=== PATIENT | female | born 1965 | race Caucasian/White ===

== ENCOUNTER 2023-03-08 18:28 | Emergency (ER) | payer OTHER, SELFPAY ==
[2023-03-08 18:29] VITALS: BP 148/87; PULSE 92; RESP 18; TEMP 37; O2SAT 100
--- NOTE | 2023-03-08 19:11 | PC.NURSE ---
Report received from ELICEO Cline. Assumed care of patient at this time.
--- NOTE | 2023-03-08 20:01 | ED.GENADULT ---
HPI - General Adult General Chief complaint: Skin/Abscess/Foreign Body Stated complaint: pressure ulcers Time Seen by Provider: 03/08/23 18:59 History of Present Illness HPI narrative: This is a 58-year-old female history of neuropathy/neurologic weakness of unknown etiology (PCP suspects MS) presenting for pressure ulcer evaluation. Patient's her question on wheelchair deflated and over last 2 weeks she has developed ulcers on her sacrum area. Was concerned might be infected [facility]. The patient is asymptomatic with no fever chills nausea vomiting diarrhea. Patient has a family member with COVID is requesting a COVID Related Data Allergies Allergy/AdvReac Type Severity Reaction Status Date / Time morphine Allergy Intermediate Hives / Verified 03/08/23 18:40 Red Face penicillin G Allergy Intermediate Itching Verified 03/08/23 18:40 PMFSH Past Medical History Medical History Neuropathy Exam Narrative: APPEARANCE: No apparent distress. Head: atraumatic. EYES: EOMI, NOSE: Atraumatic NECK: Trachea midline RESPIRATORY: No increased rate of breathing CTAB CARDIOVASCULAR: RRR, ABDOMINAL: Non-distended MUSCULOSKELETAl: No obvious deformities NEURO: Alert. Lower extremity contractures SKIN:: Stage 2 decubitus ulcerations over the sacral area and left glute without evidence of infection PSYCHIATRIC: Normal affect Course Vital Signs Vital signs: Vital Signs Temperature 98.6 F 03/08/23 18:29 Pulse Rate 92 03/08/23 18:29 Respiratory Rate 18 03/08/23 18:29 Blood Pressure 148/87 H 03/08/23 18:29 Pulse Oximetry 100 03/08/23 18:29 Oxygen Delivery Room Air 03/08/23 18:29 Temperature 98.6 F 03/08/23 18:29 Pulse Rate 92 03/08/23 18:29 Respiratory Rate 18 03/08/23 18:29 Blood Pressure 148/87 H 03/08/23 18:29 Pulse Oximetry 100 03/08/23 18:29 Oxygen Delivery Room Air 03/08/23 18:29 Medical Decision Making MDM Narrative Medical decision making narrative: -Course: This is a 58-year-old female presenting for a wound check. She has 2 stage II decubitus ulcers on her sacrum and left glute. No evidence of infection. Patient will be discharged with primary care follow-up. She will need to arrange home nursing for wound care. Patient requested a COVID test due to COVID exposure. This has been ordered and results are pending. She is asymptomatic and can follow-up the results on the portal. 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 and the daughter has been taking over -Shared decision making / Disposition: Discharged Vital Signs Vital Signs: Vital Signs Temperature 98.6 F 03/08/23 18:29 Pulse Rate 92 03/08/23 18:29 Respiratory Rate 18 03/08/23 18:29 Blood Pressure 148/87 H 03/08/23 18:29 Pulse Oximetry 100 03/08/23 18:29 Oxygen Delivery Room Air 03/08/23 18:29 Temperature 98.6 F 03/08/23 18:29 Pulse Rate 92 03/08/23 18:29 Respiratory Rate 18 03/08/23 18:29 Blood Pressure 148/87 H 03/08/23 18:29 Pulse Oximetry 100 03/08/23 18:29 Oxygen Delivery Room Air 03/08/23 18:29 Discharge Plan Discharge Clinical Impression: Decubitus ulcer of sacral region, stage 2, Decubitus skin ulcer Patient Disposition: Home, Self-Care Condition: Stable Instructions: Antibiotic Form, Acute Wounds (DC) Additional Instructions: Please contact her primary care physician to arrange wound care. Please return if you develop fevers chills or bleeding wounds are getting infected. You can also follow-up with our wound care clinic who can be reached at the number listed below: [facility] [phone] Your requested a COVID test. You were asymptomatic. Your results will
[2023-03-08 20:18] VITALS: BP 139/85; PULSE 92; RESP 20; O2SAT 99
[2023-03-08 20:57] LABS: Influenza A QL RT-PCR Negative (Negative); Influenza B QL RT-PCR Negative (Negative); RSV RNA, RT-PCR Negative (Negative); SARS-CoV-2 RNA PCR Positive (Negative)
== END 2023-03-08 21:22 | disposition home or self-care (01) ==
PROVIDERS: Emergency Provider Emergency Medicine; PCP Internal Medicine
DX: L89.152 Pressure ulcer of sacral region, stage 2 (principal); Z20.822 Contact with and (suspected) exposure to COVID-19
CPT/HCPCS: 87637; 99283

== ENCOUNTER 2023-09-17 21:03 | Inpatient (IN) | payer MEDICARE, SELFPAY ==
[2023-09-17] VITALS (11 sets, daily range): BP systolic 112–140; BP diastolic 74–91; PULSE 67–78; RESP 12–20; TEMP 36.9; O2SAT 97–100
--- NOTE | ~2023-09-17 | CT_ITS ---
EXAMINATION: CT pelvis w con DATE: 09/17/2023 22:07 INDICATION: Coccyx ulcer TECHNIQUE: Computed tomography (CT) of the pelvis was performed with 100 mL Omnipaque-350 intravenous contrast. Automated exposure control and iterative reconstruction technique were employed. The dose -length product was 432.29 mGy-cm. COMPARISON: None FINDINGS: There is a 2.5 x 2.1 x 2.3 cm peripherally enhancing gas and fluid containing abscess along the right posterior margin of the coccyx with draining sinus tract extending to the skin surface at the caudal aspect of the gluteal cleft. The abscess contacts the coccyx however there is no evident cortical er osion to more specifically suggest osteomyelitis. There are additional decubitus abscesses posterior to the bilateral ischial tuberosities which measur es 3.1 x 2.0 x 2.9 cm on the left also with suggestion of a potential draining sinus tract extending to the skin ulceration. On the right this measures 3.3 x 0.9 cm in maximal transaxial dimensions and extends at least 2.0 cm craniocaudally and beyond the inferior margin of the [id number] without an evident draining tract or skin ulceration although this could not be excluded more caudal to the fie ld-of-view. As at the coccyx there is no evident cortical erosion at either the left right ischial tu berosity to more specifically suggest osteomyelitis. Bladder is normal. The uterus is not identified and has likely been surgically resected. Visualized p ortion of the bowels are unremarkable. No free fluid or abscess within the pelvis. No pathologically enlarged pelvic or inguinal lymphadenopathy. 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 IMPRESSION: 1. Decubitus abscesses without evident associated osteomyelitis along the coccyx and bilateral ischia l tuberosities. Reviewed, dictated and finalized at location A. IMPRESSION: 1. Decubitus abscesses without evident associated osteomyelitis along the coccy x and bilateral ischial tuberosities.
--- NOTE | 2023-09-17 21:45 | ED.SKABFB ---
HPI - Skin/Abscess/Foreign Bdy General Chief complaint: Skin/Abscess/Foreign Body Stated complaint: WORSENING PRESSURE SORES ABOVE HER COCCYX X WEEKS. Time Seen by Provider: 09/17/23 21:34 History of Present Illness HPI narrative: 58-year-old female with history of neuropathy was wheelchair-bound secondary to neuropathy presents to the emergency department for concerned for an infected coccyx ulceration today. Patient states she was hospitalized at [facility] in June 2023 for a few weeks due to the coccyx ulcer becoming infected. She did not have to undergo debridement at that time. She states the wound healed well with IV antibiotics and she was discharged home. States today when her was changing her dressing he noticed a was black and necrotic and so they came to the ED for further evaluation. She denies any pain to this area, fever, nausea or vomiting. she has no other complaints. Related Data Allergies Allergy/AdvReac Type Severity Reaction Status Date / Time morphine Allergy Intermediate Hives / Verified 03/08/23 18:40 Red Face penicillin G Allergy Intermediate Itching Verified 03/08/23 18:40 Review of Systems Review of Systems: CONSTITUTIONAL: Denies fever, chills, or sweats. EYES: Denies visual changes, redness, or discharge. ENT: Denies rhinorrhea, congestion, sore throat, or otalgia. CARDIOVASCULAR: Denies chest pain, palpitations, or edema. RESPIRATORY: Denies cough or dyspnea. GASTROINTESTINAL: Denies abdominal pain, nausea, vomiting, or diarrhea. GENITOURINARY: Denies dysuria or hematuria. SKIN: See HPI MUSCULOSKELETAL: Denies back pain, joint pain, or myalgia. NEUROLOGIC: Denies headache, numbness, or weakness. PSYCHIATRIC: Denies anxiety or depression. PMFSH Past Medical History Medical History Neuropathy Exam Narrative: GENERAL: Well-appearing, well-nourished, and in no acute distress. HEAD: Normocephalic, atraumatic. EYES: PERRLA and EOMI. ENT: Nares clear, no rhinorrhea or epistaxis. Mucous membranes moist. NECK: Supple. CHEST: Clear to auscultation. No respiratory distress. HEART: Regular rate and rhythm. No murmur heard. Normal peripheral pulses. ABDOMEN: Soft, nontender, nondistended, normal active bowel sounds. EXTREMITIES: Normal range of motion. No edema. SKIN: 4 cm stage III pressure ulcer for with a necrotic base, foul-smelling, warmth and purulence. No crepitus, induration or fluctuation. Approximately 4 cm stage II ulceration to the left ischial tuberosity with warmth, erythema and induration. No areas of fluctuation. NEURO: No focal deficits. Alert and oriented x3 Course Vital Signs Vital signs: Vital Signs Temperature 98.4 F 09/17/23 21:13 Pulse Rate 67 09/17/23 21:13 Respiratory Rate 13 09/17/23 21:13 Blood Pressure 131/76 09/17/23 21:13 Pulse Oximetry 100 09/17/23 21:13 Oxygen Delivery Room Air 09/17/23 21:13 Temperature 98.4 F 09/17/23 21:13 Pulse Rate 78 09/17/23 23:45 Respiratory Rate 15 09/17/23 23:45 Blood Pressure 140/74 09/17/23 23:45 Pulse Oximetry 97 09/17/23 23:45 Oxygen Delivery Room Air 09/17/23 21:13 MDM - Skin/Abscess/Foreign Bdy MDM Narrative Medical decision making narrative: 58-year-old female presents to emergency department with concerns for an infective coccyx ulcer or. Triage vitals stable. Exam significant for Be above. Workup is significant for no leukocytosis, no bandemia. ESR mildly elevated to 21. CRP is normal at 0.8. Chemistries with a potassium of 3.3, otherwise unremarkable. CT pelvis with contrast shows decubitus abscesses without associated osteomyelitis along the coccyx and bilateral ischial tuberosities. Patient was started on cefepime, Flagyl and vancomycin. I discussed imaging and results with her. She is requesting to be transferred to [facility] for continuity of care given she was just seen for infected ulc
[2023-09-17 21:55] LABS: Basophils Percent Auto 0.4 % (0.2-1.2); Eosinophils Absolute Auto 0.1 K/mm3 (0-0.3); Hematocrit 35.9 % (37.0-47.0); Hemoglobin 11.6 g/dL (12.0-15.0); Immature Granulocyte Absolute 0.01 K/mm3 (0.00-0.031); Immature Granulocyte Percent A 0.2 % (0-0.5); Lymphocytes Absolute Auto 1.11 K/mm3 (0.9-3.2); Lymphocytes Percent Auto 21.5 % (18.3-44.2); Mean Corpuscular HGB Conc 32.3 g/dl (32-36); Mean Corpuscular Hemoglobin 29.1 pg (26-34); Mean Corpuscular Volume 90.2 fl (80-100); Mean Platelet Volume 9.3 fl (7.4-10.4); Monocytes Absolute Auto 0.4 K/mm3 (0.1-0.6); Monocytes Percent Auto 7.5 % (2.6-8.5); Neutrophils Absolute Auto 3.6 K/mm3 (1.3-6.7); Neutrophils Percent Auto 69.4 % (45.5-73.1); Platelet Count Result 164 k/mm3 (150-375); Red Blood Count 3.98 M/mm3 (4.2-5.4); Red Cell Distribution Width 13.1 % (11.5-14.5); White Blood Count 5.2 K/mm3 (4.5-10.0)
[2023-09-17 22:07] LABS: Alanine Aminotransferase 10 U/L (6-35); Albumin Level 3.9 g/dL (3.5-5.1); Alkaline Phosphatase 71 U/L (38-126); Anion Gap 6 mmol/L (4-12); Aspartate Amino Transferase 18 U/L (14-36); Bilirubin,Total 0.6 mg/dL (0.2-1.3); Blood Urea Nitrogen 9 mg/dL (7-17); CRP 0.8 mg/dL (<1.0); Calcium 8.8 mg/dL (8.4-10.2); Carbon Dioxide 29 mmol/L (22-30); Chloride 105 mmol/L (98-107); Estimated Glomerular Filt Rate > 60; Glucose 95 mg/dL (65-110); Potassium 3.3 mmol/L (3.4-5.0); Sodium 140 mmol/L (137-145)
[2023-09-17 22:11] LABS: Estimated Glomerular Filt Rate > 60
[2023-09-17 22:18] LABS: Erythrocyte Sedimentation Rate 21 mm/hr (0-20)
[2023-09-17] MEDS: CEFEPIME 2 GM/NS 50 ML 2 GM/50 ML BAG IVPB (23:14)
[2023-09-17] MEDS: metroNIDAZOLE 500 MG/ISO 100ML 500 MG/100 ML BAG 100 MG IVPB (23:29)
[2023-09-18] VITALS (13 sets, daily range): BP systolic 90–145; BP diastolic 54–77; PULSE 66–95; RESP 13–20; O2SAT 95–100
[2023-09-18] MEDS: VANCOMYCIN 1,500 MG/NS 500 ML 1,500 MG/500 ML BAG 250 MG IVPB (00:31)
--- NOTE | 2023-09-18 01:14 | PC.NURSE ---
[facility] with an estimated wait time for a medical bed of one week.
[2023-09-18] MEDS: metroNIDAZOLE 500 MG/ISO 100ML 500 MG/100 ML BAG 100 MG IVPB ×3 (06:15→22:31)
[2023-09-18 06:37] LABS: Estimated Glomerular Filt Rate > 60
[2023-09-18] MEDS: ACETAMINOPHEN 500 MG TABLET 1000 MG PO ×2 (07:33→17:00)
--- NOTE | 2023-09-18 09:40 | PC.NURSE ---
Spoke with Marquita from [facility] for an update. Still no bed at this time.
[2023-09-18] MEDS: CEFEPIME 2 GM/NS 50 ML 2 GM/50 ML BAG IVPB ×2 (09:56→21:06)
[2023-09-18] MEDS: VANCOMYCIN 1,250 MG/NS 250 ML 1,250 MG/250 ML BAG 166.67 MG IVPB (19:16)
[2023-09-18 22:55] LABS: Basophils Percent Auto 0.2 % (0.2-1.2); Eosinophils Absolute Auto 0.1 K/mm3 (0-0.3); Eosinophils Percent Auto 1.7 % (0-4.4); Hematocrit 32.4 % (37.0-47.0); Hemoglobin 10.5 g/dL (12.0-15.0); Immature Granulocyte Absolute 0.01 K/mm3 (0.00-0.031); Immature Granulocyte Percent A 0.2 % (0-0.5); Lymphocytes Absolute Auto 0.35 K/mm3 (0.9-3.2); Lymphocytes Percent Auto 7.3 % (18.3-44.2); Mean Corpuscular HGB Conc 32.4 g/dl (32-36); Mean Corpuscular Hemoglobin 29.1 pg (26-34); Mean Corpuscular Volume 89.8 fl (80-100); Mean Platelet Volume 9.3 fl (7.4-10.4); Monocytes Absolute Auto 0.3 K/mm3 (0.1-0.6); Monocytes Percent Auto 6.9 % (2.6-8.5); Neutrophils Percent Auto 83.7 % (45.5-73.1); Platelet Count Result 123 k/mm3 (150-375); Red Blood Count 3.61 M/mm3 (4.2-5.4); Red Cell Distribution Width 13.2 % (11.5-14.5); White Blood Count 4.8 K/mm3 (4.5-10.0)
[2023-09-18 23:04] LABS: Alanine Aminotransferase 10 U/L (6-35); Albumin Level 3.4 g/dL (3.5-5.1); Alkaline Phosphatase 70 U/L (38-126); Anion Gap 5 mmol/L (4-12); Aspartate Amino Transferase 19 U/L (14-36); Bilirubin,Total 0.9 mg/dL (0.2-1.3); Blood Urea Nitrogen 15 mg/dL (7-17); Calcium 8.5 mg/dL (8.4-10.2); Carbon Dioxide 28 mmol/L (22-30); Chloride 105 mmol/L (98-107); Estimated Glomerular Filt Rate > 60; Glucose 96 mg/dL (65-110); Potassium 3.4 mmol/L (3.4-5.0); Sodium 138 mmol/L (137-145)
[2023-09-18 23:22] LABS: Lactic Acid Reflex 0.8 mmol/L (0.7-2.0)
--- NOTE | 2023-09-18 23:42 | PC.NURSE ---
this rn assumed care of patient. this rn took patient report from ELICEO Wells.
[2023-09-19 02:00] VITALS: BP 105/95; PULSE 88; RESP 15; O2SAT 100
--- NOTE | 2023-09-19 02:05 | PC.NURSE ---
pt called out stating she was in pain. pt requesting tylenol. edp Jasmyne rousseau verbal ordered during downtime 1000mg of tylenol. this rn used closed loop communication to confirm 1000mg tyenlol po to patient. Jasmyne rousseau confirmed.
[2023-09-19] MEDS: ACETAMINOPHEN 500 MG TABLET 1000 MG (03:01)
[2023-09-19 05:47] VITALS: BP 103/62; PULSE 88; RESP 20; O2SAT 99
[2023-09-19 06:02] LABS: Estimated Glomerular Filt Rate > 60
[2023-09-19] MEDS: metroNIDAZOLE 500 MG/ISO 100ML 500 MG/100 ML BAG 100 MG IVPB ×3 (06:46→22:10)
[2023-09-19] MEDS: CEFEPIME 2 GM/NS 50 ML 2 GM/50 ML BAG IVPB ×2 (09:52→21:27)
[2023-09-19 10:39] VITALS: BP 109/67; PULSE 88; RESP 20; TEMP 36.5; O2SAT 96
--- NOTE | 2023-09-19 11:01 | PC.NURSE ---
Attempted to call wound care.
[2023-09-19 11:14] LABS: Vancomycin Trough 10.6 ug/mL (10.0-20.0)
--- NOTE | 2023-09-19 12:00 | PC.NURSE ---
Mago from Wound Care called to say after her outpatient apts she will come down to assist with wound care, approx after 1330.
[2023-09-19] MEDS: VANCOMYCIN 1,250 MG/NS 250 ML 1,250 MG/250 ML BAG 166.67 MG IVPB (12:04)
[2023-09-19 15:26] VITALS: BP 121/79; PULSE 66; RESP 14; O2SAT 100
[2023-09-19 21:26] VITALS: BP 110/71; PULSE 79; RESP 17; O2SAT 98
[2023-09-19] MEDS: SOD HYPOCHLORITE 1/4 STRENGTH 473 ML 1 APPLIC TOPICAL (21:28)
--- NOTE | 2023-09-19 22:05 | PC.NURSE ---
[facility] [employer]acher called for update on patient status. She states a bed is still not available but will call with an update.
[2023-09-19 23:39] LABS: MRSA (PCR) NOT DETECTED (NOT DETECTE)
[2023-09-19 23:58] VITALS: BMI 20.7
--- NOTE | 2023-09-20 00:06 | ADMGEN ---
This patient, Vee Romero, was admitted to 3 Med Surg Room 310-01. Patient/family oriented to hospital policies and general routines including ID bracelet, bed and alarms, visiting hours, pain management, procedures, bathroom and other care routines, personal items, smoking policy, room service/diet, and visiting hours. Information on how to activate the Rapid Response Team has been discussed. Patient/Family are encouraged to report perceived risks to care and to ask questions if they do not understand what they are told or what they should do.
[2023-09-20 00:10] VITALS: BP 125/72; PULSE 75; RESP 18; TEMP 37.2; O2SAT 99
[2023-09-20] MEDS: VANCOMYCIN 1,250 MG/NS 250 ML 1,250 MG/250 ML BAG 166.67 MG IVPB (00:18)
[2023-09-20 04:45] VITALS: BP 109/48; PULSE 72; RESP 16; TEMP 36.5; O2SAT 98
--- NOTE | 2023-09-20 05:08 | PM.IMHP ---
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 The patient stated that she had never had a pressure wound in the 5 years that she has been wheelchair-bound until her cushion on her wheelchair malfunctioned and it took her a couple of months to get a new cushion. Since that time she has been fighting to heal her coccyx ulcers. This is made more difficult because patient is chronically incontinent of urine. She reports that she does not have any sensation in does not know when she is going to void. She thought she was doing pretty well with the ulcers until June when she developed cellulitis of a superficial skin lesion.. She was admitted to [place] in treated for cellulitis. She did not require any debridement or surgical intervention. Then on the her was changing the dressing on her coccyx ulcer when he noticed that it was black and necrotic so he brought her to the ER for further evaluation. She has generalized decreased sensation and denies any pain with the areas of ulceration. She has not had any fevers, chills, nausea or vomiting. She reports that she has had chronic decreased appetite since her diagnosis of demyelinating polyneuropathy a but her weight has been stable for the most part recently. She reports that she used to be obese and had obstructive sleep apnea but her sleep apnea resolved with weight loss. She reports that otherwise she is in good health. On the patient has CT of the pelvis with contrast which demonstrated sacral decubitus ulcer and decubitus abscesses overlying bilateral ischial tuberosities. The abscess on the left has a drainage sinus extending to the skin in measures 3.1 x 2 x 2.9. The 1 on the right measures 3.3 x 0.9 but does not have a sinus tract. Patient had MRSA screen performed which was negative. Wound culture performed in the ER demonstrated mixed organisms suggesting questionable significance of superficial wound culture with Gram-negative bacilli and many Gram-positive cocci. Of note there was no growth of Staph aureus, beta-hemolytic streptococci or Pseudomonas aeruginosa. The patient was started on cefepime Flagyl and vancomycin. Patient did have repeat labs on the that again did not demonstrate any evidence of leukocytosis. Review of Systems Review of Systems: 12 systems were reviewed with pertinent positives and negatives per HPI. Except as documented in the HPI, all other systems were reviewed and are negative. [facility] Past Medical History Medical History (Updated 09/20/23 @ 07:44 by Celeste Mcmahon DO) Chronic inflammatory demyelinating polyneuropathy Decubitus ulcer of coccygeal region Obstructive sleep apnea No longer on CPAP after weight loss Surgical History Surgical History (Updated 09/20/23 @ 07:44 by Celeste Mcmahon DO) History of bilateral knee replacement History of total abdominal hysterectomy and bilateral salpingo-oophorectomy Due to assist that they were concerned may have been causing the patient's autoimmune disorder Social History Social History (Updated 09/20/23 @ 07:51 by Celeste Mcmahon DO) Social History: The patient lives with her they have been since 1995. They raised a son and a daughter. 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 She is a lifelong nonsmoker. She does not drink alcohol or use illicit substances. She is dependent on wheelchair for mobilization. Code status: Full code (she would not want to be on long-term ventilation, tracheostomy or feeding tube) Surrogate decision maker: Smoking status: Never s
[2023-09-20 05:46] LABS: Estimated CRCL calculation 113 ml/min; Estimated Glomerular Filt Rate > 60
[2023-09-20 05:59] LABS: Basophils Percent Auto 0.5 % (0.2-1.2); Eosinophils Absolute Auto 0.1 K/mm3 (0-0.3); Eosinophils Percent Auto 3.5 % (0-4.4); Hematocrit 30.9 % (37.0-47.0); Immature Granulocyte Absolute 0.01 K/mm3 (0.00-0.031); Immature Granulocyte Percent A 0.3 % (0-0.5); Lymphocytes Absolute Auto 0.82 K/mm3 (0.9-3.2); Lymphocytes Percent Auto 22.3 % (18.3-44.2); Mean Corpuscular HGB Conc 32.4 g/dl (32-36); Mean Corpuscular Hemoglobin 28.9 pg (26-34); Mean Corpuscular Volume 89.3 fl (80-100); Mean Platelet Volume 9.8 fl (7.4-10.4); Monocytes Absolute Auto 0.6 K/mm3 (0.1-0.6); Neutrophils Absolute Auto 2.1 K/mm3 (1.3-6.7); Neutrophils Percent Auto 58.4 % (45.5-73.1); Platelet Count Result 125 k/mm3 (150-375); Red Blood Count 3.46 M/mm3 (4.2-5.4); Red Cell Distribution Width 13.2 % (11.5-14.5); White Blood Count 3.7 K/mm3 (4.5-10.0)
[2023-09-20] MEDS: metroNIDAZOLE 500 MG/ISO 100ML 500 MG/100 ML BAG 100 MG IVPB ×3 (06:02→20:27)
[2023-09-20] MEDS: DULoxetine HCL 30 MG CAPSULE.DR PO (08:03)
[2023-09-20] MEDS: ENOXAPARIN 40 MG/0.4 ML SYRINGE SUB-Q (08:03)
[2023-09-20] MEDS: MULTIVITAMINS THERAPEUTIC TAB (*BKC) 1 TABLET PO (08:03)
[2023-09-20] MEDS: CEFEPIME 2 GM/NS 50 ML 2 GM/50 ML BAG IVPB ×2 (08:03→20:26)
[2023-09-20 08:41] VITALS: O2SAT 99
[2023-09-20] MEDS: SOD HYPOCHLORITE 1/4 STRENGTH 473 ML 1 APPLIC TOPICAL ×2 (12:15→20:27)
[2023-09-20 14:00] VITALS: BP 106/72; PULSE 70; RESP 18; TEMP 37.3; O2SAT 98
--- NOTE | 2023-09-20 14:10 | PM.IMPN ---
Progress Note: A&P Assessment and Plan (1) Abscess: Code(s): L02.91 - Cutaneous abscess, unspecified Status: Acute Assessment and Plan: The patient has decubitus ulcers at of the coccyx and bilateral ischial tuberosities with bilateral ischial tuberosity demonstrating underlying abscess. Patient was started on empiric antibiotic therapy with cefepime Flagyl and vancomycin. MRSA screen is negative and her wound culture was negative for any staph organisms. Discontinue vancomycin but continue cefepime and Flagyl. Wound care consulted. Patient is awaiting bed placement at [place] for evaluation for debridement/I&D and continuity of care as the patient is established at that facility. Monitor CBC, BMP and monitor for signs of infection. (2) Decubitus ulcer of coccygeal region: Qualifiers: Pressure injury stage: unstageable Qualified Code(s): L89.150 - Pressure ulcer of sacral region, unstageable Code(s): L89.159 - Pressure ulcer of sacral region, unspecified stage Status: Acute Assessment and Plan: See #1 (3) Decubitus ulcer of ankle, stage 3: Qualifiers: Laterality: unspecified laterality Qualified Code(s): L89.503 - Pressure ulcer of unspecified ankle, stage 3 Code(s): L89.503 - Pressure ulcer of unspecified ankle, stage 3 Status: Acute Assessment and Plan: See #1 Wound care consulted. (4) Decubitus ulcer of ankle, stage 2: Qualifiers: Laterality: left Qualified Code(s): L89.522 - Pressure ulcer of left ankle, stage 2 Code(s): L89.502 - Pressure ulcer of unspecified ankle, stage 2 Status: Acute Assessment and Plan: See #1 Wound care consulted. (5) Chronic inflammatory demyelinating polyneuropathy: Code(s): G61.81 - Chronic inflammatory demyelinating polyneuritis Status: Acute Assessment and Plan: Will place Milton catheter is patient is completely incontinent of urine and was in saturated bedding at the time of my evaluation. Patient has chronic bowel and bladder incontinence due to her polyneuropathy. Subjective Date/time seen: 09/20/23 14:10 Interval history: Patient doing well. Waiting for transfer at this time. She does not complain of any pain. Exam Narrative: GENERAL: Comfortable, no acute distress HENMT: moist mucous membranes EYES: EOM intact b/l RESPIRATORY: clear to auscultation, no increased respiratory effort CARDIO: Regular rate and rhythm GI: soft, nontender, bowel sounds present SKIN/EXTREMITIES: Decubitus ulcer on the coccyx and bilateral ischial tuberosities, loss of muscle mass in the legs. NEURO: PROM intact, answers questions appropriately, A&O x4 Objective Data Vital Signs Vital Signs: Vital Signs - 24 hr 09/19/23 15:26 09/19/23 21:26 09/20/23 00:10 Temperature 99 F Pulse Rate 66 79 75 Respiratory Rate 14 17 18 Blood Pressure 121/79 110/71 125/72 Pulse Oximetry 100 98 99 Oxygen Delivery 09/20/23 04:45 09/20/23 08:41 09/20/23 08:00 Temperature 97.7 F Pulse Rate 72 Respiratory Rate 16 Blood Pressure 109/48 L Pulse Oximetry 98 99 Oxygen Delivery Room Air Room Air 09/20/23 14:00 Temperature 99.1 F Pulse Rate 70 Respiratory Rate 18 Blood Pressure 106/72 Pulse Oximetry 98 Oxygen Delivery Intake/Output Intake/Output: Intake & Output 09/17/23 09/18/23 09/19/23 09/20/23 23:59 23:59 23:59 23:59 Intake Total 50 1150 750 880 Balance 50 1150 750 880 Meds/Results Medications: Active Medications Generic Name Dose Route Start Last Admin Trade Name Freq PRN Reason Stop Dose Admin Duloxetine HCl 30 mg 09/20/23 09:00 09/20/23 08:03 Duloxetine Hcl 30 Mg Capsule.Dr PO 30 mg DAILY MESERET Administration Enoxaparin Sodium 40 mg 09/20/23 09:00 09/20/23 08:03 Enoxaparin 40 Mg/0.4 Ml Syringe SUB-Q 40 mg DAILY MESERET Administration Cefepime HCl 2
[2023-09-20 20:00] VITALS: PULSE 74; RESP 18; O2SAT 97
[2023-09-20 21:29] VITALS: BP 99/58; PULSE 71; RESP 16; TEMP 36.1; O2SAT 99
[2023-09-21] MEDS: metroNIDAZOLE 500 MG/ISO 100ML 500 MG/100 ML BAG 100 MG IVPB ×3 (05:04→21:33)
[2023-09-21 05:55] VITALS: BP 117/71; PULSE 75; RESP 16; TEMP 36.3; O2SAT 99
[2023-09-21 06:18] LABS: Hematocrit 34.1 % (37.0-47.0); Mean Corpuscular HGB Conc 32.3 g/dl (32-36); Mean Platelet Volume 9.3 fl (7.4-10.4); Platelet Count Result 143 k/mm3 (150-375); Red Blood Count 3.79 M/mm3 (4.2-5.4); Red Cell Distribution Width 13.2 % (11.5-14.5); White Blood Count 3.4 K/mm3 (4.5-10.0)
[2023-09-21 06:30] LABS: Anion Gap 7 mmol/L (4-12); Blood Urea Nitrogen 7 mg/dL (7-17); Calcium 8.7 mg/dL (8.4-10.2); Carbon Dioxide 25 mmol/L (22-30); Chloride 110 mmol/L (98-107); Estimated CRCL calculation 113 ml/min; Estimated Glomerular Filt Rate > 60; Glucose 84 mg/dL (65-110); Potassium 3.2 mmol/L (3.4-5.0); Sodium 142 mmol/L (137-145)
[2023-09-21] MEDS: MULTIVITAMINS THERAPEUTIC TAB (*BKC) 1 TABLET PO (08:42)
[2023-09-21] MEDS: CEFEPIME 2 GM/NS 50 ML 2 GM/50 ML BAG IVPB ×2 (08:42→20:05)
[2023-09-21] MEDS: DULoxetine HCL 30 MG CAPSULE.DR PO (08:42)
[2023-09-21] MEDS: POTASSIUM CHLORIDE 20 MEQ ER TABLET 40 MEQ PO (08:42)
[2023-09-21] MEDS: ENOXAPARIN 40 MG/0.4 ML SYRINGE SUB-Q (08:43)
[2023-09-21] MEDS: SOD HYPOCHLORITE 1/4 STRENGTH 473 ML 1 APPLIC TOPICAL ×2 (08:43→20:10)
[2023-09-21 13:58] VITALS: BP 106/68; PULSE 86; RESP 18; TEMP 37.1; O2SAT 98
--- NOTE | 2023-09-21 14:36 | PM.IMPN ---
Progress Note: A&P Assessment and Plan (1) Abscess: Code(s): L02.91 - Cutaneous abscess, unspecified Status: Acute Assessment and Plan: The patient has decubitus ulcers at of the coccyx and bilateral ischial tuberosities with bilateral ischial tuberosity demonstrating underlying abscess. Patient was started on empiric antibiotic therapy with cefepime Flagyl and vancomycin. MRSA screen is negative and her wound culture was negative for any staph organisms. Discontinue vancomycin but continue cefepime and Flagyl. Wound care consulted. Patient is awaiting bed placement at [place] for evaluation for debridement/I&D and continuity of care as the patient is established at that facility. Monitor CBC, BMP and monitor for signs of infection. (2) Decubitus ulcer of coccygeal region: Qualifiers: Pressure injury stage: unstageable Qualified Code(s): L89.150 - Pressure ulcer of sacral region, unstageable Code(s): L89.159 - Pressure ulcer of sacral region, unspecified stage Status: Acute Assessment and Plan: See #1 (3) Chronic inflammatory demyelinating polyneuropathy: Code(s): G61.81 - Chronic inflammatory demyelinating polyneuritis Status: Acute Assessment and Plan: Will place Milton catheter is patient is completely incontinent of urine and was in saturated bedding at the time of my evaluation. Patient has chronic bowel and bladder incontinence due to her polyneuropathy. Subjective Date/time seen: 09/21/23 14:36 Interval history: Patient with no complaints at this time waiting on transfer to [facility]. Exam Narrative: GENERAL: Comfortable, no acute distress HENMT: moist mucous membranes EYES: EOM intact b/l RESPIRATORY: clear to auscultation, no increased respiratory effort CARDIO: Regular rate and rhythm GI: soft, nontender, bowel sounds present SKIN/EXTREMITIES: Decubitus ulcer on the coccyx and bilateral ischial tuberosities, loss of muscle mass in the legs. NEURO: PROM intact, answers questions appropriately, A&O x4 Objective Data Vital Signs Vital Signs: Vital Signs - 24 hr 09/20/23 21:29 09/20/23 20:00 09/21/23 05:55 Temperature 97 F L 97.4 F L Pulse Rate 71 74 75 Respiratory Rate 16 18 16 Blood Pressure 99/58 L 117/71 Pulse Oximetry 99 97 99 Oxygen Delivery Room Air 09/21/23 08:40 09/21/23 13:58 Temperature 98.7 F Pulse Rate 86 Respiratory Rate 18 Blood Pressure 106/68 Pulse Oximetry 98 Oxygen Delivery Room Air Intake/Output Intake/Output: Intake & Output 09/18/23 09/19/23 09/20/23 09/21/23 23:59 23:59 23:59 23:59 Intake Total 2769 543 8741 1024 Output Total 200 200 Balance 2879 301 9605 824 Meds/Results Medications: Active Medications Generic Name Dose Route Start Last Admin Trade Name Zaki PRN Reason Stop Dose Admin Duloxetine HCl 30 mg 09/20/23 09:00 09/21/23 08:42 Duloxetine Hcl 30 Mg Capsule.Dr PO 30 mg DAILY MESERET Administration Enoxaparin Sodium 40 mg 09/20/23 09:00 09/21/23 08:43 Enoxaparin 40 Mg/0.4 Ml Syringe SUB-Q 40 mg DAILY MESERET Administration Cefepime HCl 2 gm in 50 mls @ 100 mls/hr 09/18/23 09:00 09/21/23 08:42 Maxipime 2 Gm/Ns 50 Ml IVPB 100 mls/hr Q12HR MESERET Administration Metronidazole 500 mg in 100 mls @ 100 mls/hr 09/18/23 06:00 09/21/23 14:10 Flagyl 500 Mg/Iso Soln 100 Ml IVPB 100 mls/hr Q8HR MESERET Administration Multivitamins Therapeutic 1 tablet 09/20/23 09:00 09/21/23 08:42 Multivitamins Therapeutic Tab (*Bkc) PO 1 tablet DAILY MESERET Administration Sodium Hypochlorite 1 applic 09/19/23 21:00 09/21/23 08:43 Sod Hypochlorite 1/4 Strength 473 Ml TOPICAL 1 applic Q12HR MESERET Administration Radiology Results: ITS Impressions Pelvis CT 09/17/23 22:23 IMPRESSION: 1. Decubitus abscesses without evident associated osteomyelitis along the coccyx and bilateral ischial tuberositie
[2023-09-21 20:31] VITALS: BP 91/62; PULSE 78; RESP 16; TEMP 36.4; O2SAT 96
[2023-09-22] MEDS: metroNIDAZOLE 500 MG/ISO 100ML 500 MG/100 ML BAG 100 MG IVPB (05:06)
[2023-09-22 05:38] VITALS: BP 118/61; PULSE 84; RESP 18; TEMP 36.7; O2SAT 96
[2023-09-22 06:04] LABS: Hematocrit 32.2 % (37.0-47.0); Hemoglobin 10.5 g/dL (12.0-15.0); Mean Corpuscular HGB Conc 32.6 g/dl (32-36); Mean Corpuscular Hemoglobin 29.2 pg (26-34); Mean Corpuscular Volume 89.4 fl (80-100); Mean Platelet Volume 9.3 fl (7.4-10.4); Platelet Count Result 146 k/mm3 (150-375); Red Cell Distribution Width 13.5 % (11.5-14.5)
[2023-09-22 06:28] LABS: Anion Gap 4 mmol/L (4-12); Blood Urea Nitrogen 8 mg/dL (7-17); Calcium 8.7 mg/dL (8.4-10.2); Carbon Dioxide 27 mmol/L (22-30); Chloride 108 mmol/L (98-107); Estimated CRCL calculation 113 ml/min; Estimated Glomerular Filt Rate > 60; Glucose 78 mg/dL (65-110); Potassium 3.7 mmol/L (3.4-5.0); Sodium 139 mmol/L (137-145)
[2023-09-22] MEDS: CEFEPIME 2 GM/NS 50 ML 2 GM/50 ML BAG IVPB ×2 (08:16→20:15)
[2023-09-22] MEDS: MULTIVITAMINS THERAPEUTIC TAB (*BKC) 1 TABLET PO (08:18)
[2023-09-22] MEDS: DULoxetine HCL 30 MG CAPSULE.DR PO (08:18)
[2023-09-22] MEDS: ENOXAPARIN 40 MG/0.4 ML SYRINGE SUB-Q (08:18)
--- NOTE | 2023-09-22 09:14 | P.PNIM_ITS ---
Progress Note: A&P Assessment and Plan (1) Abscess: Code(s): L02.91 - Cutaneous abscess, unspecified Status: Acute (2) Decubitus ulcer of coccygeal region: Qualifiers: Pressure injury stage: unstageable Qualified Code(s): L89.150 - Pressure ulcer of sacral region, unstageable Code(s): L89.159 - Pressure ulcer of sacral region, unspecified stage Status: Acute (3) Chronic inflammatory demyelinating polyneuropathy: Code(s): G61.81 - Chronic inflammatory demyelinating polyneuritis Status: Acute Plan Decubitus ulcer of coccygeal region: * The patient has decubitus ulcers at of the coccyx and bilateral ischial tuberosities with bilateral ischial tuberosity demonstrating underlying abscess. * Patient was started on empiric antibiotic therapy with cefepime Flagyl and vancomycin. * MRSA screen is negative and her wound culture was negative for any staph organisms. * Discontinue vancomycin but continue cefepime and Flagyl. * Wound care consulted. * Patient is awaiting bed placement at [facility] for evaluation for debridement/I&D and continuity of care as the patient is established at that facility. * Monitor CBC, BMP and monitor for signs of infection. * Q2hr turn Chronic inflammatory demyelinating polyneuropathy: * Will place Milton catheter is patient is completely incontinent of urine and was in saturated bedding at the time of my evaluation. * Patient has chronic bowel and bladder incontinence due to her polyneuropathy Code status: Full code per patient DVT prophylaxis: Lovenox Stress ulcer prophylaxis: Protonix 40 daily PT/OT notes: Disposition: Patient continues admission for decubitus wound needing surgical I&D plan is for transfer to [facility] for continuity of care. Time Spent With Patient Time with patient: 15 - 25 minutes Subjective Date/time seen: 09/22/23 09:14 Interval history: Admission: Medical record 58-year-old female with a medical history of chronic inflammatory demyelinating polyneuropathy resulting in wheelchair dependence for mobility presented to the ER due to concern over infected coccyx ulcer. The patient stated that she had never had a pressure wound in the 5 years that she has been wheelchair-bound until her cushion on her wheelchair malfunctioned and it took her a couple of months to get a new cushion. Since that time she has been fighting to heal her coccyx ulcers. This is made more difficult because patient is chronically incontinent of urine. She reports that she does not have any sensation in does not know when she is going to void. She thought she was doing pretty well with the ulcers until June when she developed cellulitis of a superficial skin lesion.. She was admitted to [facility] in treated for cellulitis. She did not require any debridement or surgical intervention. Then on the her was changing the dressing on her coccyx ulcer when he noticed that it was black and necrotic so he brought her to the ER for further evaluation. She has generalized decreased sensation and denies any pain with the areas of u lceration. She has not had any fevers, chills, nausea or vomiting. She reports that she has had chronic decreased appetite since her diagnosis of demyelinating polyneuropathy a but her weight has been stable for the most part recently. She reports that she used to be obese and had obstructive sleep apnea but her sleep apnea resolved with weight loss. She reports that otherwise she is in good h ealth. On the patient has CT of the pelvis with contrast
[2023-09-22] MEDS: metroNIDAZOLE 500 MG TABLET PO ×2 (12:48→20:20)
[2023-09-22] MEDS: SOD HYPOCHLORITE 1/4 STRENGTH 473 ML 1 APPLIC TOPICAL ×2 (12:50→20:18)
[2023-09-22 12:52] VITALS: BMI 20.7
[2023-09-22 14:00] VITALS: BP 114/70; PULSE 76; RESP 16; TEMP 36.9; O2SAT 100
[2023-09-22 20:18] VITALS: BP 97/64; PULSE 91; RESP 16; TEMP 36.6; O2SAT 99
[2023-09-23] MEDS: metroNIDAZOLE 500 MG TABLET PO ×3 (05:12→20:54)
[2023-09-23 05:28] VITALS: BP 110/67; PULSE 86; RESP 16; TEMP 36.1; O2SAT 98
[2023-09-23 05:44] LABS: Hematocrit 33.9 % (37.0-47.0); Hemoglobin 10.9 g/dL (12.0-15.0); Mean Corpuscular HGB Conc 32.2 g/dl (32-36); Mean Corpuscular Hemoglobin 29.1 pg (26-34); Mean Corpuscular Volume 90.6 fl (80-100); Mean Platelet Volume 9.4 fl (7.4-10.4); Platelet Count Result 152 k/mm3 (150-375); Red Blood Count 3.74 M/mm3 (4.2-5.4); Red Cell Distribution Width 13.4 % (11.5-14.5); White Blood Count 4.2 K/mm3 (4.5-10.0)
[2023-09-23 05:51] LABS: Alanine Aminotransferase 13 U/L (6-35); Albumin Level 3.3 g/dL (3.5-5.1); Alkaline Phosphatase 64 U/L (38-126); Anion Gap 5 mmol/L (4-12); Aspartate Amino Transferase 28 U/L (14-36); Bilirubin,Total 0.4 mg/dL (0.2-1.3); Blood Urea Nitrogen 10 mg/dL (7-17); Calcium 8.6 mg/dL (8.4-10.2); Carbon Dioxide 27 mmol/L (22-30); Chloride 108 mmol/L (98-107); Estimated CRCL calculation 113 ml/min; Estimated Glomerular Filt Rate > 60; Glucose 84 mg/dL (65-110); Potassium 3.6 mmol/L (3.4-5.0); Sodium 140 mmol/L (137-145)
[2023-09-23] MEDS: ENOXAPARIN 40 MG/0.4 ML SYRINGE SUB-Q (08:44)
[2023-09-23] MEDS: DULoxetine HCL 30 MG CAPSULE.DR PO (08:44)
[2023-09-23] MEDS: CEFEPIME 2 GM/NS 50 ML 2 GM/50 ML BAG IVPB ×2 (08:44→20:53)
[2023-09-23] MEDS: MULTIVITAMINS THERAPEUTIC TAB (*BKC) 1 TABLET PO (08:44)
[2023-09-23] MEDS: SOD HYPOCHLORITE 1/4 STRENGTH 473 ML 1 APPLIC TOPICAL ×2 (08:51→20:54)
--- NOTE | 2023-09-23 08:56 | PM.IMPN ---
Progress Note: A&P Assessment and Plan (1) Abscess: Code(s): L02.91 - Cutaneous abscess, unspecified Status: Acute (2) Decubitus ulcer of coccygeal region: Qualifiers: Pressure injury stage: unstageable Qualified Code(s): L89.150 - Pressure ulcer of sacral region, unstageable Code(s): L89.159 - Pressure ulcer of sacral region, unspecified stage Status: Acute (3) Chronic inflammatory demyelinating polyneuropathy: Code(s): G61.81 - Chronic inflammatory demyelinating polyneuritis Status: Acute Plan Decubitus ulcer of coccygeal region: The patient has decubitus ulcers at of the coccyx and bilateral ischial tuberosities with bilateral ischial tuberosity demonstrating underlying abscess. Patient was started on empiric antibiotic therapy with cefepime Flagyl and vancomycin. MRSA screen is negative and her wound culture was negative for any staph organisms. Discontinue vancomycin but continue cefepime and Flagyl. Wound care consulted. Patient is awaiting bed placement at [facility] for evaluation for debridement/I&D and continuity of care as the patient is established at that facility. Monitor CBC, BMP and monitor for signs of infection. Q2hr turn Chronic inflammatory demyelinating polyneuropathy: Will place Milton catheter is patient is completely incontinent of urine and was in saturated bedding at the time of my evaluation. Patient has chronic bowel and bladder incontinence due to her polyneuropathy Code status: Full code per patient DVT prophylaxis: Lovenox Stress ulcer prophylaxis: Protonix 40 daily PT/OT notes: Disposition: Patient continues admission for decubitus wound needing surgical I&D plan is for transfer to [facility] for continuity of care. Time Spent With Patient Time with patient: 15 - 25 minutes Subjective Date/time seen: 09/23/23 08:56 Interval history: Admission: Medical record 58-year-old female with a medical history of chronic inflammatory demyelinating polyneuropathy resulting in wheelchair dependence for mobility presented to the ER due to concern over infected coccyx ulcer. The patient stated that she had never had a pressure wound in the 5 years that she has been wheelchair-bound until her cushion on her wheelchair malfunctioned and it took her a couple of months to get a new cushion. Since that time she has been fighting to heal her coccyx ulcers. This is made more difficult because patient is chronically incontinent of urine. She reports that she does not have any sensation in does not know when she is going to void. She thought she was doing pretty well with the ulcers until June when she developed cellulitis of a superficial skin lesion.. She was admitted to [facility] in treated for cellulitis. She did not require any debridement or surgical intervention. Then on the her was changing the dressing on her coccyx ulcer when he noticed that it was black and necrotic so he brought her to the ER for further evaluation. She has generalized decreased sensation and denies any pain with the areas of ulceration. She has not had any fevers, chills, nausea or vomiting. She reports that she has had chronic decreased appetite since her diagnosis of demyelinating polyneuropathy a but her weight has been stable for the most part recently. She reports that she used to be obese and had obstructive sleep apnea but her sleep apnea resolved with weight loss. She reports that otherwise she is in good health. On the patient has CT of the pelvis with contrast which demonstrated sacral decubitus ulcer and decubitus abscesses overlying bilateral ischial tuberosities. The abscess on the left has a drainage sinus extending to the skin in measures 3.1 x 2 x 2.9. The 1 on the right measures 3.3 x 0.9 but does not have a sinus tract. Patient had MRSA screen performed which was negative. Wound culture performed in the ER basilia
[2023-09-23 14:00] VITALS: BP 96/69; PULSE 87; RESP 14; TEMP 37.1; O2SAT 99
[2023-09-23 21:24] VITALS: BP 100/57; PULSE 76; RESP 13; TEMP 36.5; O2SAT 100
[2023-09-24] MEDS: metroNIDAZOLE 500 MG TABLET PO ×2 (05:04→13:47)
[2023-09-24 05:23] LABS: Hemoglobin 10.7 g/dL (12.0-15.0); Mean Corpuscular HGB Conc 31.5 g/dl (32-36); Mean Corpuscular Hemoglobin 28.8 pg (26-34); Mean Corpuscular Volume 91.4 fl (80-100); Mean Platelet Volume 9.9 fl (7.4-10.4); Platelet Count Result 178 k/mm3 (150-375); Red Blood Count 3.72 M/mm3 (4.2-5.4); Red Cell Distribution Width 13.6 % (11.5-14.5)
[2023-09-24 05:41] LABS: Alanine Aminotransferase 15 U/L (6-35); Albumin Level 3.2 g/dL (3.5-5.1); Alkaline Phosphatase 63 U/L (38-126); Anion Gap 3 mmol/L (4-12); Aspartate Amino Transferase 31 U/L (14-36); Bilirubin,Total 0.3 mg/dL (0.2-1.3); Blood Urea Nitrogen 11 mg/dL (7-17); Calcium 8.7 mg/dL (8.4-10.2); Carbon Dioxide 29 mmol/L (22-30); Chloride 106 mmol/L (98-107); Estimated CRCL calculation 113 ml/min; Estimated Glomerular Filt Rate > 60; Glucose 85 mg/dL (65-110); Potassium 3.7 mmol/L (3.4-5.0); Sodium 138 mmol/L (137-145)
[2023-09-24 05:54] VITALS: BP 112/68; PULSE 83; RESP 13; TEMP 36.2; O2SAT 100
--- NOTE | 2023-09-24 07:55 | PM.IMPN ---
Progress Note: A&P Assessment and Plan (1) Abscess: Code(s): L02.91 - Cutaneous abscess, unspecified Status: Acute (2) Decubitus ulcer of coccygeal region: Qualifiers: Pressure injury stage: unstageable Qualified Code(s): L89.150 - Pressure ulcer of sacral region, unstageable Code(s): L89.159 - Pressure ulcer of sacral region, unspecified stage Status: Acute (3) Chronic inflammatory demyelinating polyneuropathy: Code(s): G61.81 - Chronic inflammatory demyelinating polyneuritis Status: Acute Plan Decubitus ulcer of coccygeal region: The patient has decubitus ulcers at of the coccyx and bilateral ischial tuberosities with bilateral ischial tuberosity demonstrating underlying abscess. Patient was started on empiric antibiotic therapy with cefepime Flagyl and vancomycin. MRSA screen is negative and her wound culture was negative for any staph organisms. Discontinue vancomycin but continue cefepime and Flagyl. Wound care consulted. Patient is awaiting bed placement at [facility] for evaluation for debridement/I&D and continuity of care as the patient is established at that facility. Monitor CBC, BMP and monitor for signs of infection. Q2hr turn 09/23 General surgery consulted Chronic inflammatory demyelinating polyneuropathy: Will place Milton catheter is patient is completely incontinent of urine and was in saturated bedding at the time of my evaluation. Patient has chronic bowel and bladder incontinence due to her polyneuropathy Code status: Full code per patient DVT prophylaxis: Lovenox Stress ulcer prophylaxis: Protonix 40 daily PT/OT notes: Disposition: Patient continues admission for decubitus wound long wait for bed at [facility] will have general surgery evaluate for possible debridement if no need for surgery and discharged home follow-up in the Wound Clinic. Time Spent With Patient Time with patient: 15 - 25 minutes Subjective Date/time seen: 09/24/23 07:55 Interval history: Admission: Medical record 58-year-old female with a medical history of chronic inflammatory demyelinating polyneuropathy resulting in wheelchair dependence for mobility presented to the ER due to concern over infected coccyx ulcer. The patient stated that she had never had a pressure wound in the 5 years that she has been wheelchair-bound until her cushion on her wheelchair malfunctioned and it took her a couple of months to get a new cushion. Since that time she has been fighting to heal her coccyx ulcers. This is made more difficult because patient is chronically incontinent of urine. She reports that she does not have any sensation in does not know when she is going to void. She thought she was doing pretty well with the ulcers until June when she developed cellulitis of a superficial skin lesion.. She was admitted to [facility] in treated for cellulitis. She did not require any debridement or surgical intervention. Then on the her was changing the dressing on her coccyx ulcer when he noticed that it was black and necrotic so he brought her to the ER for further evaluation. She has generalized decreased sensation and denies any pain with the areas of ulceration. She has not had any fevers, chills, nausea or vomiting. She reports that she has had chronic decreased appetite since her diagnosis of demyelinating polyneuropathy a but her weight has been stable for the most part recently. She reports that she used to be obese and had obstructive sleep apnea but her sleep apnea resolved with weight loss. She reports that otherwise she is in good health. On the patient has CT of the pelvis with contrast which demonstrated sacral decubitus ulcer and decubitus abscesses overlying bilateral ischial tuberosities. The abscess on the left has a drainage sinus extending to the skin in measures 3.1 x 2 x 2.9. The 1 on the right measures 3.3 x 0.9 but does n
[2023-09-24] MEDS: CEFEPIME 2 GM/NS 50 ML 2 GM/50 ML BAG IVPB (09:42)
[2023-09-24] MEDS: DULoxetine HCL 30 MG CAPSULE.DR PO (09:43)
[2023-09-24] MEDS: ENOXAPARIN 40 MG/0.4 ML SYRINGE SUB-Q (09:43)
[2023-09-24] MEDS: MULTIVITAMINS THERAPEUTIC TAB (*BKC) 1 TABLET PO (09:43)
--- NOTE | 2023-09-24 12:55 | PM.CNGS ---
Assessment and Plan Assessment and plan (1) Decubitus ulcer of coccygeal region: Qualifiers: Pressure injury stage: unstageable Qualified Code(s): L89.150 - Pressure ulcer of sacral region, unstageable Code(s): L89.159 - Pressure ulcer of sacral region, unspecified stage Status: Acute Assessment and Plan: The patient has a chronic unstageable sacral decubitus ulcer. There is a small area of firm necrotic tissue, but no evidence of active infection on exam or any surrounding cellulitis. No purulent drainage or obvious fluctuant areas in the location of the abscesses noted on the pelvis CT last week. There is no drainage coming from any sinus tract on exam. Her white blood cell count is normal and she is afebrile and nontoxic appearing. She is not having any pain or tenderness in these areas. We will have the wound care nurse come by to see the patient again and reassess wound care. Could consider applying Santyl to the sacral wound for enzymatic debridement. We would recommend continued antibiotic therapy and monitoring. No indication for any surgical intervention at this time. If she were to develop a fever, leukocytosis, or purulent drainage/changes in the wound, then surgical management can be re-evaluated. (2) Abscess: Code(s): L02.91 - Cutaneous abscess, unspecified Status: Acute Assessment and Plan: CT evidence of multiple small abscesses noted adjacent to the coccyx and near bilateral ischial tuberosities. See plan above. Continue antibiotics and monitoring. Okay to transition to oral antibiotics and have outpatient follow-up. She can either follow-up in our office to monitor the abscesses or follow-up with [facility], but these should be followed out with a repeat pelvis CT in the next few weeks. (3) Decubitus ulcer of ischial area: Code(s): L89.309 - Pressure ulcer of unspecified buttock, unspecified stage Status: Acute Assessment and Plan: Clinically, the wound appears stable and chronic with no evidence of infection. Continue local wound care to bilateral ischial wounds. Wounds are healing well. (4) Chronic inflammatory demyelinating polyneuropathy: Code(s): G61.81 - Chronic inflammatory demyelinating polyneuritis Status: Acute Plan I have discussed the patient's case and plan of care with Dr. Osorio. History of Present Illness Consult details Consult date: 09/24/23 Reason for consult: other (Sacral decubitus ulcer) Requesting physician: Melva Javier, KARISSA Narrative: This is a 58-year-old woman who has a history of chronic inflammatory demyelinating polyneuropathy resulting in wheelchair dependence for mobility. Our service has been consulted for surgical evaluation of a decubitus ulcer. She lives at home with her , who helps care for her and has been performing dressing changes for her wounds. She reports having a sacral wound since January 2023 that they had been dealing with at home up until around June of 2023. She was admitted to [facility] on 2 different occasions this year. The first hospitalization was for her neuropathy and the second was reportedly for her sacral wound. The patient denies having any surgical debridement or intervention on her wounds. Per the electronic medical record, she received IV antibiotic therapy and was discharged back home. She denies any long-term IV therapy for osteomyelitis. One week ago, her noticed some necrotic tissue in the sacral wound when doing her dressing change, which prompted her to go to the ER for evaluation. In the ER, labs showed a white blood cell count of 5200. Pelvis CT showed decubitus abscesses without evident associated osteomyelitis along the coccyx and bilateral ischial tuberosities measuring 2-3 cm (measurements in the radiologist report). No CT evidence of osteomyelitis. While in the ER, they had contacted the general surgeon who recommended transfer to [facility]
[2023-09-24] MEDS: SOD HYPOCHLORITE 1/4 STRENGTH 473 ML 1 APPLIC TOPICAL (13:47)
[2023-09-24 14:00] VITALS: BP 112/72; PULSE 75; RESP 16; TEMP 36.6; O2SAT 100
--- NOTE | 2023-09-24 14:15 | PM.DS ---
DS: Admitting Diagnosis Discharge Date 09/24/2023 Admitting Diagnosis Decubitus wound DS: Discharge Diagnosis Discharge Diagnosis (1) Abscess: Code(s): L02.91 - Cutaneous abscess, unspecified Status: Acute (2) Decubitus ulcer of coccygeal region: Qualifiers: Pressure injury stage: unstageable Qualified Code(s): L89.150 - Pressure ulcer of sacral region, unstageable Code(s): L89.159 - Pressure ulcer of sacral region, unspecified stage Status: Acute (3) Chronic inflammatory demyelinating polyneuropathy: Code(s): G61.81 - Chronic inflammatory demyelinating polyneuritis Status: Acute Plan Decubitus ulcer of coccygeal region: The patient has decubitus ulcers at of the coccyx and bilateral ischial tuberosities with bilateral ischial tuberosity demonstrating underlying abscess. Patient was started on empiric antibiotic therapy with cefepime Flagyl and vancomycin. MRSA screen is negative and her wound culture was negative for any staph organisms. Discontinue vancomycin but continue cefepime and Flagyl. Wound care consulted. Patient is awaiting bed placement at [facility] for evaluation for debridement/I&D and continuity of care as the patient is established at that facility. Monitor CBC, BMP and monitor for signs of infection. Q2hr turn 09/23 General surgery consulted Chronic inflammatory demyelinating polyneuropathy: Will place Milton catheter is patient is completely incontinent of urine and was in saturated bedding at the time of my evaluation. Patient has chronic bowel and bladder incontinence due to her polyneuropathy Disposition: Discharge to home 2 weeks ABX therapy then follow-up CT with follow-up in the wound clinic and with general surgery DS: Summary Hospital Course Reason for hospitalization: Decubitus wound Hospital Course: Interval history: Admission: Medical record 58-year-old female with a medical history of chronic inflammatory demyelinating polyneuropathy resulting in wheelchair dependence for mobility presented to the ER due to concern over infected coccyx ulcer. The patient stated that she had never had a pressure wound in the 5 years that she has been wheelchair-bound until her cushion on her wheelchair malfunctioned and it took her a couple of months to get a new cushion. Since that time she has been fighting to heal her coccyx ulcers. This is made more difficult because patient is chronically incontinent of urine. She reports that she does not have any sensation in does not know when she is going to void. She thought she was doing pretty well with the ulcers until June when she developed cellulitis of a superficial skin lesion.. She was admitted to [facility] in treated for cellulitis. She did not require any debridement or surgical intervention. Then on the her was changing the dressing on her coccyx ulcer when he noticed that it was black and necrotic so he brought her to the ER for further evaluation. She has generalized decreased sensation and denies any pain with the areas of ulceration. She has not had any fevers, chills, nausea or vomiting. She reports that she has had chronic decreased appetite since her diagnosis of demyelinating polyneuropathy a but her weight has been stable for the most part recently. She reports that she used to be obese and had obstructive sleep apnea but her sleep apnea resolved with weight loss. She reports that otherwise she is in good health. On the patient has CT of the pelvis with contrast which demonstrated sacral decubitus ulcer and decubitus abscesses overlying bilateral ischial tuberosities. The abscess on the left has a drainage sinus extending to the skin in measures 3.1 x 2 x 2.9. The 1 on the right measures 3.3 x 0.9 but does not have a sinus tract. Patient had MRSA screen performed which was negative. Wound culture performed in the ER demonstrated mixed organ
[2023-09-24] MEDS: COLLAGENASE OINT 30 GM TUBE 1 APPLIC TOPICAL (19:04)
== END 2023-09-24 20:05 | disposition home or self-care (01) | DRG 602 ==
LOC: ANHED 09-18 01:08 → ANH3MEDSUR 09-19 22:46
PROVIDERS: Emergency Medicine; Internal Medicine Critical Care Medicine; Admitting Provider Internal Medicine; Emergency Provider Physician Assistant; PCP Internal Medicine; Visit Provider Nurse Practitioner Family
DX: L02.818 Cutaneous abscess of other sites (principal); L89.323 Pressure ulcer of left buttock, stage 3; G61.81 Chronic inflammatory demyelinating polyneuritis; L89.150 Pressure ulcer of sacral region, unstageable; G47.33 Obstructive sleep apnea (adult) (pediatric); Z96.653 Presence of artificial knee joint, bilateral; L89.316 Pressure-induced deep tissue damage of right buttock; R32 Unspecified urinary incontinence; R15.9 Full incontinence of feces; Z99.3 Dependence on wheelchair; Z90.722 Acquired absence of ovaries, bilateral; Z90.710 Acquired absence of both cervix and uterus
CPT/HCPCS: 36415; 72193; 80048; 80053; 80202; 82565; 83605; 85025; 85027; 85652; 86140; 87040; 87070; 87205; 87641; 96365; 96366; 96367; 99285; A9270; G0378; J0692; J1650; J1836; J3370; Q9967

== ENCOUNTER 2023-10-27 10:03 | Inpatient (IN) | payer MEDICARE, SELFPAY ==
[2023-10-27] VITALS (11 sets, daily range): BP systolic 110–140; BP diastolic 49–97; PULSE 78–97; RESP 14–21; TEMP 36.5–37.7; O2SAT 96–100; BMI 20.2
--- NOTE | ~2023-10-27 | CT_ITS ---
CT of the Abdomen and Pelvis: Indication: Sacral ulcer Technique: 2.5 mm axial scans were obtained through the abdomen and pelvis following intravenous adm inistration of 100 cc of Omnipaque 350. Dose reduction technique was used on this scan by utilizing a utomated exposure control and iterative reconstruction technique. The dose-length product (DLP) was 2 23.72 mGy-cm. COMPARISON: 09/17/2023 Findings: Scans through the lung bases are unremarkable. The liver, spleen, pancreas, adrenals and kidneys are within normal limits. Gallbladder distended wit h large gallstones present, but no gallbladder wall thickening or pericholecystic inflammatory change .. There are atherosclerotic calcifications of the aorta. No lymphadenopathy. No bowel obstruction or bowel wall thickening. There is prominent stool at the rectum. Images through the pelvis were performed. Urinary bladder unremarkable. No pelvic mass evident. There is a large decubitus ulcer superficial to the left ischial tuberosity. This extends down to the bone. There is probable decubitus ulcer at the posterior aspect of the proximal right thigh with flu id collection or ulcer wound. There is additional midline sacral ulcer extending to the distal sacrum /coccyx. There is erosive change at the posterior aspect of the distal sacrum, compatible sacral oste omyelitis. There is extensive infiltration of presacral soft tissues, which could reflect extension o f soft tissue infection. No definite soft tissue abscess evident. Impression: Decubitus ulcers at the bilateral ischial tuberosity regions, left larger than right, as well as cortes tional midline decubitus ulcer extending to the distal sacrum/coccyx. Associated distal sacral osteomyelitis with erosive change. Extensive infiltration of presacral soft tissues, which could reflect soft tissue infectious process. Cholelithiasis. Reviewed, dictated and finalized at [facility]. Impression: Decubitus ulcers at the bilateral ischial tuberosity regions, left larger than right, as well as additional midline decubitus ulcer extending to the distal sa cory/coccyx. Associated distal sacral osteomyelitis with erosive change. Extensive infiltration of presacral soft tissues, which could reflect soft tiss ue infectious process. Cholelithiasis.
--- NOTE | 2023-10-27 10:09 | ECG_ITS ---
Test Date: 2023-10-27 10:27:10 Measurements Intervals [place] Rate: 94 P: 67 ME: 166 QRS: -38 QRSD: 96 T: 53 QT: 362 QTc: 453 Interpretive Statements SINUS RHYTHM LEFT AXIS DEVIATION LOW QRS VOLTAGE IN PRECORDIAL LEADS PATTERN CONSISTENT WITH PULMONARY DISEASE VOLTAGE CRITERIA FOR LVH BASELINE ARTIFACT- I, III, AVR, V1-V2 BORDERLINE ECG No previous ECG available for comparison Electronically Signed On 10-27-2023 10:57:03 CDT by Marco A Barber D.O.
[2023-10-27] MEDS: SODIUM CHLORIDE 0.9% IV 2,000 ML 999 ML IV CONT (10:21)
[2023-10-27 10:23] LABS: Glucose Point of Care 89 mg/dl (65-105)
[2023-10-27 10:38] LABS: Basophils Percent Auto 0.3 % (0.2-1.2); Eosinophils Percent Auto 0.1 % (0-4.4); Hematocrit 38.9 % (37.0-47.0); Hemoglobin 12.3 g/dL (12.0-15.0); Immature Granulocyte Absolute 0.05 K/mm3 (0.00-0.031); Immature Granulocyte Percent A 0.6 % (0-0.5); Lymphocytes Absolute Auto 0.69 K/mm3 (0.9-3.2); Lymphocytes Percent Auto 7.7 % (18.3-44.2); Mean Corpuscular HGB Conc 31.6 g/dl (32-36); Mean Corpuscular Hemoglobin 28.6 pg (26-34); Mean Corpuscular Volume 90.5 fl (80-100); Mean Platelet Volume 8.6 fl (7.4-10.4); Monocytes Absolute Auto 0.8 K/mm3 (0.1-0.6); Monocytes Percent Auto 8.5 % (2.6-8.5); Neutrophils Absolute Auto 7.4 K/mm3 (1.3-6.7); Neutrophils Percent Auto 82.8 % (45.5-73.1); Platelet Count Result 262 k/mm3 (150-375); Red Cell Distribution Width 13.9 % (11.5-14.5); White Blood Count 8.9 K/mm3 (4.5-10.0)
[2023-10-27 10:39] LABS: Estimated CRCL calculation 110 ml/min; Estimated Glomerular Filt Rate > 60
[2023-10-27 10:48] LABS: Lactic Acid Reflex 0.9 mmol/L (0.7-2.0)
[2023-10-27 10:52] LABS: INR 1.1; Prothrombin Time 14.3 Seconds (11.1-14.7)
[2023-10-27 10:54] LABS: Partial Thromboplastin Time 39.8 Seconds (22.3-36.8)
[2023-10-27 11:08] LABS: Erythrocyte Sedimentation Rate 55 mm/hr (0-20)
[2023-10-27 11:14] LABS: Influenza A QL RT-PCR Negative (Negative); Influenza B QL RT-PCR Negative (Negative); RSV RNA, RT-PCR Negative (Negative); SARS-CoV-2 RNA PCR Negative (Negative)
[2023-10-27 11:39] LABS: Alanine Aminotransferase 12 U/L (6-35); Albumin Level 3.9 g/dL (3.5-5.1); Alkaline Phosphatase 191 U/L (38-126); Anion Gap 18 mmol/L (4-12); Aspartate Amino Transferase 19 U/L (14-36); Bilirubin,Total 0.9 mg/dL (0.2-1.3); Blood Urea Nitrogen 5 mg/dL (7-17); Calcium 9.1 mg/dL (8.4-10.2); Carbon Dioxide 21 mmol/L (22-30); Chloride 96 mmol/L (98-107); Estimated CRCL calculation 110 ml/min; Estimated Glomerular Filt Rate > 60; Glucose 96 mg/dL (65-110); Lipase 23 U/L (23-300); Magnesium 1.8 mg/dL (1.6-2.3); Potassium 3.2 mmol/L (3.4-5.0); Sodium 135 mmol/L (137-145)
[2023-10-27 11:44] LABS: CRP 32.6 mg/dL (<1.0)
[2023-10-27] MEDS: ACETAMINOPHEN 500 MG TABLET 1000 MG PO (12:13)
[2023-10-27 12:19] LABS: Appearance Urine Clear (Clear); Bacteria Urine None Seen /hpf; Bilirubin Urine Negative (Negative); Blood Urine Negative (Negative); Color Urine Yellow (Yellow); Glucose Urine UA Negative (Negative); Hyaline Casts Urine Present /lpf; Ketones Urine 4+ mg/dL (Negative); Leukocyte Esterase Ur Negative LEU/UL (Negative); Mucus Urine Present /lpf; Need Manual Microscopic Reviewed; Nitrate Urine Negative (Negative); Non Pathogenic Casts >20; Protein Urine 1+ mg/dL (Negative); Squamous Epithelial Cell Urine Occasional /hpf (Few); WBC Urine 0-5 /hpf (0-3)
[2023-10-27 12:20] LABS: Add Urine Microscopic? YES
[2023-10-27] MEDS: metroNIDAZOLE 500 MG/ISO 100ML 500 MG/100 ML BAG 100 MG IVPB ×3 (12:27→23:31)
--- NOTE | 2023-10-27 12:27 | ED.GENADULT ---
HPI - General Adult General Chief complaint: Wound/Laceration Stated complaint: pressure sore to back Time Seen by Provider: 10/27/23 10:05 History of Present Illness HPI narrative: This is a 58-year-old bed-bound female due to neuropathy presenting for an infected decubitus ulcer. Patient does not see wound care. Her is her primary fundraising sale representative. He noticed that her wound was turning black and had a foul smell. He then sent her to the ER to be evaluated. At the moment the patient has no complaints outside of decreased appetite for the last several days. Related Data Home Medications Medication Instructions Recorded Confirmed duloxetine 30 mg capsule,delayed 30 mg PO DAILY 09/20/23 09/20/23 release multivitamin with folic acid 400 1 tablet PO DAILY 09/20/23 09/20/23 mcg tablet (Daily-Sidra (with folic acid)) Allergies Allergy/AdvReac Type Severity Reaction Status Date / Time morphine Allergy Intermediate Hives / Verified 09/18/23 07:07 Red Face penicillin G Allergy Intermediate Itching Verified 09/22/23 09:27 [facility] Past Medical History Medical History Chronic inflammatory demyelinating polyneuropathy Decubitus ulcer of coccygeal region Obstructive sleep apnea No longer on CPAP after weight loss Surgical History Surgical History History of bilateral knee replacement History of total abdominal hysterectomy and bilateral salpingo-oophorectomy Due to assist that they were concerned may have been causing the patient's autoimmune disorder Social History Social History Social History: The patient lives with her they have been since 1995. They raised a son and a daughter. 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 She is a lifelong nonsmoker. She does not drink alcohol or use illicit substances. She is dependent on wheelchair for mobilization. Code status: Full code (she would not want to be on long-term ventilation, tracheostomy or feeding tube) Surrogate decision maker: Smoking status: Never smoker Alcohol intake: never Substance use: never Substance use type: does not use Do You Feel Safe in your Home?: No Lack of Transportation: No Lack of Food: Never True Current Housing: I Have Housing Concerned About Future Housing: No Difficulty Paying Gas/Electric Bills: No Difficulty Paying for Meds: No Currently Unemployed: No Education: Master's Degree or Higher Difficulty w/ Childcare or Family Care: No Spiritual care concerns: No Exam Narrative: APPEARANCE: No apparent distress. Head: atraumatic. EYES: EOMI, NOSE: Atraumatic NECK: Trachea midline RESPIRATORY: No increased rate of breathing clear auscultation CARDIOVASCULAR: RRR, no peripheral edema ABDOMINAL: Non-distended soft nontender MUSCULOSKELETAl: No obvious deformities NEURO: Alert. Moving 4/4 extremities SKIN:: Coccyx decubitus ulcer-black tissue and unstageable. Foul smell. Bilateral ischial ulcers, stage II-III PSYCHIATRIC: Normal affect Course Vital Signs Vital signs: Vital Signs Temperature 98.0 F 10/27/23 10:03 Pulse Rate 97 10/27/23 10:03 Respiratory Rate 16 10/27/23 10:03 Blood Pressure 115/75 10/27/23 10:03 Pulse Oximetry 100 10/27/23 10:03 Oxygen Delivery Room Air 10/27/23 10:03 Temperature 98.0 F 10/27/23 10:03 Pulse Rate 78 10/27/23 13:04 Respiratory Rate 18 10/27/23 13:04 Blood Pressure 119/70 10/27/23 13:04 Pulse Oximetry 96 10/27/23 13:04 Oxygen Delivery Room Air 10/27/23 10:03 Medical Decision Making MDM Narrative Medical decision making narrative: -Course: 58-year-old bed-bound female presenting with infected decu
[2023-10-27] MEDS: VANCOMYCIN 1,500 MG/NS 500 ML 1,500 MG/500 ML BAG 250 MG IVPB (13:36)
[2023-10-27] MEDS: POTASSIUM CHLORIDE INJ 40 MEQ in SODIUM CHLORIDE 0.9% IV 500 ML 130 MEQ IVPB (13:41)
[2023-10-27] MEDS: levoFLOXacin 750 MG/D5W 150 ML 750 MG/150 ML BAG 100 MG IVPB (14:08)
--- NOTE | 2023-10-27 14:32 | PM.IMHP ---
H&P: HPI History of Present Illness Date/Time: 10/27/23 14:30 Chief Complaint: Bed sore. Narrative: This is a very pleasant 58-year-old female with chronic inflammatory demyelinating polyneuropathy who presented to the emergency department for evaluation of a suspected infection of the decubitus ulcer. The patient provides the following history. She is known to the hospitalist service from a recent admission about a month ago for her decubitus ulcers. Imaging at that time did not show any evidence of osteomyelitis and she was treated with IV antibiotics and local wound care. 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 He has noticed that the wound has continued to worsen and now has a foul odor and is draining some fluid. She has chronic stool incontinence. The patient overall does not feel great and has a decreased appetite with poor oral intake. She denies fever, chills, sweats, vomiting, diarrhea, and pain. In the ED: Temperature was 99.8? F on arrival. The remainder of her vital signs have been stable. Labs are significant for WBC count of 8.9, ESR 55, sodium 135, potassium 3.2, chloride 96, BUN 5, creatinine 0.40, anion gap 18, CRP 32.6. Urine specific gravity was 1.040 and UA was positive for 1+ protein and 4+ ketones. She tested negative for influenza, RSV, and COVID. CT of the abdomen and pelvis showed decubitus ulcers with associated distal sacral osteomyelitis with erosive changes. She was started on broad-spectrum antibiotics and given potassium supplementation and she is being admitted in this setting for further treatment and surgery consultation. Review of Systems Review of Systems: 12 systems were reviewed and are negative except for as per HPI. [facility] Past Medical History Medical History Chronic inflammatory demyelinating polyneuropathy Decubitus ulcer of coccygeal region Obstructive sleep apnea No longer on CPAP after weight loss Surgical History Surgical History History of bilateral knee replacement History of total abdominal hysterectomy and bilateral salpingo-oophorectomy Social History Social History (Updated 10/27/23 @ 19:35 by Mervat Galvan PA-C) Social History: The patient lives with her they have been since 1995. They raised a son and a daughter. 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 She is a lifelong nonsmoker. She does not drink alcohol or use illicit substances. She is dependent on wheelchair for mobilization. Code status: Full code (she would not want to be on long-term ventilation nor which she want a tracheostomy or feeding tube) Surrogate decision maker: Jorge Conradeula, spouse. Do You Feel Safe in your Home?: Yes Lack of Transportation: No Lack of Food: Never True Current Housing: I Have Housing Concerned About Future Housing: No Difficulty Paying Gas/Electric Bills: No Difficulty Paying for Meds: No Currently Unemployed: No Education: Master's Degree or Higher Difficulty w/ Childcare or Family Care: No Spiritual care concerns: No Meds Home Medications and Allergies Home Medications Medication Instructions Recorded Confirmed Type duloxetine 30 mg capsule,delayed 30 mg PO DAILY 09/20/23 10/27/23 History release multivitamin with folic acid 400 1 tablet PO DAILY 09/20/23 10/27/23 History mcg tablet (Daily-Sidra (with folic acid)) Allergies Allergy/AdvReac Type Severity Reaction Status Date / Time morphine Allergy Intermediate Hives / Verified 09/18/23 07:07 Red Face penicillin G Allergy Intermediate Itching Verified 09/22/23 09:27 Vital Signs Vital Signs - 24 hr 10/27/23 10:03 10/27/23 10:12 10/27/23 10:16 Temperature 98.0 F
--- NOTE | 2023-10-27 14:43 | ADMGEN ---
This patient, Vee Romero, was admitted to 2 Medical Room 251-01. Patient/family oriented to hospital policies and general routines including ID bracelet, bed and alarms, visiting hours, pain management, procedures, bathroom and other care routines, personal items, smoking policy, room service/diet, and visiting hours. Information on how to activate the Rapid Response Team has been discussed. Patient/Family are encouraged to report perceived risks to care and to ask questions if they do not understand what they are told or what they should do.
--- NOTE | 2023-10-27 15:12 | PM.CNGS ---
Assessment and Plan Assessment and plan (1) Decubitus ulcer of coccygeal region: Qualifiers: Pressure injury stage: unstageable Qualified Code(s): L89.150 - Pressure ulcer of sacral region, unstageable Code(s): L89.159 - Pressure ulcer of sacral region, unspecified stage Status: Acute Assessment and Plan: She has a necrotic unstageable sacral decubitus ulcer with a foul odor and appears infected. CT scan of the abdomen and pelvis showed new findings of sacral osteomyelitis. Will initiate local wound care with Dakin's dressing changes today. Discussed our recommendations with the patient and that she will need surgical debridement of the sacral decubitus ulcer that would be done in the OR with sedation. Description of the procedure, risks, benefits, alternatives, and expected wound care/recovery were discussed in detail. She agrees to proceed. Continue IV antibiotics and I will make her NPO after midnight. We will add her onto the surgery schedule tomorrow. (2) Decubitus ulcer of ischial area: Code(s): L89.309 - Pressure ulcer of unspecified buttock, unspecified stage Status: Acute Assessment and Plan: She has a stage III right ischial decubitus ulcer that appears healthy with no signs of infection and no necrotic tissue. She also has an unstageable left ischial decubitus ulcer that is larger with some necrotic tissue in the base of the wound. There is no purulent drainage or foul odor. She may benefit from surgical debridement of the left ischial wound that could potentially be done when she is taken for debridement of the sacral wound. Will initiate local wound care. Continue frequent turning and I will order a specialty mattress for her pressure ulcers. (3) Osteomyelitis: Code(s): M86.9 - Osteomyelitis, unspecified Status: Acute Assessment and Plan: New findings of CT of osteomyelitis of the distal sacrum. Continue IV antibiotics. Will likely need long-term IV antibiotics for 6 weeks. (4) Chronic inflammatory demyelinating polyneuropathy: Code(s): G61.81 - Chronic inflammatory demyelinating polyneuritis Status: Acute (5) Acute hypokalemia: Code(s): E87.6 - Hypokalemia Status: Acute Assessment and Plan: Replaced with IV KCL in the ER. Repeat labs tomorrow. Plan I have discussed the patient's case and plan of care with Dr. Glynn. Thank you for allowing us to see the patient in consultation and we will continue to follow along with you. History of Present Illness Consult details Consult date: 10/27/23 Reason for consult: other (Sacral decubitus) Requesting physician: Sesar Christiansen MD Narrative: This is a 58-year-old woman who has a history of chronic inflammatory demyelinating polyneuropathy resulting in wheelchair dependence for mobility. She is known to our service after being evaluated by myself and Dr. Osorio during a hospitalization for her decubitus ulcers about a month ago. Her provides total care for her at home and cares for her wounds. During her last hospitalization she had a pelvis CT that showed decubitus abscesses and sacral decubitus ulcer without evident associated osteomyelitis. Attempt was made to initially transfer her to [facility] as she has had two hospitalizations earlier this year at [facility], with one being for her decubitus ulcers. She denies ever having surgery on her wounds in the past. When seen in August, her wounds appeared chronic with no evidence of active infection. She was discharged with local wound care and she reports her has been using Santyl to the sacral wound. She did not have any follow-up with her PCP or with [facility] or with Dr. Osorio since discharge. She reports her was concerned with an odor and black in the wound recently, which prompted their ED visit today. She denies any fever or chills. Today, she reports poor appetite and has not eaten today. She has been able to tolerate liquids. In the ED, she
[2023-10-27] MEDS: LACTATED RINGERS 1,000 ML 125 ML IV CONT (18:28)
[2023-10-27] MEDS: SOD HYPOCHLORITE 1/4 STRENGTH 473 ML 1 APPLIC TOPICAL (20:30)
[2023-10-27] MEDS: ACETAMINOPHEN 325 MG TABLET 650 MG PO (21:10)
[2023-10-27] MEDS: DEXTROSE 5%/0.9% SOD CHL 1,000 ML 75 ML IV CONT (23:31)
[2023-10-28] VITALS (12 sets, daily range): BP systolic 92–118; BP diastolic 51–70; PULSE 85–104; RESP 14–20; TEMP 36.1–36.9; O2SAT 98–100
[2023-10-28] MEDS: VANCOMYCIN 1,250 MG/NS 250 ML 1,250 MG/250 ML BAG 166.67 MG IVPB ×2 (01:51→15:48)
[2023-10-28 05:20] LABS: Mean Corpuscular HGB Conc 32.3 g/dl (32-36); Mean Corpuscular Hemoglobin 28.7 pg (26-34); Mean Corpuscular Volume 89.1 fl (80-100); Mean Platelet Volume 8.5 fl (7.4-10.4); Platelet Count Result 206 k/mm3 (150-375); Red Blood Count 3.48 M/mm3 (4.2-5.4); Red Cell Distribution Width 13.7 % (11.5-14.5); White Blood Count 8.9 K/mm3 (4.5-10.0)
[2023-10-28 05:31] LABS: Anion Gap 12 mmol/L (4-12); Blood Urea Nitrogen 3 mg/dL (7-17); Calcium 8.1 mg/dL (8.4-10.2); Carbon Dioxide 17 mmol/L (22-30); Chloride 106 mmol/L (98-107); Estimated CRCL calculation 141 ml/min; Estimated Glomerular Filt Rate > 60; Glucose 138 mg/dL (65-110); Magnesium 1.4 mg/dL (1.6-2.3); Potassium 3.2 mmol/L (3.4-5.0); Sodium 135 mmol/L (137-145)
[2023-10-28] MEDS: metroNIDAZOLE 500 MG/ISO 100ML 500 MG/100 ML BAG 100 MG IVPB ×3 (05:43→17:16)
[2023-10-28 05:46] LABS: Prealbumin 4.2 mg/dL (17.6-36.0)
--- NOTE | 2023-10-28 07:16 | PM.IMPN ---
Progress Note: A&P Assessment and Plan (1) Osteomyelitis of sacrum: Code(s): M46.28 - Osteomyelitis of vertebra, sacral and sacrococcygeal region Status: Acute Assessment and Plan: Patient has a necrotic unstageable sacral decubitus ulcer with a foul odor and appears infected. - Afebrile - WBC and Lactic Acid WNL. - Blood cultures drawn on 10/26: NGTD - Abdomen/pelvis CT: Decubitus ulcers at the bilateral ischial tuberosity regions, left larger than right, as well as additional midline decubitus ulcer extending to the distal sacrum/coccyx. Associated distal sacral osteomyelitis with erosive change. Extensive infiltration of presacral soft tissues, which could reflect soft tissue infectious process. - Antibiotics: Levaquin, vancomycin, flagyl - Monitor vital signs, I&Os, neuro status and patient is a fall risk - Monitor serum electrolytes, CBC, cultures, WBC and temp curve - Surgery consulted Plan for surgical debridement 10/[address] Glynn (2) Decubitus ulcer of ischial area: Code(s): L89.309 - Pressure ulcer of unspecified buttock, unspecified stage Status: Acute Assessment and Plan: Stage III right ischial decubitus ulcer that appears healthy with no signs of infection and no necrotic tissue. She also has an unstageable left ischial decubitus ulcer that is larger with some necrotic tissue in the base of the wound. - Abdomen/pelvis CT: Decubitus ulcers at the bilateral ischial tuberosity regions, left larger than right, as well as additional midline decubitus ulcer extending to the distal sacrum/coccyx. Associated distal sacral osteomyelitis with erosive change. Extensive infiltration of presacral soft tissues, which could reflect soft tissue infectious process. - Surgery consulted Patient may benefit from debridement of the left ischial wound which may be done when patient is taken for debridement of the sacral wound Local wound care (3) Electrolyte imbalance: Code(s): E87.8 - Other disorders of electrolyte and fluid balance, not elsewhere classified Status: Acute Assessment and Plan: K 3.2 and Mag 1.4 on am labs. - Repleted with KCl 40 mEq IV and Mag 3 g IV - Monitor with daily labs (4) Chronic inflammatory demyelinating polyneuropathy: Code(s): G61.81 - Chronic inflammatory demyelinating polyneuritis Status: Acute Assessment and Plan: Chronic, continue home medications. - Monitor Time Spent With Patient Time with patient: 25 - 35 minutes Subjective Date/time seen: 10/28/23 07:16 Interval history: 58-year-old female with chronic inflammatory demyelinating polyneuropathy who presented to the emergency department for evaluation of a suspected infection of the decubitus ulcer. Patient is pleasant lying comfortably in bed. She has no complaints at this time, denying any pain, shortness of breath, palpitations, nausea/vomiting. Plan for surgical debridement today with Dr. Glynn. Continuing antibiotics. Review of Systems Review of Systems: All systems reviewed & are unremarkable except as noted in HPI and below Exam Narrative: AF HR 92 RR 20 SPO2 98 BP 93/51 General: female in no acute respiratory distress who is nontoxic appearing, lying semi recumbent in bed. HEENT: Normocephalic. Atraumatic. Extraocular movement intact. Sclera clear and anicteric. No facial asymmetry. Chest: Lungs are clear to auscultation bilaterally. No wheezes or crackles. CV: Heart was regular rate and rhythm. S1-S2. No murmurs, gallops, or rubs. Abd: Abdomen was soft. Nontender. Nondistended. Positive bowel sounds. No organomegaly or masses. Ext: No clubbing, cyanosis, or edema. 2+ DP pulses bilaterally. Neuro: Patient is alert and oriented x4. Cranial nerves 2-12 are intact. Speech is clear. Psych: Normal mood and affect. Patient is pleasant and cooperative. Skin: unstageable sacral decubitus ulcer, malodorous with purulent drainage. Stage III right ischial decubi
--- NOTE | 2023-10-28 07:16 | PCWOUND ---
WOCN NOTE Received notice of patient having pressure injuries. Patient is being followed by general surgery at this time.
[2023-10-28] MEDS: POTASSIUM CHLORIDE INJ 40 MEQ in SODIUM CHLORIDE 0.9% IV 500 ML 130 MEQ IVPB (07:50)
[2023-10-28] MEDS: DULoxetine HCL 30 MG CAPSULE.DR PO (08:00)
[2023-10-28] MEDS: MAGNESIUM SULFATE 3GM/D5W100ML 3 GM/100 ML BAG IVPB (10:47)
--- NOTE | 2023-10-28 14:15 | WPDHPUPDATE1 ---
History and Physical Update Update Date/Time: 10/28/23 14:15 History and Physical has been reviewed, including an updated exam of the patient. There are NO changes in the patient's condition. Risks, benefits, and alternatives have been discussed and questions answered. Patient agrees to proceed with procedure.
--- NOTE | 2023-10-28 14:47 | WPDANESEPPF ---
Anes - Initial Pre Proc Eval Procedure: Operation Date: 10/28/23 16:30 Proposed Procedures p Incision and Drainage Sacral Decubitus Ulcer - Jason Glynn DO Date/Time: 10/28/23 14:47 Surgeon: Emilia Vaughn PA-C Pre Op Diagnosis: Infected Decub Patient Data Age: 58 Gender: F Height: 1.68 m Weight: 58.7 kg Last Vital Signs Temp 36.8 C 10/28/23 13:51 Pulse 85 10/28/23 13:51 Resp 17 10/28/23 13:51 BP 92/56 L 10/28/23 13:51 Pulse Ox 100 10/28/23 13:51 O2 Del Method Room Air 10/28/23 08:00 Allergies Allergy/AdvReac Type Severity Reaction Status Date / Time morphine Allergy Intermediate Hives / Verified 09/18/23 07:07 Red Face penicillin G Allergy Intermediate Itching Verified 09/22/23 09:27 Home Medications Medication Instructions Recorded Confirmed Type duloxetine 30 mg capsule,delayed 30 mg PO DAILY 09/20/23 10/27/23 History release multivitamin with folic acid 400 1 tablet PO DAILY 09/20/23 10/27/23 History mcg tablet (Daily-Sidra (with folic acid)) Laboratory Tests 10/28/23 05:07 WBC 8.9 K/mm3 (4.5-10.0) RBC 3.48 L M/mm3 (4.2-5.4) Hgb 10.0 L g/dL (12.0-15.0) Hct 31.0 L % (37.0-47.0) MCV 89.1 fl (80-100) MCH 28.7 pg (26-34) MCHC 32.3 g/dl (32-36) RDW 13.7 % (11.5-14.5) Plt Count 206 k/mm3 (150-375) MPV 8.5 fl (7.4-10.4) Sodium 135 L mmol/L (137-145) Potassium 3.2 L mmol/L (3.4-5.0) Chloride 106 mmol/L (98-107) Carbon Dioxide 17 L mmol/L (22-30) Anion Gap 12 mmol/L (4-12) BUN 3 L mg/dL (7-17) Creatinine 0.30 L mg/dL (0.7-1.0) Estim Creat Clear Calc 141 ml/min Estimated GFR > 60 (59 - ) Glucose 138 H mg/dL (65-110) Calcium 8.1 L mg/dL (8.4-10.2) Magnesium 1.4 L mg/dL (1.6-2.3) Prealbumin 4.2 L mg/dL (17.6-36.0) Patient hx anesthesia problems: none Family hx anesthesia problems: none Results Review: All pre-operative results and documents have been reviewed as part of the pre-operative evaluation. [facility] Past Medical History Medical History Chronic inflammatory demyelinating polyneuropathy Decubitus ulcer of coccygeal region Obstructive sleep apnea No longer on CPAP after weight loss Surgical History Surgical History History of bilateral knee replacement History of total abdominal hysterectomy and bilateral salpingo-oophorectomy Social History Social History (Updated 10/27/23 @ 19:35 by Mervat Galvan PA-C) Social History: The patient lives with her they have been since 1995. They raised a son and a daughter. 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 She is a lifelong nonsmoker. She does not drink alcohol or use illicit substances. She is dependent on wheelchair for mobilization. Code status: Full code (she would not want to be on long-term ventilation nor which she want a tracheostomy or feeding tube) Surrogate decision maker: Jorge Romero, spouse. Do You Feel Safe in your Home?: Yes Lack of Transportation: No Lack of Food: Never True Current Housing: I Have Housing Concerned About Future Housing: No Difficulty Paying Gas/Electric Bills: No Difficulty Paying for Meds: No Currently Unemployed: No Education: Master's Degree or Higher Difficulty w/ Childcare or Family Care: No Spiritual care concerns: No Anes - Eval Final PreProcedure Day of Procedure 10/28/23 14:47 Patient weight: normal Heart: regular rate and rhythm Lungs: clear to auscultation Airway: Mallampati scale class II Neurological: alert and oriented Last oral intake: >/= 8 hours ASA classification: III Emergent: no Anesthetic pl
[2023-10-28] MEDS: levoFLOXacin 750 MG/D5W 150 ML 750 MG/150 ML BAG 100 MG IVPB (15:00)
[2023-10-28] MEDS: LACTATED RINGERS 1,000 ML 30 ML IV CONT (15:00)
--- NOTE | 2023-10-28 15:56 | W.PM.PROC2 ---
Procedure Note - Detailed Date of Procedure 10/28/23 Pre-op Diagnosis Sacral decubitus ulcer and left ischial decubitus ulcer Post-op Diagnosis Same Procedure Performed 1. Sharp excisional debridement of sacral decubitus ulcer measuring 5 cm x 6 cm including skin, subcutaneous fat, muscle, and bone. 2. Sharp excisional debridement of left ischial ulcer measuring 3 cm x 2 cm including skin and subcutaneous fat. Surgeon Jason Glynn, DO Anesthesia MAC and Local (0.5% bupivacaine epinephrine) Indications This is a 58 old woman who presented with decubitus ulcers. She has a neuro degenerative disease and is bed bound. She was in the hospital about 1 month ago and had very superficial wounds at that time. They have continued to progress over the past month at home and now she has very large sacral decubitus ulcer and a smaller left ischial ulcer. Discussions were made with the patient and about treatment options and decision was made to proceed with debridement. Findings Debridement of the 2 ulcers was using scissors and 15 blade scalpel. The sacral decubitus ulcer measured 6 cm x 5 cm and debridement included necrotic tissue involving skin, subcutaneous fat, muscle, and bone. Sacral ulcer was only about 2 cm away from the anus. The left ischial ulcer appeared slightly more shallow and was only measuring 3 cm x 2 cm. Sharp excisional debridement was carried out using a 15 blade scalpel in this region. Description of Procedure Procedure as well as risks, benefits, and alternatives were discussed with the patient and her . Written consent was obtained and placed in chart prior to procedure. Patient was brought back to surgical suite. She was placed in right lateral decubitus position on the operating table. Time-out was done to confirm patient and procedure. IV sedation was then administered by the anesthesia department. Her sacral and hip area was prepped and draped in sterile fashion using Betadine prep. 0.5% bupivacaine with epinephrine was infiltrated locally on the sacral decubitus ulcer. Sharp excisional debridement of the necrotic tissue was then carried out. The necrotic tissue was initially excised using curved Villafuerte scissors and then also used a 15 blade and 10 blade scalpel to adequately excise all of the necrotic tissue down to healthy bleeding viable tissue. The debridement involved skin, subcutaneous fat muscle, and bone. The ulcer appeared to be directly over the end of the sacrum and coccyx. The coccyx appeared very soft and friable. After debriding away to what appeared to be mostly healthy appearing tissue, electrocautery was then used for hemostasis. Wound was then irrigated with sterile saline. The wound measured 5 cm x 6 cm. This wound was then packed with Betadine-soaked Kerlix gauze. Then also sharply excised necrotic tissue within the left ischial ulcer measuring 3 cm x 2 cm. This was performed using a 15 blade scalpel. This included skin and subcutaneous fat. After debriding away to healthy appearing tissue, the wound was then irrigated with sterile saline and then packed with Betadine-soaked Kerlix gauze. Fluff gauze, ABD pads, and tape were then applied. The patient was then awakened from anesthesia and transferred to recovery. Estimated Blood Loss 10 Urine Output 50 Complications No immediate complications Condition Stable Disposition Floor [facility] Billing Surgery - Charge Forward: Surgery Billing
[2023-10-28] MEDS: DEXTROSE 5%/0.9% SOD CHL 1,000 ML 75 ML IV CONT (17:32)
[2023-10-29] VITALS (7 sets, daily range): BP systolic 94–104; BP diastolic 54–70; PULSE 84–97; RESP 16–18; TEMP 36.1–37.4; O2SAT 98–100; BMI 21.7
[2023-10-29] MEDS: metroNIDAZOLE 500 MG/ISO 100ML 500 MG/100 ML BAG 100 MG IVPB ×2 (00:04→06:48)
[2023-10-29] MEDS: DEXTROSE 5%/0.9% SOD CHL 1,000 ML 75 ML IV CONT (02:37)
[2023-10-29 03:13] LABS: Basophils Percent Auto 0.2 % (0.2-1.2); Eosinophils Percent Auto 0.4 % (0-4.4); Hematocrit 27.3 % (37.0-47.0); Hemoglobin 8.8 g/dL (12.0-15.0); Immature Granulocyte Absolute 0.04 K/mm3 (0.00-0.031); Immature Granulocyte Percent A 0.8 % (0-0.5); Lymphocytes Percent Auto 9.9 % (18.3-44.2); Mean Corpuscular HGB Conc 32.2 g/dl (32-36); Mean Corpuscular Hemoglobin 28.7 pg (26-34); Mean Corpuscular Volume 88.9 fl (80-100); Mean Platelet Volume 8.6 fl (7.4-10.4); Monocytes Absolute Auto 0.5 K/mm3 (0.1-0.6); Monocytes Percent Auto 9.5 % (2.6-8.5); Neutrophils Percent Auto 79.2 % (45.5-73.1); Platelet Count Result 196 k/mm3 (150-375); Red Blood Count 3.07 M/mm3 (4.2-5.4); Red Cell Distribution Width 14.1 % (11.5-14.5); White Blood Count 5.1 K/mm3 (4.5-10.0)
[2023-10-29 03:34] LABS: Alanine Aminotransferase 9 U/L (6-35); Albumin Level 2.4 g/dL (3.5-5.1); Alkaline Phosphatase 129 U/L (38-126); Anion Gap 8 mmol/L (4-12); Aspartate Amino Transferase 16 U/L (14-36); Bilirubin,Total 0.3 mg/dL (0.2-1.3); Blood Urea Nitrogen 4 mg/dL (7-17); Calcium 7.9 mg/dL (8.4-10.2); Carbon Dioxide 19 mmol/L (22-30); Chloride 109 mmol/L (98-107); Estimated CRCL calculation 145 ml/min; Estimated Glomerular Filt Rate > 60; Glucose 105 mg/dL (65-110); Potassium 3.2 mmol/L (3.4-5.0); Sodium 136 mmol/L (137-145)
[2023-10-29 04:06] LABS: Vancomycin Trough 13.6 ug/mL (10.0-20.0)
[2023-10-29] MEDS: VANCOMYCIN 1,500 MG/NS 500 ML 1,500 MG/500 ML BAG 250 MG IVPB ×2 (04:44→16:48)
[2023-10-29] MEDS: DULoxetine HCL 30 MG CAPSULE.DR PO (08:24)
[2023-10-29] MEDS: POTASSIUM CHLORIDE 20 MEQ ER TABLET 40 MEQ PO (08:24)
[2023-10-29] MEDS: ENOXAPARIN 40 MG/0.4 ML SYRINGE SUB-Q (08:24)
[2023-10-29] MEDS: MULTIVITAMINS THERAPEUTIC TAB (*BKC) 1 TABLET PO (08:24)
--- NOTE | 2023-10-29 08:32 | WPDANESPN ---
Anes - Prog Note Post-Op Date/Time: 10/29/23 08:32 Cardiovascular status: normal Respiratory status: normal Airway patency: baseline Mental status: baseline Post-Op hydration status: normal Vital Signs: Last Vital Signs Temp 36.1 C L 10/29/23 06:34 Pulse 95 10/29/23 06:34 Resp 18 10/29/23 06:34 BP 96/58 L 10/29/23 06:34 Pulse Ox 98 10/29/23 06:34 O2 Del Method Room Air 10/28/23 16:43 O2 Flow Rate 6 10/28/23 16:02 Pain Score (VAS): 06/07 I/O: Intake & Output 10/28/23 10/29/23 10/29/23 23:59 07:59 15:59 Intake Total 1630 1401.2 Output Total 50 300 Balance 1580 1101.2 Laboratory Tests 10/29/23 03:04 10/29/23 03:04 10/29/23 03:04 WBC 5.1 RBC 3.07 L Hgb 8.8 L Hct 27.3 L MCV 88.9 MCH 28.7 MCHC 32.2 RDW 14.1 Plt Count 196 MPV 8.6 Immature Gran % (Auto) 0.8 H Neut % (Auto) 79.2 H Lymph % (Auto) 9.9 L [place] % (Auto) 9.5 H Eos % (Auto) 0.4 Baso % (Auto) 0.2 Lymph # (Auto) 0.50 L [place] # (Auto) 0.5 Eos # (Auto) 0.0 Baso # (Auto) 0.0 Abs Immat Gran (auto) 0.04 H Absolute Neuts (auto) 4.0 Absolute Nucleated RBC 0.000 Nucleated RBC % 0.0 Sodium 136 L Potassium 3.2 L Chloride 109 H Carbon Dioxide 19 L Anion Gap 8 BUN 4 L Creatinine 0.30 L Estim Creat Clear Calc 145 Estimated GFR > 60 Glucose 105 Calcium 7.9 L Total Bilirubin 0.3 AST 16 ALT 9 Alkaline Phosphatase 129 H Total Protein 5.0 L Albumin 2.4 L Vancomycin Trough 13.6 Microbiology 10/27/23 10:29 Blood Blood Culture - Preliminary Gram positive cocci in pairs 10/27/23 11:24 Blood Blood Culture - Preliminary Post-procedural complaints: none Patient Feedback: Patient satisfied with anesthetic care.
[2023-10-29 09:37] LABS: CRP 17.1 mg/dL (<1.0); Magnesium 1.8 mg/dL (1.6-2.3); Phosphorus 2.3 mg/dL (2.5-4.5)
[2023-10-29] MEDS: CEFEPIME 2 GM/NS 50 ML 2 GM/50 ML BAG IVPB ×2 (09:41→20:32)
[2023-10-29 10:36] LABS: Erythrocyte Sedimentation Rate 83 mm/hr (0-20)
[2023-10-29] MEDS: metroNIDAZOLE 500 MG TABLET PO ×2 (14:03→21:37)
--- NOTE | 2023-10-29 14:22 | PC.NURSE ---
called for an update and wanted to update his contact information, cell number placed in chart [phone]
--- NOTE | 2023-10-29 16:00 | PM.PNGS ---
Progress Note: A&P Assessment and Plan (1) Decubitus ulcer of coccygeal region: Qualifiers: Pressure injury stage: unstageable Qualified Code(s): L89.150 - Pressure ulcer of sacral region, unstageable Code(s): L89.159 - Pressure ulcer of sacral region, unspecified stage Status: Acute Assessment and Plan: Stage IV sacral decubitus ulcer s/p excisional debridement with bone exposed. Will continue Dakin's soaked gauze dressing changes for now Frequent turning, specialty mattress ordered. She would likely benefit from having a specialty mattress or bed for home. Will have nursing place a Milton catheter due to her urinary incontinence to keep her wound clean. Had a long discussion with the patient about the option of fecal diversion to help prevent future infections and complications of this wound due to stool incontinence. Patient plans to discuss this with her and decide. (2) Decubitus ulcer of ischial area: Code(s): L89.309 - Pressure ulcer of unspecified buttock, unspecified stage Status: Acute Assessment and Plan: Bilateral ischial decubitus ulcers with the left s/p debridement. Continue local wound care. See plan above. (3) Osteomyelitis: Code(s): M86.9 - Osteomyelitis, unspecified Status: Acute Assessment and Plan: Continue IV antibiotics. Will likely need a PICC line for longer-term IV antibiotics. (4) Chronic inflammatory demyelinating polyneuropathy: Code(s): G61.81 - Chronic inflammatory demyelinating polyneuritis Status: Acute Assessment and Plan: Given her progressive CIDP, quality of life, and extensive wounds, we did discuss the option of Hospice today. She wishes to continue with aggressive treatment and is not interested in Hospice at this time. Plan I have discussed the patient's case and plan of care with Dr. Glynn. Subjective Subjective Date/Time Seen: 10/29/23 16:00 Interval history: Patient seen with no family at the bedside. Nursing at the bedside to help with dressing change. No new complaints. Patient has a purewick in place for urinary incontinence. When changing her dressing, urine was leaking from the purewick and into the dressing. Exam Const: General: comfortable and no acute distress Nutritional Appearance: average body habitus Skin: Other: Stage IV sacral decubitus ulcer looks better today post debridement with 60% pink and healthy tissue and about 40% of harris and yellow tissue, bone clearly visible at the base of the wound. No foul odor or purulent drainage. Wound is only about 2-3 cm posterior to the anal verge. Right stage III ischial decubitus ulcer unchanged with pink, healthy wound bed. Left unstageable ischial decubitus ulcer s/p debridement with 80% of the wound pale yellow and fibrinous tissue and 20% pink tissue. No purulent drainage or necrotic tissue. Neuro: General: other (decreased ROM and weakness x all 4 extremities) Extrem: General: other (bilateral lower extremities contracted with muscle wasting) Objective Data Vital Signs Vital Signs: Vital Signs - 24 hr 10/28/23 16:02 10/28/23 16:05 10/28/23 16:15 Temperature 98.5 F Pulse Rate 104 H 91 Respiratory Rate 15 20 Blood Pressure 96/66 L 107/64 Pulse Oximetry 100 100 Oxygen Delivery Simple Face Mask Room Air Room Air Oxygen Flow Rate 6 10/28/23 16:30 10/28/23 16:43 10/28/23 17:00 Temperature 98.3 F 97.1 F L Pulse Rate 90 85 97 Respiratory Rate 20 20 16 Blood Pressure 112/68 113/70 109/66 Pulse Oximetry 100 100 100 Oxygen Delivery Room Air Room Air Oxygen Flow Rate 10/28/23 17:15 10/28/23 17:45 10/28/23 18:45 Temperature 97.0 F L 97.5 F L 97.0 F L Pulse Rate 88 86 85 Respiratory Rate 16 17 16 Blood Pressure 109/56 L 118/59 L 105/59 L Pulse Oximetry 100 100 100 Oxygen Delivery Oxygen Flow Rate 10/28/23 21:20 10/29/23 01:26 10/29/23 06:34 Temperature 97.4 F L 9
--- NOTE | 2023-10-29 16:26 | PM.IMPN ---
Progress Note: A&P Assessment and Plan (1) Osteomyelitis of sacrum: Code(s): M46.28 - Osteomyelitis of vertebra, sacral and sacrococcygeal region Status: Acute Assessment and Plan: Patient has a necrotic unstageable sacral decubitus ulcer with a foul odor and appears infected. - Afebrile - WBC and Lactic Acid WNL. - Blood cultures drawn on 10/26: NGTD - Abdomen/pelvis CT: Decubitus ulcers at the bilateral ischial tuberosity regions, left larger than right, as well as additional midline decubitus ulcer extending to the distal sacrum/coccyx. Associated distal sacral osteomyelitis with erosive change. Extensive infiltration of presacral soft tissues, which could reflect soft tissue infectious process. - Antibiotics: Levaquin, vancomycin, flagyl - Monitor vital signs, I&Os, neuro status and patient is a fall risk - Monitor serum electrolytes, CBC, cultures, WBC and temp curve - Surgery consulted, s/p surgical debridement 10/[address] Glynn Per operative summary The coccyx appeared very soft and friable. *debrided* away to what appeared to be mostly healthy appearing tissue --Plan 6 week course of antibiotics for osteomyelitis --Change levaquin to Cefepime, continue Vancomycin and Flagyl (2) Decubitus ulcer of ischial area: Code(s): L89.309 - Pressure ulcer of unspecified buttock, unspecified stage Status: Acute Assessment and Plan: Stage III right ischial decubitus ulcer that appears healthy with no signs of infection and no necrotic tissue. She also has an unstageable left ischial decubitus ulcer that is larger with some necrotic tissue in the base of the wound. - Abdomen/pelvis CT: Decubitus ulcers at the bilateral ischial tuberosity regions, left larger than right, as well as additional midline decubitus ulcer extending to the distal sacrum/coccyx. Associated distal sacral osteomyelitis with erosive change. Extensive infiltration of presacral soft tissues, which could reflect soft tissue infectious process. - Surgery consulted s/p debridement yesterday --Antibiotics for ostemyelitis as noted (3) Electrolyte imbalance: Code(s): E87.8 - Other disorders of electrolyte and fluid balance, not elsewhere classified Status: Acute Assessment and Plan: K 3.2->3.2 and Mag 1.4<1.8 on am labs. 40 meq kcl yesterday, give 60meq today --Magnesium 400mg today (4) Chronic inflammatory demyelinating polyneuropathy: Code(s): G61.81 - Chronic inflammatory demyelinating polyneuritis Status: Acute Assessment and Plan: Chronic, continue home medications. - Monitor Time Spent With Patient Time: 37 minutes, spoke with pharmacy, nurse, chart reviewed, and spoke with patient Subjective Date/time seen: 10/29/23 16:26 Interval history: 58-year-old female with chronic inflammatory demyelinating polyneuropathy who presented to the emergency department for evaluation of a suspected infection of the decubitus ulcer. Patient is pleasant lying comfortably in bed. She has no complaints at this time, denying any pain, shortness of breath, palpitations, nausea/vomiting. s/p debridement by Dr. Glynn yesterday Review of Systems Review of Systems: 12 systems were reviewed and are negative except for as per HPI. All systems reviewed & are unremarkable except as noted in HPI and below Exam Narrative: General: female in no acute respiratory distress who is nontoxic appearing, lying semi recumbent in bed. HEENT: Normocephalic. Atraumatic. Extraocular movement intact. Sclera clear and anicteric. No facial asymmetry. Chest: Lungs are clear to auscultation bilaterally. No wheezes or crackles. CV: Heart was regular rate and rhythm. S1-S2. No murmurs, gallops, or rubs. Abd: Abdomen was soft. Nontender. Nondistended. Positive bowel sounds. No organomegaly or masses. Ext: No clubbing, cyanosis, or edema. 2+ DP pulses bilaterally. Neuro: Patient is alert and oriented x4. Cranial nerves
[2023-10-29] MEDS: POTASSIUM CHLORIDE 20 MEQ ER TABLET PO (16:49)
[2023-10-30] MEDS: VANCOMYCIN 1,500 MG/NS 500 ML 1,500 MG/500 ML BAG 250 MG IVPB (04:41)
[2023-10-30 05:45] VITALS: O2SAT 100
[2023-10-30 05:46] LABS: Basophils Percent Auto 0.4 % (0.2-1.2); Eosinophils Absolute Auto 0.1 K/mm3 (0-0.3); Hematocrit 29.2 % (37.0-47.0); Hemoglobin 9.1 g/dL (12.0-15.0); Immature Granulocyte Absolute 0.05 K/mm3 (0.00-0.031); Immature Granulocyte Percent A 1.1 % (0-0.5); Lymphocytes Absolute Auto 0.91 K/mm3 (0.9-3.2); Lymphocytes Percent Auto 20.1 % (18.3-44.2); Mean Corpuscular HGB Conc 31.2 g/dl (32-36); Mean Corpuscular Hemoglobin 27.9 pg (26-34); Mean Corpuscular Volume 89.6 fl (80-100); Mean Platelet Volume 8.4 fl (7.4-10.4); Monocytes Absolute Auto 0.4 K/mm3 (0.1-0.6); Monocytes Percent Auto 9.3 % (2.6-8.5); Neutrophils Percent Auto 67.1 % (45.5-73.1); Platelet Count Result 214 k/mm3 (150-375); Red Blood Count 3.26 M/mm3 (4.2-5.4); Red Cell Distribution Width 14.3 % (11.5-14.5); White Blood Count 4.5 K/mm3 (4.5-10.0)
[2023-10-30 06:02] LABS: Alanine Aminotransferase 8 U/L (6-35); Albumin Level 2.4 g/dL (3.5-5.1); Alkaline Phosphatase 107 U/L (38-126); Anion Gap 8 mmol/L (4-12); Aspartate Amino Transferase 13 U/L (14-36); Bilirubin,Total 0.3 mg/dL (0.2-1.3); Blood Urea Nitrogen 3 mg/dL (7-17); Carbon Dioxide 22 mmol/L (22-30); Chloride 107 mmol/L (98-107); Estimated CRCL calculation 147 ml/min; Estimated Glomerular Filt Rate > 60; Glucose 89 mg/dL (65-110); Potassium 3.5 mmol/L (3.4-5.0); Sodium 137 mmol/L (137-145)
[2023-10-30] MEDS: metroNIDAZOLE 500 MG TABLET PO ×3 (06:21→21:03)
[2023-10-30 06:34] LABS: Platelet Estimate Adequate (Adequate)
[2023-10-30 06:35] LABS: Microcytosis 1+ (NORMAL); Schistocytes None Seen
[2023-10-30] MEDS: DULoxetine HCL 30 MG CAPSULE.DR PO (08:53)
[2023-10-30] MEDS: MULTIVITAMINS THERAPEUTIC TAB (*BKC) 1 TABLET PO (08:53)
[2023-10-30] MEDS: ENOXAPARIN 40 MG/0.4 ML SYRINGE SUB-Q (08:53)
[2023-10-30] MEDS: CEFEPIME 2 GM/NS 50 ML 2 GM/50 ML BAG IVPB ×2 (08:54→21:03)
[2023-10-30] MEDS: SOD HYPOCHLORITE 1/4 STRENGTH 473 ML 1 APPLIC TOPICAL ×2 (08:54→21:03)
--- NOTE | 2023-10-30 11:04 | PM.IMPN ---
Progress Note: A&P Assessment and Plan (1) Osteomyelitis of sacrum: Code(s): M46.28 - Osteomyelitis of vertebra, sacral and sacrococcygeal region Status: Acute Assessment and Plan: Patient admitted with a necrotic unstageable sacral decubitus ulcer with a foul odor, infected. Has been afebrile. WBC and lactic acid normal. CRP 17.1, ESR 83, Alk phos 129 (repeat 107 10/29). Blood cultures 10/26 no growth. Low grade temp 10/26 but otherwise afebrile during admission Abdomen/pelvis CT: Decubitus ulcers at the bilateral ischial tuberosity regions, left larger than right, as well as additional midline decubitus ulcer extending to the distal sacrum/coccyx. Associated distal sacral osteomyelitis with erosive change. Extensive infiltration of presacral soft tissues, which could reflect soft tissue infectious process. Surgery consulted, s/p surgical debridement 10/[address] Glynn Per operative summary The coccyx appeared very soft and friable. Debrided* away to what appeared to be mostly healthy appearing tissue Antibiotics Levaquin 10/26-10/28 Metronidazole IV/PO 10/26-present: Continue 500mg PO q8 through 12/08 Vancomycin IV 10/26-present: Continue 1500mg IV q12 through 12/08 Cefepime 2G 10/28-present: Continue 2G IV q12 through 12/08 PLAN --PICC placement in AM. Coags done 10/26 --Unfortunately, there are no cultures to help guide therapy so treating empirically given OR report. --Monitor vital signs, I&Os, neuro status and patient is a fall risk --Monitor serum electrolytes, CBC, cultures, WBC and temp curve --Vanc trough 10/29 1500, pharmacy dosing vanc --Continuing Vanc, Cefe, Flagyl --Pain controlled, no opiates recently, tylenol prn. DC dilaudid DISCHARGE PLAN: Planning a 6 week course of antibiotics for osteomyelitis. Metronidazole IV/PO 10/26-present: Continue 500mg PO q8 through 12/08 Vancomycin IV 10/26-present: Continue 1500mg IV q12 through 12/08 Cefepime 2G 10/28-present: Continue 2G IV q12 through 12/08 PICC 10/30, Remove after last dose of antibiotics 12/08 Lab monitoring for discharge: Twice weekly Vanc trough, CMP, CBC. Next Vanc trough per pharmacy recs, 10/31 (2) Decubitus ulcer of ischial area: Code(s): L89.309 - Pressure ulcer of unspecified buttock, unspecified stage Status: Acute Assessment and Plan: Stage III right ischial decubitus ulcer now s/pe. She also has an unstageable left ischial decubitus ulcer that is larger with some necrotic tissue in the base of the wound. Abdomen/pelvis CT: Decubitus ulcers at the bilateral ischial tuberosity regions, left larger than right, as well as additional midline decubitus ulcer extending to the distal sacrum/coccyx. Associated distal sacral osteomyelitis with erosive change. Extensive infiltration of presacral soft tissues, which could reflect soft tissue infectious process. PLAN Surgery consulted, appreciate assistance, discussing fecal diversion but patient still deciding about that Antibiotics for osteomyelitis as noted Wound care per surgery: Dakin's 1/4 strength Wet to dry dressing changes Milton was placed, Continue Milton at discharge for wound healing (3) Electrolyte imbalance: Code(s): E87.8 - Other disorders of electrolyte and fluid balance, not elsewhere classified Status: Acute Assessment and Plan: K 3.2->3.2<3.5. Given 40 meq kcl 10/27, 60meq 10/28. Give 40meq today Mag 1.4<1.8. Mag 3G 10/27, Magnesium 400mg 10/28 --Repeat BMP, Mag in AM (4) Chronic inflammatory demyelinating polyneuropathy: Code(s): G61.81 - Chronic inflammatory demyelinating polyneuritis Status: Acute Assessment and Plan: Chronic, continue home medications. --Stable, but contributing to chronic wounds Plan Discharge planning. PICC placement. Follow final blood cultures. SNF vs home, likely SNF. Following electrolytes Time Spent With Patient Time: 58 minutes. Discussed with pharmacy Subjective Date/time seen:
--- NOTE | 2023-10-30 13:04 | PM.PNGS ---
Progress Note: A&P Assessment and Plan (1) Decubitus ulcer of coccygeal region: Qualifiers: Pressure injury stage: unstageable Qualified Code(s): L89.150 - Pressure ulcer of sacral region, unstageable Code(s): L89.159 - Pressure ulcer of sacral region, unspecified stage Status: Acute Assessment and Plan: Stage IV sacral decubitus ulcer s/p excisional debridement with bone exposed. Will continue Dakin's soaked gauze dressing changes for now Continue Milton catheter Patient has not made a decision on fecal diversion and is discussing this with her . (2) Decubitus ulcer of ischial area: Code(s): L89.309 - Pressure ulcer of unspecified buttock, unspecified stage Status: Acute Assessment and Plan: Bilateral ischial decubitus ulcers. S/p debridement of the left ischial ulcer. Continue local wound care. (3) Osteomyelitis: Code(s): M86.9 - Osteomyelitis, unspecified Status: Acute Assessment and Plan: Continue IV per primary service. Will likely need 6 weeks of IV antibiotics. (4) Chronic inflammatory demyelinating polyneuropathy: Code(s): G61.81 - Chronic inflammatory demyelinating polyneuritis Status: Acute Plan I have discussed the patient's case and plan of care with Dr. Glynn. Subjective Subjective Date/Time Seen: 10/30/23 13:04 Post Op day: 2 (excisional debridement of sacral decubitus ulcer and left ischial ulcer) Patient reports: no new complaints and afebrile Interval history: Patient doing well today. No issues overnight. She has not come to a decision regarding fecal diversion. Still wanting to think about it further. Exam Const: General: comfortable and no acute distress Orientation/consciousness: patient oriented x3 Skin: Other: Bilateral ischial wounds and sacral wounds covered with dressing which is dry and intact Objective Data Vital Signs Vital Signs: Vital Signs - 24 hr 10/29/23 14:34 10/29/23 18:34 10/29/23 20:52 Temperature 98 F 98.7 F 97.7 F Pulse Rate 84 84 85 Respiratory Rate 16 16 18 Blood Pressure 98/62 L 100/68 104/70 Pulse Oximetry 100 100 100 Oxygen Delivery 10/29/23 20:25 10/30/23 05:45 10/30/23 09:20 Temperature Pulse Rate 85 Respiratory Rate 18 Blood Pressure Pulse Oximetry 100 100 Oxygen Delivery Room Air Room Air Room Air Intake/Output Intake/Output: Intake & Output 10/27/23 10/28/23 10/29/23 10/30/23 23:59 23:59 23:59 23:59 Intake Total 2720 3180 2943.2 892 Output Total 629 255 8862 Balance 2720 3080 2043.2 -308 Meds/Results Medications: Active Medications Generic Name Dose Route Start Last Admin Trade Name Freq PRN Reason Stop Dose Admin Acetaminophen 650 mg 10/27/23 19:47 10/27/23 21:10 Acetaminophen 325 Mg Tablet PO 650 mg Q6H PRN Administration Mild Pain (1-3) or Fever Duloxetine HCl 30 mg 10/28/23 09:00 10/30/23 08:53 Duloxetine Hcl 30 Mg Capsule.Dr PO 30 mg DAILY MESERET Administration Enoxaparin Sodium 40 mg 10/29/23 09:00 10/30/23 08:53 Enoxaparin 40 Mg/0.4 Ml Syringe SUB-Q 40 mg DAILY MESERET Administration Hydromorphone HCl 1 mg 10/28/23 16:49 Hydromorphone Hcl Inj (*Crx) 1 Mg/Ml Syr IV PUSH Q2H PRN Breakthrough Pain Rated 7-10 or NPO Hydromorphone HCl 0.5 mg 10/28/23 16:49 Hydromorphone Hcl Inj (*Crx) 1 Mg/Ml Syr IV PUSH Q2H PRN Breakthrough Pain Rated 4-6 or NPO Vancomycin HCl 1,500 mg in 500 mls @ 250 mls/hr 10/29/23 04:00 10/30/23 06:41 Vancomycin 1,500 Mg/Ns 500 Ml IVPB Infused Q12H MESERET Infusion Cefepime HCl 2 gm in 50 mls @ 100 mls/hr 10/29/23 09:05 10/30/23 09:24 Maxipime 2 Gm/Ns 50 Ml IVPB Infused Q12HR MESERET Infusion Metronidazole 500 mg 10/29/23 14:00 10/30/23 06:21 Metronidazole 500 Mg Tablet PO 500 mg Q8HR MESERET Administration Multivitamins Therapeutic 1 tablet 10/28/23 09:00 10/30/23 08:53 Multi
[2023-10-30 16:36] VITALS: BP 96/57; PULSE 83; RESP 17; TEMP 37.6; O2SAT 100
[2023-10-30 16:50] LABS: Vancomycin Trough 19.2 ug/mL (10.0-20.0)
[2023-10-30] MEDS: POTASSIUM CHLORIDE 20 MEQ ER TABLET 40 MEQ PO (17:31)
[2023-10-30] MEDS: VANCOMYCIN 1,500 MG/NS 500 ML 1,500 MG/500 ML BAG 150 MG IVPB (17:36)
[2023-10-30 20:30] VITALS: BP 101/65; PULSE 80; RESP 18; TEMP 37.3; O2SAT 98
[2023-10-30 20:50] VITALS: PULSE 80; RESP 18; O2SAT 98
[2023-10-30 22:11] VITALS: O2SAT 97
[2023-10-31 04:42] LABS: Basophils Percent Auto 0.4 % (0.2-1.2); Eosinophils Absolute Auto 0.1 K/mm3 (0-0.3); Eosinophils Percent Auto 1.7 % (0-4.4); Hematocrit 29.9 % (37.0-47.0); Hemoglobin 9.5 g/dL (12.0-15.0); Immature Granulocyte Absolute 0.05 K/mm3 (0.00-0.031); Lymphocytes Absolute Auto 1.24 K/mm3 (0.9-3.2); Lymphocytes Percent Auto 23.7 % (18.3-44.2); Mean Corpuscular HGB Conc 31.8 g/dl (32-36); Mean Corpuscular Hemoglobin 28.4 pg (26-34); Mean Corpuscular Volume 89.3 fl (80-100); Mean Platelet Volume 8.5 fl (7.4-10.4); Monocytes Absolute Auto 0.5 K/mm3 (0.1-0.6); Monocytes Percent Auto 9.2 % (2.6-8.5); Neutrophils Absolute Auto 3.4 K/mm3 (1.3-6.7); Platelet Count Result 277 k/mm3 (150-375); Red Blood Count 3.35 M/mm3 (4.2-5.4); Red Cell Distribution Width 14.4 % (11.5-14.5); White Blood Count 5.2 K/mm3 (4.5-10.0)
[2023-10-31 04:54] LABS: Alanine Aminotransferase 7 U/L (6-35); Albumin Level 2.5 g/dL (3.5-5.1); Alkaline Phosphatase 97 U/L (38-126); Anion Gap 6 mmol/L (4-12); Aspartate Amino Transferase 14 U/L (14-36); Bilirubin,Total 0.3 mg/dL (0.2-1.3); Blood Urea Nitrogen 7 mg/dL (7-17); Carbon Dioxide 26 mmol/L (22-30); Chloride 104 mmol/L (98-107); Estimated CRCL calculation 115 ml/min; Estimated Glomerular Filt Rate > 60; Glucose 102 mg/dL (65-110); Magnesium 1.7 mg/dL (1.6-2.3); Potassium 3.9 mmol/L (3.4-5.0); Sodium 136 mmol/L (137-145)
[2023-10-31 05:26] VITALS: BP 102/66; PULSE 80; RESP 18; TEMP 36.8; O2SAT 98
[2023-10-31] MEDS: metroNIDAZOLE 500 MG TABLET PO ×3 (06:05→20:32)
[2023-10-31] MEDS: VANCOMYCIN 1,500 MG/NS 500 ML 1,500 MG/500 ML BAG 250 MG IVPB ×2 (06:05→18:55)
--- NOTE | 2023-10-31 07:51 | PM.IMPN ---
Progress Note: A&P Assessment and Plan (1) Osteomyelitis of sacrum: Code(s): M46.28 - Osteomyelitis of vertebra, sacral and sacrococcygeal region Status: Acute Assessment and Plan: Patient admitted with a necrotic unstageable sacral decubitus ulcer with a foul odor, infected. Has been afebrile. WBC and lactic acid normal. CRP 17.1, ESR 83, Alk phos 129 (repeat 107 10/29). Blood cultures 10/26 no growth. Low grade temp 10/26 but otherwise afebrile during admission Abdomen/pelvis CT: Decubitus ulcers at the bilateral ischial tuberosity regions, left larger than right, as well as additional midline decubitus ulcer extending to the distal sacrum/coccyx. Associated distal sacral osteomyelitis with erosive change. Extensive infiltration of presacral soft tissues, which could reflect soft tissue infectious process. Surgery consulted, s/p surgical debridement 10/[address] Glynn Per operative summary The coccyx appeared very soft and friable. Debrided* away to what appeared to be mostly healthy appearing tissue Antibiotics Levaquin 10/26-10/28 Metronidazole IV/PO 10/26-present: Continue 500mg PO q8 through 12/08 Vancomycin IV 10/26-present: Continue 1500mg IV q12 through 12/08 Cefepime 2G 10/28-present: Continue 2G IV q12 through 12/08 PLAN --PICC placement today. Coags done 10/26 --Unfortunately, there are no cultures to help guide therapy so treating empirically given OR report. --Monitor vital signs, I&Os, neuro status and patient is a fall risk --Monitor serum electrolytes, CBC, cultures, WBC and temp curve --Vanc trough 10/29 1500, pharmacy dosing vanc --Continuing Vanc, Cefe, Flagyl --Pain controlled, no opiates recently, tylenol prn. DC dilaudid DISCHARGE PLAN: Planning a 6 week course of antibiotics for osteomyelitis. Metronidazole IV/PO 10/26-present: Continue 500mg PO q8 through 12/08 Vancomycin IV 10/26-present: Continue 1500mg IV q12 through 12/08 Cefepime 2G 10/28-present: Continue 2G IV q12 through 12/08 PICC 10/30, Remove after last dose of antibiotics 12/08 Lab monitoring for discharge: Twice weekly Vanc trough, CMP, CBC. Next Vanc trough per pharmacy recs, 10/31 (2) Decubitus ulcer of ischial area: Code(s): L89.309 - Pressure ulcer of unspecified buttock, unspecified stage Status: Acute Assessment and Plan: Stage III right ischial decubitus ulcer now s/pe. She also has an unstageable left ischial decubitus ulcer that is larger with some necrotic tissue in the base of the wound. Abdomen/pelvis CT: Decubitus ulcers at the bilateral ischial tuberosity regions, left larger than right, as well as additional midline decubitus ulcer extending to the distal sacrum/coccyx. Associated distal sacral osteomyelitis with erosive change. Extensive infiltration of presacral soft tissues, which could reflect soft tissue infectious process. PLAN Surgery consulted, appreciate assistance, discussing fecal diversion but patient still deciding about that Antibiotics for osteomyelitis as noted Wound care per surgery: Dakin's 1/4 strength Wet to dry dressing changes Milton was placed, Continue Milton at discharge for wound healing (3) Electrolyte imbalance: Code(s): E87.8 - Other disorders of electrolyte and fluid balance, not elsewhere classified Status: Resolved Assessment and Plan: K - 3.9 today mag - 1.7 today --con't to monitor (4) Chronic inflammatory demyelinating polyneuropathy: Code(s): G61.81 - Chronic inflammatory demyelinating polyneuritis Status: Chronic Assessment and Plan: Chronic, continue home medications. --Stable, but contributing to chronic wounds Plan PICC placement today. Follow final blood cultures. SNF at d/c. Patient still deciding and will discuss with surgery about colostomy placement. Subjective Date/time seen: 10/31/23 07:51 Interval history: Patient sitting up in bed this morning in no acute distress. She has no complaints. Plan fo
[2023-10-31] MEDS: CEFEPIME 2 GM/NS 50 ML 2 GM/50 ML BAG IVPB ×2 (08:42→20:32)
[2023-10-31] MEDS: MULTIVITAMINS THERAPEUTIC TAB (*BKC) 1 TABLET PO (08:42)
[2023-10-31] MEDS: DULoxetine HCL 30 MG CAPSULE.DR PO (08:42)
[2023-10-31] MEDS: ENOXAPARIN 40 MG/0.4 ML SYRINGE SUB-Q (08:43)
[2023-10-31] MEDS: SOD HYPOCHLORITE 1/4 STRENGTH 473 ML 1 APPLIC TOPICAL ×2 (08:48→20:33)
[2023-10-31] MEDS: LIDOCAINE HCL 1% PF INJ 5 ML VIAL INFILTRATE (13:30)
[2023-10-31 14:21] VITALS: BP 99/65; PULSE 81; RESP 16; TEMP 36.4; O2SAT 99
[2023-10-31 20:31] VITALS: BP 106/63; PULSE 78; RESP 18; TEMP 37.4; O2SAT 99
[2023-10-31] MEDS: CENTRAL LINE FLUSH 10 ML IV PUSH (20:33)
[2023-11-01 05:55] VITALS: BP 155/73; PULSE 77; RESP 20; TEMP 36.9; O2SAT 100
[2023-11-01 06:12] LABS: Basophils Percent Auto 0.6 % (0.2-1.2); Eosinophils Absolute Auto 0.1 K/mm3 (0-0.3); Eosinophils Percent Auto 2.4 % (0-4.4); Hematocrit 30.1 % (37.0-47.0); Hemoglobin 9.3 g/dL (12.0-15.0); Immature Granulocyte Absolute 0.04 K/mm3 (0.00-0.031); Immature Granulocyte Percent A 0.8 % (0-0.5); Lymphocytes Absolute Auto 1.44 K/mm3 (0.9-3.2); Lymphocytes Percent Auto 29.1 % (18.3-44.2); Mean Corpuscular HGB Conc 30.9 g/dl (32-36); Mean Corpuscular Hemoglobin 27.6 pg (26-34); Mean Corpuscular Volume 89.3 fl (80-100); Mean Platelet Volume 8.5 fl (7.4-10.4); Monocytes Absolute Auto 0.6 K/mm3 (0.1-0.6); Monocytes Percent Auto 11.7 % (2.6-8.5); Neutrophils Absolute Auto 2.7 K/mm3 (1.3-6.7); Neutrophils Percent Auto 55.4 % (45.5-73.1); Platelet Count Result 256 k/mm3 (150-375); Red Blood Count 3.37 M/mm3 (4.2-5.4); Red Cell Distribution Width 14.3 % (11.5-14.5)
[2023-11-01 06:23] LABS: Alanine Aminotransferase 8 U/L (6-35); Albumin Level 2.6 g/dL (3.5-5.1); Alkaline Phosphatase 90 U/L (38-126); Anion Gap 4 mmol/L (4-12); Aspartate Amino Transferase 18 U/L (14-36); Bilirubin,Total 0.2 mg/dL (0.2-1.3); Blood Urea Nitrogen 7 mg/dL (7-17); Calcium 7.9 mg/dL (8.4-10.2); Carbon Dioxide 30 mmol/L (22-30); Chloride 103 mmol/L (98-107); Estimated CRCL calculation 146 ml/min; Estimated Glomerular Filt Rate > 60; Glucose 90 mg/dL (65-110); Potassium 3.4 mmol/L (3.4-5.0); Sodium 137 mmol/L (137-145)
[2023-11-01] MEDS: metroNIDAZOLE 500 MG TABLET PO ×3 (06:38→20:35)
[2023-11-01] MEDS: VANCOMYCIN 1,500 MG/NS 500 ML 1,500 MG/500 ML BAG 250 MG IVPB (06:39)
[2023-11-01] MEDS: CENTRAL LINE FLUSH 10 ML IV PUSH ×3 (06:39→20:35)
[2023-11-01] MEDS: CEFEPIME 2 GM/NS 50 ML 2 GM/50 ML BAG IVPB ×2 (08:27→20:34)
[2023-11-01] MEDS: ENOXAPARIN 40 MG/0.4 ML SYRINGE SUB-Q (08:28)
[2023-11-01] MEDS: DULoxetine HCL 30 MG CAPSULE.DR PO (08:28)
[2023-11-01] MEDS: MULTIVITAMINS THERAPEUTIC TAB (*BKC) 1 TABLET PO (08:28)
[2023-11-01] MEDS: SOD HYPOCHLORITE 1/4 STRENGTH 473 ML 1 APPLIC TOPICAL ×2 (08:29→20:35)
--- NOTE | 2023-11-01 15:24 | WPDPN ---
Progress Note: A&P Assessment and Plan (1) Osteomyelitis of sacrum: Code(s): M46.28 - Osteomyelitis of vertebra, sacral and sacrococcygeal region Status: Acute (2) Decubitus ulcer of ischial area: Code(s): L89.309 - Pressure ulcer of unspecified buttock, unspecified stage Status: Acute (3) Electrolyte imbalance: Code(s): E87.8 - Other disorders of electrolyte and fluid balance, not elsewhere classified Status: Resolved Plan 11/01/2023 Interval History: patient with necrotics decubitus distal sacrum/coccyx concerning of OM, seen by surgery service had surgical debridement, the surgery in recommending fecal diversion surgery to prevent soiling of the wound and for hygiene, family has not decided about surgery, patient is clinically stable, will continue to monitor. wound culture and blood culture are pending however one bottle of blood culture is growing Staph epidermidis most likely contamination, patient is empirically being treated with metronidazole, vancomycin, and Cefepime. patient remains clinically stable, further recommnendation to follow as patient will need 6 weeks of IV abx for OM. today patient potassium is 3.4 will supplement and monitor. Subjective Date/time seen: 11/01/23 15:24 Interval history: Patient admitted with a necrotic unstageable sacral decubitus ulcer with a foul odor, infected. Has been afebrile. WBC and lactic acid normal. CRP 17.1, ESR 83, Alk phos 129 (repeat 107 10/29). Blood cultures 10/26 no growth. Low grade temp 10/26 but otherwise afebrile during admission Abdomen/pelvis CT: Decubitus ulcers at the bilateral ischial tuberosity regions, left larger than right, as well as additional midline decubitus ulcer extending to the distal sacrum/coccyx. Associated distal sacral osteomyelitis with erosive change. Extensive infiltration of presacral soft tissues, which could reflect soft tissue infectious process. Surgery consulted, s/p surgical debridement 10/[address] Glynn Per operative summary The coccyx appeared very soft and friable. Debrided* away to what appeared to be mostly healthy appearing tissue 11/01/2023 Interval History: patient with necrotics decubitus distal sacrum/coccyx concerning of OM, seen by surgery service had surgical debridement, the surgery in recommending fecal diversion surgery to prevent soiling of the wound and for hygiene, family has not decided about surgery, patient is clinically stable, will continue to monitor. wound culture and blood culture are pending however one bottle of blood culture is growing Staph epidermidis most likely contamination, patient is empirically being treated with metronidazole, vancomycin, and Cefepime. patient remains clinically stable, further recommnendation to follow as patient will need 6 weeks of IV abx for OM. today patient potassium is 3.4 will supplement and monitor. Review of Systems Review of Systems: All systems reviewed & are unremarkable except as noted in HPI and below Exam Narrative: Patient is comfortable, NAD HEENT: eyes are clear and none icteric LUNGS:CTA HEART: RR S1S2 ABD: BS+, Soft and nontender Lower extremities: no edema SKIN: nonjaundiced, wound was not examined. Neuro: grossly intact. Objective Data Vital Signs Vital Signs: Vital Signs - 24 hr 10/31/23 20:31 11/01/23 05:55 11/01/23 08:30 Temperature 37.4 C 36.9 C Pulse Rate 78 77 Respiratory Rate 18 20 Blood Pressure 106/63 155/73 H Pulse Oximetry 99 100 Oxygen Delivery Room Air Intake/Output Intake/Output: Intake & Output 10/29/23 10/30/23 10/31/23 11/01/23 23:59 23:59 23:59 23:59 Intake Total 2943.2 2504 2550 970 Output Total 900 1650 2425 1450 Balance 2043.2 854 125 -480 Meds/Results Medications: Active Medications Generic Name Dose Route Start Last Admin Trade Name Freq PRN Reason Stop Dose Admin Acetaminophen 650 mg 10/27/23 19:47 10/27/23 21:10 Acetaminophen 325 Mg Tablet
[2023-11-01] MEDS: ACETAMINOPHEN 325 MG TABLET 650 MG PO (15:34)
[2023-11-01 17:56] LABS: Vancomycin Trough 20.8 ug/mL (10.0-20.0)
[2023-11-01] MEDS: POTASSIUM CHLORIDE 20 MEQ ER TABLET 40 MEQ PO (18:34)
[2023-11-01] MEDS: VANCOMYCIN 1,250 MG/NS 250 ML 1,250 MG/250 ML BAG 166.67 MG IVPB (20:35)
[2023-11-01 21:14] VITALS: BP 98/51; PULSE 74; RESP 16; TEMP 37.2; O2SAT 98
[2023-11-01 23:58] VITALS: BP 121/72; PULSE 85; RESP 16; TEMP 37.1; O2SAT 98
[2023-11-02 05:58] LABS: Basophils Percent Auto 0.4 % (0.2-1.2); Eosinophils Absolute Auto 0.2 K/mm3 (0-0.3); Eosinophils Percent Auto 3.9 % (0-4.4); Hematocrit 29.4 % (37.0-47.0); Hemoglobin 9.3 g/dL (12.0-15.0); Immature Granulocyte Absolute 0.04 K/mm3 (0.00-0.031); Immature Granulocyte Percent A 0.9 % (0-0.5); Lymphocytes Absolute Auto 1.34 K/mm3 (0.9-3.2); Lymphocytes Percent Auto 29.3 % (18.3-44.2); Mean Corpuscular HGB Conc 31.6 g/dl (32-36); Mean Corpuscular Hemoglobin 28.6 pg (26-34); Mean Corpuscular Volume 90.5 fl (80-100); Mean Platelet Volume 8.4 fl (7.4-10.4); Monocytes Absolute Auto 0.6 K/mm3 (0.1-0.6); Monocytes Percent Auto 12.4 % (2.6-8.5); Neutrophils Absolute Auto 2.4 K/mm3 (1.3-6.7); Neutrophils Percent Auto 53.1 % (45.5-73.1); Platelet Count Result 239 k/mm3 (150-375); Red Blood Count 3.25 M/mm3 (4.2-5.4); Red Cell Distribution Width 14.2 % (11.5-14.5); White Blood Count 4.6 K/mm3 (4.5-10.0)
[2023-11-02 06:08] LABS: Alanine Aminotransferase 9 U/L (6-35); Albumin Level 2.7 g/dL (3.5-5.1); Alkaline Phosphatase 79 U/L (38-126); Anion Gap 4 mmol/L (4-12); Aspartate Amino Transferase 28 U/L (14-36); Bilirubin,Total 0.3 mg/dL (0.2-1.3); Blood Urea Nitrogen 9 mg/dL (7-17); Calcium 8.3 mg/dL (8.4-10.2); Carbon Dioxide 32 mmol/L (22-30); Chloride 104 mmol/L (98-107); Estimated CRCL calculation 115 ml/min; Estimated Glomerular Filt Rate > 60; Glucose 83 mg/dL (65-110); Potassium 3.8 mmol/L (3.4-5.0); Sodium 140 mmol/L (137-145)
[2023-11-02 06:19] VITALS: BP 110/61; PULSE 72; RESP 20; TEMP 36.6; O2SAT 99
[2023-11-02] MEDS: metroNIDAZOLE 500 MG TABLET PO ×3 (06:31→21:26)
[2023-11-02] MEDS: CENTRAL LINE FLUSH 10 ML IV PUSH ×3 (06:32→21:26)
[2023-11-02] MEDS: MULTIVITAMINS THERAPEUTIC TAB (*BKC) 1 TABLET PO (08:38)
[2023-11-02] MEDS: DULoxetine HCL 30 MG CAPSULE.DR PO (08:38)
[2023-11-02] MEDS: ENOXAPARIN 40 MG/0.4 ML SYRINGE SUB-Q (08:38)
[2023-11-02] MEDS: CEFEPIME 2 GM/NS 50 ML 2 GM/50 ML BAG IVPB ×2 (08:38→19:54)
[2023-11-02] MEDS: SOD HYPOCHLORITE 1/4 STRENGTH 473 ML 1 APPLIC TOPICAL (08:40)
[2023-11-02] MEDS: VANCOMYCIN 1,250 MG/NS 250 ML 1,250 MG/250 ML BAG 166.67 MG IVPB ×2 (08:41→21:25)
--- NOTE | 2023-11-02 12:27 | WPDPN ---
Progress Note: A&P Assessment and Plan (1) Osteomyelitis of sacrum: Code(s): M46.28 - Osteomyelitis of vertebra, sacral and sacrococcygeal region Status: Acute (2) Decubitus ulcer of ischial area: Code(s): L89.309 - Pressure ulcer of unspecified buttock, unspecified stage Status: Acute (3) Electrolyte imbalance: Code(s): E87.8 - Other disorders of electrolyte and fluid balance, not elsewhere classified Status: Resolved Plan 11/02/2023 Interval History: patient with necrotics decubitus distal sacrum/coccyx concerning of OM, seen by surgery service had surgical debridement, the surgery in recommending fecal diversion surgery to prevent soiling of the wound and for hygiene, today patient has decided to have fecal diversion surgery, patient will be seen by her surgeon tomorrow and further recommendations to follow. patient is clinically stable, will continue to monitor. wound culture and blood culture are pending however one bottle of blood culture is growing Staph epidermidis most likely contamination, patient is empirically being treated with metronidazole, vancomycin, and Cefepime. patient remains clinically stable, further recommendations to follow as patient will need 6 weeks of IV abx for OM. today patient potassium is 3.8 will supplement and monitor. Subjective Date/time seen: 11/02/23 12:27 Interval history: Patient admitted with a necrotic unstageable sacral decubitus ulcer with a foul odor, infected. Has been afebrile. WBC and lactic acid normal. CRP 17.1, ESR 83, Alk phos 129 (repeat 107 /). Blood cultures 10/26 no growth. Low grade temp 10/26 but otherwise afebrile during admission Abdomen/pelvis CT: Decubitus ulcers at the bilateral ischial tuberosity regions, left larger than right, as well as additional midline decubitus ulcer extending to the distal sacrum/coccyx. Associated distal sacral osteomyelitis with erosive change. Extensive infiltration of presacral soft tissues, which could reflect soft tissue infectious process. Surgery consulted, s/p surgical debridement 10/[address] Glynn Per operative summary The coccyx appeared very soft and friable. Debrided* away to what appeared to be mostly healthy appearing tissue 11/02/2023 Interval History: patient with necrotics decubitus distal sacrum/coccyx concerning of OM, seen by surgery service had surgical debridement, the surgery in recommending fecal diversion surgery to prevent soiling of the wound and for hygiene, today patient has decided to have fecal diversion surgery, patient will be seen by her surgeon tomorrow and further recommendations to follow. patient is clinically stable, will continue to monitor. wound culture and blood culture are pending however one bottle of blood culture is growing Staph epidermidis most likely contamination, patient is empirically being treated with metronidazole, vancomycin, and Cefepime. patient remains clinically stable, further recommendations to follow as patient will need 6 weeks of IV abx for OM. today patient potassium is 3.8 will supplement and monitor. Review of Systems Review of Systems: 12 systems were reviewed and are negative except for as per HPI. All systems reviewed & are unremarkable except as noted in HPI and below Exam Narrative: Patient is comfortable, NAD HEENT: eyes are clear and none icteric LUNGS:CTA HEART: RR S1S2 ABD: BS+, Soft and nontender Lower extremities: no edema SKIN: nonjaundiced, wound was not examined. Neuro: grossly intact. Objective Data Vital Signs Vital Signs: Vital Signs - 24 hr 11/01/23 21:14 11/01/23 23:58 11/02/23 06:19 Temperature 37.2 C 37.1 C 36.6 C Pulse Rate 74 85 72 Respiratory Rate 16 16 20 Blood Pressure 98/51 L 121/72 110/61 Pulse Oximetry 98 98 99 Oxygen Delivery 11/02/23 08:38 Temperature Pulse Rate Respiratory Rate Blood Pressure Pulse Oximetry Oxygen Delivery Room Air Intake/Output Intake
[2023-11-02 14:40] VITALS: BP 103/61; PULSE 68; RESP 16; TEMP 36.5; O2SAT 97
[2023-11-02] MEDS: ACETAMINOPHEN 325 MG TABLET 650 MG PO (16:57)
[2023-11-02 20:00] VITALS: PULSE 68; RESP 16; O2SAT 97
[2023-11-02] MEDS: SODIUM CHLORIDE 0.9% IV 250 ML 20 ML (20:04)
[2023-11-02 21:04] VITALS: BP 96/57; PULSE 75; RESP 16; TEMP 36.5; O2SAT 99
[2023-11-03 00:15] VITALS: BP 94/60; PULSE 85; RESP 14; TEMP 36.7; O2SAT 97
[2023-11-03 05:29] VITALS: BP 116/67; PULSE 93; RESP 16; TEMP 36.7; O2SAT 93
[2023-11-03] MEDS: CENTRAL LINE FLUSH 10 ML IV PUSH ×3 (05:36→21:21)
[2023-11-03] MEDS: metroNIDAZOLE 500 MG TABLET PO ×3 (05:37→21:20)
[2023-11-03] MEDS: SOD HYPOCHLORITE 1/4 STRENGTH 473 ML 1 APPLIC TOPICAL ×3 (05:37→21:20)
[2023-11-03 06:15] LABS: Estimated CRCL calculation 115 ml/min; Estimated Glomerular Filt Rate > 60
[2023-11-03] MEDS: ENOXAPARIN 40 MG/0.4 ML SYRINGE SUB-Q (09:02)
[2023-11-03] MEDS: CEFEPIME 2 GM/NS 50 ML 2 GM/50 ML BAG IVPB ×2 (09:02→21:21)
[2023-11-03] MEDS: DULoxetine HCL 30 MG CAPSULE.DR PO (09:02)
[2023-11-03] MEDS: MULTIVITAMINS THERAPEUTIC TAB (*BKC) 1 TABLET PO (09:02)
[2023-11-03 09:41] LABS: Vancomycin Trough 21.2 ug/mL (10.0-20.0)
--- NOTE | 2023-11-03 10:49 | PCNFU ---
Nutrition Follow-Up Complete: Increased protein energy needs related to wound healing as evidenced by unstageable pressure injury to sacrum goal: Adequate PO intake at least 75% meals and supplements Patient is progressing towards goal. We will continue current goal. Pt current nutrition is Regular with Ensure Enlive TID. Last recorded weight is 59.7 kg, up from 58.7 kg on admit. Bowel Motility: Last reported BM 10/30. Labs Reviewed: Cr 0.4 Meds Noted:MVI, Lovenox Skin: Necrotic sacral wound. Additional Notes: Patient remains on a regular diet with Ensure Enlive TID. Oral Intake 10-100% of meals. Spoke with patient today, not much a breakfast eater but is drinking Ensure. Discussions regarding possible colostomy. Surgery is following. Agree with diet orders. Monitoring intakes, weights, labs, supplement tolerance, plan of care Follow up in 5 days
--- NOTE | 2023-11-03 12:11 | PM.IMPN ---
Progress Note: A&P Assessment and Plan (1) Osteomyelitis of sacrum: Code(s): M46.28 - Osteomyelitis of vertebra, sacral and sacrococcygeal region Status: Acute Assessment and Plan: Patient admitted with a necrotic unstageable sacral decubitus ulcer with a foul odor. Afebrile. WBC and lactic acid normal. CRP 17.1, ESR 83 Abx started after cx obtianed. BCx positive for Staph Epi but repeat negative. [place] ro be contaminant CT Abd/Pelvis: Decubitus ulcers at the bilateral ischial tuberosity regions, left larger than right, as well as additional midline decubitus ulcer extending to the distal sacrum/coccyx. Associated distal sacral osteomyelitis with erosive change. Extensive infiltration of presacral soft tissues, which could reflect soft tissue infectious process. Surgery consulted, s/p surgical debridement 10/[address] Glynn. Per operative summary The coccyx appeared very soft and friable. Debrided* away to what appeared to be mostly healthy appearing tissue Surgery recommending fecal diversion surgery to prevent soiling of the wound and for hygiene and patient has agreed Continue Flagyl, Cefepime and Vanco. (2) Decubitus ulcer of ischial area: Code(s): L89.309 - Pressure ulcer of unspecified buttock, unspecified stage Status: Acute Assessment and Plan: As above (3) Electrolyte imbalance: Code(s): E87.8 - Other disorders of electrolyte and fluid balance, not elsewhere classified Status: Resolved Assessment and Plan: monitor electrolytes and replace as needed. (4) Chronic inflammatory demyelinating polyneuropathy: Code(s): G61.81 - Chronic inflammatory demyelinating polyneuritis Status: Chronic Assessment and Plan: Etiology of her chronic debilitated state. Frequent turning. Specialty bed. Plan DVT prophylaxis - Lovenox Code status - full Subjective Date/time seen: 11/03/23 12:11 Interval history: 58yo female with chronic inflammatory demyelinating polyneuropathy, decubitus ulcer and RHIANNA here for suspected infection of known decubitus ulcer. Assuming care. Chart reviewed. Feeling well. No issues overnight. No CP or SOB. No n/v or diarrhea. Eating okay. Has decided to proceed with diverting colostomy. Exam Narrative: AF 98.0 116/67 93 16 93% ra Gen - NARD Chest - CTA bilaterally, nml RR CV - RRR S1/S2 Abd - Soft, NT/ND, Positive BS - Milton secured with clear urine Ext - soft tissue edema Neuro - Alert and appropriate. Paraplegic with decreased bilateral hand function Psych - Nml mood and affect Skin - Warm and dry Objective Data Vital Signs Vital Signs: Vital Signs - 24 hr 11/02/23 14:40 11/02/23 20:00 11/02/23 21:04 Temperature 97.7 F 97.7 F Pulse Rate 68 68 75 Respiratory Rate 16 16 16 Blood Pressure 103/61 96/57 L Pulse Oximetry 97 97 99 Oxygen Delivery Room Air 11/03/23 00:15 11/03/23 05:29 11/03/23 09:02 Temperature 98.1 F 98.0 F Pulse Rate 85 93 Respiratory Rate 14 16 Blood Pressure 94/60 L 116/67 Pulse Oximetry 97 93 Oxygen Delivery Room Air Intake/Output Intake/Output: Intake & Output 10/31/23 11/01/23 11/02/23 11/03/23 23:59 23:59 23:59 23:59 Intake Total 2550 2190 2500 550 Output Total 2429 1720 6069 1400 Balance 472 -317 -372 -360 Meds/Results Medications: Active Medications Generic Name Dose Route Start Last Admin Trade Name Freq PRN Reason Stop Dose Admin Acetaminophen 650 mg 10/27/23 19:47 11/02/23 16:57 Acetaminophen 325 Mg Tablet PO 650 mg Q6H PRN Administration Mild Pain (1-3) or Fever Duloxetine HCl 30 mg 10/28/23 09:00 11/03/23 09:02 Duloxetine Hcl 30 Mg Capsule.Dr PO 30 mg DAILY MESERET Administration Enoxaparin Sodium 40 mg 10/29/23 09:00 11/03/23 09:02 Enoxaparin 40 Mg/0.4 Ml Syringe SUB-Q 40 mg DAILY MESERET Administration Hydromorphone HCl 1 mg 10/28/23 16:49 Hydromorphone Hcl Inj (*Crx) 1 M
[2023-11-03 14:03] VITALS: BP 100/63; PULSE 77; RESP 16; TEMP 36; O2SAT 99
[2023-11-03] MEDS: VANCOMYCIN 1,000 MG/NS 250 ML 1,000 MG/250 ML BAG 250 MG IVPB (15:01)
--- NOTE | 2023-11-03 15:58 | PC.NURSE ---
Patient has questions for surgery team about possible colostomy. RN called surgery office and spoke with Troy. Troy stated Dr. Oh was already gone for the day, but she would put a message out to Karen as well.
[2023-11-03 20:00] VITALS: PULSE 77; RESP 16; O2SAT 99
[2023-11-03 21:00] VITALS: BP 108/63; PULSE 85; RESP 16; TEMP 36.6; O2SAT 98
[2023-11-04] MEDS: VANCOMYCIN 1,000 MG/NS 250 ML 1,000 MG/250 ML BAG 125 MG IVPB (01:17)
[2023-11-04 06:13] VITALS: BP 120/70; PULSE 94; RESP 18; TEMP 37.1; O2SAT 99
[2023-11-04] MEDS: metroNIDAZOLE 500 MG TABLET PO ×3 (06:13→21:19)
[2023-11-04] MEDS: CENTRAL LINE FLUSH 10 ML IV PUSH ×3 (06:13→21:24)
[2023-11-04] MEDS: ENOXAPARIN 40 MG/0.4 ML SYRINGE SUB-Q (08:48)
[2023-11-04] MEDS: DULoxetine HCL 30 MG CAPSULE.DR PO (08:48)
[2023-11-04] MEDS: MULTIVITAMINS THERAPEUTIC TAB (*BKC) 1 TABLET PO (08:48)
[2023-11-04] MEDS: CEFEPIME 2 GM/NS 50 ML 2 GM/50 ML BAG IVPB ×2 (08:48→21:20)
[2023-11-04] MEDS: SOD HYPOCHLORITE 1/4 STRENGTH 473 ML 1 APPLIC TOPICAL ×2 (08:49→21:20)
[2023-11-04 13:36] LABS: Vancomycin Trough 17.7 ug/mL (10.0-20.0)
[2023-11-04 14:00] VITALS: BP 98/58; PULSE 94; RESP 18; TEMP 36.8; O2SAT 99
[2023-11-04] MEDS: VANCOMYCIN 1,000 MG/NS 250 ML 1,000 MG/250 ML BAG 250 MG IVPB (14:18)
--- NOTE | 2023-11-04 15:11 | PM.IMPN ---
Progress Note: A&P Assessment and Plan (1) Osteomyelitis of sacrum: Code(s): M46.28 - Osteomyelitis of vertebra, sacral and sacrococcygeal region Status: Acute Assessment and Plan: Patient admitted with a necrotic unstageable sacral decubitus ulcer with a foul odor. Afebrile. WBC and lactic acid normal. CRP 17.1, ESR 83 Abx started after cx obtianed. BCx 10/26 positive for Staph Epi (one aerobic and anaerobic set) but repeat BCx 10/28 negative. [place] to be contaminant CT Abd/Pelvis: Decubitus ulcers at the bilateral ischial tuberosity regions, left larger than right, as well as additional midline decubitus ulcer extending to the distal sacrum/coccyx. Associated distal sacral osteomyelitis with erosive change. Extensive infiltration of presacral soft tissues, which could reflect soft tissue infectious process. Surgery consulted, s/p surgical debridement 10/[address] Glynn. Per operative summary The coccyx appeared very soft and friable. Debrided* away to what appeared to be mostly healthy appearing tissue Surgery recommending fecal diversion surgery to prevent soiling of the wound and for hygiene and patient has agreed Surgery notified and patient on schedule for tomorrow. Continue Flagyl, Cefepime and Vanco. (2) Decubitus ulcer of ischial area: Code(s): L89.309 - Pressure ulcer of unspecified buttock, unspecified stage Status: Acute Assessment and Plan: As above (3) Electrolyte imbalance: Code(s): E87.8 - Other disorders of electrolyte and fluid balance, not elsewhere classified Status: Resolved Assessment and Plan: monitor electrolytes and replace as needed. (4) Chronic inflammatory demyelinating polyneuropathy: Code(s): G61.81 - Chronic inflammatory demyelinating polyneuritis Status: Chronic Assessment and Plan: Etiology of her chronic debilitated state. Frequent turning. Specialty bed. Plan DVT prophylaxis - Lovenox Code status - full Subjective Date/time seen: 11/04/23 15:11 Interval history: 58yo female with chronic inflammatory demyelinating polyneuropathy, decubitus ulcer and RHIANNA here for suspected infection of known decubitus ulcer. No issues overnight. No CP or SOB. She is still interested in proceeding with diverting colostomy. No N/V. Exam Narrative: AF 98.3 98/58 94 18 99% ra Gen - NARD Chest - CTA bilaterally, nml RR CV - RRR S1/S2 Abd - Soft, NT/ND, Positive BS - [place] secured with clear urine Ext - soft tissue edema Neuro - Alert and appropriate. Paraplegic with decreased bilateral hand function Psych - Nml mood and affect Skin - Warm and dry Objective Data Vital Signs Vital Signs: Vital Signs - 24 hr 11/03/23 20:00 11/03/23 21:00 11/04/23 06:13 Temperature 97.8 F 98.8 F Pulse Rate 77 85 94 Respiratory Rate 16 16 18 Blood Pressure 108/63 120/70 Pulse Oximetry 99 98 99 Oxygen Delivery Room Air 11/04/23 09:18 11/04/23 14:00 Temperature 98.3 F Pulse Rate 94 Respiratory Rate 18 Blood Pressure 98/58 L Pulse Oximetry 99 Oxygen Delivery Room Air Intake/Output Intake/Output: Intake & Output 11/01/23 11/02/23 11/03/23 11/04/23 23:59 23:59 23:59 23:59 Intake Total 2190 2500 1880 1040 Output Total 2470 2875 2200 900 Balance -280 -375 -320 140 Meds/Results Medications: Active Medications Generic Name Dose Route Start Last Admin Trade Name Freq PRN Reason Stop Dose Admin Acetaminophen 650 mg 10/27/23 19:47 11/02/23 16:57 Acetaminophen 325 Mg Tablet PO 650 mg Q6H PRN Administration Mild Pain (1-3) or Fever Duloxetine HCl 30 mg 10/28/23 09:00 11/04/23 08:48 Duloxetine Hcl 30 Mg Capsule.Dr PO 30 mg DAILY MESERET Administration Enoxaparin Sodium 40 mg 10/29/23 09:00 11/04/23 08:48 Enoxaparin 40 Mg/0.4 Ml Syringe SUB-Q 40 mg DAILY MESERET Administration Hydromorphone HCl 1 mg 10/28/23 16:49 Hydromorphone Hcl Inj (*Crx)
--- NOTE | 2023-11-04 15:18 | PM.PNGS ---
Progress Note: A&P Assessment and Plan (1) Decubitus ulcer of coccygeal region: Qualifiers: Pressure injury stage: unstageable Qualified Code(s): L89.150 - Pressure ulcer of sacral region, unstageable Code(s): L89.159 - Pressure ulcer of sacral region, unspecified stage Status: Acute Assessment and Plan: Stage IV sacral decubitus ulcer healing well s/p debridement. Continue local wound care. Continue Milton catheter to avoid contamination of the wounds due to urinary incontinence Patient decided to proceed with a diverting colostomy. Description of the procedure, risks, benefits, alternatives, and expected recovery were discussed with the patient in detail. We will make her NPO after midnight and proceed with surgery tomorrow. (2) Decubitus ulcer of ischial area: Code(s): L89.309 - Pressure ulcer of unspecified buttock, unspecified stage Status: Acute Assessment and Plan: Bilateral ischial decubitus ulcers healing well. Continue local wound care. (3) Osteomyelitis: Code(s): M86.9 - Osteomyelitis, unspecified Status: Acute Assessment and Plan: Continue IV abx per primary service (4) Chronic inflammatory demyelinating polyneuropathy: Code(s): G61.81 - Chronic inflammatory demyelinating polyneuritis Status: Chronic Plan I have discussed the patient's case and plan of care with Dr. Glynn. Subjective Subjective Date/Time Seen: 11/04/23 15:18 Patient reports: no new complaints Interval history: Patient with no new complaints since last seen. She is planning to eventually discharge to a SNF with IV antibiotics and wound care. She has discussed fecal diversion with her and decided to proceed with a diverting colostomy. Exam Const: General: comfortable and no acute distress Orientation/consciousness: patient oriented x3 Skin: Other: Sacral decubitus ulcer healing well with more granulation tissue forming and only about 10% harris tissue in the wound bed and the rest appears pink and healthy, bone exposed. No purulent drainage or necrotic tissue. Right ischial ulcer clean with pink wound bed, no purulent drainage or necrotic tissue. Left ischial ulcer with 100% pale yellow wound bed, no purulent drainage, no necrotic tissue. Objective Data Vital Signs Vital Signs: Vital Signs - 24 hr 11/03/23 20:00 11/03/23 21:00 11/04/23 06:13 Temperature 97.8 F 98.8 F Pulse Rate 77 85 94 Respiratory Rate 16 16 18 Blood Pressure 108/63 120/70 Pulse Oximetry 99 98 99 Oxygen Delivery Room Air 11/04/23 09:18 11/04/23 14:00 Temperature 98.3 F Pulse Rate 94 Respiratory Rate 18 Blood Pressure 98/58 L Pulse Oximetry 99 Oxygen Delivery Room Air Intake/Output Intake/Output: Intake & Output 11/01/23 11/02/23 11/03/23 11/04/23 23:59 23:59 23:59 23:59 Intake Total 2190 2500 1880 1040 Output Total 2470 2875 2200 900 Balance -280 -375 -320 140 Meds/Results Medications: Active Medications Generic Name Dose Route Start Last Admin Trade Name Freq PRN Reason Stop Dose Admin Acetaminophen 650 mg 10/27/23 19:47 11/02/23 16:57 Acetaminophen 325 Mg Tablet PO 650 mg Q6H PRN Administration Mild Pain (1-3) or Fever Duloxetine HCl 30 mg 10/28/23 09:00 11/04/23 08:48 Duloxetine Hcl 30 Mg Capsule.Dr PO 30 mg DAILY MESERET Administration Enoxaparin Sodium 40 mg 10/29/23 09:00 11/04/23 08:48 Enoxaparin 40 Mg/0.4 Ml Syringe SUB-Q 40 mg DAILY MESERET Administration Hydromorphone HCl 1 mg 10/28/23 16:49 Hydromorphone Hcl Inj (*Crx) 1 Mg/Ml Syr IV PUSH Q2H PRN Breakthrough Pain Rated 7-10 or NPO Hydromorphone HCl 0.5 mg 10/28/23 16:49 Hydromorphone Hcl Inj (*Crx) 1 Mg/Ml Syr IV PUSH Q2H PRN Breakthrough Pain Rated 4-6 or NPO Cefepime HCl 2 gm in 50 mls @ 100 mls/hr 10/29/23 09:05 11/04/23 09:18 Maxipime 2 Gm/Ns 50 Ml IVPB Infused Q12HR MESERET I
[2023-11-04 19:58] VITALS: BP 109/62; PULSE 97; RESP 18; TEMP 36.9; O2SAT 97
[2023-11-05] VITALS (12 sets, daily range): BP systolic 90–129; BP diastolic 51–74; PULSE 71–90; RESP 15–20; TEMP 36.4–37.1; O2SAT 95–100
[2023-11-05] MEDS: VANCOMYCIN 1,000 MG/NS 250 ML 1,000 MG/250 ML BAG 250 MG IVPB ×2 (01:23→16:13)
[2023-11-05] MEDS: CENTRAL LINE FLUSH 10 ML IV PUSH ×3 (05:45→22:12)
[2023-11-05] MEDS: CENTRAL LINE FLUSH 20 ML IV PUSH (05:45)
[2023-11-05] MEDS: metroNIDAZOLE 500 MG TABLET PO ×3 (05:47→22:04)
[2023-11-05 06:05] LABS: Estimated CRCL calculation 115 ml/min; Estimated Glomerular Filt Rate > 60
[2023-11-05] MEDS: CEFEPIME 2 GM/NS 50 ML 2 GM/50 ML BAG IVPB ×2 (08:28→22:04)
[2023-11-05] MEDS: SOD HYPOCHLORITE 1/4 STRENGTH 473 ML 1 APPLIC TOPICAL ×2 (08:29→22:12)
--- NOTE | 2023-11-05 08:53 | PCWOUND ---
WOCN NOTE Received order to mike patient's abdomen for colostomy placement. Due to patient's large amount of adipose tissue in the lower abdomen, marking was placed slightly higher for a more optimal position and easier recovery and chcf management for patient and family as patient is wheel chair and bed bound.
[2023-11-05] MEDS: LACTATED RINGERS 1,000 ML 30 ML IV CONT (12:10)
--- NOTE | 2023-11-05 12:19 | PM.IMPN ---
Progress Note: A&P Assessment and Plan (1) Osteomyelitis of sacrum: Code(s): M46.28 - Osteomyelitis of vertebra, sacral and sacrococcygeal region Status: Acute Assessment and Plan: Patient admitted with a necrotic unstageable sacral decubitus ulcer with a foul odor. Afebrile. WBC and lactic acid normal. CRP 17.1, ESR 83 Abx started after cx obtianed. BCx 10/26 positive for Staph Epi (one aerobic and anaerobic set) but repeat BCx 10/28 negative. [place] to be contaminant CT Abd/Pelvis: Decubitus ulcers at the bilateral ischial tuberosity regions, left larger than right, as well as additional midline decubitus ulcer extending to the distal sacrum/coccyx. Associated distal sacral osteomyelitis with erosive change. Extensive infiltration of presacral soft tissues, which could reflect soft tissue infectious process. Surgery consulted, s/p surgical debridement 10/[address] Glynn. Per operative summary The coccyx appeared very soft and friable. Debrided* away to what appeared to be mostly healthy appearing tissue Surgery recommending fecal diversion surgery to prevent soiling of the wound and for hygiene and patient has agreed Pt going for diverting colostomy today Continue Flagyl, Cefepime and Vanco. Pt will dc to SNF with IV abx after surgery (2) Decubitus ulcer of ischial area: Code(s): L89.309 - Pressure ulcer of unspecified buttock, unspecified stage Status: Acute Assessment and Plan: As above (3) Electrolyte imbalance: Code(s): E87.8 - Other disorders of electrolyte and fluid balance, not elsewhere classified Status: Resolved Assessment and Plan: watch electrolytes after surgery (4) Chronic inflammatory demyelinating polyneuropathy: Code(s): G61.81 - Chronic inflammatory demyelinating polyneuritis Status: Chronic Assessment and Plan: Frequent turning. Specialty bed. Plan to DC to SNF after surgery Plan DVT prophylaxis - Lovenox Code status - full Subjective Date/time seen: 11/05/23 12:19 Interval history: 58yo female with chronic inflammatory demyelinating polyneuropathy, decubitus ulcer and RHIANNA here for suspected infection of known decubitus ulcer. Pt going for diverting colostomy today under surgery team, pt has been npo from [place] Review of Systems Review of Systems: no acute issues Exam Narrative: Generally : chronically ill and thin appearing lady Chest - CTA bilaterally, nml RR CV - RRR S1/S2 Abd - Soft, NT/ND, Positive BS - [place] secured with clear urine Ext - soft tissue edema Neuro - Alert and appropriate. Paraplegic hand Psych - Nml mood and affect Skin - Warm and dry Objective Data Vital Signs Vital Signs: Vital Signs - 24 hr 11/04/23 14:00 11/04/23 19:58 11/04/23 21:10 Temperature 36.8 C 36.9 C Pulse Rate 94 97 Respiratory Rate 18 18 Blood Pressure 98/58 L 109/62 Pulse Oximetry 99 97 Oxygen Delivery Room Air 11/05/23 06:00 Temperature 36.6 C Pulse Rate 81 Respiratory Rate 18 Blood Pressure 101/59 L Pulse Oximetry 95 Oxygen Delivery Intake/Output Intake/Output: Intake & Output 11/02/23 11/03/23 11/04/23 11/05/23 23:59 23:59 23:59 23:59 Intake Total 2500 1880 1580 250 Output Total 2875 2200 1525 2550 Balance -375 -320 55 -2300 Meds/Results Medications: Active Medications Generic Name Dose Route Start Last Admin Trade Name Freq PRN Reason Stop Dose Admin Acetaminophen 650 mg 10/27/23 19:47 11/02/23 16:57 Acetaminophen 325 Mg Tablet PO 650 mg Q6H PRN Administration Mild Pain (1-3) or Fever Duloxetine HCl 30 mg 10/28/23 09:00 11/05/23 08:28 Duloxetine Hcl 30 Mg Capsule.Dr PO Not Given DAILY [facility] Enoxaparin Sodium 40 mg 10/29/23 09:00 11/05/23 08:29 Enoxaparin 40 Mg/0.4 Ml Syringe SUB-Q Not Given DAILY [facility] Hydromorphone HCl 1 mg 10/28/23 16:49 Hydromorphone Hcl Inj (*Crx) 1 Mg/Ml Syr IV PUSH
--- NOTE | 2023-11-05 13:05 | WPDANESEPPF ---
Anes - Initial Pre Proc Eval Procedure: Operation Date: 10/28/23 16:30 Proposed Procedures p Incision and Drainage Sacral Decubitus Ulcer - Jason Glynn DO Operation Date: 11/05/23 13:30 Proposed Procedures p Diverting Colostomy - Jason Glynn DO Date/Time: 11/05/23 13:05 Surgeon: Shayla Barajas APRN Pre Op Diagnosis: Infected Decub Patient Data Age: 58 Gender: F Height: 1.68 m Weight: 59.4 kg Last Vital Signs Temp 37.1 C 11/05/23 12:19 Pulse 72 11/05/23 12:19 Resp 20 11/05/23 12:19 BP 109/63 11/05/23 12:19 Pulse Ox 100 11/05/23 12:19 O2 Del Method Room Air 11/05/23 12:19 O2 Flow Rate 6 10/28/23 16:02 Allergies Allergy/AdvReac Type Severity Reaction Status Date / Time morphine Allergy Intermediate Hives / Verified 10/28/23 15:33 Red Face penicillin G Allergy Intermediate Itching Verified 10/28/23 15:33 Home Medications Medication Instructions Recorded Confirmed Type duloxetine 30 mg capsule,delayed 30 mg PO DAILY 09/20/23 10/27/23 History release multivitamin with folic acid 400 1 tablet PO DAILY 09/20/23 10/27/23 History mcg tablet (Daily-Sidra (with folic acid)) Laboratory Tests 11/04/23 11/05/23 12:54 05:43 Creatinine 0.40 L mg/dL (0.7-1.0) Estim Creat Clear Calc 115 ml/min Estimated GFR > 60 (59 - ) Vancomycin Trough 17.7 ug/mL (10.0-20.0) Patient hx anesthesia problems: none Family hx anesthesia problems: none Results Review: All pre-operative results and documents have been reviewed as part of the pre-operative evaluation. [facility] Past Medical History Medical History Chronic inflammatory demyelinating polyneuropathy Decubitus ulcer of coccygeal region Obstructive sleep apnea No longer on CPAP after weight loss Surgical History Surgical History History of bilateral knee replacement History of total abdominal hysterectomy and bilateral salpingo-oophorectomy Social History Social History Social History: The patient lives with her they have been since 1995. They raised a son and a daughter. 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 She is a lifelong nonsmoker. She does not drink alcohol or use illicit substances. She is dependent on wheelchair for mobilization. Code status: Full code (she would not want to be on long-term ventilation nor which she want a tracheostomy or feeding tube) Surrogate decision maker: Jorge Romero, spouse. Do You Feel Safe in your Home?: Yes Lack of Transportation: No Lack of Food: Never True Current Housing: I Have Housing Concerned About Future Housing: No Difficulty Paying Gas/Electric Bills: No Difficulty Paying for Meds: No Currently Unemployed: No Education: Master's Degree or Higher Difficulty w/ Childcare or Family Care: No Spiritual care concerns: No Anes - Eval Final PreProcedure Day of Procedure 11/05/23 13:05 Patient weight: normal Heart: regular rate and rhythm Lungs: decreased breath sounds Airway: Mallampati scale class II Neurological: alert and oriented Last oral intake: >/= 8 hours ASA classification: IV Emergent: no Anesthetic plan: proceed Anesthesia type and monitoring: general ETT and standard monitoring Results Review: All pre-operative results and documents have been reviewed as part of the pre-operative evaluation. Informed Consent: The patient's anesthetic plan and its attendant risks and benefits were discussed with the patient/family/POA. Questions were solicited and answers provided to the satisfaction of the patient/family/POA.
--- NOTE | 2023-11-05 13:14 | WPDHPUPDATE1 ---
History and Physical Update Update Date/Time: 11/05/23 13:14 History and Physical has been reviewed, including an updated exam of the patient. There are NO changes in the patient's condition. Risks, benefits, and alternatives have been discussed and questions answered. Patient agrees to proceed with procedure.
--- NOTE | 2023-11-05 14:54 | W.PM.PROC2 ---
Procedure Note - Detailed Date of Procedure 11/05/23 Pre-op Diagnosis Stage IV sacral decubitus ulcer, sacral osteomyelitis Post-op Diagnosis Same Procedure Performed Open diverting colostomy Surgeon Jason Glynn, DO Anesthesia General Indications This is a 58-year-old woman who presented with an infected sacral decubitus ulcer. She underwent surgical debridement last week and was found to have involvement all the way down to the bone. She is bed ridden or wheelchair-bound due to a progressive demyelinating disease. Discussions were made with the patient and about long-term wound care of the sacral decubitus ulcer and that frequent contamination with stool or urine could lead to worsening infections and sepsis. Decision was made to proceed with open diverting colostomy. Findings Open diverting colostomy was performed. The sigmoid colon was identified in the pelvis and did not appear to be obstructed ordered dilated. The sigmoid colon was transected at the rectosigmoid junction and enough of the sigmoid colon was mobilized to allow for colostomy. No other intra-abdominal abnormalities were noted. No specimens were obtained for pathology. Description of Procedure Procedure as well as risks, benefits, and alternatives were discussed with the patient. Written consent was obtained and placed in chart prior to procedure. Patient was brought back to surgical suite. She was placed supine on operating table. Time-out was done to confirm patient and procedure. She was then intubated by the anesthesia department. Her abdomen was prepped and draped in sterile fashion using chlorhexidine prep. A 12 cm vertical midline incision was made from just inferior to the umbilicus down to the suprapubic region using a 10 blade scalpel. Electrocautery was used for hemostasis and for dissection through the subcutaneous tissue. The linea alba was identified and incised using electrocautery. The peritoneum was then also incised with electrocautery. An Olegario wound protector was placed and the abdomen was carefully inspected. The sigmoid colon was identified and this was traced down into the pelvis the rectosigmoid junction. The lateral peritoneal attachments to the sigmoid colon were taken down using electrocautery. Care was taken to identify the left ureter and protected in its location. I then created a window in the mesocolon right at the rectosigmoid junction using electrocautery. An [employer] contour blue load stapler was then advanced across the rectosigmoid junction and clamped and fired. A LigaSure bipolar cautery was then used to take down the mesocolon proximal enough to mobilize the sigmoid for colostomy formation. The sigmoid colon appeared to be coming up to the location marked by the ostomy nurses preoperatively. There was no tension and no torsion along its path. The wound protector was then removed. A 2 cm circular incision was then made in the left upper quadrant in the marked location for the ostomy. Electrocautery was used for hemostasis and for excision of the circular piece of skin. Dissection was then carried down to the anterior rectus sheath. The anterior rectus sheath was then incised vertically with electrocautery. The rectus muscle was split along its muscle fibers and then the posterior rectus sheath was also incised vertically using electrocautery. Once completely through the peritoneum, I then dilated the tract with my fingers to ensure that it was wide enough for ostomy placement. A Franklin clamp was then placed through the ostomy incision on to the end of the staple line of the sigmoid colon. This was left in place while the midline incision was closed. The peritoneum was closed using 0 Vicryl running absorbable suture. The fascia was then closed using 0 PDS running absorbable suture. The Olu's fascia was approximated using 3-0 Vicryl simple interrupted sutures. The skin was approximated using 4-0 Monocryl runnin
[2023-11-06 01:40] VITALS: BP 90/52; PULSE 75; RESP 18; TEMP 36.8; O2SAT 97
[2023-11-06] MEDS: VANCOMYCIN 1,000 MG/NS 250 ML 1,000 MG/250 ML BAG 250 MG IVPB ×2 (02:35→15:20)
[2023-11-06 05:40] VITALS: BP 116/55; PULSE 82; RESP 18; TEMP 36.5; O2SAT 96
[2023-11-06] MEDS: metroNIDAZOLE 500 MG TABLET PO ×3 (06:12→21:43)
[2023-11-06] MEDS: CENTRAL LINE FLUSH 10 ML IV PUSH ×3 (06:12→21:53)
[2023-11-06] MEDS: CENTRAL LINE FLUSH 20 ML IV PUSH (06:12)
[2023-11-06 06:16] LABS: Hematocrit 28.8 % (37.0-47.0); Hemoglobin 8.9 g/dL (12.0-15.0); Mean Corpuscular HGB Conc 30.9 g/dl (32-36); Mean Corpuscular Volume 90.6 fl (80-100); Mean Platelet Volume 8.8 fl (7.4-10.4); Platelet Count Result 249 k/mm3 (150-375); Red Blood Count 3.18 M/mm3 (4.2-5.4); Red Cell Distribution Width 14.7 % (11.5-14.5); White Blood Count 18.5 K/mm3 (4.5-10.0)
[2023-11-06 06:32] LABS: INR 1.1; Prothrombin Time 14.1 Seconds (11.1-14.7)
[2023-11-06 06:33] LABS: Anion Gap 6 mmol/L (4-12); Blood Urea Nitrogen 11 mg/dL (7-17); Calcium 8.3 mg/dL (8.4-10.2); Carbon Dioxide 32 mmol/L (22-30); Chloride 98 mmol/L (98-107); Estimated CRCL calculation 95 ml/min; Estimated Glomerular Filt Rate > 60; Glucose 108 mg/dL (65-110); Potassium 3.8 mmol/L (3.4-5.0); Sodium 136 mmol/L (137-145)
[2023-11-06 08:28] VITALS: BP 111/63; PULSE 73; RESP 16; TEMP 36.2; O2SAT 98
[2023-11-06] MEDS: SOD HYPOCHLORITE 1/4 STRENGTH 473 ML 1 APPLIC TOPICAL ×2 (09:46→20:31)
[2023-11-06] MEDS: DULoxetine HCL 30 MG CAPSULE.DR PO (09:46)
[2023-11-06] MEDS: MULTIVITAMINS THERAPEUTIC TAB (*BKC) 1 TABLET PO (09:46)
[2023-11-06] MEDS: CEFEPIME 2 GM/NS 50 ML 2 GM/50 ML BAG IVPB ×2 (09:47→20:28)
[2023-11-06] MEDS: ENOXAPARIN 40 MG/0.4 ML SYRINGE SUB-Q (09:50)
--- NOTE | 2023-11-06 11:04 | PM.IMPN ---
Progress Note: A&P Assessment and Plan (1) Osteomyelitis of sacrum: Code(s): M46.28 - Osteomyelitis of vertebra, sacral and sacrococcygeal region Status: Acute Assessment and Plan: Patient admitted with a necrotic unstageable sacral decubitus ulcer with a foul odor. Afebrile. WBC and lactic acid normal. CRP 17.1, ESR 83 Abx started after cx obtianed. BCx 10/26 positive for Staph Epi (one aerobic and anaerobic set) but repeat BCx 10/28 negative. [place] to be contaminant CT Abd/Pelvis: Decubitus ulcers at the bilateral ischial tuberosity regions, left larger than right, as well as additional midline decubitus ulcer extending to the distal sacrum/coccyx. Associated distal sacral osteomyelitis with erosive change. Extensive infiltration of presacral soft tissues, which could reflect soft tissue infectious process. Surgery consulted, s/p surgical debridement 10/[address] Glynn. Per operative summary The coccyx appeared very soft and friable. Debrided* away to what appeared to be mostly healthy appearing tissue Surgery recommending fecal diversion surgery to prevent soiling of the wound and for hygiene and patient has agreed Pt going for diverting colostomy today Continue Flagyl, Cefepime and Vanco. Pt will dc to SNF with IV abx after surgery continue to monitor labs in hospital (2) Decubitus ulcer of ischial area: Code(s): L89.309 - Pressure ulcer of unspecified buttock, unspecified stage Status: Acute Assessment and Plan: As above (3) Electrolyte imbalance: Code(s): E87.8 - Other disorders of electrolyte and fluid balance, not elsewhere classified Status: Resolved Assessment and Plan: watch electrolytes after surgery (4) Chronic inflammatory demyelinating polyneuropathy: Code(s): G61.81 - Chronic inflammatory demyelinating polyneuritis Status: Chronic Assessment and Plan: Frequent turning. Specialty bed. Plan to DC to SNF after surgery Plan DVT prophylaxis - Lovenox Code status - full Subjective Date/time seen: 11/06/23 11:04 Interval history: 58yo female with chronic inflammatory demyelinating polyneuropathy, decubitus ulcer and RHIANNA here for suspected infection of known decubitus ulcer. 11/04 Pt going for diverting colostomy today under surgery team 11/05 SP post opday 1 picc line working better Wcc still remans high pt on iv vancomycin, iv cefepime and oral flagyl BC are finalised AWait placement to SNF for IV ABX treatments soon Review of Systems Review of Systems: slow improvement Exam Narrative: Generally : chronically ill and thin appearing lady Chest - CTA bilaterally, nml RR CV - RRR S1/S2 Abd - Soft, NT/ND, Positive BS - Milton secured with clear urine Ext - soft tissue edema Neuro - Alert and appropriate. Paraplegic hand Psych - Nml mood and affect Skin - Warm and dry Objective Data Vital Signs Vital Signs: Vital Signs - 24 hr 11/05/23 12:19 11/05/23 15:05 11/05/23 15:20 Temperature 37.1 C 36.6 C Pulse Rate 72 77 71 Respiratory Rate 20 15 16 Blood Pressure 109/63 129/74 122/69 Pulse Oximetry 100 97 100 Oxygen Delivery Room Air Simple Face Mask Simple Face Mask Oxygen Flow Rate 10 10 Fraction of Inspired Oxygen 11/05/23 15:35 11/05/23 15:50 11/05/23 16:15 Temperature 36.4 C L Pulse Rate 73 72 74 Respiratory Rate 16 15 18 Blood Pressure 116/62 113/64 106/58 L Pulse Oximetry 97 98 100 Oxygen Delivery Room Air Room Air Oxygen Flow Rate Fraction of Inspired Oxygen 11/05/23 16:30 11/05/23 17:09 11/05/23 17:30 Temperature 36.4 C 36.8 C Pulse Rate 73 80 Respiratory Rate 16 18 Blood Pressure 116/63 111/59 L Pulse Oximetry 100 98 100 Oxygen Delivery Room Air Oxygen Flow Rate Fraction of Inspired Oxygen 21 11/05/23 18:30 11/05/23 21:40 11/05/23 21:50 Temperature 36.7 C 36.8 C Pulse Rate 90 77 Respiratory Rate 16 18 Blood Pressure 106
--- NOTE | 2023-11-06 11:39 | WPDANESPN ---
Anes - Prog Note Post-Op Date/Time: 11/06/23 11:39 Cardiovascular status: normal Respiratory status: normal Airway patency: baseline Mental status: baseline Post-Op hydration status: normal Vital Signs: Last Vital Signs Temp 36.2 C L 11/06/23 08:28 Pulse 73 11/06/23 08:28 Resp 16 11/06/23 08:28 BP 111/63 11/06/23 08:28 Pulse Ox 98 11/06/23 08:28 O2 Del Method Room Air 11/06/23 08:00 O2 Flow Rate 10 11/05/23 15:20 FiO2 21 11/05/23 17:09 Pain Score (VAS): 0 I/O: Intake & Output 11/05/23 11/06/23 11/06/23 23:59 07:59 15:59 Intake Total 540 602 510 Output Total 100 700 Balance 440 -98 510 Laboratory Tests 11/06/23 06:08 11/06/23 06:08 11/06/23 06:08 WBC 18.5 H RBC 3.18 L Hgb 8.9 L Hct 28.8 L MCV 90.6 MCH 28.0 MCHC 30.9 L RDW 14.7 H Plt Count 249 MPV 8.8 PT 14.1 INR 1.1 Sodium 136 L Potassium 3.8 Chloride 98 Carbon Dioxide 32 H Anion Gap 6 BUN 11 Creatinine 0.50 L Estim Creat Clear Calc 95 Estimated GFR > 60 Glucose 108 Calcium 8.3 L Post-procedural complaints: none Patient Feedback: Patient satisfied with anesthetic care.
[2023-11-06 12:13] VITALS: BP 100/58; PULSE 83; RESP 17; TEMP 36.6; O2SAT 99
--- NOTE | 2023-11-06 12:34 | PM.PNGS ---
Progress Note: A&P Assessment and Plan (1) Decubitus ulcer of sacral area: Code(s): L89.159 - Pressure ulcer of sacral region, unspecified stage Status: Acute Assessment and Plan: Continue local wound care. Ostomy should allow fecal diversion to prevent contamination of wounds. Surgically stable for discharge tomorrow if continuing to do well. Antibiotics per Hospitalist (2) Osteomyelitis of sacrum: Code(s): M46.28 - Osteomyelitis of vertebra, sacral and sacrococcygeal region Status: Acute (3) Chronic inflammatory demyelinating polyneuropathy: Code(s): G61.81 - Chronic inflammatory demyelinating polyneuritis Status: Chronic Subjective Subjective Date/Time Seen: 11/06/23 12:34 Interval history: Gas and stool in ostomy. Tolerating regular diet. Pain controlled. Exam GI: Inspection: non-distended, incision (intact with glue) and other (ostomy patent and functioning) GI Palp: Yes Soft to palpation and Yes Tenderness to palpation present (GI) (incisional) Objective Data Vital Signs Vital Signs: Vital Signs - 24 hr 11/05/23 15:05 11/05/23 15:20 11/05/23 15:35 Temperature 36.6 C Pulse Rate 77 71 73 Respiratory Rate 15 16 16 Blood Pressure 129/74 122/69 116/62 Pulse Oximetry 97 100 97 Oxygen Delivery Simple Face Mask Simple Face Mask Room Air Oxygen Flow Rate 10 10 Fraction of Inspired Oxygen 11/05/23 15:50 11/05/23 16:15 11/05/23 16:30 Temperature 36.4 C L 36.4 C Pulse Rate 72 74 73 Respiratory Rate 15 18 16 Blood Pressure 113/64 106/58 L 116/63 Pulse Oximetry 98 100 100 Oxygen Delivery Room Air Oxygen Flow Rate Fraction of Inspired Oxygen 11/05/23 17:09 11/05/23 17:30 11/05/23 18:30 Temperature 36.8 C 36.7 C Pulse Rate 80 90 Respiratory Rate 18 16 Blood Pressure 111/59 L 106/62 Pulse Oximetry 98 100 100 Oxygen Delivery Room Air Oxygen Flow Rate Fraction of Inspired Oxygen 21 11/05/23 21:40 11/05/23 21:50 11/06/23 01:40 Temperature 36.8 C 36.8 C Pulse Rate 77 75 Respiratory Rate 18 18 Blood Pressure 90/51 L 90/52 L Pulse Oximetry 98 97 Oxygen Delivery Room Air Oxygen Flow Rate Fraction of Inspired Oxygen 11/06/23 05:40 11/06/23 08:28 11/06/23 08:00 Temperature 36.5 C 36.2 C L Pulse Rate 82 73 Respiratory Rate 18 16 Blood Pressure 116/55 L 111/63 Pulse Oximetry 96 98 Oxygen Delivery Room Air Oxygen Flow Rate Fraction of Inspired Oxygen 11/06/23 12:13 Temperature 36.6 C Pulse Rate 83 Respiratory Rate 17 Blood Pressure 100/58 L Pulse Oximetry 99 Oxygen Delivery Oxygen Flow Rate Fraction of Inspired Oxygen Intake/Output Intake/Output: Intake & Output 11/03/23 11/04/23 11/05/23 11/06/23 23:59 23:59 23:59 23:59 Intake Total 1880 8696 214 1780 Output Total 2200 1525 3760 700 Balance -320 55 -2870 412 Meds/Results Medications: Active Medications Generic Name Dose Route Start Last Admin Trade Name Freq PRN Reason Stop Dose Admin Acetaminophen 650 mg 10/27/23 19:47 11/02/23 16:57 Acetaminophen 325 Mg Tablet PO 650 mg Q6H PRN Administration Mild Pain (1-3) or Fever Hydrocodone Bitart/Acetaminophen 1 tab 11/05/23 15:55 Hydrocodone/Acetaminophen (*Crx) 5-325 Mg Tablet PO Q4H PRN Pain Rated 4-6 Hydrocodone Bitart/Acetaminophen 1 tab 11/05/23 15:55 Hydrocodone/Acetaminophen (*Crx) 7.5-325 Mg Tablet PO Q4H PRN Pain Rated 7-10 Duloxetine HCl 30 mg 10/28/23 09:00 11/06/23 09:46 Duloxetine Hcl 30 Mg Capsule.Dr PO 30 mg DAILY MESERET Administration Enoxaparin Sodium 40 mg 10/29/23 09:00 11/06/23 09:50 Enoxaparin 40 Mg/0.4 Ml Syringe SUB-Q 40 mg DAILY MESERET Administration Hydromorphone HCl 1 mg 10/28/23 16:49 Hydromorphone Hcl Inj (*Crx) 1 Mg/Ml Syr IV PUSH Q2H PRN Breakthrough Pain Rated 7-10 or NPO Hydromorphone HCl 0.5 mg 10/28/23 16:49 Hydromorphone Hcl Inj (*Crx) 1 Mg/Ml S
[2023-11-06 13:49] LABS: Vancomycin Trough 19.5 ug/mL (10.0-20.0)
[2023-11-06 17:27] VITALS: BP 113/68; PULSE 84; RESP 16; TEMP 37.2; O2SAT 100
[2023-11-06] MEDS: ALTEPLASE 2 MG VIAL (CATHFLO) IV PUSH (19:52)
[2023-11-06 21:22] VITALS: BP 101/56; PULSE 88; RESP 18; TEMP 36.6; O2SAT 94
[2023-11-07] MEDS: VANCOMYCIN 1,000 MG/NS 250 ML 1,000 MG/250 ML BAG 250 MG IVPB ×2 (02:09→14:16)
[2023-11-07 05:10] VITALS: BP 110/52; PULSE 97; RESP 18; TEMP 36.5; O2SAT 97
[2023-11-07 05:25] LABS: Hematocrit 29.3 % (37.0-47.0); Hemoglobin 9.1 g/dL (12.0-15.0); Mean Corpuscular HGB Conc 31.1 g/dl (32-36); Mean Corpuscular Hemoglobin 28.4 pg (26-34); Mean Corpuscular Volume 91.6 fl (80-100); Platelet Count Result 260 k/mm3 (150-375); Red Cell Distribution Width 15.2 % (11.5-14.5); White Blood Count 8.9 K/mm3 (4.5-10.0)
[2023-11-07 05:34] LABS: Anion Gap 3 mmol/L (4-12); Blood Urea Nitrogen 11 mg/dL (7-17); Calcium 8.2 mg/dL (8.4-10.2); Carbon Dioxide 33 mmol/L (22-30); Chloride 101 mmol/L (98-107); Estimated CRCL calculation 95 ml/min; Estimated Glomerular Filt Rate > 60; Glucose 87 mg/dL (65-110); Potassium 3.7 mmol/L (3.4-5.0); Sodium 137 mmol/L (137-145)
[2023-11-07 05:42] LABS: INR 1.1
[2023-11-07] MEDS: metroNIDAZOLE 500 MG TABLET PO ×3 (06:30→20:54)
[2023-11-07] MEDS: CENTRAL LINE FLUSH 10 ML IV PUSH ×3 (06:30→20:55)
[2023-11-07] MEDS: CENTRAL LINE FLUSH 20 ML IV PUSH (06:30)
[2023-11-07] MEDS: MULTIVITAMINS THERAPEUTIC TAB (*BKC) 1 TABLET PO (08:20)
[2023-11-07] MEDS: CEFEPIME 2 GM/NS 50 ML 2 GM/50 ML BAG IVPB ×2 (08:20→20:53)
[2023-11-07] MEDS: DULoxetine HCL 30 MG CAPSULE.DR PO (08:20)
[2023-11-07] MEDS: ENOXAPARIN 40 MG/0.4 ML SYRINGE SUB-Q (08:20)
--- NOTE | 2023-11-07 08:50 | PM.PNGS ---
Progress Note: A&P Assessment and Plan (1) Decubitus ulcer of sacral area: Code(s): L89.159 - Pressure ulcer of sacral region, unspecified stage Status: Acute Assessment and Plan: Continue local wound care. Ostomy should allow fecal diversion to prevent contamination of wounds. Surgically stable for discharge. Antibiotics per Hospitalist (2) Osteomyelitis of sacrum: Code(s): M46.28 - Osteomyelitis of vertebra, sacral and sacrococcygeal region Status: Acute (3) Chronic inflammatory demyelinating polyneuropathy: Code(s): G61.81 - Chronic inflammatory demyelinating polyneuritis Status: Chronic Subjective Subjective Date/Time Seen: 11/07/23 08:50 Interval history: Tolerating diet. Ostomy functioning. Resting comfortably this AM. Exam GI: Inspection: non-distended, incision (intact with glue) and other (ostomy patent and functioning) GI Palp: Yes Soft to palpation and Yes Tenderness to palpation present (GI) (incisional) Objective Data Vital Signs Vital Signs: Vital Signs - 24 hr 11/06/23 12:13 11/06/23 17:27 11/06/23 21:22 Temperature 36.6 C 37.2 C 36.6 C Pulse Rate 83 84 88 Respiratory Rate 17 16 18 Blood Pressure 100/58 L 113/68 101/56 L Pulse Oximetry 99 100 94 11/07/23 05:10 Temperature 36.5 C Pulse Rate 97 Respiratory Rate 18 Blood Pressure 110/52 L Pulse Oximetry 97 Intake/Output Intake/Output: Intake & Output 11/04/23 11/05/23 11/06/23 11/07/23 23:59 23:59 23:59 23:59 Intake Total 2430 327 2461 490 Output Total 1525 3760 1100 700 Balance 55 -2870 1502 -210 Meds/Results Medications: Active Medications Generic Name Dose Route Start Last Admin Trade Name Freq PRN Reason Stop Dose Admin Acetaminophen 650 mg 10/27/23 19:47 11/02/23 16:57 Acetaminophen 325 Mg Tablet PO 650 mg Q6H PRN Administration Mild Pain (1-3) or Fever Hydrocodone Bitart/Acetaminophen 1 tab 11/05/23 15:55 Hydrocodone/Acetaminophen (*Crx) 5-325 Mg Tablet PO Q4H PRN Pain Rated 4-6 Hydrocodone Bitart/Acetaminophen 1 tab 11/05/23 15:55 Hydrocodone/Acetaminophen (*Crx) 7.5-325 Mg Tablet PO Q4H PRN Pain Rated 7-10 Alteplase, Recombinant 2 mg 11/06/23 19:28 11/06/23 19:52 Alteplase 2 Mg Vial (Cathflo) IV PUSH 2 mg ONCE PRN Administration Line Occlusion Duloxetine HCl 30 mg 10/28/23 09:00 11/07/23 08:20 Duloxetine Hcl 30 Mg Capsule.Dr PO 30 mg DAILY MESERET Administration Enoxaparin Sodium 40 mg 10/29/23 09:00 11/07/23 08:20 Enoxaparin 40 Mg/0.4 Ml Syringe SUB-Q 40 mg DAILY MESERET Administration Hydromorphone HCl 1 mg 10/28/23 16:49 Hydromorphone Hcl Inj (*Crx) 1 Mg/Ml Syr IV PUSH Q2H PRN Breakthrough Pain Rated 7-10 or NPO Hydromorphone HCl 0.5 mg 10/28/23 16:49 Hydromorphone Hcl Inj (*Crx) 1 Mg/Ml Syr IV PUSH Q2H PRN Breakthrough Pain Rated 4-6 or NPO Cefepime HCl 2 gm in 50 mls @ 100 mls/hr 10/29/23 09:05 11/07/23 08:20 Maxipime 2 Gm/Ns 50 Ml IVPB 100 mls/hr Q12HR MESERET Administration Vancomycin HCl 1,000 mg in 250 mls @ 250 mls/hr 11/03/23 14:00 11/07/23 03:10 Vancomycin 1,000 Mg/Ns 250 Ml IVPB Infused Q12H MESERET Infusion Metronidazole 500 mg 10/29/23 14:00 11/07/23 06:30 Metronidazole 500 Mg Tablet PO 500 mg Q8HR MESERET Administration Miscellaneous Information 1 each 11/06/23 00:01 Prn Dilauded Needs To Be Renewed Or It Will Automatically Discontinue. XX 12/06/23 00:00 CLARIFY MESERET Multivitamins Therapeutic 1 tablet 10/28/23 09:00 11/07/23 08:20 Multivitamins Therapeutic Tab (*Bkc) PO 1 tablet DAILY MESERET Administration Naloxone HCl 0.1 mg 10/28/23 16:49 Naloxone Hcl 0.4 Mg/Ml Vial IV PUSH Q2M PRN Opiate Reversal Polyethylene Glycol 17 gm 10/28/23 11:29 Polyethylene Glycol 3350 17 Gm Powd.Pack PO QAM PRN Constipation Sodium Chloride 20 ml 10/31/23 14:27 11/07/23 06:30
--- NOTE | 2023-11-07 10:46 | PCNFU ---
Nutrition Follow-Up Complete: Increased protein energy needs related to wound healing as evidenced by unstageable pressure injury to sacrum Goal: Adequate PO intake at least 75% meals and supplements Patient is meeting current needs. No new goal. Pt current nutrition is Regular with Ensure Enlive TID. Last recorded weight is 60.1 kg, up from 58.7 kg on admit. Bowel Motility: +BM reported 11/05 Labs Reviewed:Cr 0.5,Hct 29.3,Hgb 9.1 Meds Noted:MVI, Lovenox,Vancomycin, Flagyl. Skin: necrotic sacral wound-unstageable. Additional Notes: Patient remains on a regular diet with Ensure Enlive TID. Patient is tolerating diet and supplement well. Agree with diet orders.. Monitoring intakes, weights, labs, supplement tolerance, plan of care Follow up in 5 days
[2023-11-07] MEDS: SOD HYPOCHLORITE 1/4 STRENGTH 473 ML 1 APPLIC TOPICAL ×2 (11:00→20:54)
[2023-11-07 11:14] VITALS: BP 96/65; PULSE 104; RESP 20; TEMP 37; O2SAT 96
--- NOTE | 2023-11-07 12:52 | PCWOUND ---
WOCN NOTE Patient unable to perform fine motor skills to change colostomy appliance. Placed call to this am and set up teaching time for 12:30 today. just called to report his truck has broke down and will not make it in. Discussed he can call at a later time and we can do teaching in the out patient setting. He agrees. I provided patient with colostomy teaching folder and explained the options for teaching, she expressed understanding.
--- NOTE | 2023-11-07 16:06 | PM.IMPN ---
Progress Note: A&P Assessment and Plan (1) Osteomyelitis of sacrum: Code(s): M46.28 - Osteomyelitis of vertebra, sacral and sacrococcygeal region Status: Acute Assessment and Plan: 11/07/23: Continue Flagyl, cefepime, vancomycin Cultures negative x2 Status post debridement on 10/28/23 Diverting colostomy 11/05/2023 PICC line placement 11/06/2023 Patient is accepted to SNF at [facility] Will be discharged tomorrow on IV antibiotics (2) Decubitus ulcer of ischial area: Code(s): L89.309 - Pressure ulcer of unspecified buttock, unspecified stage Status: Acute Assessment and Plan: As above (3) Electrolyte imbalance: Code(s): E87.8 - Other disorders of electrolyte and fluid balance, not elsewhere classified Status: Resolved Assessment and Plan: 11/07/23: Resolved (4) Chronic inflammatory demyelinating polyneuropathy: Code(s): G61.81 - Chronic inflammatory demyelinating polyneuritis Status: Chronic Assessment and Plan: Of note Time Spent With Patient Time with patient: 25 - 35 minutes Subjective Date/time seen: 11/07/23 16:06 Interval history: Patient denies any new complaints. Labs, operative notes, and imaging reviewed. Review of Systems Review of Systems: All systems reviewed & are unremarkable except as noted in HPI and below Constitutional: Constitutional: Reports as per HPI and Reports no additional constitutional complaints Eyes: Eyes: Reports as per HPI and Reports no additional eye complaints ENT: Reports system reviewed and no additional complaints, except as documented and Reports as per HPI Cardiovascular: Cardiovascular: Reports as per HPI and Reports no additional cardiovascular complaints Respiratory: Respiratory: Reports as per HPI and Reports no additional respiratory complaints Gastrointestinal: Gastrointestinal: Reports as per HPI and Reports no additional gastrointestinal complaints Genitourinary: Genitourinary: Reports no additional female genitourinary complaints and Reports as per HPI Musculoskeletal: Musculoskeletal: Reports no additional musculoskeletal complaints and Reports as per HPI Integumentary/Breasts: Skin/Breast: Reports system reviewed and no additional complaints, except as docu and Reports as per HPI Neurologic: Reports system reviewed and no additional complaints, except as documented and Reports as per HPI Psychiatric: Psychiatric: Reports no additional psychiatric complaints and Reports as per HPI Exam Narrative: General: In no acute distress, well nourished Head: atraumatic, no encephalopathy Eyes: EOMI, PERRLA, sclera clear ENT: moist mucous membranes, nasal passages clear Neck: supple, no JVD, no adenopathy, trachea midline Cardiac: Normal S1 and S2. No murmur, gallops or friction rubs, peripheral pulses intact. Respiratory: Lungs clear to auscultation, no adventitious lung sounds, currently on room air Gastrointestinal: soft, non-distended, non-tender, normoactive bowel sounds. Colostomy with noted gas and stool in bag, stoma pink : Milton catheter in place Extremities: moves all extremities well, no edema Skin: Stage IV decubitus ulcer on coccyx, stage III decubitus ulcer left tuberosity, stage II decubitus ulcer right tuberosity, colostomy left lower quadrant Neuro: Alert and oriented x4, cranial nerves intact, no neuro deficits. Psych: normal mood, normal affect, interactive Objective Data Vital Signs Vital Signs: Vital Signs - 24 hr 11/06/23 17:27 11/06/23 21:22 11/07/23 05:10 Temperature 99.0 F 97.8 F 97.7 F Pulse Rate 84 88 97 Respiratory Rate 16 18 18 Blood Pressure 113/68 101/56 L 110/52 L Pulse Oximetry 100 94 97 11/07/23 11:14 Temperature 98.6 F Pulse Rate 104 H Respiratory Rate 20 Blood Pressure 96/65 L Pulse Oximetry 96 Intake/Output Intake/Output: Intake & Output 11/04/23 11/05/23 11/06/23 11/07/23 23:59 23:59 23:59 23
[2023-11-07 20:10] VITALS: BP 107/60; PULSE 96; RESP 18; TEMP 36.5; O2SAT 97
[2023-11-08] MEDS: VANCOMYCIN 1,000 MG/NS 250 ML 1,000 MG/250 ML BAG 250 MG IVPB ×2 (01:20→14:49)
[2023-11-08 04:23] VITALS: BP 100/58; PULSE 75; RESP 18; TEMP 36.7; O2SAT 98
[2023-11-08 05:38] LABS: INR 1.2; Prothrombin Time 15.8 Seconds (11.1-14.7)
[2023-11-08] MEDS: metroNIDAZOLE 500 MG TABLET PO ×2 (05:44→14:45)
[2023-11-08] MEDS: CENTRAL LINE FLUSH 20 ML IV PUSH (05:45)
[2023-11-08] MEDS: CENTRAL LINE FLUSH 10 ML IV PUSH ×2 (05:46→14:45)
[2023-11-08] MEDS: SOD HYPOCHLORITE 1/4 STRENGTH 473 ML 1 APPLIC TOPICAL (08:22)
[2023-11-08] MEDS: MULTIVITAMINS THERAPEUTIC TAB (*BKC) 1 TABLET PO (08:22)
[2023-11-08] MEDS: DULoxetine HCL 30 MG CAPSULE.DR PO (08:22)
[2023-11-08] MEDS: ENOXAPARIN 40 MG/0.4 ML SYRINGE SUB-Q (08:25)
[2023-11-08] MEDS: CEFEPIME 2 GM/NS 50 ML 2 GM/50 ML BAG IVPB (09:12)
[2023-11-08 09:29] LABS: Hematocrit 29.2 % (37.0-47.0); Hemoglobin 8.9 g/dL (12.0-15.0); Mean Corpuscular HGB Conc 30.5 g/dl (32-36); Mean Corpuscular Hemoglobin 28.1 pg (26-34); Mean Corpuscular Volume 92.1 fl (80-100); Mean Platelet Volume 9.1 fl (7.4-10.4); Platelet Count Result 236 k/mm3 (150-375); Red Blood Count 3.17 M/mm3 (4.2-5.4); Red Cell Distribution Width 15.2 % (11.5-14.5); White Blood Count 6.4 K/mm3 (4.5-10.0)
[2023-11-08 09:49] LABS: Alanine Aminotransferase 8 U/L (6-35); Albumin Level 2.7 g/dL (3.5-5.1); Alkaline Phosphatase 60 U/L (38-126); Anion Gap 7 mmol/L (4-12); Aspartate Amino Transferase 16 U/L (14-36); Bilirubin,Total 0.6 mg/dL (0.2-1.3); Blood Urea Nitrogen 8 mg/dL (7-17); Calcium 7.9 mg/dL (8.4-10.2); Carbon Dioxide 28 mmol/L (22-30); Chloride 101 mmol/L (98-107); Estimated CRCL calculation 115 ml/min; Estimated Glomerular Filt Rate > 60; Glucose 83 mg/dL (65-110); Potassium 3.3 mmol/L (3.4-5.0); Sodium 136 mmol/L (137-145)
--- NOTE | 2023-11-08 10:44 | PM.DS ---
DS: Admitting Diagnosis Discharge Date 11/08/23 Admitting Diagnosis Osteomyelitis of sacrum Decubitus ulcer sacral area Decubitus ulcer the ischial area Hypokalemia Dehydration Chronic inflammatory demyelinating polyneuropathy DS: Discharge Diagnosis Discharge Diagnosis (1) Osteomyelitis of sacrum: Code(s): M46.28 - Osteomyelitis of vertebra, sacral and sacrococcygeal region Status: Acute (2) Decubitus ulcer of ischial area: Code(s): L89.309 - Pressure ulcer of unspecified buttock, unspecified stage Status: Acute (3) Electrolyte imbalance: Code(s): E87.8 - Other disorders of electrolyte and fluid balance, not elsewhere classified Status: Resolved (4) Chronic inflammatory demyelinating polyneuropathy: Code(s): G61.81 - Chronic inflammatory demyelinating polyneuritis Status: Chronic DS: Summary Hospital Course Reason for hospitalization: Osteomyelitis of sacrum Decubitus ulcer sacral area Decubitus ulcer the ischial area Hypokalemia Dehydration Chronic inflammatory demyelinating polyneuropathy Hospital Course: This is a 58-year-old female who presented to the hospital for evaluation of bedsores. Workup in the hospital included abdomen/pelvis CT showed decubitus ulcers at the bilateral ischial tuberosity region, left larger than right as well as additional midline decubitus ulcer extending to the distal sacrum/coccyx with associated distal sacral osteomyelitis with a Rocephin changes, extensive infiltration of presacral soft tissues which could represent soft tissue infectious process, cholelithiasis. Initial labs showed a normal white blood cell count of 8.9, ESR 55, PTT 39.8, sodium 135, potassium 3.2, chloride 96, bicarb 21, anion gap 18, alk-phos 191, C reactive protein 32.6, lipase 23. UA was obtained and showed 1+ urine protein, 4+ ketones, 3-5 urine RBC otherwise negative. Respiratory panel was negative for influenza a and B, RSV, COVID. Blood culture showed Staphylococcus epidermidis on final read of 1st blood culture. A 2nd set of blood cultures are showing no growth on final read. Patient is currently managed with cefepime and vancomycin and will remain on IV antibiotics for an additional 10 days. She was seen by General surgery while here and had a sharp excisional debridement of sacral decubitus ulcer and sharp excisional debridement of left ischial ulcer done on 10/28/2023. On 11/05/2023 she was taken back to the OR and had open diverting colostomy. PICC line was placed on 11/06/2023. Labs reviewed today and were essentially unremarkable. She is stable for discharge at this time back to her facility with IV antibiotics. She will need to complete these and then follow up with her primary care physician in 1 week. She will also need to follow up with General surgery in 2 weeks. Final diagnosis: Osteomyelitis of sacrum, decubitus ulcer sacral area, decubitus ulcer ischial area, status diverting colostomy, status post I&D of sacral decubitus ulcer Status at Discharge Cognitive/behavioral status at discharge: Alert oriented x3 Functional status at discharge: wheelchair bound Overall status at discharge: patient is progressing back to baseline Time Spent with Patient Time attestation: Total time spent providing and/or coordinating discharge services: Time spent: Greater than 30 minutes Exam Narrative: General: In no acute distress, well nourished Cardiac: Normal S1 and S2. No murmur, gallops or friction rubs, peripheral pulses intact. Respiratory: Lungs clear to auscultation, no adventitious lung sounds, currently on room air Gastrointestinal: soft, non-distended, non-tender, normoactive bowel sounds. Colostomy with noted gas and stool in bag, stoma pink : Milton catheter in place Skin: Stage IV decubitus ulcer on coccyx, stage III decubitus ulcer left tuberosity, stage II decubitus ulcer right tuberosity, colostomy left lower quadrant Neuro: Alert and oriented x
[2023-11-08 14:04] LABS: Vancomycin Trough 17.1 ug/mL (10.0-20.0)
[2023-11-08 15:31] LABS: SARS-CoV-2 RNA PCR Negative (Negative)
[2023-11-08 18:29] VITALS: BP 103/62; PULSE 86; RESP 20; TEMP 37.2; O2SAT 100
== END 2023-11-08 18:37 | DRG 463 ==
LOC: ANHED 12:37 → ANH2MED 14:18
PROVIDERS: Family Medicine; Nurse Practitioner Acute Care; Physician Assistant; Student in an Organized Health Care Education/Training Program; Surgery; Admitting Provider General Practice; Emergency Provider Emergency Medicine; PCP Internal Medicine; Visit Provider Nurse Practitioner Acute Care
PROC: 0QB10ZZ Excision of Sacrum, Open Approach (ICD-10-PCS; principal; 2023-10-28 16:30)
PROC: 0D1N0Z4 Bypass Sigmoid Colon to Cutaneous, Open Approach (ICD-10-PCS; CPT 49000; principal; 2023-11-05 13:30)
DX: M46.28 Osteomyelitis of vertebra, sacral and sacrococcygeal region (principal); L89.154 Pressure ulcer of sacral region, stage 4; L89.313 Pressure ulcer of right buttock, stage 3; L89.323 Pressure ulcer of left buttock, stage 3; G61.81 Chronic inflammatory demyelinating polyneuritis; E87.6 Hypokalemia; E86.0 Dehydration; G47.33 Obstructive sleep apnea (adult) (pediatric); Z96.653 Presence of artificial knee joint, bilateral; Z20.822 Contact with and (suspected) exposure to COVID-19; Z11.52 Encounter for screening for COVID-19; Z99.3 Dependence on wheelchair; Z74.01 Bed confinement status
CPT/HCPCS: 36415; 36569; 74177; 80048; 80053; 80202; 81001; 82565; 82948; 83605; 83690; 83735; 84100; 84134; 85025; 85027; 85610; 85652; 85730; 86140; 87040; 87077; 87181; 87635; 87637; 93005; 96361; 96365; 96375; 99285; A9270; J0692; J1100; J1650; J1836; J1956; J2250; J2371; J2405; J2704; J2997; J3010; J3370; J3475; J3480; J7030; J7040; J7042; J7050; J7120; Q9967

== ENCOUNTER 2024-01-09 16:38 | Inpatient (IN) | payer MEDICARE, SELFPAY ==
--- NOTE | ~2024-01-09 | CT_ITS ---
CT abdomen pelvis w con Ordering provider: Rosenda Quesada PA-C History: 58 years Female with . wounds to buttocks/sacrum, r/o osteo . Comparison: October 27, 2023 Technique: CT abdomen and pelvis with IV and without oral contrast. Automated exposure control and it erative reconstruction technique were employed. The dose-length product was 357.36 mGy-cm. 100 mL Omn ipaque 350 was given IV. Findings: VISUALIZED LOWER CHEST: Normal. UPPER ABDOMINAL ORGANS: Liver: Normal. Gallbladder: Cholelithiasis. Spleen: Normal. Stomach/duodenum: Fluid seen in the lower esophagus suggestive of reflux esophagitis. Pancreas: Normal. Adrenals: Normal. Kidneys: Normal. PELVIC ORGANS: The bladder is underfilled. Milton's catheter is seen. BOWEL AND MESENTERY: Colon: No evidence of diverticulitis. Fecal material is loaded in the colon suggestive of constipatio n. Normal appendix. Small Bowel: Thickened wall of the small bowel is seen which may indicate enteritis. No obstruction. Peritoneum/mesentery: No free air or free fluid. No mesenteric lymphadenopathy. RETROPERITONEUM: Mild atheromatous disease of the abdominal aorta. No retroperitoneal lymphadenopat hy. MUSCULOSKELETAL: Superficial soft tissues: Abscess is seen in the subcutaneous tissues in the right buttock area which measure 4 x 4 0.1 cm.. Minimal fluid also seen in the left buttock. Open wound also seen in the left buttock with no fluid content. Otherwise, The superficial soft tissues are normal. Bones: Age appropriate degenerative changes of the spine. No evidence of osteomyelitis seen in the pe lvic bones. IMPRESSION: 1. Abscess in the right buttock. 2. Widening with minimal fluid in the left buttock. 3. No evidence of osteomyelitis. 4. Constipation. 5. Cholelithiasis. 6. Fluid in the lower esophagus suggestive of reflux esophagitis. 7. Slightly thickened small bowel loops wall suggestive of enteritis. Clinical correlation advised. Reviewed, dictated and finalized at location A.
[2024-01-09 16:30] VITALS: BP 117/87; PULSE 90; RESP 20; TEMP 36.7; O2SAT 100
[2024-01-09 17:14] LABS: Basophils Percent Auto 0.2 % (0.2-1.2); Eosinophils Absolute Auto 0.1 K/mm3 (0-0.3); Eosinophils Percent Auto 1.7 % (0-4.4); Hemoglobin 9.2 g/dL (12.0-15.0); Immature Granulocyte Absolute 0.04 K/mm3 (0.00-0.031); Immature Granulocyte Percent A 0.7 % (0-0.5); Lymphocytes Absolute Auto 1.18 K/mm3 (0.9-3.2); Lymphocytes Percent Auto 19.7 % (18.3-44.2); Mean Corpuscular HGB Conc 31.7 g/dl (32-36); Mean Corpuscular Hemoglobin 28.8 pg (26-34); Mean Corpuscular Volume 90.6 fl (80-100); Monocytes Absolute Auto 0.4 K/mm3 (0.1-0.6); Monocytes Percent Auto 5.8 % (2.6-8.5); Neutrophils Absolute Auto 4.3 K/mm3 (1.3-6.7); Neutrophils Percent Auto 71.9 % (45.5-73.1); Platelet Count Result 286 k/mm3 (150-375)
[2024-01-09 17:24] LABS: Lactic Acid Reflex 1.2 mmol/L (0.7-2.0)
[2024-01-09 17:26] LABS: Partial Thromboplastin Time 33.2 Seconds (22.3-36.8)
[2024-01-09 17:33] LABS: Alanine Aminotransferase 10 U/L (6-35); Albumin Level 3.1 g/dL (3.5-5.1); Alkaline Phosphatase 101 U/L (38-126); Anion Gap 7 mmol/L (4-12); Aspartate Amino Transferase 23 U/L (14-36); Bilirubin,Total 0.6 mg/dL (0.2-1.3); Blood Urea Nitrogen 8 mg/dL (7-17); Calcium 8.6 mg/dL (8.4-10.2); Carbon Dioxide 29 mmol/L (22-30); Chloride 101 mmol/L (98-107); Estimated Glomerular Filt Rate > 60; Glucose 116 mg/dL (65-110); Potassium 3.3 mmol/L (3.4-5.0); Sodium 137 mmol/L (137-145)
--- NOTE | 2024-01-09 17:38 | ED.SKABFB ---
HPI - Skin/Abscess/Foreign Bdy General Chief complaint: Skin/Abscess/Foreign Body <Rosenda Quesada PA-C - Last Filed: 01/09/24 22:52> Stated complaint: skin infection <Rosenda Quesada PA-C - Last Filed: 01/09/24 22:52> Time Seen by Provider: 01/09/24 16:55 <SUNITA Barrientos Last Filed: 01/09/24 22:52> Source: patient and old records reviewed <SUNITA Barrientos Last Filed: 01/09/24 22:52> Mode of arrival: EMS <SUNITA Barrientos Last Filed: 01/09/24 22:52> Limitations: no limitations <SUNITA Barrientos Last Filed: 01/09/24 22:52> History of Present Illness HPI narrative: Patient is a 58-year-old female, with past medical history of chronic inflammatory demyelinating polyneuropathy, who presents the ED via EMS with report of wounds to her buttocks. Patient is resident of [facility]. She has been there for around 60 days after being admitted here from 10/26-11/06 for infected sacral decubitus ulcers with osteomyelitis. She has since completed a 6 week treatment of antibiotics. Reports the senior living today noticed that there was green drainage coming from her wounds and sent her here for further evaluation. Patient is wheelchair/ bed bound due to neuropathy. Has colostomy, chronic indwelling Milton catheter. Denies any known fevers. Denies pain. <Rosenda Quesada PA-C - Last Filed: 01/09/24 22:52> Related Data Home medications: Home Medications Medication Instructions Recorded Confirmed duloxetine 30 mg capsule,delayed 30 mg PO DAILY 09/20/23 01/09/24 release multivitamin with folic acid 400 1 tablet PO DAILY 09/20/23 01/09/24 mcg tablet (Daily-Sidra (with folic acid)) <SUNITA Barrientos Last Filed: 01/09/24 22:52> Allergies/Adverse reactions: Allergies Allergy/AdvReac Type Severity Reaction Status Date / Time morphine Allergy Intermediate Hives / Verified 01/09/24 18:14 Red Face penicillin G Allergy Intermediate Itching Verified 01/09/24 18:14 sulfamethoxazole Allergy Hives Verified 01/09/24 18:14 [From Bactrim] trimethoprim [From Bactrim] Allergy Hives Verified 01/09/24 18:14 <Rosenda Quesada PA-C - Last Filed: 01/09/24 22:52> Review of Systems Review of Systems: All systems reviewed & are unremarkable except as noted in HPI. <Rosenda Quesada PA-C - Last Filed: 01/09/24 22:52> All systems reviewed & are unremarkable except as noted in HPI and below <Rosenda Quesada PA-C - Last Filed: 01/09/24 22:52> [facility] Past Medical History Medical History: Medical History Chronic inflammatory demyelinating polyneuropathy Decubitus ulcer of coccygeal region Obstructive sleep apnea No longer on CPAP after weight loss <Rosenda Quesada PA-C - Last Filed: 01/09/24 22:52> Surgical History Surgical History: Surgical History History of bilateral knee replacement History of total abdominal hysterectomy and bilateral salpingo-oophorectomy <Rosenda Quesada PA-C - Last Filed: 01/09/24 22:52> Social History Social History: Social History Social History: The patient lives with her they have been since 1995. They raised a son and a daughter. 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 She is a lifelong nonsmoker. She does not drink alcohol or use illicit substances. She is dependent on wheelchair for mobilization. Code status: Full code (she would not want to be on long-term ventilation nor which she want a tracheostomy or feeding tube) Surrogate decision maker: Jorge Romero, spouse. Smoking status: Never
[2024-01-09 18:03] LABS: CRP 5.1 mg/dL (<1.0)
[2024-01-09 18:04] LABS: Magnesium 1.9 mg/dL (1.6-2.3)
[2024-01-09] MEDS: WEIGHT NEEDED FOR VANCO DOSING 1 EACH XX (18:15)
[2024-01-09] MEDS: POTASSIUM CHLORIDE 20 MEQ ER TABLET PO (18:16)
[2024-01-09] MEDS: CEFEPIME 2 GM/NS 50 ML 2 GM/50 ML BAG IVPB (18:17)
[2024-01-09] MEDS: metroNIDAZOLE 500 MG/ISO 100ML 500 MG/100 ML BAG 100 MG IVPB (18:43)
[2024-01-09 18:48] LABS: Erythrocyte Sedimentation Rate > 140 mm/hr (0-20)
[2024-01-09 19:06] LABS: Add Urine Microscopic? YES; Appearance Urine Cloudy (Clear); Bacteria Urine Rare /hpf; Bilirubin Urine Negative (Negative); Blood Urine 1+ (Negative); Color Urine Dark Yellow (Yellow); Glucose Urine UA Negative (Negative); Ketones Urine Trace mg/dL (Negative); Leukocyte Esterase Ur 1+ LEU/UL (Negative); Need Manual Microscopic Reviewed; Nitrate Urine Negative (Negative); Non Pathogenic Casts 0-2; Protein Urine 3+ mg/dL (Negative); Specific Grav Ur 1.024 (1.001-1.035); Squamous Epithelial Cell Urine Moderate /hpf (Few); WBC Urine 21-50 /hpf (0-3)
[2024-01-09] MEDS: VANCOMYCIN 1,250 MG/NS 250 ML 1,250 MG/250 ML BAG 166.67 MG IVPB (19:52)
[2024-01-09 20:30] VITALS: BP 137/84; PULSE 93; RESP 14; O2SAT 98
[2024-01-09 21:31] VITALS: BP 118/80; PULSE 99; RESP 16; O2SAT 98
--- NOTE | 2024-01-09 22:02 | PM.IMHP ---
H&P: HPI History of Present Illness Date/Time: 01/09/24 22:02 Chief Complaint: Wound with purulent drainage Narrative: 58-year-old female who is bed-bound due to chronic inflammatory demyelinating polyneuropathy, with a chronic indwelling Milton catheter, status post colostomy, with multiple other comorbidities. She presents from [facility] as nursing team there reports there is green drainage coming from her wounds on the buttock. She has been there after an infected sacral decubitus ulcer with osteomyelitis which was treated with IV antibiotics for 6 weeks. Vital stable. WBC 6.0, hemoglobin 9.2, potassium 3.3, CRP 5.1, urinalysis abnormal although with squamous epithelial cells moderately. CT abdomen pelvis with contrast: IMPRESSION: 1. Abscess in the right buttock. 2. Widening with minimal fluid in the left buttock. 3. No evidence of osteomyelitis. 4. Constipation. 5. Cholelithiasis. 6. Fluid in the lower esophagus suggestive of reflux esophagitis. 7. Slightly thickened small bowel loops wall suggestive of enteritis. Clinical correlation advised. Patient was given vancomycin, metronidazole, cefepime 2 g IV x1. General surgery consulted from ER. Review of Systems Review of Systems: All systems reviewed & are unremarkable except as noted in HPI and below (Subjective) [facility] Past Medical History Medical History Chronic inflammatory demyelinating polyneuropathy Decubitus ulcer of coccygeal region Obstructive sleep apnea No longer on CPAP after weight loss Surgical History Surgical History History of bilateral knee replacement History of total abdominal hysterectomy and bilateral salpingo-oophorectomy Social History Social History Social History: The patient lives with her they have been since 1995. They raised a son and a daughter. 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 She is a lifelong nonsmoker. She does not drink alcohol or use illicit substances. She is dependent on wheelchair for mobilization. Code status: Full code (she would not want to be on long-term ventilation nor which she want a tracheostomy or feeding tube) Surrogate decision maker: Jorge Romero, spouse. Smoking status: Never smoker Do You Feel Safe in your Home?: Yes Lack of Transportation: No Lack of Food: Never True Current Housing: I Have Housing Concerned About Future Housing: No Difficulty Paying Gas/Electric Bills: No Difficulty Paying for Meds: No Currently Unemployed: No Education: Master's Degree or Higher Difficulty w/ Childcare or Family Care: No Spiritual care concerns: No Meds Home Medications and Allergies Home Medications Medication Instructions Recorded Confirmed Type duloxetine 30 mg capsule,delayed 30 mg PO DAILY 09/20/23 12/16/23 History release multivitamin with folic acid 400 1 tablet PO DAILY 09/20/23 12/16/23 History mcg tablet (Daily-Sidra (with folic acid)) cefepime 2 gram solution for 2 g IV Q12HR 37 days #10 ea 10/31/23 12/16/23 Rx injection metronidazole 500 mg tablet 500 mg PO Q8HR 37 days #111 tabs 10/31/23 12/16/23 Rx sodium hypochlorite 0.125 % 1 applic topical Q12HR #473 mL 10/31/23 12/16/23 Rx solution (Dakin's Solution) vancomycin 1.5 gram intravenous 1,500 mg IV Q12H 37 days #10 ea 10/31/23 12/16/23 Rx solution Allergies Allergy/AdvReac Type Severity Reaction Status Date / Time morphine Allergy Intermediate Hives / Verified 01/09/24 18:14 Red Face penicillin G Allergy Intermediate Itching Verified 01/09/24 18:14 sulfamethoxazole Allergy Hives Verified 01/09/24 18:14 [From Bactrim] tri
[2024-01-09 22:40] VITALS: BMI 18.3
--- NOTE | 2024-01-09 22:45 | ADMGEN ---
This patient, Vee Romero, was admitted to Medical Room 258-01. Patient/family oriented to hospital policies and general routines including ID bracelet, bed and alarms, visiting hours, pain management, procedures, bathroom and other care routines, personal items, smoking policy, room service/diet, and visiting hours. Information on how to activate the Rapid Response Team has been discussed. Patient/Family are encouraged to report perceived risks to care and to ask questions if they do not understand what they are told or what they should do.
[2024-01-09 22:50] VITALS: BP 109/66; PULSE 92; RESP 18; TEMP 37.5; O2SAT 100
[2024-01-10] MEDS: metroNIDAZOLE 500 MG/ISO 100ML 500 MG/100 ML BAG 100 MG IVPB ×3 (03:00→18:50)
[2024-01-10 05:30] LABS: Basophils Percent Auto 0.4 % (0.2-1.2); Eosinophils Absolute Auto 0.1 K/mm3 (0-0.3); Eosinophils Percent Auto 1.3 % (0-4.4); Hematocrit 27.4 % (37.0-47.0); Hemoglobin 8.8 g/dL (12.0-15.0); Immature Granulocyte Absolute 0.03 K/mm3 (0.00-0.031); Immature Granulocyte Percent A 0.5 % (0-0.5); Lymphocytes Percent Auto 12.8 % (18.3-44.2); Mean Corpuscular HGB Conc 32.1 g/dl (32-36); Mean Corpuscular Hemoglobin 28.5 pg (26-34); Mean Corpuscular Volume 88.7 fl (80-100); Monocytes Absolute Auto 0.6 K/mm3 (0.1-0.6); Monocytes Percent Auto 10.4 % (2.6-8.5); Neutrophils Absolute Auto 4.1 K/mm3 (1.3-6.7); Neutrophils Percent Auto 74.6 % (45.5-73.1); Platelet Count Result 244 k/mm3 (150-375); Red Blood Count 3.09 M/mm3 (4.2-5.4); White Blood Count 5.5 K/mm3 (4.5-10.0)
[2024-01-10 05:42] LABS: Anion Gap 7 mmol/L (4-12); Blood Urea Nitrogen 7 mg/dL (7-17); Calcium 8.1 mg/dL (8.4-10.2); Carbon Dioxide 26 mmol/L (22-30); Chloride 103 mmol/L (98-107); Estimated CRCL calculation 127 ml/min; Estimated Glomerular Filt Rate > 60; Glucose 94 mg/dL (65-110); Magnesium 1.8 mg/dL (1.6-2.3); Potassium 3.3 mmol/L (3.4-5.0); Sodium 136 mmol/L (137-145)
[2024-01-10 05:44] LABS: INR 1.2; Prothrombin Time 16.1 Seconds (11.1-14.7)
[2024-01-10 05:51] VITALS: BP 106/65; PULSE 94; RESP 16; TEMP 36.6; O2SAT 100
[2024-01-10] MEDS: CEFEPIME 2 GM/NS 50 ML 2 GM/50 ML BAG IVPB ×2 (06:30→18:15)
[2024-01-10] MEDS: VANCOMYCIN 1,000 MG/NS 250 ML 1,000 MG/250 ML BAG 250 MG IVPB ×2 (07:40→21:12)
[2024-01-10] MEDS: POTASSIUM CHLORIDE INJ 40 MEQ in SODIUM CHLORIDE 0.9% IV 500 ML 130 MEQ IVPB (10:02)
[2024-01-10] MEDS: PANTOPRAZOLE SODIUM IV 40 MG VIAL IV PUSH (10:02)
[2024-01-10] MEDS: DULoxetine HCL 30 MG CAPSULE.DR PO (10:03)
--- NOTE | 2024-01-10 11:18 | PM.CNGS ---
Assessment and Plan Assessment and plan (1) Decubitus ulcer of sacral area: Qualifiers: Pressure injury stage: unspecified pressure injury stage Qualified Code(s): L89.159 - Pressure ulcer of sacral region, unspecified stage Code(s): L89.159 - Pressure ulcer of sacral region, unspecified stage Status: Acute Assessment and Plan: will need debridement and washout of this area, this is a chronic wound and will need to be addressed in the OR early next week, will need IV antibiotics and local wound care (2) Abscess of right buttock: Code(s): L02.31 - Cutaneous abscess of buttock Status: Acute Assessment and Plan: will need complex incision and drainage, washout, continue IV antibiotics for now and local wound care (3) Wound of left buttock: Code(s): S31.829A - Unspecified open wound of left buttock, initial encounter Status: Acute Assessment and Plan: will need debridement, washout, IV antibiotics for now and local wound care History of Present Illness Consult details Consult date: 01/10/24 Reason for consult: wound care Requesting physician: Melva Javier, KARISSA Narrative: The patient is a 58-year-old female well known to our service from previous wound care presenting with chronic sacral wound and buttock wounds that are worsening. The patient has a demyelinating disorder and is largely and mobile. She has been residing in a half-way and over the last few days has been noted to have worsening wounds with malodorous, purulent discharge. The patient denies any systemic symptoms including fevers or chills, changes in appetite. Review of Systems Review of Systems: All systems reviewed & are unremarkable except as noted in HPI and below PMFSH Past Medical History Medical History Chronic inflammatory demyelinating polyneuropathy Decubitus ulcer of coccygeal region Obstructive sleep apnea No longer on CPAP after weight loss Surgical History Surgical History History of bilateral knee replacement History of total abdominal hysterectomy and bilateral salpingo-oophorectomy Social History Social History Social History: The patient lives with her they have been since 1995. They raised a son and a daughter. 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 She is a lifelong nonsmoker. She does not drink alcohol or use illicit substances. She is dependent on wheelchair for mobilization. Code status: Full code (she would not want to be on long-term ventilation nor which she want a tracheostomy or feeding tube) Surrogate decision maker: Jorge Romero, spouse. Smoking status: Never smoker Alcohol intake: never Substance use: never Substance use type: does not use Do You Feel Safe in your Home?: Yes Lack of Transportation: No Lack of Food: Never True Current Housing: I Have Housing Concerned About Future Housing: No Difficulty Paying Gas/Electric Bills: No Difficulty Paying for Meds: No Currently Unemployed: No Education: Master's Degree or Higher Difficulty w/ Childcare or Family Care: No Spiritual care concerns: No Meds Home Medications and Allergies Home Medications Medication Instructions Recorded Confirmed Type duloxetine 30 mg capsule,delayed 30 mg PO DAILY 09/20/23 01/09/24 History release multivitamin with folic acid 400 1 tablet PO DAILY 09/20/23 01/09/24 History mcg tablet (Daily-Sidra (with folic acid)) sodium hypochlorite 0.125 % 1 applic topical Q12HR #473 mL 10/31/23 01/09/24 Rx solution (Dakin's Solution) Allergies Allergy/AdvReac Type Severity Reaction Status Date / Time morphine Allergy
[2024-01-10 14:00] VITALS: BP 110/71; PULSE 89; RESP 12; TEMP 36.7; O2SAT 100
--- NOTE | 2024-01-10 14:12 | P.PNIM_ITS ---
Progress Note: A&P Assessment and Plan (1) Decubitus ulcer of sacral area: Qualifiers: Pressure injury stage: unspecified pressure injury stage Qualified Code(s): L89.159 - Pressure ulcer of sacral region, unspecified stage Code(s): L89.159 - Pressure ulcer of sacral region, unspecified stage Status: Acute Assessment and Plan: * x3 ulcers * Patient bedridden * recently treated 6 weeks IV ABX therapy for osteomyelitis * Patient placed on cefepime, Flagyl and vancomycin * Surgery consulted * Plan for debridement and washout likely 01/11-01/12 * Offload Q2 hour turns * wound culture sent * Blood cultures x 2 pending * Normal WBC, Afebrile (2) Osteomyelitis of sacrum: Code(s): M46.28 - Osteomyelitis of vertebra, sacral and sacrococcygeal region Status: Acute Assessment and Plan: * SEE ABOVE (3) Hypokalemia: Code(s): E87.6 - Hypokalemia Status: Acute Assessment and Plan: * 3.3 POA * 40meq replenished * BMP daily * replenish as needed (4) Anemia: Code(s): D64.9 - Anemia, unspecified Status: Acute Assessment and Plan: * Chronic anemia * no signs of bleeding at this time * Iron panel pending * Hgb stable * Hgb <7.0 transfuse PRBC Plan Code status: Full code per patient DVT prophylaxis: SCD's Stress ulcer prophylaxis: NA PT/OT notes: Bedridden Disposition: Patient admitted to the medical unit for further treatment of sacral decubitus ulcer that will need debridement and washout will continue with IV antibiotics and plans for surgery to do washout early next week. Cultures pending Time Spent With Patient Time with patient: 15 - 25 minutes Subjective Date/time seen: 01/10/24 14:12 Interval history: Patient is a 58-year old female who was admitted for debridement and washout of decubitus ulcers. 01/10/2024: Assumed Care Patient denied any pain, CP, SOB, N/V, fever or chills no events overnight. Patient did state she has had some drainage from wounds. Review of Systems Review of Systems: All systems reviewed & are unremarkable except as noted in HPI and below Exam Narrative: Physical Exam: * GENERAL: Alert and oriented x 3. No acute distress. Pleasant female bedridden * EYES: EOMI. No scleral icterus. PERRLA. * HEENT: Moist mucous membranes. * LUNGS: Clear to auscultation bilaterally. No accessory muscle use. * CARDIOVASCULAR: Regular rate and rhythm. No murmur. No JVD. S1-S2 * ABDOMEN: Soft, non tenderness and non-distended. No palpable masses. * EXTREMITIES: No edema. Non-tender * SKIN: Sacral decubitus wounds x 3 * NEUROLOGIC: No focal neurological deficits. CN II-XII grossly intact * PSYCHIATRIC: Appropriate mood and affect. Good judgement and insight. No visual or auditory hallucinations. No suicidal or homicidal ideation. Objective Data Vital Signs Vital Signs: Vital Signs - 24 hr 01/09/24 16:30 01/09/24 20:30 01/09/24 21:31 Temperature 98.0 F Pulse Rate 90 93 99 Respiratory Rate 20 14 16 Blood
--- NOTE | 2024-01-10 14:12 | PM.IMPN ---
Progress Note: A&P Assessment and Plan (1) Decubitus ulcer of sacral area: Qualifiers: Pressure injury stage: unspecified pressure injury stage Qualified Code(s): L89.159 - Pressure ulcer of sacral region, unspecified stage Code(s): L89.159 - Pressure ulcer of sacral region, unspecified stage Status: Acute Assessment and Plan: x3 ulcers Patient bedridden recently treated 6 weeks IV ABX therapy for osteomyelitis Patient placed on cefepime, Flagyl and vancomycin Surgery consulted Plan for debridement and washout likely 01/11-01/12 Offload Q2 hour turns wound culture sent Blood cultures x 2 pending Normal WBC, Afebrile (2) Osteomyelitis of sacrum: Code(s): M46.28 - Osteomyelitis of vertebra, sacral and sacrococcygeal region Status: Acute Assessment and Plan: SEE ABOVE (3) Hypokalemia: Code(s): E87.6 - Hypokalemia Status: Acute Assessment and Plan: 3.3 POA 40meq replenished BMP daily replenish as needed (4) Anemia: Code(s): D64.9 - Anemia, unspecified Status: Acute Assessment and Plan: Chronic anemia no signs of bleeding at this time Iron panel pending Hgb stable Hgb <7.0 transfuse PRBC Plan Code status: Full code per patient DVT prophylaxis: SCD's Stress ulcer prophylaxis: NA PT/OT notes: Bedridden Disposition: Patient admitted to the medical unit for further treatment of sacral decubitus ulcer that will need debridement and washout will continue with IV antibiotics and plans for surgery to do washout early next week. Cultures pending Time Spent With Patient Time with patient: 15 - 25 minutes Subjective Date/time seen: 01/10/24 14:12 Interval history: Patient is a 58-year old female who was admitted for debridement and washout of decubitus ulcers. 01/10/2024: Assumed Care Patient denied any pain, CP, SOB, N/V, fever or chills no events overnight. Patient did state she has had some drainage from wounds. Review of Systems Review of Systems: All systems reviewed & are unremarkable except as noted in HPI and below Exam Narrative: Physical Exam: GENERAL: Alert and oriented x 3. No acute distress. Pleasant female bedridden EYES: EOMI. No scleral icterus. PERRLA. HEENT: Moist mucous membranes. LUNGS: Clear to auscultation bilaterally. No accessory muscle use. CARDIOVASCULAR: Regular rate and rhythm. No murmur. No JVD. S1-S2 ABDOMEN: Soft, non tenderness and non-distended. No palpable masses. EXTREMITIES: No edema. Non-tender SKIN: Sacral decubitus wounds x 3 NEUROLOGIC: No focal neurological deficits. CN II-XII grossly intact PSYCHIATRIC: Appropriate mood and affect. Good judgement and insight. No visual or auditory hallucinations. No suicidal or homicidal ideation. Objective Data Vital Signs Vital Signs: Vital Signs - 24 hr 01/09/24 16:30 01/09/24 20:30 01/09/24 21:31 Temperature 98.0 F Pulse Rate 90 93 99 Respiratory Rate 20 14 16 Blood Pressure 117/87 137/84 118/80 Pulse Oximetry 100 98 98 Oxygen Delivery Room Air 01/09/24 22:50 01/10/24 05:51 01/10/24 07:40 Temperature 99.5 F 98 F Pulse Rate 92 94 Respiratory Rate 18 16 Blood Pressure 109/66 106/65 Pulse Oximetry 100 100 Oxygen Delivery Room Air Intake/Output Intake/Output: Intake & Output 01/07/24 01/08/24 01/09/24 01/10/24 23:59 23:59 23:59 23:59 Intake Total 400 790 Output Total 250 Balance 400 540 Meds/Results Medications: Active Medications Generic Name Dose Route Start Last Admin Trade Name Freq PRN Reason Stop Dose Admin Acetaminophen 1,000 mg 01/09/24 21:28 Acetaminophen 500 Mg Tablet PO Q6H PRN Mild Pain (1-3) or Fever Duloxetine HCl 30 mg 01/10/24 09:00 01/10/24 10:03 Duloxetine Hcl 30 Mg Capsule.Dr PO 30 mg DAILY MESERET Administration Cefepime HCl 2 gm in 50 mls @ 100 mls/hr 1
[2024-01-10 14:57] LABS: Iron 22 ug/dL (37-170)
[2024-01-10 14:58] LABS: Toxigenic C. Diff NEGATIVE (NEGATIVE)
[2024-01-10 14:58] LABS: Percent Iron Saturation 14 % (20-50)
[2024-01-10 20:00] VITALS: PULSE 77; RESP 18; O2SAT 100
[2024-01-10 22:00] VITALS: BP 104/59; PULSE 77; RESP 18; TEMP 37.4; O2SAT 100
[2024-01-11] MEDS: metroNIDAZOLE 500 MG/ISO 100ML 500 MG/100 ML BAG 100 MG IVPB ×3 (03:55→19:04)
[2024-01-11] MEDS: CEFEPIME 2 GM/NS 50 ML 2 GM/50 ML BAG IVPB ×2 (05:47→18:16)
[2024-01-11 05:53] VITALS: BP 114/65; PULSE 83; RESP 18; TEMP 36.4; O2SAT 98
[2024-01-11 06:52] LABS: Hemoglobin 8.3 g/dL (12.0-15.0); Mean Corpuscular HGB Conc 29.6 g/dl (32-36); Mean Corpuscular Hemoglobin 27.6 pg (26-34); Mean Platelet Volume 8.9 fl (7.4-10.4); Platelet Count Result 210 k/mm3 (150-375); Red Blood Count 3.01 M/mm3 (4.2-5.4); Red Cell Distribution Width 14.8 % (11.5-14.5)
[2024-01-11 07:07] LABS: Alanine Aminotransferase 7 U/L (6-35); Albumin Level 2.5 g/dL (3.5-5.1); Alkaline Phosphatase 86 U/L (38-126); Anion Gap 7 mmol/L (4-12); Aspartate Amino Transferase 17 U/L (14-36); Bilirubin,Total 0.5 mg/dL (0.2-1.3); Blood Urea Nitrogen 5 mg/dL (7-17); Calcium 8.1 mg/dL (8.4-10.2); Carbon Dioxide 24 mmol/L (22-30); Chloride 105 mmol/L (98-107); Estimated CRCL calculation 127 ml/min; Estimated Glomerular Filt Rate > 60; Glucose 78 mg/dL (65-110); Potassium 3.2 mmol/L (3.4-5.0); Sodium 136 mmol/L (137-145)
[2024-01-11 07:11] LABS: Vancomycin Trough 14.8 ug/mL (10.0-20.0)
--- NOTE | 2024-01-11 08:19 | P.PNIM_ITS ---
Progress Note: A&P Assessment and Plan (1) Decubitus ulcer of sacral area: Qualifiers: Pressure injury stage: unspecified pressure injury stage Qualified Code(s): L89.159 - Pressure ulcer of sacral region, unspecified stage Code(s): L89.159 - Pressure ulcer of sacral region, unspecified stage Status: Acute Assessment and Plan: * x3 ulcers * Patient bedridden * recently treated 6 weeks IV ABX therapy for osteomyelitis * Patient placed on cefepime, Flagyl and vancomycin * Surgery consulted * Plan for debridement and washout likely 01/11-01/12 * Offload Q2 hour turns * wound culture sent * Blood cultures x 2 pending * Normal WBC, Afebrile 01/11/24: * MRSA pending * will continue with surgery rec's on IV ABX hopefully can de-escalate * Cultures with Pseudomonas aeruginosa * Probiotic added * C-diff negative * Will stop vancomycin (2) Osteomyelitis of sacrum: Code(s): M46.28 - Osteomyelitis of vertebra, sacral and sacrococcygeal region Status: Acute Assessment and Plan: * SEE ABOVE (3) Hypokalemia: Code(s): E87.6 - Hypokalemia Status: Acute Assessment and Plan: * 3.3 POA * 40meq replenished * BMP daily * replenish as needed (4) Anemia: Code(s): D64.9 - Anemia, unspecified Status: Acute Assessment and Plan: * Chronic anemia * no signs of bleeding at this time * Iron panel pending * Hgb stable * Hgb <7.0 transfuse PRBC Plan Code status: Full code per patient DVT prophylaxis: SCD's Stress ulcer prophylaxis: NA PT/OT notes: Bedridden Disposition: Patient admitted to the medical unit for further treatment of sacral decubitus ulcer that will need debridement and washout will continue with IV antibiotics and plans for surgery to do washout early next week. Cultures pending Time Spent With Patient Time with patient: 15 - 25 minutes Subjective Date/time seen: 01/11/24 08:19 Interval history: Patient is a 58-year old female who was admitted for debridement and washout of decubitus ulcers. 01/11/2024: Assumed Care Patient with no complaints states no pain to decubitus wounds. denied any chest pain, shortness a breath, nausea, vomiting, fever chills no events reported overnight. Review of Systems Review of Systems: All systems reviewed & are unremarkable except as noted in HPI and below Exam Narrative: Physical Exam: * GENERAL: Alert and oriented x 3. No acute distress. Pleasant female bedridden * EYES: EOMI. No scleral icterus. PERRLA. * HEENT: Moist mucous membranes. * LUNGS: Clear to auscultation bilaterally. No accessory muscle use. * CARDIOVASCULAR: Regular rate and rhythm. No murmur. No JVD. S1-S2 * ABDOMEN: Soft, non tenderness and non-distended. No palpable masses. * EXTREMITIES: No edema. Non-tender * SKIN: Sacral decubitus wounds x 3 * NEUROLOGIC: No focal neurological deficits. CN II-XII grossly intact * PSYCHIATRIC: Appropriate mood and affect. Good judgement and insight. No visual or audito
--- NOTE | 2024-01-11 08:19 | PM.IMPN ---
Progress Note: A&P Assessment and Plan (1) Decubitus ulcer of sacral area: Qualifiers: Pressure injury stage: unspecified pressure injury stage Qualified Code(s): L89.159 - Pressure ulcer of sacral region, unspecified stage Code(s): L89.159 - Pressure ulcer of sacral region, unspecified stage Status: Acute Assessment and Plan: x3 ulcers Patient bedridden recently treated 6 weeks IV ABX therapy for osteomyelitis Patient placed on cefepime, Flagyl and vancomycin Surgery consulted Plan for debridement and washout likely 01/11-01/12 Offload Q2 hour turns wound culture sent Blood cultures x 2 pending Normal WBC, Afebrile 01/11/24: MRSA pending will continue with surgery rec's on IV ABX hopefully can de-escalate Cultures with Pseudomonas aeruginosa Probiotic added C-diff negative Will stop vancomycin (2) Osteomyelitis of sacrum: Code(s): M46.28 - Osteomyelitis of vertebra, sacral and sacrococcygeal region Status: Acute Assessment and Plan: SEE ABOVE (3) Hypokalemia: Code(s): E87.6 - Hypokalemia Status: Acute Assessment and Plan: 3.3 POA 40meq replenished BMP daily replenish as needed (4) Anemia: Code(s): D64.9 - Anemia, unspecified Status: Acute Assessment and Plan: Chronic anemia no signs of bleeding at this time Iron panel pending Hgb stable Hgb <7.0 transfuse PRBC Plan Code status: Full code per patient DVT prophylaxis: SCD's Stress ulcer prophylaxis: NA PT/OT notes: Bedridden Disposition: Patient admitted to the medical unit for further treatment of sacral decubitus ulcer that will need debridement and washout will continue with IV antibiotics and plans for surgery to do washout early next week. Cultures pending Time Spent With Patient Time with patient: 15 - 25 minutes Subjective Date/time seen: 01/11/24 08:19 Interval history: Patient is a 58-year old female who was admitted for debridement and washout of decubitus ulcers. 01/11/2024: Assumed Care Patient with no complaints states no pain to decubitus wounds. denied any chest pain, shortness a breath, nausea, vomiting, fever chills no events reported overnight. Review of Systems Review of Systems: All systems reviewed & are unremarkable except as noted in HPI and below Exam Narrative: Physical Exam: GENERAL: Alert and oriented x 3. No acute distress. Pleasant female bedridden EYES: EOMI. No scleral icterus. PERRLA. HEENT: Moist mucous membranes. LUNGS: Clear to auscultation bilaterally. No accessory muscle use. CARDIOVASCULAR: Regular rate and rhythm. No murmur. No JVD. S1-S2 ABDOMEN: Soft, non tenderness and non-distended. No palpable masses. EXTREMITIES: No edema. Non-tender SKIN: Sacral decubitus wounds x 3 NEUROLOGIC: No focal neurological deficits. CN II-XII grossly intact PSYCHIATRIC: Appropriate mood and affect. Good judgement and insight. No visual or auditory hallucinations. No suicidal or homicidal ideation. Objective Data Vital Signs Vital Signs: Vital Signs - 24 hr 01/10/24 14:00 01/10/24 22:00 01/10/24 20:00 Temperature 98.0 F 99.4 F Pulse Rate 89 77 77 Respiratory Rate 12 18 18 Blood Pressure 110/71 104/59 L Pulse Oximetry 100 100 100 Oxygen Delivery Room Air 01/11/24 05:53 Temperature 97.5 F L Pulse Rate 83 Respiratory Rate 18 Blood Pressure 114/65 Pulse Oximetry 98 Oxygen Delivery Intake/Output Intake/Output: Intake & Output 01/08/24 01/09/24 01/10/24 01/11/24 23:59 23:59 23:59 23:59 Intake Total 400 2460 200 Output Total 625 450 Balance 400 1835 -250 Meds/Results Medications: Active Medications Generic Name Dose Route Start Last Admin Trade Name Freq PRN Reason Stop Dose Admin Acetaminophen 1,000 mg 01/09/24 21:28 Acetaminophen 500 Mg Tablet PO Q6H PRN Mild Pain (1
[2024-01-11] MEDS: POTASSIUM CHLORIDE 20 MEQ ER TABLET 40 MEQ PO (08:42)
[2024-01-11] MEDS: PANTOPRAZOLE SODIUM IV 40 MG VIAL IV PUSH (08:42)
[2024-01-11] MEDS: DULoxetine HCL 30 MG CAPSULE.DR PO (08:42)
[2024-01-11] MEDS: VANCOMYCIN 1,250 MG/NS 250 ML 1,250 MG/250 ML BAG 166.67 MG IVPB (08:43)
--- NOTE | 2024-01-11 09:12 | PM.PNGS ---
Progress Note: A&P Assessment and Plan (1) Wound of left buttock: Code(s): S31.829A - Unspecified open wound of left buttock, initial encounter Status: Acute Assessment and Plan: will plan for debridement, I and D in OR tomorrow, cont local wound care and abx for now, will also get wound care consult (2) Abscess of right buttock: Code(s): L02.31 - Cutaneous abscess of buttock Status: Acute Assessment and Plan: see above (3) Decubitus ulcer of sacral area: Qualifiers: Pressure injury stage: unspecified pressure injury stage Qualified Code(s): L89.159 - Pressure ulcer of sacral region, unspecified stage Code(s): L89.159 - Pressure ulcer of sacral region, unspecified stage Status: Acute Assessment and Plan: see above Subjective Subjective Date/Time Seen: 01/11/24 09:12 Interval history: no acute issues Review of Systems Review of Systems: All systems reviewed & are unremarkable except as noted in HPI and below Exam Const: General: cooperative, comfortable and no acute distress Resp: Auscultation: clear to auscultation bilaterally Cardio: Rate: regular rate Rhythm: regular rhythm GI: Inspection: normal to inspection Skin: Other: dressing C/D/I Objective Data Vital Signs Vital Signs: Vital Signs - 24 hr 01/10/24 14:00 01/10/24 22:00 01/10/24 20:00 Temperature 36.7 C 37.4 C Pulse Rate 89 77 77 Respiratory Rate 12 18 18 Blood Pressure 110/71 104/59 L Pulse Oximetry 100 100 100 Oxygen Delivery Room Air 01/11/24 05:53 Temperature 36.4 C L Pulse Rate 83 Respiratory Rate 18 Blood Pressure 114/65 Pulse Oximetry 98 Oxygen Delivery Intake/Output Intake/Output: Intake & Output 01/08/24 01/09/24 01/10/24 01/11/24 23:59 23:59 23:59 23:59 Intake Total 400 2460 440 Output Total 625 450 Balance 400 1835 -10 Meds/Results Medications: Active Medications Generic Name Dose Route Start Last Admin Trade Name Freq PRN Reason Stop Dose Admin Acetaminophen 1,000 mg 01/09/24 21:28 Acetaminophen 500 Mg Tablet PO Q6H PRN Mild Pain (1-3) or Fever Duloxetine HCl 30 mg 01/10/24 09:00 01/11/24 08:42 Duloxetine Hcl 30 Mg Capsule.Dr PO 30 mg DAILY MESERET Administration Cefepime HCl 2 gm in 50 mls @ 100 mls/hr 01/10/24 06:00 01/11/24 05:47 Maxipime 2 Gm/Ns 50 Ml IVPB 100 mls/hr Q12H MESERET Administration Metronidazole 500 mg in 100 mls @ 100 mls/hr 01/10/24 03:00 01/11/24 03:55 Flagyl 500 Mg/Iso Soln 100 Ml IVPB 100 mls/hr Q8H MESERET Administration Vancomycin HCl 1,250 mg in 250 mls @ 166.667 mls/hr 01/11/24 08:00 01/11/24 08:43 Vancomycin 1,250 Mg/Ns 250 Ml IVPB 166.67 mls/hr Q12H MESERET Administration Ondansetron HCl 4 mg 01/09/24 21:28 Ondansetron Inj 4 Mg/2 Ml Vial IV PUSH Q4H PRN Nausea Pantoprazole Sodium 40 mg 01/10/24 09:40 01/11/24 08:42 Pantoprazole Sodium Iv 40 Mg Vial IV PUSH 40 mg QAM MESERET Administration Radiology Results: ITS Impressions Abdomen/Pelvis CT 01/09/24 19:00 IMPRESSION: 1. Abscess in the right buttock. 2. Widening with minimal fluid in the left buttock. 3. No evidence of osteomyelitis. 4. Constipation. 5. Cholelithiasis. 6. Fluid in the lower esophagus suggestive of reflux esophagitis. 7. Slightly thickened small bowel loops wall suggestive of enteritis. Clinical correlation advised. Labs Labs: Laboratory Results - last 24 hr 01/10/24 01/10/24 01/11/24 05:04 11:08 06:45 WBC 5.0 RBC 3.01 L Hgb 8.3 L Hct 28.0 L MCV 93.0 MCH 27.6 MCHC 29.6 L RDW 14.8 H Plt Count 210 MPV 8.9 Sodium 136 L Potassium 3.2 L Chloride 105 Carbon Dioxide 24 Anion Gap 7 BUN 5 L Creatinine 0.30 L Estim Creat Clear Calc 127 Estimated GFR > 60 Glucose 78 Calcium 8.1 L Iron 22 L TIBC 153 L % Saturation
[2024-01-11] MEDS: ONDANSETRON INJ 4 MG/2 ML VIAL IV PUSH (13:34)
[2024-01-11 14:00] VITALS: BP 106/64; PULSE 86; RESP 14; TEMP 36.4; O2SAT 98
[2024-01-11 16:23] LABS: MRSA (PCR) NOT DETECTED (NOT DETECTE)
[2024-01-11 20:00] VITALS: PULSE 79; RESP 16; O2SAT 99
[2024-01-11 21:00] VITALS: BP 114/64; PULSE 79; RESP 16; TEMP 37; O2SAT 99
[2024-01-12] VITALS (14 sets, daily range): BP systolic 102–134; BP diastolic 48–87; PULSE 76–93; RESP 12–19; TEMP 36.3–37.5; O2SAT 96–100; BMI 18.3
[2024-01-12] MEDS: metroNIDAZOLE 500 MG/ISO 100ML 500 MG/100 ML BAG 100 MG IVPB ×2 (02:21→12:44)
[2024-01-12] MEDS: CEFEPIME 2 GM/NS 50 ML 2 GM/50 ML BAG IVPB ×2 (05:42→18:08)
[2024-01-12 06:29] LABS: Hematocrit 26.9 % (37.0-47.0); Hemoglobin 8.5 g/dL (12.0-15.0); Mean Corpuscular HGB Conc 31.6 g/dl (32-36); Mean Corpuscular Hemoglobin 28.3 pg (26-34); Mean Corpuscular Volume 89.7 fl (80-100); Mean Platelet Volume 8.9 fl (7.4-10.4); Platelet Count Result 212 k/mm3 (150-375); Red Cell Distribution Width 14.6 % (11.5-14.5); White Blood Count 4.7 K/mm3 (4.5-10.0)
[2024-01-12 06:42] LABS: Alanine Aminotransferase 7 U/L (6-35); Albumin Level 2.7 g/dL (3.5-5.1); Alkaline Phosphatase 88 U/L (38-126); Anion Gap 11 mmol/L (4-12); Aspartate Amino Transferase 17 U/L (14-36); Bilirubin,Total 0.5 mg/dL (0.2-1.3); Blood Urea Nitrogen 4 mg/dL (7-17); Calcium 8.2 mg/dL (8.4-10.2); Carbon Dioxide 21 mmol/L (22-30); Chloride 103 mmol/L (98-107); Estimated CRCL calculation 100 ml/min; Estimated Glomerular Filt Rate > 60; Glucose 64 mg/dL (65-110); Potassium 3.6 mmol/L (3.4-5.0); Sodium 135 mmol/L (137-145)
--- NOTE | 2024-01-12 09:21 | WPDHPUPDATE1 ---
History and Physical Update Update Date/Time: 01/12/24 09:21 History and Physical has been reviewed, including an updated exam of the patient. There are NO changes in the patient's condition. Risks, benefits, and alternatives have been discussed and questions answered. Patient agrees to proceed with procedure.
[2024-01-12] MEDS: DULoxetine HCL 30 MG CAPSULE.DR PO (09:41)
[2024-01-12] MEDS: PANTOPRAZOLE SODIUM IV 40 MG VIAL IV PUSH (09:41)
--- NOTE | 2024-01-12 13:41 | WPDANESEPPF ---
Anes - Initial Pre Proc Eval Procedure: Operation Date: 01/12/24 14:00 Proposed Procedures p Incision and Drainage Right Buttock Abscess, Debridement Sacral Decubitus Ulcer - Mitali Osorio MD Date/Time: 01/12/24 13:41 Surgeon: Melva Javier APRN Pre Op Diagnosis: Infected decubitis ulcers, chronic neuropathy, Patient Data Age: 58 Gender: F Height: 1.68 m Weight: 51.5 kg Last Vital Signs Temp 36.3 C L 01/12/24 12:30 Pulse 93 01/12/24 12:30 Resp 14 01/12/24 12:30 BP 102/58 L 01/12/24 12:30 Pulse Ox 99 01/12/24 12:30 O2 Del Method Room Air 01/12/24 12:30 Allergies Allergy/AdvReac Type Severity Reaction Status Date / Time morphine Allergy Intermediate Hives / Verified 01/12/24 13:03 Red Face penicillin G Allergy Intermediate Itching Verified 01/12/24 13:03 sulfamethoxazole Allergy Hives Verified 01/12/24 13:03 [From Bactrim] trimethoprim [From Bactrim] Allergy Hives Verified 01/12/24 13:03 Home Medications Medication Instructions Recorded Confirmed Type duloxetine 30 mg capsule,delayed 30 mg PO DAILY 09/20/23 01/09/24 History release multivitamin with folic acid 400 1 tablet PO DAILY 09/20/23 01/09/24 History mcg tablet (Daily-Sidra (with folic acid)) sodium hypochlorite 0.125 % 1 applic topical Q12HR #473 mL 10/31/23 01/09/24 Rx solution (Dakin's Solution) Laboratory Tests 01/11/24 01/12/24 15:07 06:14 WBC 4.7 K/mm3 (4.5-10.0) RBC 3.00 L M/mm3 (4.2-5.4) Hgb 8.5 L g/dL (12.0-15.0) Hct 26.9 L % (37.0-47.0) MCV 89.7 fl (80-100) MCH 28.3 pg (26-34) MCHC 31.6 L g/dl (32-36) RDW 14.6 H % (11.5-14.5) Plt Count 212 k/mm3 (150-375) MPV 8.9 fl (7.4-10.4) Sodium 135 L mmol/L (137-145) Potassium 3.6 mmol/L (3.4-5.0) Chloride 103 mmol/L (98-107) Carbon Dioxide 21 L mmol/L (22-30) Anion Gap 11 mmol/L (4-12) BUN 4 L mg/dL (7-17) Creatinine 0.40 L mg/dL (0.7-1.0) Estim Creat Clear Calc 100 ml/min Estimated GFR > 60 (59 - ) Glucose 64 L mg/dL (65-110) Calcium 8.2 L mg/dL (8.4-10.2) Total Bilirubin 0.5 mg/dL (0.2-1.3) AST 17 U/L (14-36) ALT 7 U/L (6-35) Alkaline Phosphatase 88 U/L (38-126) Total Protein 6.0 L g/dL (6.3-8.2) Albumin 2.7 L g/dL (3.5-5.1) Nasal MRSA (PCR) Not detected (NOT DETECTE) Patient hx anesthesia problems: none Family hx anesthesia problems: none Results Review: All pre-operative results and documents have been reviewed as part of the pre-operative evaluation. [facility] Past Medical History Medical History Chronic inflammatory demyelinating polyneuropathy Decubitus ulcer of coccygeal region Obstructive sleep apnea No longer on CPAP after weight loss Surgical History Surgical History History of bilateral knee replacement History of total abdominal hysterectomy and bilateral salpingo-oophorectomy Social History Social History Social History: The patient lives with her they have been since 1995. They raised a son and a daughter. 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 She is a lifelong nonsmoker. She does not drink alcohol or use illicit substances. She is dependent on wheelchair for mobilization. Code status: Full code (she would not want to be on long-term ventilation nor which she want a tracheostomy or feeding tube) Surrogate decision maker: Jorge Romero, spouse. Smoking status: Never smoker Alcohol intake: never Substance use: never Substance use type: does
--- NOTE | 2024-01-12 14:25 | P.PNIM_ITS ---
Progress Note: A&P Assessment and Plan (1) Decubitus ulcer of sacral area: Qualifiers: Pressure injury stage: unspecified pressure injury stage Qualified Code(s): L89.159 - Pressure ulcer of sacral region, unspecified stage Code(s): L89.159 - Pressure ulcer of sacral region, unspecified stage Status: Acute Assessment and Plan: * x3 ulcers * Patient bedridden * recently treated 6 weeks IV ABX therapy for osteomyelitis * Patient placed on cefepime, Flagyl and vancomycin * Surgery consulted * Plan for debridement and washout likely 01/11-01/12 * Offload Q2 hour turns * wound culture sent * Blood cultures x 2 pending * Normal WBC, Afebrile 01/11/24: * MRSA pending * will continue with surgery rec's on IV ABX hopefully can de-escalate * Cultures with Pseudomonas aeruginosa * Probiotic added * C-diff negative * Will stop vancomycin 01/12/2024 * MRSA negative * stopped Vanc * continue with cefepime pending sensitivities * Post-op day 1 I&D washout (2) Osteomyelitis of sacrum: Code(s): M46.28 - Osteomyelitis of vertebra, sacral and sacrococcygeal region Status: Acute Assessment and Plan: * SEE ABOVE (3) Hypokalemia: Code(s): E87.6 - Hypokalemia Status: Acute Assessment and Plan: * 3.3 POA * 40meq replenished * BMP daily * replenish as needed (4) Anemia: Code(s): D64.9 - Anemia, unspecified Status: Acute Assessment and Plan: * Chronic anemia * no signs of bleeding at this time * Iron panel pending * Hgb stable * Hgb <7.0 transfuse PRBC Plan Code status: Full code per patient DVT prophylaxis: SCD's Stress ulcer prophylaxis: NA PT/OT notes: Bedridden Disposition: Patient admitted to the medical unit for further treatment of sacral decubitus ulcer that went for debridement and washout today de-escalated ABX coverage to cefepime and Flagyl pending sensitivities. patient will discharge back to nursing home facility when medically stable. Time Spent With Patient Time with patient: 15 - 25 minutes Subjective Date/time seen: 01/12/24 14:25 Interval history: Patient is a 58-year old female who was admitted for debridement and washout of decubitus ulcers. 01/12/2024: Assumed Care Patient seen post op I&D/washout in recovery room, Alert and oriented tolerated procedure well denied any pain, SOB, Dizziness, chills. Review of Systems Review of Systems: All systems reviewed & are unremarkable except as noted in HPI and below Exam Narrative: Physical Exam: * GENERAL: Alert and oriented x 3. No acute distress. Pleasant female bedridden * EYES: EOMI. No scleral icterus. PERRLA. * HEENT: Moist mucous membranes. * LUNGS: Clear to auscultation bilaterally. No accessory muscle use. * CARDIOVASCULAR: Regular rate and rhythm. No murmur. No JVD. S1-S2 * ABDOMEN: Soft, non tenderness and non-distended. No palpable masses. * EXTREMITIES: No edema. Non-tender * SKIN: Sacral decubitus wounds x 3
--- NOTE | 2024-01-12 14:25 | PM.IMPN ---
Progress Note: A&P Assessment and Plan (1) Decubitus ulcer of sacral area: Qualifiers: Pressure injury stage: unspecified pressure injury stage Qualified Code(s): L89.159 - Pressure ulcer of sacral region, unspecified stage Code(s): L89.159 - Pressure ulcer of sacral region, unspecified stage Status: Acute Assessment and Plan: x3 ulcers Patient bedridden recently treated 6 weeks IV ABX therapy for osteomyelitis Patient placed on cefepime, Flagyl and vancomycin Surgery consulted Plan for debridement and washout likely 01/11-01/12 Offload Q2 hour turns wound culture sent Blood cultures x 2 pending Normal WBC, Afebrile 01/11/24: MRSA pending will continue with surgery rec's on IV ABX hopefully can de-escalate Cultures with Pseudomonas aeruginosa Probiotic added C-diff negative Will stop vancomycin 01/12/2024 MRSA negative stopped Vanc continue with cefepime pending sensitivities Post-op day 1 I&D washout (2) Osteomyelitis of sacrum: Code(s): M46.28 - Osteomyelitis of vertebra, sacral and sacrococcygeal region Status: Acute Assessment and Plan: SEE ABOVE (3) Hypokalemia: Code(s): E87.6 - Hypokalemia Status: Acute Assessment and Plan: 3.3 POA 40meq replenished BMP daily replenish as needed (4) Anemia: Code(s): D64.9 - Anemia, unspecified Status: Acute Assessment and Plan: Chronic anemia no signs of bleeding at this time Iron panel pending Hgb stable Hgb <7.0 transfuse PRBC Plan Code status: Full code per patient DVT prophylaxis: SCD's Stress ulcer prophylaxis: NA PT/OT notes: Bedridden Disposition: Patient admitted to the medical unit for further treatment of sacral decubitus ulcer that went for debridement and washout today de-escalated ABX coverage to cefepime and Flagyl pending sensitivities. patient will discharge back to alf facility when medically stable. Time Spent With Patient Time with patient: 15 - 25 minutes Subjective Date/time seen: 01/12/24 14:25 Interval history: Patient is a 58-year old female who was admitted for debridement and washout of decubitus ulcers. 01/12/2024: Assumed Care Patient seen post op I&D/washout in recovery room, Alert and oriented tolerated procedure well denied any pain, SOB, Dizziness, chills. Review of Systems Review of Systems: All systems reviewed & are unremarkable except as noted in HPI and below Exam Narrative: Physical Exam: GENERAL: Alert and oriented x 3. No acute distress. Pleasant female bedridden EYES: EOMI. No scleral icterus. PERRLA. HEENT: Moist mucous membranes. LUNGS: Clear to auscultation bilaterally. No accessory muscle use. CARDIOVASCULAR: Regular rate and rhythm. No murmur. No JVD. S1-S2 ABDOMEN: Soft, non tenderness and non-distended. No palpable masses. EXTREMITIES: No edema. Non-tender SKIN: Sacral decubitus wounds x 3 NEUROLOGIC: No focal neurological deficits. CN II-XII grossly intact PSYCHIATRIC: Appropriate mood and affect. Good judgement and insight. No visual or auditory hallucinations. No suicidal or homicidal ideation. Objective Data Vital Signs Vital Signs: Vital Signs - 24 hr 01/11/24 21:00 01/11/24 20:00 01/12/24 06:00 Temperature 98.6 F 97.8 F Pulse Rate 79 79 88 Respiratory Rate 16 16 18 Blood Pressure 114/64 110/48 L Pulse Oximetry 99 99 96 Oxygen Delivery Room Air 01/12/24 08:00 01/12/24 12:30 Temperature 97.3 F L Pulse Rate 88 93 Respiratory Rate 18 14 Blood Pressure 102/58 L Pulse Oximetry 96 99 Oxygen Delivery Room Air Room Air Intake/Output Intake/Output: Intake & Output 01/09/24 01/10/24 01/11/24 01/12/24 23:59 23:59 23:59 23:59 Intake Total 400 2460 2670 200 Output Total 467 1250 600 Balance 400 1835 1420 -400 Meds/Results Medications: Active Medica
[2024-01-12] MEDS: LACTATED RINGERS 1,000 ML 30 ML IV CONT (15:05)
--- NOTE | 2024-01-12 15:13 | W.PM.PROC2 ---
Procedure Note - Detailed Date of Procedure 01/12/24 Pre-op Diagnosis stage IV decubitus ulcer, bilateral buttock pressure ulcers Post-op Diagnosis Same Procedure Performed complex debridement and washout stage IV decubitus ulcer measuring 6 x 4 x 2 cm, stage IV right buttock ulcer measuring 4 x 4 x 3 cm, stage IV left buttock ulcer measuring 4 x 4 x 2.5 cm Surgeon Mitali Osorio MD Anesthesia General Indications 58-year-old female with a progressively worsening demyelinating autoimmune disorder presenting with multiple stage IV pressure ulcers. The patient had been residing in a long-term and these ulcers were infected draining purulent material. Of note, the patient already has a diverting colostomy. Findings Stage IV decubitus ulcer, bilateral stage IV buttock pressure ulcers Description of Procedure The patient was taken to the operating room placed in the lateral position. After adequate induction of general anesthesia, the patient was prepped and draped in the normal sterile fashion. A time-out was then done to verify the patient's identity, as well as the procedure being performed. I began by debriding the stage IV sacral decubitus ulcer. There was noted to be additional superior involvement from the previous debridement. There was necrosis of the skin and subcutaneous tissue all the way down to the bone. This was debrided to healthy bleeding tissue. The base of the wound was noted to be right on top of the coccyx. The edges and the base were freshened up to healthy bleeding tissue. Once completely debrided I copiously washed out the cavity and gained hemostasis with the Bovie cautery. No tracking was noted and the wound measures 6 x 4 x 2 cm. I then debrided the area in the right buttocks. This was done by debriding the necrotic skin overlying this chronic ulcer. The skin was noted to be nonviable as well as the subcutaneous tissue all the way down to the muscle. The gluteal muscle was involved with the necrosis and also debrided. This was all debrided back to viable bleeding tissue. I then copiously irrigated the wound and gained hemostasis with the Bovie cautery. The measurement of the wound was 4 x 4 x 3 cm. Lastly, I debrided the left buttock wound. Again this tracked through the skin and into the subcutaneous tissue and involved the muscle. This tissue was all debrided away to healthy bleeding tissue. Once completely debrided, I copiously irrigated the cavity a with normal saline. Hemostasis was gained with the Bovie cautery. The wound measured 4 x 4 x 2.5 cm. All wounds were then packed with Betadine-soaked Kerlix. Sterile dressing was then placed. The patient tolerated the procedures well and was extubated postoperatively. She will be transferred to the recovery room in stable condition. Estimated Blood Loss 20 Packing Yes Pathology None sent Complications No immediate complications Condition Stable Disposition PACU [facility] Billing Surgery - Charge Forward: Surgery Billing
[2024-01-12] MEDS: metroNIDAZOLE 500 MG TABLET PO (21:16)
[2024-01-13 05:26] VITALS: BP 94/70; PULSE 91; RESP 16; TEMP 36.8; O2SAT 98
[2024-01-13] MEDS: CEFEPIME 2 GM/NS 50 ML 2 GM/50 ML BAG IVPB (05:42)
[2024-01-13] MEDS: metroNIDAZOLE 500 MG TABLET PO ×2 (05:42→14:34)
[2024-01-13 06:11] LABS: Hematocrit 27.6 % (37.0-47.0); Hemoglobin 8.7 g/dL (12.0-15.0); Mean Corpuscular HGB Conc 31.5 g/dl (32-36); Mean Corpuscular Hemoglobin 28.2 pg (26-34); Mean Corpuscular Volume 89.3 fl (80-100); Mean Platelet Volume 9.5 fl (7.4-10.4); Platelet Count Result 312 k/mm3 (150-375); Red Blood Count 3.09 M/mm3 (4.2-5.4); Red Cell Distribution Width 14.9 % (11.5-14.5); White Blood Count 7.7 K/mm3 (4.5-10.0)
[2024-01-13 07:01] LABS: Alanine Aminotransferase 7 U/L (6-35); Albumin Level 2.7 g/dL (3.5-5.1); Alkaline Phosphatase 76 U/L (38-126); Anion Gap 11 mmol/L (4-12); Aspartate Amino Transferase 19 U/L (14-36); Bilirubin,Total 0.3 mg/dL (0.2-1.3); Blood Urea Nitrogen 8 mg/dL (7-17); Calcium 8.5 mg/dL (8.4-10.2); Carbon Dioxide 21 mmol/L (22-30); Chloride 102 mmol/L (98-107); Estimated CRCL calculation 100 ml/min; Estimated Glomerular Filt Rate > 60; Glucose 88 mg/dL (65-110); Potassium 3.8 mmol/L (3.4-5.0); Sodium 134 mmol/L (137-145)
[2024-01-13] MEDS: DULoxetine HCL 30 MG CAPSULE.DR PO (10:07)
[2024-01-13] MEDS: PANTOPRAZOLE SODIUM IV 40 MG VIAL IV PUSH (10:07)
--- NOTE | 2024-01-13 11:42 | PM.PNGS ---
Progress Note: A&P Assessment and Plan (1) Wound of left buttock: Code(s): S31.829A - Unspecified open wound of left buttock, initial encounter Status: Acute Assessment and Plan: Status post debridement of sacral and ischial wounds. Wounds appear clean today. We will start local wound care with silver gel dressing changes. Okay to discharge to SNF when medically stable on oral antibiotics. Continue local wound care. Follow-up as needed. (2) Abscess of right buttock: Code(s): L02.31 - Cutaneous abscess of buttock Status: Acute Assessment and Plan: see above (3) Decubitus ulcer of sacral area: Qualifiers: Pressure injury stage: unspecified pressure injury stage Qualified Code(s): L89.159 - Pressure ulcer of sacral region, unspecified stage Code(s): L89.159 - Pressure ulcer of sacral region, unspecified stage Status: Acute Assessment and Plan: see above Plan I have discussed the patient's case and plan of care with Dr. Osorio. Subjective Subjective Date/Time Seen: 01/13/24 11:42 Post Op day: 1 (Debridement of multiple decubitus ulcers) Patient reports: afebrile Interval history: Patient doing well with no specific complaints. Wound Care saw the patient and changed her dressings this morning. They are recommending silver gel dressing changes for local wound care. Exam Narrative: Sacral and ischial dressings dry and intact. Const: General: comfortable and no acute distress Orientation/consciousness: patient oriented x3 Objective Data Vital Signs Vital Signs: Vital Signs - 24 hr 01/12/24 12:30 01/12/24 15:05 01/12/24 15:20 Temperature 97.3 F L Pulse Rate 93 80 79 Respiratory Rate 14 15 17 Blood Pressure 102/58 L 134/87 122/75 Pulse Oximetry 99 100 100 Oxygen Delivery Room Air Simple Face Mask Simple Face Mask Oxygen Flow Rate 6 6 01/12/24 15:35 01/12/24 15:50 01/12/24 16:05 Temperature Pulse Rate 76 79 78 Respiratory Rate 17 15 19 Blood Pressure 120/74 122/74 118/73 Pulse Oximetry 100 100 100 Oxygen Delivery Room Air Room Air Room Air Oxygen Flow Rate 01/12/24 16:20 01/12/24 16:35 01/12/24 17:30 Temperature 97.9 F Pulse Rate 78 79 84 Respiratory Rate 17 17 12 Blood Pressure 123/73 118/73 102/73 Pulse Oximetry 100 100 98 Oxygen Delivery Room Air Room Air Oxygen Flow Rate 01/12/24 17:00 01/12/24 20:28 01/12/24 20:00 Temperature 97.9 F 99.5 F Pulse Rate 77 90 90 Respiratory Rate 12 16 16 Blood Pressure 102/62 112/62 Pulse Oximetry 100 97 97 Oxygen Delivery Room Air Oxygen Flow Rate 01/13/24 05:26 Temperature 98.3 F Pulse Rate 91 Respiratory Rate 16 Blood Pressure 94/70 L Pulse Oximetry 98 Oxygen Delivery Oxygen Flow Rate Intake/Output Intake/Output: Intake & Output 01/10/24 01/11/24 01/12/24 01/13/24 23:59 23:59 23:59 23:59 Intake Total 2460 2670 980 300 Output Total 625 1250 800 550 Balance 1835 1420 180 -250 Meds/Results Medications: Active Medications Generic Name Dose Route Start Last Admin Trade Name Freq PRN Reason Stop Dose Admin Acetaminophen 1,000 mg 01/09/24 21:28 Acetaminophen 500 Mg Tablet PO Q6H PRN Mild Pain (1-3) or Fever Duloxetine HCl 30 mg 01/10/24 09:00 01/13/24 10:07 Duloxetine Hcl 30 Mg Capsule.Dr PO 30 mg DAILY MESERET Administration Levofloxacin 750 mg 01/13/24 14:00 Levofloxacin 750 Mg Tablet PO 01/26/24 14:01 DAILY@1400 MESERET Metronidazole 500 mg 01/12/24 22:00 01/13/24 05:42 Metronidazole 500 Mg Tablet PO 01/26/24 23:59 500 mg Q8HR MESERET Administration Ondansetron HCl 4 mg 01/09/24 21:28 01/11/24 13:34 Ondansetron Inj 4 Mg/2 Ml Vial IV PUSH 4 mg Q4H PRN Administration Nausea Pantoprazole Sodium 40 mg 01/10/24 09:40 01/13/24 10:07 Pantoprazole Sodium Iv 40 Mg Vial IV PUSH 40 mg QAM MESERET Administration Radiology Results: ITS Impressions Abdomen/
[2024-01-13 11:50] VITALS: BP 109/66; PULSE 84; RESP 16; TEMP 36.4; O2SAT 100
--- NOTE | 2024-01-13 12:44 | PM.DS ---
DS: Admitting Diagnosis Discharge Date 01/13/2024 Admitting Diagnosis Infection of decubitus sacral wound DS: Discharge Diagnosis Discharge Diagnosis (1) Decubitus ulcer of sacral area: Qualifiers: Pressure injury stage: unspecified pressure injury stage Qualified Code(s): L89.159 - Pressure ulcer of sacral region, unspecified stage Code(s): L89.159 - Pressure ulcer of sacral region, unspecified stage Status: Acute (2) Osteomyelitis of sacrum: Code(s): M46.28 - Osteomyelitis of vertebra, sacral and sacrococcygeal region Status: Acute (3) Hypokalemia: Code(s): E87.6 - Hypokalemia Status: Acute (4) Anemia: Code(s): D64.9 - Anemia, unspecified Status: Acute Plan Disposition: Discharged to SNF DS: Summary Hospital Course Reason for hospitalization: Infection of decubitus sacral wound Hospital Course: Patient was a 58-year-old female who presented to the emergency department via EMS from her [facility] facility due to complaints greenish drainage from sacral decubitus wounds. Patient had recently been hospitalized and treated for osteomyelitis x6 weeks and presented with new worsening drainage from sites. Patient has a known history of chronic inflammatory demyelinating polyneuropathy and is currently now bed ridden and recent colostomy. Patient's labs unremarkable in afebrile however CT abdomen did show abscess in the right buttock. Wound culture was obtained and patient was started on vancomycin, cefepime and Flagyl pending cultures and sensitivities. Patient was admitted to the medical unit after consult with General surgery who did a complex debridement and washout stage IV decubitus ulcer measuring 6 x 4 x 2 cm, stage IV right buttock ulcer measuring 4 x 4 x 3 cm, stage IV left buttock ulcer measuring 4 x 4 x 2.5 cm, patient tolerated procedure well and was transferred back to medical-surgical unit continued with IV antibiotics pending final sensitivities. Wound culture grew Pseudomonas aeruginosa which was sensitive to p.o. Levaquin. Patient with no complaints remained afebrile with normal WBCs she was discharged to her [facility] facility with wound dressing change orders and local wound care with a 14 day supply p.o. Levaquin for Pseudomonas coverage. Encourage patient acute 2 hour turns, offloading and to increase protein intake. Status at Discharge Functional status at discharge: bed bound Time Spent with Patient Time attestation: Total time spent providing and/or coordinating discharge services: Exam Narrative: Physical Exam: GENERAL: Alert and oriented x 3. No acute distress. Pleasant female bedridden EYES: EOMI. No scleral icterus. PERRLA. HEENT: Moist mucous membranes. LUNGS: Clear to auscultation bilaterally. No accessory muscle use. CARDIOVASCULAR: Regular rate and rhythm. No murmur. No JVD. S1-S2 ABDOMEN: Soft, non tenderness and non-distended. No palpable masses. EXTREMITIES: No edema. Non-tender SKIN: Sacral decubitus wounds x 3 NEUROLOGIC: No focal neurological deficits. CN II-XII grossly intact PSYCHIATRIC: Appropriate mood and affect. Good judgement and insight. No visual or auditory hallucinations. No suicidal or homicidal ideation. DS: Data Data Completed and Pending Labs on day of discharge: Labs from last 24 hours 01/13/24 01/13/24 06:38 05:30 WBC 7.7 RBC 3.09 L Hgb 8.7 L Hct 27.6 L MCV 89.3 MCH 28.2 MCHC 31.5 L RDW 14.9 H Plt Count 312 MPV 9.5 Sodium 134 L Potassium 3.8 Chloride 102 Carbon Dioxide 21 L Anion Gap 11 BUN 8 Creatinine 0.40 L Estim Creat Clear Calc 100 Estimated GFR > 60 Glucose 88 Calcium 8.5 Total Bilirubin 0.3 AST 19 ALT 7 Alkaline Phosphatase 76 Total Protein 5.0 L Albumin 2.7 L Preliminary micro results at discharge 01/09/24 17:06 Blood Culture - Preliminary Blood
--- NOTE | 2024-01-13 13:47 | PC.NURSE ---
On 01/13/24, the student, [Ezekiel Matson], provided care and completed [facility] documentation on this patient. I have reviewed the student's documentation and agree with the findings.
[2024-01-13 14:00] VITALS: BP 116/63; PULSE 90; TEMP 36.7; O2SAT 100
[2024-01-13] MEDS: levoFLOXacin 750 MG TABLET PO (14:35)
== END 2024-01-13 15:45 | DRG 580 ==
LOC: ANHED 21:02 → ANH2MED 22:12
PROVIDERS: Emergency Medicine; Surgery; Admitting Provider General Practice; Emergency Provider Physician Assistant; Visit Provider Nurse Practitioner Family
PROC: 0KBP0ZZ Excision of Left Hip Muscle, Open Approach (ICD-10-PCS; principal; 2024-01-12 14:00)
DX: L89.324 Pressure ulcer of left buttock, stage 4 (principal); G61.81 Chronic inflammatory demyelinating polyneuritis; L02.31 Cutaneous abscess of buttock; L89.314 Pressure ulcer of right buttock, stage 4; L89.154 Pressure ulcer of sacral region, stage 4; G47.33 Obstructive sleep apnea (adult) (pediatric); E87.6 Hypokalemia; R79.82 Elevated C-reactive protein (CRP); Z96.653 Presence of artificial knee joint, bilateral; Z93.3 Colostomy status; Z99.3 Dependence on wheelchair; Z74.01 Bed confinement status
CPT/HCPCS: 36415; 74177; 80048; 80053; 80202; 81001; 83540; 83550; 83605; 83735; 85025; 85027; 85610; 85652; 85730; 86140; 87040; 87070; 87086; 87186; 87205; 87493; 87641; 96365; 96367; 99285; A9270; G0378; J0692; J1100; J1836; J2003; J2250; J2371; J2405; J2470; J2704; J3010; J3370; J3480; J7040; J7120; Q9967

== ENCOUNTER 2024-01-26 14:26 | Inpatient (IN) | payer MEDICARE, SELFPAY ==
[2024-01-26] VITALS (15 sets, daily range): BP systolic 100–116; BP diastolic 62–94; PULSE 74–88; RESP 16–20; TEMP 36.6–36.7; O2SAT 97–100; BMI 16.5
--- NOTE | 2024-01-26 15:00 | PC.NURSE ---
called wound care at this time for the pt ostomy and wounds
[2024-01-26 16:33] LABS: Basophils Percent Auto 0.3 % (0.2-1.2); Eosinophils Percent Auto 0.5 % (0-4.4); Hematocrit 30.5 % (37.0-47.0); Hemoglobin 9.4 g/dL (12.0-15.0); Immature Granulocyte Absolute 0.03 K/mm3 (0.00-0.031); Immature Granulocyte Percent A 0.5 % (0-0.5); Lymphocytes Absolute Auto 0.71 K/mm3 (0.9-3.2); Lymphocytes Percent Auto 10.9 % (18.3-44.2); Mean Corpuscular HGB Conc 30.8 g/dl (32-36); Mean Corpuscular Hemoglobin 28.3 pg (26-34); Mean Corpuscular Volume 91.9 fl (80-100); Mean Platelet Volume 9.1 fl (7.4-10.4); Monocytes Absolute Auto 0.5 K/mm3 (0.1-0.6); Neutrophils Absolute Auto 5.2 K/mm3 (1.3-6.7); Neutrophils Percent Auto 79.8 % (45.5-73.1); Platelet Count Result 198 k/mm3 (150-375); Red Blood Count 3.32 M/mm3 (4.2-5.4); Red Cell Distribution Width 15.8 % (11.5-14.5); White Blood Count 6.5 K/mm3 (4.5-10.0)
--- NOTE | 2024-01-26 16:35 | PC.NURSE ---
see clinical resource manager assessment for wounds
[2024-01-26 16:45] LABS: Alanine Aminotransferase 7 U/L (6-35); Albumin Level 3.2 g/dL (3.5-5.1); Alkaline Phosphatase 87 U/L (38-126); Anion Gap 7 mmol/L (4-12); Aspartate Amino Transferase 21 U/L (14-36); Bilirubin,Total 0.7 mg/dL (0.2-1.3); Blood Urea Nitrogen 12 mg/dL (7-17); Calcium 8.4 mg/dL (8.4-10.2); Carbon Dioxide 28 mmol/L (22-30); Chloride 102 mmol/L (98-107); Creatine Kinase 57 U/L (30-135); Estimated CRCL calculation 125 ml/min; Estimated Glomerular Filt Rate > 60; Glucose 93 mg/dL (65-110); INR 1.1; Potassium 3.7 mmol/L (3.4-5.0); Prothrombin Time 14.5 Seconds (11.1-14.7); Sodium 137 mmol/L (137-145)
[2024-01-26 16:46] LABS: Partial Thromboplastin Time 34.9 Seconds (22.3-36.8)
[2024-01-26 16:49] LABS: Add Urine Microscopic? YES; Appearance Urine Turbid (Clear); Bacteria Urine None Seen /hpf; Bilirubin Urine Negative (Negative); Blood Urine Negative (Negative); Budding Yeast Urine Present /hpf; Calcium Oxalate Crystals Urine Present /hpf; Color Urine Dark Yellow (Yellow); Glucose Urine UA Negative (Negative); Ketones Urine Negative (Negative); Leukocyte Esterase Ur 2+ LEU/UL (Negative); Mucus Urine Present /lpf; Need Manual Microscopic Reviewed; Nitrate Urine Negative (Negative); Protein Urine 1+ mg/dL (Negative); RBC Urine 21-50 /hpf (0-2); Specific Grav Ur 1.023 (1.001-1.035); Squamous Epithelial Cell Urine Occasional /hpf (Few); WBC Urine >100 /hpf (0-3); pH Urine 6.5 (5.0-9.0)
--- NOTE | 2024-01-26 18:53 | ED.GENADULT ---
HPI - General Adult General Chief complaint: Skin/Abscess/Foreign Body Stated complaint: beds ores Time Seen by Provider: 01/26/24 15:26 History of Present Illness HPI narrative: patient is a 58-year-old female with chronic demyelinating neuropathy who presents ER with need for placement. Unable to care for herself and her cannot care for her. She has deep ulcerations to her sacrum and the posterior aspects of greater trochanters. Patient has colostomy as well as the chronic indwelling [place]. Has no other complaints at this time. [facility] touch with the [facility]. Care coordination awear of case. Related Data Home Medications Medication Instructions Recorded Confirmed duloxetine 30 mg capsule,delayed 30 mg PO DAILY 09/20/23 01/09/24 release multivitamin with folic acid 400 1 tablet PO DAILY 09/20/23 01/09/24 mcg tablet (Daily-Sidra (with folic acid)) Allergies Allergy/AdvReac Type Severity Reaction Status Date / Time morphine Allergy Intermediate Hives / Verified 01/12/24 13:03 Red Face penicillin G Allergy Intermediate Itching Verified 01/12/24 13:03 sulfamethoxazole Allergy Hives Verified 01/12/24 13:03 [From Bactrim] trimethoprim [From Bactrim] Allergy Hives Verified 01/12/24 13:03 Review of Systems Review of Systems: All systems reviewed & are unremarkable except as noted in HPI and below Constitutional: Constitutional: Reports no additional constitutional complaints ENT: Reports system reviewed and no additional complaints, except as documented Cardiovascular: Cardiovascular: Reports no additional cardiovascular complaints Respiratory: Respiratory: Reports no additional respiratory complaints Gastrointestinal: Gastrointestinal: Reports no additional gastrointestinal complaints PENDING SALE TO [facility] Past Medical History Medical History Chronic inflammatory demyelinating polyneuropathy Decubitus ulcer of coccygeal region Obstructive sleep apnea No longer on CPAP after weight loss Surgical History Surgical History History of bilateral knee replacement History of total abdominal hysterectomy and bilateral salpingo-oophorectomy Social History Social History Social History: The patient lives with her they have been since 1995. They raised a son and a daughter. 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 She is a lifelong nonsmoker. She does not drink alcohol or use illicit substances. She is dependent on wheelchair for mobilization. Code status: Full code (she would not want to be on long-term ventilation nor which she want a tracheostomy or feeding tube) Surrogate decision maker: Jorge Romero, spouse. Smoking status: Never smoker Alcohol intake: never Substance use: never Substance use type: does not use Do You Feel Safe in your Home?: Yes Lack of Transportation: No Lack of Food: Never True Current Housing: I Have Housing Concerned About Future Housing: No Difficulty Paying Gas/Electric Bills: No Difficulty Paying for Meds: No Currently Unemployed: No Education: Master's Degree or Higher Difficulty w/ Childcare or Family Care: No Spiritual care concerns: No Exam Narrative: GENERAL: Chronically ill-appearing, thin, and in no acute distress. HEAD: Normocephalic, atraumatic. EYES: PERRL and EOMI. ENT: Mucous membranes moist. CHEST: Clear to auscultation. No respiratory distress. HEART: Regular rate and rhythm. Normal peripheral pulses. ABDOMEN: Soft, nontender, nondistended. EXTREMITIES: Normal ROM of the BUE, no deformity of BLE. No edema. SKIN: Warm, dry. Unstageable deep sacral and trochanteric ulcerations NEURO: Alert and oriented x3. PSYCH: Normal mood and affect. Course Course Emergency Course: discussed case with hospitalist service. Will be admitted. Will give IV antibiotics given 2+ leukocyte esterase and greater 100 white blood cells in urine. Will send for culture. Vital Signs Vital signs: Vital Signs Temperature 97.8 F 01/26/24 14:26 Pulse Rate 85 01/26/24 14:26 Respiratory Rate 17 01/26/24 14:26 Blood Pressure 103/72 01/26/24 14:26 Pulse Oximetry 98 01/26/24 14:26 Oxygen Delivery Room Air 01/26/24 14:26 Temperature 97.8 F 01/26/24 14:26 Pulse Rate 77 01/26/24 16:16 Respiratory Rate 18 01/26/24 16:16 Blood Pressure 102/62 01/26/24 16:16 Pulse Oximetry 97 01/26/24 16:16 Oxygen Delivery Room Air 01/26/24 14:26 Medical Decision Making Vital Signs Vital Signs: Vital Signs Temperature 97.8 F 01/26/24 14:26 Pulse Rate 85 01/26/24 14:26 Respiratory Rate 17 01/26/24 14:26 Blood Pressure 103/72 01/26/24 14:26 Pulse Oximetry 98 01/26/24 14:26 Oxygen Delivery Room Air 01/26/24 14:26 Temperature 97.8 F 01/26/24 14:26 Pulse Rate 77 01/26/24 16:16 Respiratory Rate 18 01/26/24 16:16 Blood Pressure 102/62 01/26/24 16:16 Pulse Oximetry 97 01/26/24 16:16 Oxygen Delivery Room Air 01/26/24 14:26 Lab Data 01/26/24 16:27 01/26/24 16:27 Labs: Lab Results 01/26/24 Range/Units 16:27 WBC 6.5 (4.5-10.0) K/mm3 RBC 3.32 L (4.2-5.4) M/mm3 Hgb 9.4 L (12.0-15.0) g/dL Hct 30.5 L (37.0-47.0) % MCV 91.9 (80-100) fl MCH 28.3 (26-34) pg MCHC 30.8 L (32-36) g/dl RDW 15.8 H (11.5-14.5) % Plt Count 198 (150-375) k/mm3 MPV 9.1 (7.4-10.4) fl Immature Gran % (Auto) 0.5 (0-0.5) % Neut % (Auto) 79.8 H (45.5-73.1) % Lymph % (Auto) 10.9 L (18.3-44.2) % Campbell % (Auto) 8.0 (2.6-8.5) % Eos % (Auto) 0.5 (0-4.4) % Baso % (Auto) 0.3 (0.2-1.2) % Lymph # (Auto) 0.71 L (0.9-3.2) K/mm3 Campbell # (Auto) 0.5 (0.1-0.6) K/mm3 Eos # (Auto) 0.0 (0-0.3) K/mm3 Baso # (Auto) 0.0 (0.0-0.1) K/mm3 Abs Immat Gran (auto) 0.03 (0.00-0.031) K/mm3 Absolute Neuts (auto) 5.2 (1.3-6.7) K/mm3 Absolute Nucleated RBC 0.000 (0.0-0.012) K/mm3 Nucleated RBC % 0.0 (0.0-0.2) % PT 14.5 (11.1-14.7) Seconds INR 1.1 APTT 34.9 (22.3-36.8) Seconds Sodium 137 (137-145) mmol/L Potassium 3.7 (3.4-5.0) mmol/L Chloride 102 (98-107) mmol/L Carbon Dioxide 28 (22-30) mmol/L Anion Gap 7 (4-12) mmol/L BUN 12 (7-17) mg/dL Creatinine 0.30 L (0.7-1.0) mg/dL Estim Creat Clear Calc 125 ml/min Estimated GFR > 60 (59 - ) Glucose 93 (65-110) mg/dL Calcium 8.4 (8.4-10.2) mg/dL Total Bilirubin 0.7 (0.2-1.3) mg/dL AST 21 (14-36) U/L ALT 7 (6-35) U/L Alkaline Phosphatase 87 (38-126) U/L Total Creatine Kinase 57 (30-135) U/L Total Protein 7.0 (6.3-8.2) g/dL Albumin 3.2 L (3.5-5.1) g/dL Urine Color Dark yellow (Yellow) Urine Appearance Turbid H (Clear) Urine pH 6.5 (5.0-9.0) Ur Specific [place] 1.023 (1.001-1.035) Urine Protein 1+ H (Negative) mg/dL Urine Glucose (UA) Negative (Negative) mg/dL Urine Ketones Negative (Negative) mg/dL Ur Blood (Man) Negative (Negative) Urine Nitrate Negative (Negative) Urine Bilirubin Negative (Negative) Urine Urobilinogen 1.0 (<2.0) mg/dL Add Ur Microanalysis Reviewed Leukocyte Esterase Rfl 2+ H (Negative) RANDY/UL Urine RBC 21-50 H (0-2) /hpf Urine WBC >100 H (0-3) /hpf Ur Squamous Epith Cells Occasional (Few) /hpf Calcium Oxalate Crystal Present (None) /hpf Urine Bacteria None seen /hpf Urine Casts 11-20 Urine Mucus Present /lpf Urine Yeast (Budding) Present H (None) /hpf Discharge Plan Discharge Clinical Impression: Decubitus ulcer of sacral area, Right trochanteric ulcer, Ulcer of trochanteric region of left hip Patient Disposition: Still a Patient Condition: Stable Prescriptions: No Action Dakin's Solution 0.125 % Solution 1 applic topical Q12HR Qty: 473 0RF acetaminophen 500 mg Tablet 1,000 mg PO Q6H PRN (Reason: Mild Pain (1-3) Or Fever) Qty: 1 0RF levofloxacin 750 mg tablet 750 mg PO DAILY Qty: 14 0RF duloxetine 30 mg capsule,delayed release(DR/EC) 30 mg PO DAILY multivitamin with folic acid [Daily-Sidra (with folic acid)] 400 mcg tablet 1 tablet PO DAILY Follow-up/Referrals: UNKNOWN,DOCTOR [Primary Care Provider] -
--- NOTE | 2024-01-26 20:37 | ADMGEN ---
This patient, Vee Romero, was admitted to Medical Room 253-01. Patient/family oriented to hospital policies and general routines including ID bracelet, bed and alarms, visiting hours, pain management, procedures, bathroom and other care routines, personal items, smoking policy, room service/diet, and visiting hours. Information on how to activate the Rapid Response Team has been discussed. Patient/Family are encouraged to report perceived risks to care and to ask questions if they do not understand what they are told or what they should do.
--- NOTE | 2024-01-26 21:13 | PC.NURSE ---
2049 exchanged chronic quiroga cath upon arrival to floor
--- NOTE | 2024-01-26 22:07 | PM.IMHP ---
H&P: HPI History of Present Illness Date/Time: 01/26/24 22:07 Chief Complaint: She reports that her and her cannot cope at home and she needs to be placed in a correction Narrative: 58-year-old unfortunate female with a past medical history of chronic inflammatory demyelinating polyneuropathy, chronic protein malnutrition and stage IV decubitus ulcers with recurrent infections and subsequent ostomy placement who presented to the ER because her and her having difficulty coping with her care at home. The patient's wound dressings were old crusting and had odor themselves but her wound bed was clean pink red and had no evidence of acute infection or odor themselves at the time of wound care nurse evaluation in the ER. The patient reports she otherwise has been doing well. She was hospitalized from the on 08 of January through the . Since returning home she has had poor appetite but denies fevers, chills or unusual drainage from her wounds. She states that she has a chronic indwelling Milton catheter which was exchanged on arrival to the medical floor.. She has not noticed any changes in her urine output. Nursing staff reports that her urine was cloudy in color. She denies any nausea or vomiting. She reports that her ostomy output has been consistent with her normal. She tells me that she had been in contact with a correction who told her that she had been excepted but that she needed to be admitted to the hospital for a couple of days before she could go to the correction. Review of Systems Review of Systems: 12 systems were reviewed with pertinent positives and negatives per HPI. Except as documented in the HPI, all other systems were reviewed and are negative. [facility] Past Medical History Medical History (Updated 01/27/24 @ 06:29 by Celeste Mcmahon DO) Chronic indwelling Milton catheter Chronic inflammatory demyelinating polyneuropathy Decubitus ulcer of coccygeal region Obstructive sleep apnea No longer on CPAP after weight loss Surgical History Surgical History (Updated 01/27/24 @ 06:26 by Celeste Mcmahon DO) History of bilateral knee replacement History of creation of ostomy (11/05/23) Due to stage IV decubitus ulcers History of total abdominal hysterectomy and bilateral salpingo-oophorectomy Family History Family History Father Cerebrovascular accident Social History Social History Social History: The patient lives with her they have been since 1995. They raised a son and a daughter. 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 She is a lifelong nonsmoker. She does not drink alcohol or use illicit substances. She is dependent on wheelchair for mobilization. Code status: Full code (she would not want to be on long-term ventilation nor which she want a tracheostomy or feeding tube) Surrogate decision maker: Jorge Romero, spouse. Smoking status: Never smoker Alcohol intake: never Substance use: never Substance use type: does not use Do You Feel Safe in your Home?: Yes Lack of Transportation: YES Lack of Food: Never True Current Housing: I Have Housing Concerned About Future Housing: No Difficulty Paying Gas/Electric Bills: No Difficulty Paying for Meds: No Currently Unemployed: No Education: Master's Degree or Higher Difficulty w/ Childcare or Family Care: No Spiritual care concerns: No Meds Home Medications and Allergies Home Medications Medication Instructions Recorded Confirmed Type duloxetine 30 mg capsule,delayed 30 mg PO DAILY 09/20/23 01/26/24 History release multivitamin with folic acid 400 1 tablet PO DAILY 09/20/23 01/26/24 History mcg tablet (Daily-Sidra (with folic acid)) sodium hypochlorite 0.125 % 1 applic topical Q12HR #473 mL 10/31/23 01/26/24 Rx solution (Dakin's Solution) acetaminophen 500 mg tablet 1,000 mg PO Q6H PRN Mild Pain 01/13/24 01/26/24 Rx (1-3) Or Fever #1 tablet levofloxacin 750 mg tablet 750 mg PO DAILY #14 tabs 01/13/24 01/26/24 Rx ondansetron 4 mg disintegrating 4 mg PO Q6H PRN nausea/vomiting 01/26/24 01/26/24 History tablet silver carbonate 0.11 % topical 1 applic topical DAILY 01/26/24 01/26/24 History gel (Normlgel Ag) Allergies Allergy/AdvReac Type Severity Reaction Status Date / Time morphine Allergy Intermediate Hives / Verified 01/26/24 19:29 Red Face penicillin G Allergy Intermediate Itching Verified 01/26/24 19:29 sulfamethoxazole Allergy Hives Verified 01/26/24 19:29 [From Bactrim] trimethoprim [From Bactrim] Allergy Hives Verified 01/26/24 19:29 Vital Signs Vital Signs - 24 hr 01/26/24 14:26 01/26/24 14:46 01/26/24 15:01 Temperature 97.8 F Pulse Rate 85 82 79 Respiratory Rate 17 16 18 Blood Pressure 103/72 116/94 H 101/77 Pulse Oximetry 98 100 100 Oxygen Delivery Room Air 01/26/24 15:17 01/26/24 15:46 01/26/24 16:01 Temperature Pulse Rate 86 80 77 Respiratory Rate 19 18 17 Blood Pressure 101/69 100/76 104/74 Pulse Oximetry 98 98 99 Oxygen Delivery 01/26/24 16:16 01/26/24 16:17 01/26/24 17:30 Temperature Pulse Rate 77 74 82 Respiratory Rate 18 18 19 Blood Pressure 102/62 Pulse Oximetry 97 100 Oxygen Delivery 01/26/24 17:31 01/26/24 18:01 01/26/24 18:31 Temperature Pulse Rate 81 83 79 Respiratory Rate 19 17 16 Blood Pressure 111/74 105/71 109/73 Pulse Oximetry 99 100 100 Oxygen Delivery 01/26/24 19:01 01/26/24 19:45 01/26/24 20:34 Temperature 98.0 F Pulse Rate 81 83 88 Respiratory Rate 20 19 18 Blood Pressure 112/76 106/67 Pulse Oximetry 98 98 100 Oxygen Delivery 01/26/24 20:49 Temperature Pulse Rate Respiratory Rate Blood Pressure Pulse Oximetry Oxygen Delivery Room Air Exam Narrative: Weight 46.3 kg BMI 16.5 Const: Other: Appears older than stated age, chronically debilitated is laying in the right semi-Woodall position HENMT: Other: Fair dentition, retainer in place in the upper jaw, mucous membranes are tacky, no oral pharyngeal erythema Eyes: Other: Pupils are equal and reactive, positive conjunctival pallor, no scleral icterus, temporal wasting Neck: Other: No JVD,, no lymphadenopathy, no thyromegaly Resp: Other: Clear to auscultation bilaterally, no increased work of breathing Cardio: Other: Regular rate, regular rhythm, 2+ bilateral radial pedal pulses GI: Other: Soft, nontender, nondistended, ostomy in place with gas within the bag but no stool noted : Other: Milton catheter in place, nursing staff reports that they had 400 mL of immediate urine output on placement of Milton Back/Spine/Pelvis: Other: Stage IV ulcer discuss blow Skin: Other: Patient has stage IV decubitus ulcers to the buttocks and ischial tuberosities bilaterally, dressings were in place so wound was not undressed for visualization, wound care photos were reviewed Neuro: Other: Alert oriented x4, speech is clear, no facial asymmetry, poor gross and fine motor control consistent with patient's chronic neuro deficits from demyelinating polyneuropathy Extrem: Other: Generalized muscle wasting of all extremities legs greater than arms, no clubbing, no cyanosis, knees and hips flexed Psych: Other: Pleasant and cooperative, sad affect, appropriate judgment and insight H&P: Results Labs Labs: Laboratory Tests 01/26/24 16:27 01/26/24 16:27 01/26/24 16:27 WBC 6.5 RBC 3.32 L Hgb 9.4 L Hct 30.5 L MCV 91.9 MCH 28.3 MCHC 30.8 L RDW 15.8 H Plt Count 198 MPV 9.1 Immature Gran % (Auto) 0.5 Neut % (Auto) 79.8 H Lymph % (Auto) 10.9 L [place] % (Auto) 8.0 Eos % (Auto) 0.5 Baso % (Auto) 0.3 Lymph # (Auto) 0.71 L [place] # (Auto) 0.5 Eos # (Auto) 0.0 Baso # (Auto) 0.0 Abs Immat Gran (auto) 0.03 Absolute Neuts (auto) 5.2 Absolute Nucleated RBC 0.000 Nucleated RBC % 0.0 PT 14.5 INR 1.1 APTT 34.9 Sodium 137 Potassium 3.7 Chloride 102 Carbon Dioxide 28 Anion Gap 7 BUN 12 Creatinine 0.30 L Estim Creat Clear Calc 125 Estimated GFR > 60 Glucose 93 Calcium 8.4 Total Bilirubin 0.7 AST 21 ALT 7 Alkaline Phosphatase 87 Total Creatine Kinase 57 Total Protein 7.0 Albumin 3.2 L Urine Color Dark yellow Urine Appearance Turbid H Urine pH 6.5 Ur Specific [place] 1.023 Urine Protein 1+ H Urine Glucose (UA) Negative Urine Ketones Negative Ur Blood (Man) Negative Urine Nitrate Negative Urine Bilirubin Negative Urine Urobilinogen 1.0 Add Ur Microanalysis Reviewed Leukocyte Esterase Rfl 2+ H Urine RBC 21-50 H Urine WBC >100 H Ur Squamous Epith Cells Occasional Calcium Oxalate Crystal Present Urine Bacteria None seen Urine Casts 11-20 Urine Mucus Present Urine Yeast (Budding) Present H Assessment and Plan Assessment and plan (1) Decubitus ulcer of sacral area: Qualifiers: Pressure injury stage: stage 4 Qualified Code(s): L89.154 - Pressure ulcer of sacral region, stage 4 Code(s): L89.159 - Pressure ulcer of sacral region, unspecified stage Status: Acute (2) Chronic indwelling Milton catheter: Code(s): Z97.8 - Presence of other specified devices Status: Acute (3) Pressure ulcer of trochanteric region of left hip: Qualifiers: Pressure injury stage: unspecified pressure injury stage Qualified Code(s): L89.229 - Pressure ulcer of left hip, unspecified stage Code(s): L89.229 - Pressure ulcer of left hip, unspecified stage Status: Acute (4) Pressure ulcer of trochanteric region of right hip: Qualifiers: Pressure injury stage: unspecified pressure injury stage Qualified Code(s): L89.219 - Pressure ulcer of right hip, unspecified stage Code(s): L89.219 - Pressure ulcer of right hip, unspecified stage Status: Acute (5) Severe protein-calorie malnutrition: Code(s): E43 - Unspecified severe protein-calorie malnutrition Status: Acute Plan Patient has chronic inflammatory demyelinating polyneuropathy and is chronically bed-bound. She and her have been struggling to keep up with needed cares. She is requesting placement and custodial facility. Will continue wound care management with Dakin solutions and dressing changes. Will offload pressure areas as much as possible. Will consult dietitian for recommendations of dietary supplementation. Will continue regular diet. Patient did complete her antibiotic therapy from her prior hospitalization with Levaquin a couple of days ago. No evidence of acute infection currently. No need for further antibiotics. Continue Milton catheter due to advanced ulcers and attempts to keep wound area clean. Patient has diverting colostomy in place. Care coordination consult to assist in discharge disposition. Patient has been admitted as observation status. Quality VTE Prophylaxis VTE prophylaxis: pharmacologic ordered (Heparin 5000 units q.12 hours) Hospitalist [facility] Advance Care Plan I have confirmed that the patient's Advanced Care Plan is present, code status is documented, or surrogate decision maker is listed in patient medical record.: Yes Medication Reconciliation I have utilized all available resources to obtain, update and review the patients current medications (includes all prescriptions, OTC, herbals, cannabis, and nutritional supplements).: Yes
[2024-01-27 05:37] VITALS: BP 106/61; PULSE 107; RESP 18; TEMP 36.7; O2SAT 97
[2024-01-27] MEDS: MULTIVITAMINS THERAPEUTIC TAB (*BKC) 1 TABLET PO (08:51)
[2024-01-27] MEDS: DULoxetine HCL 30 MG CAPSULE.DR PO (08:51)
[2024-01-27] MEDS: HEPARIN SODIUM 5,000 UNITS/ML VIAL 5000 UNITS SUB-Q ×2 (08:53→20:50)
[2024-01-27] MEDS: SOD HYPOCHLORITE 1/4 STRENGTH 473 ML 1 APPLIC TOPICAL (08:53)
[2024-01-27 13:05] VITALS: BMI 16.5
--- NOTE | 2024-01-27 13:57 | PCPTNOTE ---
Pt dependent at baseline using ivania lift/wheelchair. Hospitalist contacted and agreed to discharge of therapy orders.
[2024-01-27 14:00] VITALS: BP 92/59; PULSE 96; RESP 24; TEMP 37.2; O2SAT 100
--- NOTE | 2024-01-27 14:11 | PM.IMPN ---
Progress Note: A&P Assessment and Plan (1) Chronic inflammatory demyelinating polyneuropathy: Code(s): G61.81 - Chronic inflammatory demyelinating polyneuritis Status: Chronic Assessment and Plan: Patient has chronic inflammatory demyelinating polyneuropathy and is chronically bed-bound. She does get up to a wheelchair and requires Afsaneh lift to transfer. She and her have been struggling to keep up with her care needs and now plan for NH placement. PT/OT feel patient is at baseline and have signed off. Care coordination working on placement. (2) UTI (urinary tract infection): Code(s): N39.0 - Urinary tract infection, site not specified Status: Acute Assessment and Plan: Patient did complete her antibiotic therapy from her prior hospitalization with Levaquin a couple of days ago. UA is consistent with UTI. UCx collected. Rocephin started. UCx pending. Follow up on UCx results. (3) Decubitus ulcer of sacral area: Qualifiers: Pressure injury stage: stage 4 Qualified Code(s): L89.154 - Pressure ulcer of sacral region, stage 4 Code(s): L89.159 - Pressure ulcer of sacral region, unspecified stage Status: Acute Assessment and Plan: Multiple decubitus ulcers present on admission. Diverting colostomy in place. Will continue wound care management with Dakin solutions and dressing changes. Will offload pressure areas as much as possible. Wound care to see. (4) Chronic indwelling Milton catheter: Code(s): Z97.8 - Presence of other specified devices Status: Acute Assessment and Plan: Milton changed out on admission Routine Milton care. (5) Severe protein-calorie malnutrition: Code(s): E43 - Unspecified severe protein-calorie malnutrition Status: Acute Assessment and Plan: Regular diet. Dietary supplements ordered. Follow oral intake. (6) Pressure ulcer of trochanteric region of left hip: Qualifiers: Pressure injury stage: unspecified pressure injury stage Qualified Code(s): L89.229 - Pressure ulcer of left hip, unspecified stage Code(s): L89.229 - Pressure ulcer of left hip, unspecified stage Status: Acute Assessment and Plan: As above (7) Pressure ulcer of trochanteric region of right hip: Qualifiers: Pressure injury stage: unspecified pressure injury stage Qualified Code(s): L89.219 - Pressure ulcer of right hip, unspecified stage Code(s): L89.219 - Pressure ulcer of right hip, unspecified stage Status: Acute Assessment and Plan: As above Plan DVT prophylaxis - heparin Code status - Full Subjective Date/time seen: 01/27/24 14:11 Interval history: 58yo female with paraplegia 2nd to chronic inflammatory demyelinating polyneuropathy, RHIANNA, decubitus ulcers and chronic Milton here for group home placement. Feeling well today. No problems overnight. No SOB. No CP or abd pain. Exam Narrative: AF 99.0 111/62 96 24 100% ra Gen - NARD Chest - lungs clear anteriorly and in the flanks. CV - RRR S1/S2 Abd - Soft, NT, colostomy in place, bag empty. - Milton secured with clear urine Ext - soft tissue edema Neuro - Alert and appropriate. Paraplegic with decreased bilateral hand function Psych - Nml mood and affect Skin - Warm and dry Objective Data Vital Signs Vital Signs: Vital Signs - 24 hr 01/26/24 14:26 01/26/24 14:46 01/26/24 15:01 Temperature 97.8 F Pulse Rate 85 82 79 Respiratory Rate 17 16 18 Blood Pressure 103/72 116/94 H 101/77 Pulse Oximetry 98 100 100 Oxygen Delivery Room Air 01/26/24 15:17 01/26/24 15:46 01/26/24 16:01 Temperature Pulse Rate 86 80 77 Respiratory Rate 19 18 17 Blood Pressure 101/69 100/76 104/74 Pulse Oximetry 98 98 99 Oxygen Delivery 01/26/24 16:16 01/26/24 16:17 01/26/24 17:30 Temperature Pulse Rate 77 74 82 Respiratory Rate 18 18 19 Blood Pressure 102/62 Pulse Oximetry 97 100 Oxygen Delivery 01/26/24 17:31 01/26/24 18:01 01/26/24 18:31 Temperature Pulse Rate 81 83 79 Respiratory Rate 19 17 16 Blood Pressure 111/74 105/71 109/73 Pulse Oximetry 99 100 100 Oxygen Delivery 01/26/24 19:01 01/26/24 19:45 01/26/24 20:34 Temperature 98.0 F Pulse Rate 81 83 88 Respiratory Rate 20 19 18 Blood Pressure 112/76 106/67 Pulse Oximetry 98 98 100 Oxygen Delivery 01/26/24 20:49 01/27/24 05:37 01/27/24 08:00 Temperature 98.1 F Pulse Rate 107 H Respiratory Rate 18 Blood Pressure 106/61 Pulse Oximetry 97 Oxygen Delivery Room Air Room Air 01/27/24 14:00 Temperature 99 F Pulse Rate 96 Respiratory Rate 24 H Blood Pressure 92/59 L Pulse Oximetry 100 Oxygen Delivery Intake/Output Intake/Output: Intake & Output 01/24/24 01/25/24 01/26/24 01/27/24 23:59 23:59 23:59 23:59 Intake Total 50 510 Output Total 400 50 Balance -350 460 Meds/Results Medications: Active Medications Generic Name Dose Route Start Last Admin Trade Name Freq PRN Reason Stop Dose Admin Acetaminophen 1,000 mg 01/26/24 23:16 Acetaminophen 500 Mg Tablet PO Q6H PRN Mild Pain (1-3) Or Fever Duloxetine HCl 30 mg 01/27/24 09:00 01/27/24 08:51 Duloxetine Hcl 30 Mg Capsule.Dr PO 30 mg DAILY MESERET Administration Heparin Sodium (Porcine) 5,000 units 01/27/24 09:00 01/27/24 08:53 Heparin Sodium 5,000 Units/Ml Vial SUB-Q 5,000 units Q12HR MESERET Administration Ceftriaxone Sodium 1 gm in 50 mls @ 100 mls/hr 01/27/24 18:00 Rocephin 1 Gm/Ns 50 Ml IVPB Q24H MESERET Multivitamins Therapeutic 1 tablet 01/27/24 09:00 01/27/24 08:51 Multivitamins Therapeutic Tab (*Bkc) PO 1 tablet DAILY MESERET Administration Ondansetron HCl 4 mg 01/26/24 19:00 Ondansetron Inj 4 Mg/2 Ml Vial IV PUSH Q4H PRN Nausea Sodium Hypochlorite 1 applic 01/27/24 09:00 01/27/24 08:53 Sod Hypochlorite 1/4 Strength 473 Ml TOPICAL 1 applic Q12HR MESERET Administration Labs Labs: Laboratory Results - last 24 hr 01/26/24 16:27 WBC 6.5 RBC 3.32 L Hgb 9.4 L Hct 30.5 L MCV 91.9 MCH 28.3 MCHC 30.8 L RDW 15.8 H Plt Count 198 MPV 9.1 Immature Gran % (Auto) 0.5 Neut % (Auto) 79.8 H Lymph % (Auto) 10.9 L [place] % (Auto) 8.0 Eos % (Auto) 0.5 Baso % (Auto) 0.3 Lymph # (Auto) 0.71 L [place] # (Auto) 0.5 Eos # (Auto) 0.0 Baso # (Auto) 0.0 Abs Immat Gran (auto) 0.03 Absolute Neuts (auto) 5.2 Absolute Nucleated RBC 0.000 Nucleated RBC % 0.0 PT 14.5 INR 1.1 APTT 34.9 Sodium 137 Potassium 3.7 Chloride 102 Carbon Dioxide 28 Anion Gap 7 BUN 12 Creatinine 0.30 L Estim Creat Clear Calc 125 Estimated GFR > 60 Glucose 93 Calcium 8.4 Total Bilirubin 0.7 AST 21 ALT 7 Alkaline Phosphatase 87 Total Creatine Kinase 57 Total Protein 7.0 Albumin 3.2 L Urine Color Dark yellow Urine Appearance Turbid H Urine pH 6.5 Ur Specific [place] 1.023 Urine Protein 1+ H Urine Glucose (UA) Negative Urine Ketones Negative Ur Blood (Man) Negative Urine Nitrate Negative Urine Bilirubin Negative Urine Urobilinogen 1.0 Add Ur Microanalysis Reviewed Leukocyte Esterase Rfl 2+ H Urine RBC 21-50 H Urine WBC >100 H Ur Squamous Epith Cells Occasional Calcium Oxalate Crystal Present Urine Bacteria None seen Urine Casts 11-20 Urine Mucus Present Urine Yeast (Budding) Present H
[2024-01-27 14:12] VITALS: BP 111/62
[2024-01-27 19:58] VITALS: BP 100/63; PULSE 92; RESP 18; TEMP 37.1; O2SAT 99
[2024-01-28 03:52] VITALS: BP 100/54; PULSE 64; RESP 18; TEMP 36.8; O2SAT 100
[2024-01-28 08:56] VITALS: O2SAT 96
[2024-01-28] MEDS: MULTIVITAMINS THERAPEUTIC TAB (*BKC) 1 TABLET PO (09:37)
[2024-01-28] MEDS: HEPARIN SODIUM 5,000 UNITS/ML VIAL 5000 UNITS SUB-Q (09:37)
[2024-01-28] MEDS: DULoxetine HCL 30 MG CAPSULE.DR PO (09:37)
--- NOTE | 2024-01-28 09:37 | P.PNIM_ITS ---
Progress Note: A&P Assessment and Plan (1) UTI (urinary tract infection): Code(s): N39.0 - Urinary tract infection, site not specified Status: Acute (2) Decubitus ulcer of sacral area: Qualifiers: Pressure injury stage: stage 4 Qualified Code(s): L89.154 - Pressure ulcer of sacral region, stage 4 Code(s): L89.159 - Pressure ulcer of sacral region, unspecified stage Status: Acute (3) Chronic indwelling Milton catheter: Code(s): Z97.8 - Presence of other specified devices Status: Acute (4) Severe protein-calorie malnutrition: Code(s): E43 - Unspecified severe protein-calorie malnutrition Status: Acute Plan (1) Chronic inflammatory demyelinating polyneuropathy: Code(s): G61.81 - Chronic inflammatory demyelinating polyneuritis Status: Chronic Assessment and Plan: Patient has chronic inflammatory demyelinating polyneuropathy and is chronically bed-bound. She does get up to a wheelchair and requires Afsaneh lift to transfer. She and her have been struggling to keep up with her care needs and now plan for NH placement. PT/OT feel patient is at baseline and have signed off. Care coordination working on placement. (2) UTI (urinary tract infection): Code(s): N39.0 - Urinary tract infection, site not specified Status: Acute Assessment and Plan: Patient did complete her antibiotic therapy from her prior hospitalization with Levaquin a couple of days ago. UA is consistent with UTI. UCx collected. UC: ISOLATE 1: Greater than 100,000 CFU/mL of [place] krusei Less than 10,000 CFU/mL of single Gram negative organism isolated Rocephin started. no indication of antifungal tx now Changed to Levaquin p.o. (3) Decubitus ulcer of sacral area: Qualifiers: Pressure injury stage: stage 4 Qualified Code(s): L89.154 - Pressure ulcer of sacral region, stage 4 Code(s): L89.159 - Pressure ulcer of sacral region, unspecified stage Status: Acute Assessment and Plan: Multiple decubitus ulcers present on admission. Diverting colostomy in place. continue wound care management with Dakin solutions and dressing changes. offload pressure areas as much as possible. Wound care to see. (4) Chronic indwelling Milton catheter: Code(s): Z97.8 - Presence of other specified devices Status: Acute Assessment and Plan: Milton changed out on admission Routine Milton care. (5) Severe protein-calorie malnutrition: Code(s): E43 - Unspecified severe protein-calorie malnutrition Status: Acute Assessment and Plan: Regular diet. Dietary supplements ordered. Follow oral intake. (6) Pressure ulcer of trochanteric region of left hip: Qualifiers: Pressure injury stage: unspecified pressure injury stage Qualified Code(s): L89.229 - Pressure ulcer of left hip, unspecified stage Code(s): L89.229 - Pressure ulcer of left hip, unspecified stage Status: Acute Assessment and Plan: As above (7) Pressure ulcer of trochanteric region of right hip: Qualifiers: Pressure injury stage: unspecified pressure injury stage Qualified Code(s): L89.219 - Pressure ulcer of right hip, unspecified stage Code(s): L89.219 - Pressure ulcer of right hip, unspecified stage Status: Acute Assessment and Plan: As above Discharge patient today Subjective Date/time seen: 01/28/24 09:37 Interval history: I saw examined patient today, patient still has general weakness, denies chest pain, shortness breast, abdomen pain, nausea vomiting diarrhea. Patient has no new issue events overnight. Exam Narrative: GENERAL: Pleasant, in no acute distress. Well-nourished. - EYES: EOMI. Anicteric. - HENT: Moist mucous membranes. - LUNGS: Clear to auscultation bilateral ly, no wheezing, rhonchi, or rales. - CARDIOVASCULAR: Regular rate and rhyth m. No murmur. No JVD. - ABDOMEN: Soft, non-tender and non-dist ended. No palpable masses. - EXTREMITIES: No edema. Peripheral puls es 2+. Non-tender. - NEUROLOGIC: No focal neurological defi cits. CN II-XII grossly intact. Weakness bilateral upper arms - PSYCHIATRIC: Awake, Alert and oriented x 3. Appropriate mood and affect. - SKIN: No rashes or lesions. Warm. - LYMPH: No cervical lymphadenopathy. Objective Data Vital Signs Vital Signs: Vital Signs - 24 hr 01/27/24 14:00 01/27/24 14:12 01/27/24 19:58 Temperature 99 F 98.7 F Pulse Rate 96 92 Respiratory Rate 24 H 18 Blood Pressure 92/59 L 111/62 100/63 Pulse Oximetry 100 99 Oxygen Delivery 01/27/24 20:00 01/28/24 03:52 01/28/24 08:56 Temperature 98.3 F Pulse Rate 64 Respiratory Rate 18 Blood Pressure 100/54 L Pulse Oximetry 100 96 Oxygen Delivery Room Air Room Air Intake/Output Intake/Output: Intake & Output 01/25/24 01/26/24 01/27/24 01/28/24 23:59 23:59 23:59 23:59 Intake Total 50 560 120 Output Total 400 225 100 Balance -350 335 20 Meds/Results Medications: Active Medications Generic Name Dose Route Start Last Admin Trade Name Freq PRN Reason Stop Dose Admin Acetaminophen 1,000 mg 01/26/24 23:16 Acetaminophen 500 Mg Tablet PO Q6H PRN Mild Pain (1-3) Or Fever Duloxetine HCl 30 mg 01/27/24 09:00 01/28/24 09:37 Duloxetine Hcl 30 Mg Capsule.Dr PO 30 mg DAILY MESERET Administration Heparin Sodium (Porcine) 5,000 units 01/27/24 09:00 01/28/24 09:37 Heparin Sodium 5,000 Units/Ml Vial SUB-Q 5,000 units Q12HR MESERET Administration Ceftriaxone Sodium 1 gm in 50 mls @ 100 mls/hr 01/27/24 18:00 01/27/24 17:30 Rocephin 1 Gm/Ns 50 Ml IVPB Infused Q24H MESERET Infusion Multivitamins Therapeutic 1 tablet 01/27/24 09:00 01/28/24 09:37 Multivitamins Therapeutic Tab (*Bkc) PO 1 tablet DAILY MESERET Administration Ondansetron HCl 4 mg 01/26/24 19:00 Ondansetron Inj 4 Mg/2 Ml Vial IV PUSH Q4H PRN Nausea Sodium Hypochlorite 1 applic 01/27/24 09:00 01/28/24 09:13 Sod Hypochlorite 1/4 Strength 473 Ml TOPICAL Not Given Q12HR MESERET
--- NOTE | 2024-01-28 11:15 | P.DS_ITS ---
DS: Admitting Diagnosis Discharge Date 01/27 Admitting Diagnosis (1) UTI (urinary tract infection): Code(s): N39.0 - Urinary tract infection, site not specified Status: Acute (2) Decubitus ulcer of sacral area: Qualifiers: Pressure injury stage: stage 4 Qualified Code(s): L89.154 - Pressure ulcer of sacral region, stage 4 Code(s): L89.159 - Pressure ulcer of sacral region, unspecified stage Status: Acute (3) Chronic indwelling Milton catheter: Code(s): Z97.8 - Presence of other specified devices Status: Acute (4) Severe protein-calorie malnutrition: Code(s): E43 - Unspecified severe protein-calorie malnutrition Status: Acute DS: Discharge Diagnosis Discharge Diagnosis (1) UTI (urinary tract infection): Code(s): N39.0 - Urinary tract infection, site not specified Status: Acute (2) Decubitus ulcer of sacral area: Qualifiers: Pressure injury stage: stage 4 Qualified Code(s): L89.154 - Pressure ulcer of sacral region, stage 4 Code(s): L89.159 - Pressure ulcer of sacral region, unspecified stage Status: Acute (3) Chronic indwelling Milton catheter: Code(s): Z97.8 - Presence of other specified devices Status: Acute (4) Severe protein-calorie malnutrition: Code(s): E43 - Unspecified severe protein-calorie malnutrition Status: Acute DS: Summary Hospital Course Hospital Course: Per H&P 58-year-old unfortunate female with a past medical history of chronic inflammatory demyelinating polyneuropathy, chronic protein malnutrition and stage IV decubitus ulcers with recurrent infections and subsequent ostomy placement who presented to the ER because her and her having difficulty coping with her care at home. The patient's wound dressings were old crusting and had odor themselves but her wound bed was clean pink red and had no evidence of acute infection or odor themselves at the time of wound care nurse evaluation in the ER. The patient reports she otherwise has been doing well. She was hospitalized from the on 08 of January through the . Since returning home she has had poor appetite but denies fevers, chills or unusual drainage from her wounds. She states that she has a chronic indwelling Milton catheter which was exchanged on arrival to the medical floor.. She has not noticed any changes in her urine output. Nursing staff reports that her urine was cloudy in color. She denies any nausea or vomiting. She reports that her ostomy output has been consistent with her normal. She tells me that she had been in contact with a alf who told her that she had been excepted but that she needed to be admitted to the hospital for a couple of days before she could go to the alf The following med issues have been addressed during hospitalization (1) Chronic inflammatory demyelinating polyneuropathy: Code(s): G61.81 - Chronic inflammatory demyelinating polyneuritis Status: Chronic Assessment and Plan: Patient has chronic inflammatory demyelinating polyneuropathy and is chronically bed-bound. She does get up to a wheelchair and requires Afsaneh lift to transfer. She and her have been struggling to keep up with her care needs and now plan for NH placement. PT/OT feel patient is at baseline and have signed off. Care coordination working on placement. (2) UTI (urinary tract infection): Code(s): N39.0 - Urinary tract infection, site not specified Status: Acute Assessment and Plan: Patient did complete her antibiotic therapy from her prior hospitalization with Levaquin a couple of days ago. UA is consistent with UTI. UCx collected. UC: ISOLATE 1: Greater than 100,000 CFU/mL of Park krusei Less than 10,000 CFU/mL of single Gram negative organism isolated Rocephin started. no indication of antifungal tx now Changed to Levaquin p.o. (3) Decubitus ulcer of sacral area: Qualifiers: Pressure injury stage: stage 4 Qualified Code(s): L89.154 - Pressure ulcer of sacral region, stage 4 Code(s): L89.159 - Pressure ulcer of sacral region, unspecified stage Status: Acute Assessment and Plan: Multiple decubitus ulcers present on admission. Diverting colostomy in place. continue wound care management with Dakin solutions and dressing changes. offload pressure areas as much as possible. Wound care to see. (4) Chronic indwelling Milton catheter: Code(s): Z97.8 - Presence of other specified devices Status: Acute Assessment and Plan: Milton changed out on admission Routine Milton care. (5) Severe protein-calorie malnutrition: Code(s): E43 - Unspecified severe protein-calorie malnutrition Status: Acute Assessment and Plan: Regular diet. Dietary supplements ordered. Follow oral intake. (6) Pressure ulcer of trochanteric region of left hip: Qualifiers: Pressure injury stage: unspecified pressure injury stage Qualified Code(s): L89.229 - Pressure ulcer of left hip, unspecified stage Code(s): L89.229 - Pressure ulcer of left hip, unspecified stage Status: Acute Assessment and Plan: As above (7) Pressure ulcer of trochanteric region of right hip: Qualifiers: Pressure injury stage: unspecified pressure injury stage Qualified Code(s): L89.219 - Pressure ulcer of right hip, unspecified stage Code(s): L89.219 - Pressure ulcer of right hip, unspecified stage Status: Acute Assessment and Plan: As above Discharge patient today Time Spent with Patient Time attestation: Total time spent providing and/or coordinating discharge services: Exam Narrative: GENERAL: Pleasant, in no acute distress. Well-nourished. - EYES: EOMI. Anicteric. - HENT: Moist mucous membranes. - LUNGS: Clear to auscultation bilateral ly, no wheezing, rhonchi, or rales. - CARDIOVASCULAR: Regular rate and rhyth m. No murmur. No JVD. - ABDOMEN: Soft, non-tender and non-dist ended. No palpable masses. - EXTREMITIES: No edema. Peripheral puls es 2+. Non-tender. - NEUROLOGIC: No focal neurological defi cits. CN II-XII grossly intact. Weakness bilateral upper arms - PSYCHIATRIC: Awake, Alert and oriented x 3. Appropriate mood and affect. - SKIN: No rashes or lesions. Warm. - LYMPH: No cervical lymphadenopathy. Discharge Plan Discharge Attending physician on discharge: Agusto Best Discharging Clinician: Agusto Best Anticipated Discharge Date/Time: 01/28/24 11:16 Patient Disposition: SNF Activity: as tolerated Diet: heart healthy Patient Instructions: Pain Management (DC) Stand Alone Forms: General Discharge Information Discharge Medications: New levofloxacin 500 mg tablet 500 mg PO DAILY Qty: 7 0RF Continued Dakin's Solution 0.125 % Solution 1 applic topical Q12HR Qty: 473 0RF acetaminophen 500 mg Tablet 1,000 mg PO Q6H PRN (Reason: Mild Pain (1-3) Or Fever) Qty: 1 0RF duloxetine 30 mg capsule,delayed release(DR/EC) 30 mg PO DAILY multivitamin with folic acid [Daily-Sidra (with folic acid)] 400 mcg tablet 1 tablet PO DAILY Normlgel Ag 0.11 % Gel 1 applic TOPICAL DAILY Rx Instructions: apply to affected areas Discontinued levofloxacin 750 mg tablet 750 mg PO DAILY Qty: 14 0RF ondansetron 4 mg Tablet,Disintegrating 4 mg PO Q6H PRN (Reason: nausea/vomiting) Date of admission: 01/27/24 12:14 Primary Care Provider: UNKNOWN,DOCTOR Admitting Provider: Agusto Best Attending physician on admission: Agusto Best Condition: Stable
[2024-01-28 14:00] VITALS: BP 89/62; PULSE 84; RESP 12; TEMP 36.8; O2SAT 99
[2024-01-28 14:38] LABS: SARS-CoV-2 RNA PCR Negative (Negative)
== END 2024-01-28 14:50 | DRG 757 ==
LOC: ANHED 19:00 → ANH2MED 19:51
PROVIDERS: Admitting Provider Hospitalist; Emergency Provider Emergency Medicine; Visit Provider Hospitalist
DX: B37.49 Other urogenital candidiasis (principal); E43 Unspecified severe protein-calorie malnutrition; L89.154 Pressure ulcer of sacral region, stage 4; G61.81 Chronic inflammatory demyelinating polyneuritis; Z68.1 Body mass index [BMI] 19.9 or less, adult; L89.219 Pressure ulcer of right hip, unspecified stage; G47.33 Obstructive sleep apnea (adult) (pediatric); Z96.653 Presence of artificial knee joint, bilateral; Z97.8 Presence of other specified devices; Z74.01 Bed confinement status; Z93.3 Colostomy status
CPT/HCPCS: 36415; 80053; 81001; 82550; 85025; 85610; 85730; 87086; 87635; 96365; 99285; A9270; G0378; J0696; J1644

== ENCOUNTER 2024-05-06 19:11 | Inpatient (IN) | payer MEDICARE, SELFPAY ==
[2024-05-06] VITALS (8 sets, daily range): BP systolic 100–112; BP diastolic 62–77; PULSE 83–92; RESP 15–22; TEMP 37.9; O2SAT 100
--- NOTE | ~2024-05-06 | CT_ITS ---
CLINICAL INDICATION: Sepsis. COMPARISON: 01/09/2024. TECHNIQUE: An enhanced CT of the chest, abdomen and pelvis was performed utilizing multislice spiral technique reconstructed at 5 mm slice thickness. Coronal and sagittal reconstructions were performed . This CT examination was performed utilizing dose reduction techniques. DLP: 308 mGy-cm FINDINGS/OBSERVATIONS: Lung: The lungs are clear. The heart is of normal size, without pericardial effusion. Prominent azygous fissure. Mediastinum: No pathologically enlarged or morphologically suspicious lymph nodes are identified within the medias tinum, bilateral axilla, within the soft tissues of the anterior chest wall. Soft tissues of the chest: Unremarkable. Bones of the chest: No acute fracture. No lytic or blastic lesions are identified. Liver: The liver enhances homogeneously and is enlarged measuring 20 cm in longitudinal dimension. Gallbladder and biliary system: A lamellated stone is identified within the gallbladder, which is otherwise unremarkable. Pancreas: The pancreas enhances homogeneously, without ductal dilatation. Spleen: Spleen enhances homogeneously and is not enlarged measuring 11 cm in longitudinal dimension. Kidneys: The bilateral kidneys enhance symmetrically without hydronephrosis or renal calculi. Adrenal glands: Unremarkable. Gastrointestinal tract: Significant fecal stasis is identified. Mural thickening and edema is identified within the rectum along with infiltration of the presacral f at . Appendix: The air-filled appendix is of normal caliber (axial series, images 207-209). Vasculature: Calcified atherosclerotic disease is present. No aneurysmal dilatation. Retroaortic left renal vein is incidentally noted. Lymph nodes: Scattered nonpathologically enlarged lymph nodes within the root of the mesentery and deep in the pel vis. Pelvic structures: The bladder is distended and demonstrates significantly thickened elam as well as surrounding inflam matory change. Air is also noted, likely secondary to instrumentation. Of note, the balloon of the Milton catheter is within the proximal urethra, rather than within the lum en of the bladder. The uterus is either surgically absent or markedly atrophic. Body wall and musculoskeletal: Right sacral decubitus ulcer with significant surrounding induration. A small fluid collection is identified measuring 21 x 9 mm. Moderate anasarca is present. No significant degenerative disease within the lower thoracic or lumbosacral spines IMPRESSION: Significant fecal stasis within the colon, and distending the edematous thickened rectum with infiltr ation of the presacral fat. Sacral decubitus ulcer, along the midline and to the right of midline without a small fluid collectio n and with significant inflammatory change. Bladder wall thickening with surrounding inflammatory change and inadequate placement of the balloon, within the proximal urethra. Cholelithiasis. Hepatomegaly Reviewed, dictated and finalized at location A. PACKER IMPRESSION: Significant fecal stasis within the colon, and distending the edematous thicken ed rectum with infiltration of the presacral fat. Sacral decubitus ulcer, along the midline and to the right of midline without a small fluid collection and with significant inflammatory change. Bladder wall thickening with surrounding inflammatory change and inadequate arun cement of the balloon, within the proximal urethra. Cholelithiasis. Hepatomegaly
--- NOTE | ~2024-05-06 | XR_ITS ---
CHEST RADIOGRAPH CLINICAL HISTORY: Fever . COMPARISON: None available TECHNIQUE: Single portable view of the chest. FINDINGS The cardiomediastinal silhouette is unremarkable. The lungs are clear. Visualized osseous structures and soft tissues are unremarkable. IMPRESSION: No focal infiltrate or effusion. Reviewed, dictated and finalized at location A. CARE ATTENDANT
--- OUTSIDE RECORDS SUMMARY | 2024-05-06 20:16 | XMS_ITS | Encounter Summary ---
Author Organization [facility] Healthcare Address [address] [place] [address] Care Team Providers Care Cashier Payments Received Name Role Phone Jered Myers MD Primary Care Provider [phone] Lang Perry MD PhD Unavailable + Ariadne Dang DISABILITY INSURANCE CLAIM EXAMINER Primary Care Provider [phone] Na Acosta DISABILITY INSURANCE CLAIM EXAMINER Unavailable [phone] Huyen Hernandez DISABILITY INSURANCE CLAIM EXAMINER Primary Care Provider [phone] Ariadne Dang DISABILITY INSURANCE CLAIM EXAMINER Primary Care Provider [phone] Huyen Hernandez DISABILITY INSURANCE CLAIM EXAMINER Primary Care Provider + [phone] Ginny Zendejas RN Unavailable [phone] Encounter Details Date Type Department Care Team (Latest Contact Info) Description 12/24/2018 Ophth Exam Ophthalmology Lucie Parrish MD PhD [address] [facility] [address] [place] [address] Social History Tobacco Use Types Packs/Day Years Used Date Smoking Tobacco: Never Comments No Sex and Gender Information Value Date Recorded Sex Assigned at Not on file Legal Sex Female 9:32 AM CDT Gender Identity Not on file Sexual Orientation Not on file documented as of this encounter Plan of Treatment Not on file documented as of this encounter Visit Diagnoses Not on filedocumented in this encounter Additional Health Concerns Infection Onset Date Last Indicated Resolved Time COVID: Suspected Comment:IP/ID review: pt cleared from precautions Marquita Cotton 08/25/2019 08/24/2019 08/24/201908/25/2019 10:28 AM CDT COVID: Suspected 08/25/2019 08/25/2019 08/26/2019 12:39 AM CDT Respiratory Infection (AYSHA), contact + droplet Comment:Automatically added due to negative COVID-19 result. 08/26/2019 08/26/2019 08/27/2019 10: 54 AM CDT documented as of this encounter Eye Exam Visual Acuity Right eye Left eye Near cc 20/70+2 PH 20/40 20/70 no PH Tonometry (Tonopen, 8:30 AM) Right eye Left eye Pressure 11 11 Pupils Dark Light Shape React APD Right eye 4 2 Round Brisk None Left eye 4 2 Round Brisk None Visual [place] Right eye Left eye Full Full Extraocular Movement Right eye Left eye Full Full Dilation Both eyes: 2.5% Phenylephrin e, 1% Tropicamide @ 8:50 AM External Exam Right eye Left eye External Normal Normal Slit Lamp Exam Right eye Left eye Lids/Lashes Normal Normal Conjunctiva/Sclera White and quiet White and nuria et Cornea Clear Clear Anterior Chamber Deep and quiet Deep and quiet Iris Round and reactive Round and elizabeth ctive Lens Clear Clear Vitreous Normal Normal Fundus Exam Right eye Left eye Disc slight peripapillar atrophy slig ht peripapillar atrophy Macula Normal Normal Vessels Normal Normal Periphery Normal Normal Care Teams Cashier Payments Received Relationship Specialty Start Date End Date Jered Myers MD PCP - General Internal Medicine 01/15/18 12/22/19 Ariadne Dang NP [address] [facility] [address] [place] [address] PCP - General 12/23/19 06/09/23 Huyen Hernandez NP [address] [place] [address] PCP - General Family Medicine 06/11/23 06/22/23 Ariadne Dang NP [address] [facility] [address] [place] [address] PCP - General Cardiovascular Disease 06/23/23 4 Huyen Hernandez DISABILITY INSURANCE CLAIM EXAMINER [address] [place] [address] PCP - General Family Medicine 06/27/23 Lang Perry MD PhD Referring Physician Neurology 12/18/18 04/14/23 Na Acosta NP [address] [place] [address] Nurse Practitioner Neurology 05/12/23 Ginny Zendejas, RN [address] [facility] [address] [place] [address] [facility] Outpatient Macaroni Maker 06/30/23 07/24/23 documented as of this encounter
--- OUTSIDE RECORDS SUMMARY | 2024-05-06 20:16 | XMS_ITS | Encounter Summary ---
Author Organization [facility] Health Address [address] [place] [address] Care Team Providers Care Electrical Continuity Inspector Name Role Phone Jered Myers MD Primary Care Provider [phone] Encounter Details Date Type Department Care Team (Late st Contact Info) Description 11/21/2023 Lab Requisition [facility] [address] [place] [address] [address] [place], [place] [address] Social History Tobacco Use Types Packs/Day Years Used Date Smoking Tobacco: Never Smokeless Tobacco: Never Alcohol Use Standard Drinks/Week Comments No 0 (1 standard drink = 0.6 oz pur e alcohol) Sex and Gender Information Value Date Recorded Sex Assigned at Not on file Gender Identity Not on file Sexual Orientation Not on file documented as of this encounter Functional Status Functional Status Response Date of Assess ment Is person deaf or have serious hearing difficult y? No 11/19/2017 Is person blind or have serious difficulty seein g? Yes 11/19/2017 Does person have serious dif ficulty walking/climbing stairs? Yes 11/19/2017 Does person have difficulty dressing/bathing? Ye s 11/19/2017 Does person have difficulty doing errands alone? Yes 11/19/2017 Cognitive Status Response Date of Assessm ent Does person have difficulty concentrating/remembering/making decisions? No 11/19/2017 documented as of this encounter Plan of Treatment Not on file documented as of this encounter Procedures Procedure Name Priority Date/Time Associated Diagnosis Comments VANCOMYCIN LEVEL TROUGH STAT 11/21/2023 7:30 PM CDT documented in this encounter Results * VANCOMYCIN LEVEL TROUGH (11/21/2023 7:30 PM CDT) Vancomycin Trough 15.6 10.0 - 20.0 ug/mL 11/21/2023 9:00 PM CDT [facility] Blood BLOOD SPECIMEN / Unknown Venipuncture / Unknown 11/21/2023 7:30 PM CDT 11/21/2023 8:28 PM CDT [facility] - CHEMISTRY CLAIRE JOSEPH Performing Organization Address City/State/[facility] Co de Phone Number [facility] [address] [place] [address] documented in this encounter Visit Diagnoses Not on filedocumented in this encounter Care Teams Electrical Continuity Inspector Relationship Specialty Start Date End Date Jered Myers MD PCP - General 03/02/18 documented as of this encounter
--- OUTSIDE RECORDS SUMMARY | 2024-05-06 20:16 | XMS_ITS | Encounter Summary ---
Author Organization [facility] Health Address [address] [place] [address] Care Team Providers Care Parer Name Role Phone Jered Myers MD Primary Care Provider [phone] Encounter Details Date Type Department Care Team (Late st Contact Info) Description 11/14/2023 Lab Requisition [facility] [address] [place] [address] [address] [place], [place] [address] Social History Tobacco Use Types Packs/Day Years [...] Associated Diagnosis Comments VANCOMYCIN LEVEL TROUGH STAT 11/14/2023 11:12 AM CDT documented in this encounter Results * (ABNORMAL) VANCOMYCIN LEVEL TROUGH (11/14/2023 11:12 AM CDT) Vancomycin Trough 20.4(H) 10.0 - 20.0 ug/mL 11/14/2023 11:30 AM CDT [facility] Blood BLOOD SPECIMEN / Unknown Venipuncture / Unknown 11/14/2023 11:12 AM CDT 11/14/2023 11:12 AM CDT [facility] - CHEMISTRY CLAIRE JOSEPH [facility] [address] [place], [place] [id number] documented in this encounter Visit Diagnoses Not on filedocumented in this encounter Care Teams Parer Relationship Specialty Start Date End Date Jered Myers MD PCP - General 03/02/18 documented as of this encounter
--- OUTSIDE RECORDS SUMMARY | 2024-05-06 20:16 | XMS_ITS | Clinical Summary ---
Author Organization [facility] Address [address] [place] [address] Care Team Providers Care Compact Assembler Name Role Phone Na Acosta JORGE Unavailable [phone] Huyen Hernandez NP Primary Care Provider [phone] Allergies Active Allergy Reactions Criticality Noted Date Comments Sulfamethoxazole-Trimethopri m Rash Medium 08/30/2020 Morphine Hives Medium 12/22/2018 Penicillins Rash Medium 11/17/[address] Jhon Hayden, 08/24/2019 Leah GutierrezD. Medications calcium carbonate-vitam in D3 1500 mg (600 mg elemental) -200 units per tablet Take 1 tablet by mouth daily Active riTUXimab (RITUXAN) 10 mg/mL injection Infuse into a venous catheter Active DULoxetine DR (CYMBALTA) 30 mg capsuleIndicati ons:Demyelinati ng disease of central nervous system (HCC) Take 1 capsule (30 mg total) by mouth daily 90 capsule 3 10/28/2022 Active multivitamin with folic acid 400 mcg tablet Take 1 tablet by mouth daily 30 tablet 11 06/11/2023 06/11/19 25 Active polyethylene glycol (MIRALAX) 17 gram/dose bulk powderIndicatio ns:constipation Take 17 g by mouth 2 (two) times a day 1020 g 06/27/2023 Active senna (SENOKOT) 8.6 mg tablet Take 1 tablet by mouth 2 (two) times a day 60 tablet 06/27/2023 Active Active Problems Problem Noted Date Diagnosed Date Osteomyelitis 01/20/2024 Overview (01/20/2024): The patient is a 58 y.o. female here from nursing facility regarding evaluation and management of sacral osteomyelitis. She has chronic inflammatory demyelinating polyneuropathy (CIDP) and is very limited on mobility, She was seen in [facility] 10/27/2023 and evaluated for sacral osteomyelitis. She was admitted in August for sacral decubitus ulcer and thought to have worsening infection. There is no enough data/information to suggest if the patient got a biopsy ,and patient doesn't remember gettign a biopsy done, she was started on IV Vancomycin, IV cefepime and oral flagyl. She has had a PICC line placed as well. She has been continued on IV antibiotics, and per patient, her antibiotic course stopped a few days ago. Her wounds are healing however not completely closed. She is in a correction care facility and at this time, needs 24 X 7 care for transfers, ADLs etc. 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 Today she reports no fever/chills/rigors/nausea/vomiting/diarrhea. Sacral ulcer is healing. No drainage currently. She is getting wound care at facility. PLAN - currently, still gathering information about her sacral decubitus ulcer and status of osteomyelitis. IV abx decided and managed through facility and [facility] doctors. Limited data shared with us - referral in Nov only contains information from admission in [facility] late September 2023, no recent labs/evaluations/provider notes. - Labs today to assess status of infection/inflammation - given the degree of sacral wounds, she will need aggressive wound care - weight offloading - pressure ulcer prevention care - discussed expectations - given the extent of open ulcers, and tracking to deeper tissues, she may always have chronic osteomyelitis which will be hard to cure with open contiguous wounds. Hence goal should be to prevent worsening of wounds and treat acute infectious flares. - CT lumbosacral spine w/w/o contrast to look for extent and status of infection - referral to wound clinic - Based on above findings, will decide on next steps. Decubitus ulcer of coccyx 06/21/2023 Assessment & Plan (06/22/2023 1:16 PM CDT): - ACCS rec medical management - Wound/air press operator consult - Discussed how to verify mattress inflation with patient - Maintain regular turn schedule Essential (primary) hypertension 06/21/2023 Assessment & Plan (06/21/2023 10:29 AM CDT): Controlled off medications Depression 06/21/2023 Assessment & Plan (06/22/2023 1:17 PM CDT): - Continue duloxetine Stercoral colitis 06/21/2023 Assessment & Plan (06/23/2023 12:40 PM CDT): Seen on CT. Incontinent of stool on exam in the ED. Per chart, had large BM while still in ED after CT was performed. - scheduled bowel regimen - No BM o/n Cellulitis of sacral region 06/20/2023 Assessment & Plan (06/21/2023 9:15 PM CDT): -pending MRSA nares -wound consulted -continue vancomycin with vanc troughs. Continue with cefdinir -PT/OT consult for placement Assessment & Plan (06/26/2023 3:59 PM CDT): Prior wound cultures with MSSA and Staph hominis - Abx: Vanc/Cefdinir->Doxy/Levaquin, s/p 5 day course total Encephalomyeloneuropathy 06/04/2023 Assessment & Plan (06/27/2023 12:05 PM CDT): She reports not receiving her methylprednisolone since June 07. According to notes, her home health agency is not familiar with home infusion and does not have access to a pharmacy. - Neuro curbside consult 06/21: recommend holding IVMP in the setting of acute infection - PT/OT evals PT Recommendation/Plan: Home with 24 hour supervision, Home Health PT / OT Recommendation: Home with family, Home Health OT - scheduled bowel regimen - given weakness and decub ulcer w/ superimposed infection, strongly feel that patient would benefit from placement and this may decrease readmission rate. Patient not amendable to SNF placement. HH orders placed. Neurology aware of patient discharging. Myopia of both eyes 01/14/2020 Assessment & Plan (01/14/2020 11:35 AM CDT): MRx done today Normal dilated fundus exam Tilted nerve OS Optic neuropathy, bilateral 01/14/2020 Assessment & Plan (01/14/2020 12:32 PM CDT): Suspect chronic optic neuropathy given mild pallor on exam, decreased color vision OS > OD, and BCVA 20/60 OU and ancillary testing as below with otherwise normal exam. Pt has noticed gradual vision loss, but no acute changes or episodes of eye pain. Likely secondary to her chronic systemic encephalomyeloradiculoneuropathy, for which she is following with Dr. Perry, has had extensive workup, and is being managed with IV steroids and IVIG. -- VA stable from our last exam in 2019. -- OCT nerve today: moderate to severe thinning OS > OD -- OCT macula today: severe GCC thinning -- dilated HVF 24-2 OU today: central scotoma OS > OD RTC 3 months for repeat dilated HVF 24-2 OU Polyradiculopathy 10/14/2019 Myelopathy 10/14/2019 Demyelinating disease of central nervous system 10/14/2019 Assessment & Plan (06/21/2023 9:15 PM CDT): -discuss with case management to get outpatient methylpred if patient goes home -restart methylpred qweekly tomorrow morning if no further decompensation -curbside with neurology to make sure she is receiving the appropriate therapies Stage IV pressure ulcer of sacral region 020 Overview (08/28/2019): Added automatically from request for surgery [id number] Muscle weakness 08/23/2019 Overview (08/30/2019): Added automatically from request for surgery [id number] Severe malnutrition (CMS/[facility]) 12/23/2018 Adnexal mass 12/18/2018 Overview (12/29/2018): Added automatically from request for surgery [id number] Weakness 11/16/2018 Polyneuropathy 11/16/2018 Gait disorder 11/16/2018 Resolved Problems Problem Noted Date Diagnosed Date Resolved Date Moderate protein-calorie mal nutrition ([facility]/HCC) 05/22/2023 06/23/2023 Assessment & Plan (06/21/2023 9:15 PM CDT): Nutrition consult Immunizations Name Administration Dates Next Due Influenza, Quadrivalent, Spl it, Preservative Free, Intramuscular 01/01/2019 Surgical History Surgery Date Site/Laterality Comments ENDOMETRIAL ABLATION 03/31/2007 - 03/30/2008 HERNIA REPAIR 03/31/2009 - 03/30/2010 OTHER SURGICAL HISTORY 2013 and 2016 Bilateral knee replacement AL ARTHRP KNE CONDYLE&PLATU MEDIAL&LAT COMPARTMENTS Bilateral Medical History Medical History Date Comments Hypertension High cholesterol Sleep apnea Polyneuropathy Adnexal mass Lower extremity weakness Moderate protein-calorie malnutrition (CMS/HCC) (HCC) Family History Medical History Relation Name Comments No Known Problems Father No Known Problems Mother No Known Problems Sister Anesthesia problems Neg Hx Relation Name Status Comments Father Mother Sister Social History Tobacco Use Types Packs/Day Years Used Date Smoking Tobacco: Never Smokeless Tobacco: Never Tobacco Cessation:Counseling Given: Not Answered Alcohol Use Standard Drinks/Week Comments Never 0 (1 standard drink = 0.6 oz pur e alcohol) [facility] Utilities Answer Date Recorded In the past 12 months has [employer], gas, oil, or water [employer] threatened to shut off services in your home? No 07/01/2023 Social Connection and Isolat ion Panel [NHANES] Answer Date Recorded In a typical week, how many times do you talk on the phone with family, friends, or neighbors? More than three times a week 07/01/2023 How often do you get togethe r with friends or relatives? More than three times a week 07/01/2023 How often do you attend chur ch or lutheran services? Never 07/01/2023 Do you belong to any clubs o r organizations such as cheondoism groups, unions, fraternal or athletic groups, or school groups? Yes 07/01/2023 How often do you attend meet ings of the clubs or organizations you belong to? More than 4 times per year 07/01/2023 Are you , , di vorced, , never , or living with a partner? 07/01/2023 AUDIT-C Answer Date Recorded Frequency of Alcohol Consumption Never 12/31/2018 Average Number of Drinks Not on file 019 Frequency of Binge Drinking Not on file 05/2018 Overall Financial Resource Strain (CARDIA) Answe r Date Recorded How hard is it for you to pa y for the very basics like food, housing, medical care, and heating? Somewhat hard 07/01/2023 PHQ-2 Answer Date Recorded PHQ-2 Total Score 0 06/25/2023 Hunger Vital Sign Answer Date Recorded Within the past 12 months, y ou worried that your food would run out before you got the money to buy more. Never true 07/01/19 24 Within the past 12 months, t he food you bought just didn't last and you didn't have money to get more. Never true 07/01/2023 PRAPARE - Transportation Answer Date Re corded In the past 12 months, has l ack of transportation kept you from medical appointments or from getting medications? No 05/2023 In the past 12 months, has l ack of transportation kept you from meetings, work, or from getting things needed for daily living? No 07/01/2023 Housing Stability Vital Sign Answer Kevin e Recorded In the last 12 months, was t here a time when you were not able to pay the mortgage or rent on time? No 07/01/2023 In the last 12 months, how many places have you lived? 1 07/01/2023 In the last 12 months, was t here a time when you did not have a steady place to sleep or slept in a alf (including now)? No 07/01/2023 Personal Safety Answer Date Recorded Have you ever been in or are you currently in a harmful physical or emotional relationship or is someone making you feel afraid or unsafe? Denies 06/21/2023 Comments No Sex and Gender Information Value Date Recorded Sex Assigned at Not on file Legal Sex Female 9:32 AM CDT Gender Identity Not on file Sexual Orientation Not on file Obstetrics History Para Term AB IAB SAB Ectopic Multiple Livin g Live Births 3 2 2 1 1 2 Date Outcome GA Total Labor Labor/2nd/3rd Weight Sex Type Anes PTL Alessandra A1 A5 Name Clin Term Vag-Spo nt Term Vag-Spo nt SAB Last Filed Vital Signs Vital Sign Reading Time Taken Comments Blood Pressure 117/80 01/05/2024 9:21 AM CDT Pulse 78 01/05/2024 9:21 AM CDT Temperature 36.6 C (97.9 F) 01/05/2024 9:21 AM CDT Respiratory Rate 18 06/27/2023 10:05 AM CDT Oxygen Saturation 99% 06/27/2023 10:05 AM CDT Inhaled Oxygen Concentration - - Weight 57 kg (125 lb 10.6 oz) 06/21/2023 9:25 PM CDT Height 167.6 cm (5' 6 ) 06/21/2023 9:25 PM CDT Body Mass Index 20.28 06/21/2023 9:25 PM CDT Plan of Treatment Health Maintenance Due Date Last Done Comments Breast Cancer Screening-Mammogram 1965 Colon Cancer Screening-Colonoscopy 1965 Pneumococcal vaccine <65 (1 of 2 - PCV) 02/21/1970 DTaP/Tdap/Td Vaccine (1 - Tdap) 02/21/1975 Hepatitis B Screening 02/21/1982 Regular Well Visit/Exam 18-64 02/21/1982 Zoster Vaccine (1 of 2) 02/21/1983 Covid-19 Vaccine (3 - Pfizer risk series) 11/30/2020 11/02/2020, 10/05/2020 Influenza Vaccine (#1) 2023 01/01/2019 Depression Screening 06/19/2024 06/20/2023 Hepatitis C Screening Completed 07/20/2020, 019 Medical Devices Implanted Type Area Razor Sharpener Device Identifier Shelf Expiration Date Model / Serial / Lot Knee Bilateral: Knee Procedures Procedure Name Priority Date/Time Associated Diagnosis Comments HEPATITIS PANEL, ACUTE Routine 07/20/2020 4:21 PM CDT Demyelinating disease of central nervous system (CMS/HCC) from Last 3 Months or Most Recently Relevant to Health Maintenance Results * Hepatitis panel, acute (07/20/2020 4:21 PM CDT) Hep A IgM Nonreactive Nonreactive [facility] Comment: Interpretive Data: If Hep A IgM Ab is reported as Equivocal, a new sample should be drawn in two weeks for testing. Current interpretive data was last revised on 19. Hep B core IgM Nonreactive Nonreactive [facility]OK[facility] Luna Comment: Interpretive Data If HepB Core IgM Ab is reported as Equivocal, a new sample should be drawn in two weeks for testing. Current interpretive data was last revised on 19. Hep C Ab Nonreactive Nonreactive [facility] Comment:Antibodies to HCV no t detected. Does NOT exclude the possibility of recent exposure to HCV. HepBsAg Nonreactive Nonreactive [facility] Blood specimen (specimen) 07/20/2020 4:21 PM CDT 07/20/2020 4:29 PM CDT us Lang Perry MD PhD LAB MICROB IOLOGY - GENERAL ORDERABLES Edited Result - Final [facility] [place] [address] from Last 3 Months or Most Recently Relevant to Health Maintenance Insurance [employer] [facility] Address: [address] [place] [address] [facility] PLAN [facility] MEDICARE MEDICARE MEDICARE Advance Directives For more information, please contact: [phone] * Full Code (Latest Code Status on File) Date Activated Date Inactivated Comments 06/21/2023 9:15 PM 06/28/2023 12:01 AM * Full Code Date Activated Date Inactivated Comments 05/21/2023 6:03 AM 06/11/2023 4:30 PM * Full Code Date Activated Date Inactivated Comments 12/23/2019 11:26 PM 12/30/2019 1:02 AM * Full Code Date Activated Date Inactivated Comments 08/24/2019 11:44 AM 09/03/2019 10:36 PM * Full Code Date Activated Date Inactivated Comments 12/22/2018 3:42 PM 01/08/2019 6:55 PM Care Teams Compact Assembler Relationship Specialty Start Date End Date Huyen Hernandez NP [address] [place] [address] PCP - General Family Medicine 06/27/23 Na Acosta NP [address] [place] [address] Nurse Practitioner Neurology 05/12/23
--- OUTSIDE RECORDS SUMMARY | 2024-05-06 20:16 | XMS_ITS | Encounter Summary ---
Author Organization [facility] Address [address] [place] [address] Care Team Providers Care Freelance Makeup Artist Name Role Phone Jered Myers MD Primary Care Provider [phone] Encounter Details Date Type Department Care Team (Late st Contact Info) Description 11/11/2023 Lab Requisition [facility] [address] [place] [address] Social History Tobacco Use Types Packs/Day Years [...] on filedocumented in this encounter Care Teams Freelance Makeup Artist Relationship Specialty Start Date End Date Jered Myers MD PCP - General 03/02/18 documented as of this encounter
--- OUTSIDE RECORDS SUMMARY | 2024-05-06 20:16 | XMS_ITS | Encounter Summary ---
Author Organization [facility] Address [address] [place] [address] Care Team Providers Care Radio Mechanic Name Role Phone Jered Myers MD Primary Care Provider [phone] Encounter Details Date Type Department Care Team (Late st Contact Info) Description 12/10/2023 Lab Requisition [facility] [address] [place], [place] [id number] Wong Vo MD [address] [facility] [address] [place] [address] Social History Tobacco Use Types Packs/Day Years [...] Associated Diagnosis Comments VANCOMYCIN LEVEL TROUGH STAT 12/10/2023 5:30 PM CDT documented in this encounter Results * VANCOMYCIN LEVEL TROUGH (12/10/2023 5:30 PM CDT) Vancomycin Trough 18.2 10.0 - 20.0 ug/mL 12/10/2023 10:31 PM CDT [facility] Blood BLOOD SPECIMEN / Unknown Venipuncture / Unknown 12/10/2023 5:30 PM CDT 12/10/2023 10:12 PM CDT Wong Vo MD LAB - CHEMISTRY O RDERABLES [facility] [address] [place] [address] documented in this encounter Visit Diagnoses Not on filedocumented in this encounter Care Teams Radio Mechanic Relationship Specialty Start Date End Date Jered Myers MD PCP - General 03/02/18 documented as of this encounter
--- OUTSIDE RECORDS SUMMARY | 2024-05-06 20:16 | XMS_ITS | Patient Health Summary ---
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 This disclosure is being madepursuant to the Care Everywhere program and may not contain all information available regarding this patient. Last updated 17.[facility] [employer] Allergies * Morphine(Rash) -Medium Criticality * Penicillins(Rash) -Medium Criticality Medications * Be aware that medications may not be up to date on this document. Alwaysverify current medications with the patient. * lisinopril-hydroCHLOROthiazide (PRINZIDE; ZESTORETIC) 20-25 MG tablet Take 1 tablet by mouth once daily * aspirin (ASPIRIN) 81 MG chew tablet Take 81 mg by mouth once daily * azelastine (ASTELIN) 0.1 % nasal spray [place] 1 spray into each nostril 2 times daily * cetirizine (ZYRTEC) 10 MG tablet Take 10 mg by mouth once daily Active Problems Problem Noted Date Diagnosed Date Acute renal failure 11/19/2017 Social History Tobacco Use Types Packs/Day Years Used Date Smoking Tobacco: Never Smokeless Tobacco: Never Alcohol Use Standard Drinks/Week Comments No 0 (1 standard drink = 0.6 oz pur e alcohol) Sex and Gender Information Value Date Recorded Sex Assigned at Not on file Gender Identity Not on file Sexual Orientation Not on file Last Filed Vital Signs Vital Sign Reading Time Taken Comments Blood Pressure 127/71 03/06/2018 8:19 AM MELT SUPERINTENDANT Pulse 81 03/06/2018 8:19 AM MELT SUPERINTENDANT Temperature 36 C (96.8 F) 03/06/2018 8:19 AM MELT SUPERINTENDANT Respiratory Rate 18 11/22/2017 8:19 AM CDT Oxygen Saturation 100% 11/22/2017 8:19 AM CDT Inhaled Oxygen Concentration - - Weight 135.2 kg (298 lb) 03/06/2018 8:19 AM MELT SUPERINTENDANT Height 167.6 cm (5' 6 ) 03/06/2018 8:19 AM MELT SUPERINTENDANT Body Mass Index 48.1 03/06/2018 8:19 AM MELT SUPERINTENDANT Procedures * CBC W AUTO DIFFERENTIAL(Performed 12/24/2023) * COMPREHENSIVE METABOLIC PANEL(Performed 12/24/2023) * COMPREHENSIVE METABOLIC PANEL(Performed 12/15/2023) * VANCOMYCIN LEVEL TROUGH(Performed 12/15/2023) * VANCOMYCIN LEVEL TROUGH(Performed 12/12/2023) * VANCOMYCIN LEVEL TROUGH(Performed 12/10/2023) * VANCOMYCIN LEVEL TROUGH(Performed 12/06/2023) * COMPREHENSIVE METABOLIC PANEL(Performed 12/01/2023) Performed for 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 * VANCOMYCIN LEVEL TROUGH(Performed 12/01/2023) Performed for 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 * VANCOMYCIN LEVEL TROUGH(Performed 11/29/2023) * VANCOMYCIN LEVEL TROUGH(Performed 11/26/2023) * VANCOMYCIN LEVEL TROUGH(Performed 11/23/2023) * VANCOMYCIN LEVEL TROUGH(Performed 11/21/2023) * VANCOMYCIN LEVEL TROUGH(Performed 11/19/2023) * VANCOMYCIN LEVEL TROUGH(Performed 11/14/2023) * VANCOMYCIN LEVEL TROUGH(Performed 11/10/2023) * BASIC METABOLIC PANEL (CALCIUM TOTAL)(Performed 11/10/2023) * VANCOMYCIN LEVEL TROUGH(Performed 11/10/2023) * US ABDOMEN LIMITED(Performed 11/22/2017) Performed for Transaminitis * CBC W AUTO DIFFERENTIAL(Performed 11/22/2017) * COMPREHENSIVE METABOLIC PANEL(Performed 11/22/2017) * COMPREHENSIVE METABOLIC PANEL(Performed 11/21/2017) * CBC W AUTO DIFFERENTIAL(Performed 11/21/2017) * SS-B (SJOGREN'S) ANTIBODY(Performed 11/21/2017) * SS-A (SJOGREN'S) ANTIBODY(Performed 11/21/2017) * T4 FREE(Performed 11/21/2017) * TSH(Performed 11/21/2017) * HOMOCYSTEINE BLOOD QUANTITATIVE(Performed 11/21/2017) * METHYLMALONIC ACID BLOOD(Performed 11/21/2017) * PROTEIN ELECTROPHORESIS BLOOD(Performed 11/21/2017) * IMMUNOFIXATION BLOOD(Performed 11/21/2017) * JOSEPH BLOOD SCREEN W/REFLEX TITER(Performed 11/21/2017) * COPPER BLOOD(Performed 11/21/2017) * FOLATE(Performed 11/21/2017) * VITAMIN B12(Performed 11/21/2017) * HEMOGLOBIN A1C(Performed 11/21/2017) * CULTURE BLOOD(Performed 11/21/2017) * CULTURE BLOOD(Performed 11/21/2017) * COMPREHENSIVE METABOLIC PANEL(Performed 11/20/2017) * CBC W/O DIFFERENTIAL(Performed 11/20/2017) * CT SINUS WO CONTRAST(Performed 11/20/2017) Performed for Acute recurrent frontal sinusitis * PARVOVIRUS B19 ANTIBODY IGG(Performed 11/20/2017) * TRANSFERRIN(Performed 11/20/2017) * IRON BLOOD(Performed 11/20/2017) * FERRITIN(Performed 11/20/2017) * FOLATE(Performed 11/20/2017) * VITAMIN B12(Performed 11/20/2017) * CK BLOOD(Performed 11/20/2017) * RETIC COUNT(Performed 11/20/2017) * TSH(Performed 11/20/2017) * COMPREHENSIVE METABOLIC PANEL(Performed 11/20/2017) * CBC W/O DIFFERENTIAL(Performed 11/20/2017) * CBC W AUTO DIFFERENTIAL(Performed 11/20/2017) * HIV-1 HIV-2 ANTIGEN/ANTIBODY(Performed 11/20/2017) * JOSEPH BLOOD SCREEN W/REFLEX TITER(Performed 11/20/2017) * MAGNESIUM BLOOD(Performed 11/19/2017) * COMPREHENSIVE METABOLIC PANEL(Performed 11/19/2017) * CULTURE BLOOD(Performed 11/19/2017) * PT-INR SLH(Performed 11/19/2017) * LACTIC ACID BLOOD(Performed 11/19/2017) * URINALYSIS W/MICROSCOPIC NO CULTURE(Performed 11/19/2017) * PHOSPHORUS BLOOD(Performed 11/19/2017) * CULTURE URINE(Performed 11/19/2017) * B-TYPE NATRIURETIC PEPTIDE(Performed 11/19/2017) * CBC W/O DIFFERENTIAL(Performed 11/19/2017) * CULTURE BLOOD(Performed 11/19/2017) * XR CHEST 1VW PORTABLE(Performed 11/19/2017) Performed for Pneumonia due to infectious organism, unspecified laterality, unspecified part of lung Results * (ABNORMAL) CBC WITH DIFFERENTIAL (12/24/2023 6:00 PM CDT) Only the most recent of4 resultswithin the time period is included. WBC 3.7(L) 4.0 - 10.7 x10E9/L 12/24/2023 7:20 PM CDT [facility] RBC Count 3.63(L) 3.90 - 5.20 x10E12/L 12/24/2023 7:20 PM CDT [facility] Hemoglobin 10.0(L) 11.9 - 15.8 g/dL 12/24/2023 7:20 PM CDT [facility] Hematocrit 33.5(L) 34.8 - 46.1 % 12/24/2023 7:20 PM CDT [facility] MCV 92.3 80.0 - 98.0 fL 12/24/2023 7:20 PM CDT [facility] MCH 27.5 26.7 - 33.6 pg 12/24/2023 7:20 PM CDT [facility] MCHC 29.9(L) 31.7 - 36.3 g/dL 12/24/2023 7:20 PM CDT [facility] RDW-CV 16.3(H) 11.3 - 14.8 % 12/24/2023 7:20 PM CDT [facility] Platelet Count 190 150 - 420 x10E9/L 12/24/2023 7:20 PM CDT [facility] MPV 9.7 7.8 - 11.4 fL 12/24/2023 7:20 PM CDT [facility] Neutrophil % 55.9 41.0 - 74.0 % 12/24/2023 7:20 PM CDT [facility] Lymphocyte % 27.2 17.0 - 47.0 % 12/24/2023 7:20 PM CDT [facility] Monocyte % 9.8 3.0 - 11.0 % 12/24/2023 7:20 PM CDT [facility] Eosinophil % 6.0 0.0 - 7.0 % 12/24/2023 7:20 PM CDT [facility] Basophil % 0.8 0.0 - 1.6 % 12/24/2023 7:20 PM CDT [facility] Immature Granulocytes % 0.3 0.0 - 1.0 % 12/24/2023 7:20 PM CDT [facility] Neutrophil Absolute 2.06 1.60 - 7.50 x10E9/L 12/24/2023 7:20 PM CDT [facility] Lymphocyte Absolute 1.00 1.00 - 4.40 x10E9/L 12/24/2023 7:20 PM CDT [facility] Monocyte Absolute 0.36 0.15 - 1.00 x10E9/L 12/24/2023 7:20 PM CDT [facility] Eosinophil Absolute 0.22 0.00 - 0.60 x10E9/L 12/24/2023 7:20 PM CDT [facility] Basophil Absolute 0.03 0.00 - 0.13 x10E9/L 12/24/2023 7:20 PM CDT [facility] Blood BLOOD SPECIMEN / Unknown 12/24/2023 6:00 PM CDT 12/24/2023 7:03 PM CDT Norman Carie LAB - HEMATOLOGY ORD ERABLES [facility] [address] [place] [address] * (ABNORMAL) COMPREHENSIVE METABOLIC PANEL (12/24/2023 6:00 PM CDT) Only the most recent of8 resultswithin the time period is included. Glucose 128(H) 70 - 105 mg/dL 12/24/2023 7:45 PM CDT [facility] Sodium 145 136 - 145 mmol/L 12/24/2023 7:45 PM CDT [facility] Potassium 3.2(L) 3.5 - 5.1 mmol/L 12/24/2023 7:45 PM CDT [facility] Chloride 104 98 - 107 mmol/L 12/24/2023 7:45 PM CDT [facility] CO2 32(H) 22 - 29 mmol/L 12/24/2023 7:45 PM CDT [facility] Calcium 8.7 8.4 - 10.4 mg/dL 12/24/2023 7:45 PM CDT [facility] Anion Gap 9 6 - 16 mmol/L 12/24/2023 7:45 PM CDT [facility] BUN 7 7 - 26 mg/dL 12/24/2023 7:45 PM CDT [facility] Creatinine 0.47(L) 0.57 - 1.11 mg/dL 12/24/2023 7:45 PM CDT [facility] Alkaline Phosphatase 85 40 - 150 U/L 12/24/2023 7:45 PM CDT [facility] ALT 12 0 - 55 U/L 12/24/2023 7:45 PM CDT [facility] AST 18 5 - 34 U/L 12/24/2023 7:45 PM CDT [facility] Protein Total 5.6(L) 6.4 - 8.3 gm/dL 12/24/2023 7:45 PM CDT [facility] Albumin 2.7(L) 3.4 - 5.0 gm/dL 12/24/2023 7:45 PM CDT [facility] Bilirubin Total 0.3 0.2 - 1.2 mg/dL 12/24/2023 7:45 PM CDT [facility] eGFR by CKD-EPI >90 >=90 mL/min/1.7 3 m2 12/24/2023 7:45 PM CDT [facility] Blood BLOOD SPECIMEN / Unknown Venipuncture / Unknown 12/24/2023 6:00 PM CDT 12/24/2023 7:03 PM CDT Norman Diggswal LAB - CHEMISTRY CLAIRE JOSEPH [facility] Organization Address City/State/ZIP Co de Phone Number [facility] [address], [place] [id number] * VANCOMYCIN LEVEL TROUGH (12/15/2023 7:30 AM CDT) Only the most recent of13 resultswithin the time period is included. Vancomycin Trough 18.6 10.0 - 20.0 ug/mL 12/15/2023 1:47 PM CDT [facility] Blood BLOOD SPECIMEN / Unknown Venipuncture / Unknown 12/15/2023 7:30 AM CDT 12/15/2023 1:03 PM CDT Norman Darnell LAB - CHEMISTRY CLAIRE JOSEPH Performing Organization Address City/[facility]/ZIP Co de Phone Number [facility] [address], [place] [id number] * (ABNORMAL) BASIC METABOLIC PANEL (CALCIUM TOTAL) (11/10/2023 7:30 PM CDT) [facility] Glucose 126(H) 70 - 105 mg/dL 11/10/2023 9:35 PM CDT [facility] Sodium 142 136 - 145 mmol/L 11/10/2023 9:35 PM CDT [facility] Potassium 3.4(L) 3.5 - 5.1 mmol/L 11/10/2023 9:35 PM CDT [facility] Chloride 106 98 - 107 mmol/L 11/10/2023 9:35 PM CDT [facility] CO2 27 22 - 29 mmol/L 11/10/2023 9:35 PM CDT [facility] Calcium 8.2(L) 8.4 - 10.4 mg/dL 11/10/2023 9:35 PM CDT [facility] Anion Gap 9 6 - 16 mmol/L 11/10/2023 9:35 PM CDT [facility] BUN 8 7 - 26 mg/dL 11/10/2023 9:35 PM CDT [facility] Creatinine 0.55(L) 0.57 - 1.11 mg/dL 11/10/2023 9:35 PM CDT [facility] eGFR by CKD-EPI >90 >=90 mL/min/1.7 3 m2 11/10/2023 9:35 PM CDT [facility] Blood BLOOD SPECIMEN / Unknown Venipuncture / Unknown 11/10/2023 7:30 PM CDT 11/10/2023 9:13 PM CDT Norman Diggswal LAB - CHEMISTRY CLIARE JOSEPH [facility] [address], [place] [id number] * US ABDOMEN LIMITED (11/22/2017 11:13 AM CDT) Anatomical Region Laterality Modality Abdomen Ultrasound 11/22/2017 11:2 1 AM CDT Impressions 11/23/2017 3:26 PM CDT IMPRESSION: 1. Diffuse hepatic steatosis without discrete hepatic lesion or intrahepatic biliary dilation. Patent hepatic vasculature. 2. Cholelithiasis without evidence of acute cholecystitis. Dictated by Hema Butler DO (resident). I, Dr. TARAS MORA MD have personally reviewed and interpreted this examination/study. This report was electronically signed by TARAS MORA MD on 11/23/2017 3:26 PM . Narrative 11/23/2017 3:26 PM CDT EXAMINATION: Limited abdominal sonogram HISTORY: Liver disease. COMPARISON: No prior study is available for comparison. FINDINGS: The liver is increased in echogenicity. No discrete hepatic mass or intrahepatic biliary dilation is seen. Color Doppler evaluation demonstrates patency of the hepatic and portal veins. A large echogenic shadowing gallstone is present in the gallbladder fundus. The gallbladder wall is normal in thickness, measuring 2 mm. The common bile duct is nondilated, measuring 4 mm. The right kidney measures 11 cm in length. Limited views of the right kidney reveal no evidence of nephrolithiasis or hydronephrosis. The spleen measures 14.5 cm in length. The visible pancreas is normal in echogenicity. No ascites is present. Procedure Note Taras Mora MD - 11/23/2017 EXAMINATION: Limited abdominal sonogram HISTORY: Liver disease. COMPARISON: No prior study is available for comparison. FINDINGS: The liver is increased in echogenicity. No discrete hepatic mass or intrahepatic biliary dilation is seen. Color Doppler evaluation demonstrates patency of the hepatic and portal veins. A large echogenic shadowing gallstone is present in the gallbladder fundus. The gallbladder wall is normal in thickness, measuring 2 mm. The common bile duct is nondilated, measuring 4 mm. The right kidney measures 11 cm in length. Limited views of the right kidney reveal no evidence of nephrolithiasis or hydronephrosis. Thespleen measures 14.5 cm in length. The visible pancreas is normal in echogenicity. No ascites is present. IMPRESSION: 1. Diffuse hepatic steatosis without discrete hepatic lesion or intrahepatic biliary dilation. Patent hepatic vasculature. 2. Cholelithiasis without evidence of acute cholecystitis. Dictated by Hema Butler DO (resident). I, Dr. TARAS MORA MD have personally reviewed and interpreted this examination/study. This report was electronically signed by TARAS MORA MD on11/23/2017 3:26 PM . Cassandra Schuler MD ORDERABLES * IMMUNOFIXATION (11/21/2017 5:05 AM CDT) Immunofixation Serum Normal Pattern Normal Pattern 11/21/2017 5:33 PM CDT [facility] Comment: Serum immunofixation electrophoresis shows polyclonal IgG, IgA and IgM immunoglobulins. No monoclonal immunoglobulins detected. Non-secretory myeloma (NSM) cannot be excluded on the basis of this result. Measurements of serum free kappa and lambda immunoglobulin light chains can identify up to 70% of patients with NSM. Teena Mckenzie MD *The electrophoresis pattern and the interpretation have been reviewed and verified by the teaching physician. Blood BLOOD SPECIMEN / Unknown Lab Venipuncture / Unknown 11/21/2017 5:05 AM CDT 11/21/2017 5:38 AM CDT Justino Hull MD LAB - CHEMISTRY O RDERABLES [address] [phone] * JOSEPH BLOOD SCREEN W/REFLEX TITER (11/21/2017 5:05 AM CDT) Only the most recent of2 resultswithin the time period is included. JOSEPH Negative 11/24/2017 3:14 PM CDT [facility] ([facility]) Comment: Negative <1:80 Borderline 1:80 Positive >1:80 Blood BLOOD SPECIMEN / Unknown Lab Venipuncture / Unknown 11/21/2017 5:05 AM CDT 11/21/2017 5:38 AM CDT Narrative [facility] ([facility]) - 11/24/2017 3:14 PM CDT Performed at: [address] [place], [place] [id number] Customer Engagement Representative: Prince May PhD, Phone: [phone] Justino Hull MD LAB - CHEMISTRY O LISA Performing Organization Address City/[facility] Co de Phone Number [facility]) [address] [place] [address] * METHYLMALONIC ACID BLOOD (11/21/2017 5:05 AM CDT) Pathologist [facility] Methylmalonic Acid 123 0 - 378 nmol/L 11/24/2017 11:06 PM CDT [facility] ([facility]) Disclaimer Comment 11/24/2017 11:06 PM CDT [facility] ([facility]) Comment: This test was developed and its performance characteristics determined by [facility]. It has not been cleared or approved by the Food and Drug Administration. Blood BLOOD SPECIMEN / Unknown Lab Venipuncture / Unknown 11/21/2017 5:05 AM CDT 11/21/2017 5:38 AM CDT Narrative [facility] ([facility]) - 11/24/2017 11:06 PM CDT Performed at: [address] [place] [id number] Customer Engagement Representative: Pawel Cabello MD, Phone: [phone] Justino Hull MD LAB - CHEMISTRY O LISA Performing Organization Address [facility] Co de Phone Number [facility] ([facility]) [address] [place] [address], [facility] * (ABNORMAL) HEMOGLOBIN A1C (11/21/2017 5:05 AM CDT) Hemoglobin A1c 6.6(H) 4.4 - 6.3 % 11/21/2017 8:30 AM CDT [facility] Estimated Average Glucose 143 mg/dL 11/21/2017 8:30 AM CDT [facility] Comment: HbA1c Interpretation: Treatment target values recommended by ADA and other clinical organizations should be used to evaluate metabolic control in patients. Treatment Target Values: Normal : < 5.7% Pre-diabetes: 5.7-6.4% Diabetes: Equal to or greater than 6.5% Reference: [place] [employer] Standards of Care in Diabetes -2014 In patients 70 years and older consider HbA1c target range of 7.0-7.5% Reference: Diabetes Mellitus in Older People: Position Statement on behalf of the International Association of Gerontology and Geriatrics (IAGG), the Diabetes Working Republican for Older People (EDWPOP), and the International Task Force of Experts in Diabetes. Jw Rossi et al. J [employer]. 2012 Test results diagnostic of diabetes should be repeated for confirmation. The Tosoh G8 assay for the measurement of HbA1c is a National Glycohemoglobin Standardization Program (NGSP)certified method. Results for patients with HbE disease should be interpreted with caution as this hemoglobinopathy has been shown to interfere with the Tosoh G8 assay. Whole Blood BLOOD SPECIMEN WITH EDTA / Unknown Lab Venipuncture / Unknown 11/21/2017 5:05 AM CDT 11/21/2017 5:38 AM CDT Justino Hull MD LAB - CHEMISTRY O RDERAPRESTON [facility] [address] [phone] * COPPER BLOOD (11/21/2017 5:05 AM CDT) Copper 111 72 - 166 ug/dL 11/23/2017 11:06 AM CDT [facility] ([facility]) Comment:Detection Limit = 5 Blood BLOOD SPECIMEN / Unknown Lab Venipuncture / Unknown 11/21/2017 5:05 AM CDT 11/21/2017 5:38 AM CDT Narrative [facility] ([facility]) - 11/23/2017 11:06 AM CDT Performed at: - [address] [id number] Customer Engagement Representative: Pawel Cabello MD, Phone: [phone] Justino Hull MD LAB - CHEMISTRY O RDERABLES [facility] ([facility]) [address] [place] [address], [facility] * (ABNORMAL) HOMOCYSTEINE BLOOD QUANTITATIVE (11/21/2017 5:05 AM CDT) Pathologist [facility] Homocysteine 18.4(H) 4.4 - 16.2 umol/L 11/21/2017 6:47 AM CDT [facility] Blood BLOOD SPECIMEN / Unknown Lab Venipuncture / Unknown 11/21/2017 5:05 AM CDT 11/21/2017 5:38 AM CDT Justino Hull MD LAB - CHEMISTRY O RDERABLES Performing Organization Address [facility] Co de Phone Number [address] [phone] * SS-B (SJOGRENS'S) ANTIBODY (11/21/2017 5:05 AM CDT) [facility] SS-B LA Antibody 5.6 0.0 - 19.9 Units 11/21/2017 10:10 AM CDT [facility] Comment: [place] Antibody Numeric Result Interpretation: <20.0 Units: Negative 20.0 - 39.0 Units: Weakly Positive >39.0 Units: Positive Blood BLOOD SPECIMEN / Unknown Lab Venipuncture / Unknown 11/21/2017 5:05 AM CDT 11/21/2017 5:38 AM CDT Justino Hull MD LAB - CHEMISTRY O RDERABLES Performing Organization Address City/[facility]/ZIP Co de Phone Number [address] [phone] * SS-A (SJOGREN'S) ANTIBODY (11/21/2017 5:05 AM CDT) Pathologist [facility] SS-A (Ro) Antibody 1.9 0.0 - 19.9 Units 11/21/2017 10:10 AM CDT [facility] Comment: [place] Antibody Numeric Result Interpretation: <20.0 Units: Negative 20.0 - 39.0 Units: Weakly Positive >39.0 Units: Positive Blood BLOOD SPECIMEN / Unknown Lab Venipuncture / Unknown 11/21/2017 5:05 AM CDT 11/21/2017 5:38 AM CDT Justino Hull MD LAB - CHEMISTRY O LISA [address] [phone] * FOLATE (11/21/2017 5:05 AM CDT) Only the most recent of2 resultswithin the time period is included. Folate 8.8 7.0 - 31.4 ng/mL 11/21/2017 7:28 AM CDT [facility] Blood BLOOD SPECIMEN / Unknown Lab Venipuncture / Unknown 11/21/2017 5:05 AM CDT 11/21/2017 5:38 AM CDT Justino Hull MD LAB - CHEMISTRY O LISA Performing Organization Address [facility]/ZIP Co de Phone Number [address] [phone] * VITAMIN B12 (11/21/2017 5:05 AM CDT) Only the most recent of2 resultswithin the time period is included. Vitamin B12 602 213 - 816 pg/mL 11/21/2017 7:25 AM CDT [facility] Blood BLOOD SPECIMEN / Unknown Lab Venipuncture / Unknown 11/21/2017 5:05 AM CDT 11/21/2017 5:38 AM CDT Justino Hull MD LAB - [place] [address], [facility] [phone] * TSH (11/21/2017 5:05 AM CDT) Only the most recent of2 resultswithin the time period is included. TSH 1.462 0.350 - 4.940 uIU/mL 11/21/2017 6:22 AM CDT [facility] Blood BLOOD SPECIMEN / Unknown Lab Venipuncture / Unknown 11/21/2017 5:05 AM CDT 11/21/2017 5:38 AM CDT Justino Hull MD LAB - CHEMISTRY O RDERABLES [address] [phone] * T4 FREE (11/21/2017 5:05 AM CDT) T4 Free 0.9 0.7 - 1.5 ng/dL 11/21/2017 6:22 AM CDT [facility] Blood BLOOD SPECIMEN / Unknown Lab Venipuncture / Unknown 11/21/2017 5:05 AM CDT 11/21/2017 5:38 AM CDT Justino Hull MD LAB - CHEMISTRY O RDERABLES Performing Organization Address City/[facility]/ZIP Co de Phone Number [address] [phone] * PROTEIN ELECTROPHORESIS BLOOD (11/21/2017 5:05 AM CDT) Interpretation Serum PE Normal Pattern Normal Pattern 11/21/2017 5:33 PM CDT [facility] Comment: Serum protein electrophoresis shows characteristic bands corresponding to albumin, alpha and beta globulins and polyclonal immunoglobulins. No monoclonal immunoglobulins detected. Non-secretory myeloma (NSM) and light chain only myeloma cannot be excluded on the basis of this result. Recommend serum free light chain measurements for complete evaluation of multiple myeloma. Measurement of serum free kappa and lambda immunoglobulin light chains can identify all patients with light chain only myeloma and up to 70% of patients with NSM. Teena Mckenzie MD *The electrophoresis pattern and the interpretation have been reviewed and verified by the teaching physician. Protein Total 6.4 6.0 - 8.3 g/dL 11/21/2017 5:33 PM CDT [facility] Albumin 4.1 3.3 - 5.6 g/dL 11/21/2017 5:33 PM CDT [facility] Alpha-1 Globulins 0.2 0.1 - 0.3 g/dL 11/21/2017 5:33 PM CDT [facility] Alpha-2 Globulins 0.6 0.5 - 1.0 g/dL 11/21/2017 5:33 PM CDT [facility] Beta Globulins 0.8 0.6 - 1.1 g/dL 11/21/2017 5:33 PM CDT [facility] Gamma Globulins 0.7 0.6 - 1.6 g/dL 11/21/2017 5:33 PM CDT [facility] Blood BLOOD SPECIMEN / Unknown Lab Venipuncture / Unknown 11/21/2017 5:05 AM CDT 11/21/2017 5:38 AM CDT Justino Hull MD LAB - CHEMISTRY O RDERABLES [facility] [address] [phone] * CULTURE BLOOD (11/21/2017 4:00 AM CDT) Only the most recent of4 resultswithin the time period is included. Pathologist [facility] [place] Culture No growth day 5 TONYA 11/26/2017 8:00 PM CDT [facility] MICROBIOLOGY Blood PERIPHERAL BLOOD / Unknown Lab Venipuncture / Unknown 11/21/2017 4:00 AM CDT 11/21/2017 5:09 PM CDT Cassandra Schuler MD LAB - MICROBIOLOG Y ORDERABLES [facility] MICROBIOLOGY [address] [place], [place] [id number] [place] [address] * (ABNORMAL) CBC W/O DIFFERENTIAL (11/20/2017 5:32 PM CDT) Only the most recent of3 resultswithin the time period is included. WBC 1.9(L) 3.5 - 10.5 10 3/uL 11/20/2017 5:57 PM CDT [facility] RBC 3.87(L) 3.90 - 5.00 10 6/uL 11/20/2017 5:57 PM [facility] Hemoglobin 11.3(L) 12.0 - 15.5 g/dL 11/20/2017 5:57 PM [facility] Hematocrit 33.9(L) 35.0 - 45.0 % 11/20/2017 5:57 PM [facility] MCV 87.6 81.0 - 97.0 fL 11/20/2017 5:57 PM [facility] MCH 29.2 28.0 - 34.0 pg 11/20/2017 5:57 PM [facility] MCHC 33.3 32.0 - 36.0 g/dL 11/20/2017 5:57 PM [facility] Platelet Count 115(L) 150 - 400 10 3/uL 11/20/2017 5:57 PM [facility] RDW-SD 48.8 36.0 - 50.0 fL 11/20/2017 5:57 PM [facility] RDW-CV 15.3(H) 11.2 - 14.8 % 11/20/2017 5:57 PM [facility] MPV 9.6 9.3 - 12.8 fL 11/20/2017 5:57 PM [facility] nRBC Absolute 0.00 0 10 3/uL 11/20/2017 5:57 PM [facility] nRBC Auto 0.0 0 /100 WBC 11/20/2017 5:57 PM [facility] Blood BLOOD SPECIMEN / Unknown 11/20/2017 5:32 PM CDT 11/20/2017 5:44 PM CDT Cassandra Schuler MD LAB - HEMATOLOGY ORDERABLES [address] [phone] * CT SINUS WO CONTRAST (11/20/2017 1:07 PM CDT) Anatomical Region Laterality Modality Head Computed Tomogra phy 11/20/2017 1:32 PM CDT Impressions 11/20/2017 7:17 PM CDT IMPRESSION: Minimal maxillary sinus mucosal thickening without evidence of complication. This report was approved by Tong Gaspar M.D. on 11/20/2017 3:[address] CLAUDETTE Schwartz have personally reviewed and interpreted this examination/study. This report was electronically signed by CLAUDETTE HUFFMAN on 11/20/2017 7:17 PM . Narrative 11/20/2017 7:17 PM CDT EXAMINATION: Computed tomography (CT) of the maxillofacial bones, orbits, and paranasal sinuses without contrast HISTORY: evaluate for sinusitis TECHNIQUE: CT of the maxillofacial bones, orbits, and paranasal sinuses was performed without contrast according to standard protocol. FINDINGS: No prior study is available for comparison at the time of this dictation. The orbits appear normal. There is minimal mucosal thickening of the bilateral maxillary sinuses. The remainder of the sinuses are clear. The nasal septum is deviated to the right with a small right nasal spur. The ostiomeatal units are open. The hard palate, mandible, and temporomandibular joints appear normal. No bony destruction or dehiscence is identified. The mastoid air cells are clear. No soft tissue abnormality is identified. Procedure Note Claudette Huffman MD - 11/20/2017 EXAMINATION: Computed tomography (CT) of the maxillofacial bones,orbits, and paranasal sinuses without contrast HISTORY: evaluate for sinusitis TECHNIQUE: CT of the maxillofacial bones, orbits, and paranasal sinuses was performed without contrast according to standard protocol. FINDINGS: No prior study is available for comparison at the time of this dictation. The orbits appear normal. There is minimal mucosal thickening of the bilateral maxillary sinuses. The remainder of the sinuses are clear. The nasal septum is deviated to the right with a small right nasal spur. The ostiomeatal units are open. The hard palate, mandible, and temporomandibular joints appear normal. No bony destruction ordehiscence is identified. The mastoid air cells are clear. No soft tissueabnormality is identified. IMPRESSION: Minimal maxillary sinus mucosal thickening without evidence of complication. This report was approved by Tong Gaspar M.D. on 11/20/2017 3:56 PM. I, Dr. CLAUDETTE HUFFMAN have personally reviewed and interpreted this examination/study. This report was electronically signed by CLAUDETTE HUFFMAN on11/20/2017 7:17 PM . Chaz Pyle MD CT ORDERABLES * (ABNORMAL) PARVOVIRUS B19 ANTIBODY IGG (11/20/2017 6:09 AM CDT) Parvovirus B19 Antibody IgG 7.0(H) 0.0 - 0.8 index 11/25/2017 4:20 PM CDT [facility] ([facility]) Comment: Negative <0.9 Equivocal 0.9 - 1.1 Positive >1.1 Blood BLOOD SPECIMEN / Unknown Lab Venipuncture / Unknown 11/20/2017 6:09 AM CDT 11/20/2017 6:33 AM CDT Narrative [facility] ([facility]) - 11/25/2017 4:20 PM CDT Performed at: [facility] Lab[address] [id number] Customer Engagement Representative: Pawel Cabello MD, Phone: [phone] Gisel Yancey MD LAB - SEROLOGY ORDER IRENE Performing Organization Address City/[facility]/ZIP Co de Phone Number [facility] [phone] * (ABNORMAL) TRANSFERRIN (11/20/2017 6:09 AM CDT) Transferrin 187 174 - 382 mg/dL 11/20/2017 7:01 AM CDT [facility] LABORATORY [facility] Transferrin Saturation % 12(L) 16 - 50 % 11/20/2017 7:01 AM CDT [facility]ATORY [facility] Blood BLOOD SPECIMEN / Unknown Lab Venipuncture / Unknown 11/20/2017 6:09 AM CDT 11/20/2017 6:33 AM CDT Gisel Yancey MD LAB - CHEMISTRY [facility] [address] [phone] * (ABNORMAL) IRON BLOOD (11/20/2017 6:09 AM CDT) Iron 29(L) 40 - 150 mcg/dL 11/20/2017 11:20 AM CDT [facility] Blood BLOOD SPECIMEN / Unknown Lab Venipuncture / Unknown 11/20/2017 6:09 AM CDT 11/20/2017 10:27 AM CDT Gisel Yancey MD LAB - CHEMISTRY [facility] [address] [phone] * CK BLOOD (11/20/2017 6:09 AM CDT) Pathologist [facility] CK Total 104 30 - 200 Units/L 11/20/2017 6:58 AM CDT [facility] Blood BLOOD SPECIMEN / Unknown Lab Venipuncture / Unknown 11/20/2017 6:09 AM CDT 11/20/2017 6:33 AM CDT Gisel Yancey MD LAB - CHEMISTRY [facility] Performing Organization Address City/[facility]/ZIP Co de Phone Number [address] [phone] * (ABNORMAL) FERRITIN (11/20/2017 6:09 AM CDT) Pathologist [facility] Ferritin 666(H) 13 - 204 ng/mL 11/20/2017 7:24 AM CDT [facility] Blood BLOOD SPECIMEN / Unknown Lab Venipuncture / Unknown 11/20/2017 6:09 AM CDT 11/20/2017 6:33 AM CDT Gisel Yancey MD LAB - CHEMISTRY [facility] Performing Organization Address City/[facility]/ZIP Co de Phone Number [address] [phone] * RETIC COUNT (11/20/2017 5:27 AM CDT) [facility] Reticulocyte % 0.6 0.4 - 2.5 % 11/20/2017 11:43 AM CDT [facility] Reticulocyte Absolute 0.02 0.02 - 0.13 10 6/uL 11/20/2017 11:43 AM CDT [facility] Blood BLOOD SPECIMEN / Unknown Lab Venipuncture / Unknown 11/20/2017 5:27 AM CDT 11/20/2017 10:29 AM CDT Gisel Yancey MD LAB - HEMATOLOGY ORD TEJAL [address] [phone] * HIV-1 HIV-2 ANTIGEN/ANTIBODY (11/20/2017 12:50 AM CDT) Pathologist [facility] HIV Antigen/Antibod y 1 & 2 Non-reacti ve Non-react emilia 11/20/2017 1:53 AM CDT [facility] Comment: Neither HIV-1 p24 Antigen nor HIV-1/HIV-2 Antibodies are detected. Blood BLOOD SPECIMEN / Unknown Venipuncture / Unknown 11/20/2017 12:50 AM CDT 11/20/2017 12:55 AM CDT Bienvenido Painter DO LAB - HEMATOLOGY GABRIEL TOURE Performing Organization Address [facility] Co de Phone Number [address] [phone] * (ABNORMAL) MAGNESIUM BLOOD (11/19/2017 11:03 PM CDT) Pathologist [facility] Magnesium 1.5(L) 1.6 - 2.6 mg/dL 11/19/2017 11:39 PM CDT [facility] Blood BLOOD SPECIMEN / Unknown Lab Venipuncture / Unknown 11/19/2017 11:03 PM CDT 11/19/2017 11:16 PM CDT Bienvenido Painter DO LAB - CHEMISTRY [facility] Performing Organization Address [facility]/ZIP Co de Phone Number [address] [phone] * PT-INR [facility] (11/19/2017 10:49 PM CDT) PT 13.6 12.1 - 14.8 Seconds 11/19/2017 11:32 PM CDT [facility] INR 1.0 See Comment 11/19/2017 11:32 PM CDT [facility] Comment: The suggested therapeutic range for standard coumadin (warfarin) therapy is an INR of 2.0-3.0. For high-risk patients (Mechanical Mitral Valve Prosthesis, etc.), the suggested prophylactic therapeutic range is an INR of 2.5-3.5. Blood BLOOD SPECIMEN / Unknown Lab Venipuncture / Unknown 11/19/2017 10:49 PM CDT 11/19/2017 11:18 PM CDT Bienvenido Painter DO LAB - COAGULATION OR DERABLES Performing Organization Address [facility]/ZIP Co de Phone Number [address] [phone] * LACTIC ACID BLOOD (11/19/2017 10:49 PM CDT) Pathologist [facility] Lactic Acid-Stat 0.7 0.5 - 2.2 mmol/L 11/19/2017 11:35 PM CDT [facility] Blood BLOOD SPECIMEN / Unknown Lab Venipuncture / Unknown 11/19/2017 10:49 PM CDT 11/19/2017 11:17 PM CDT Bienvenido Painter DO LAB - CHEMISTRY ORDE RABLES [address] [phone] * (ABNORMAL) URINALYSIS W/MICROSCOPIC NO CULTURE (11/19/2017 10:10 PM CDT) Color UA Yellow Straw, Yellow, Colorless, Light Yellow 11/19/2017 10:31 PM CDT [facility] Clarity UA Hazy(A) Clear 11/19/2017 10:31 PM CDT [facility] LABORATORY [facility] Specific [place] UA 1.014 1.001 - 1.030 11/19/2017 10:31 PM [facility] pH UA 5.5 5.0 - 8.0 11/19/2017 10:31 PM [facility] Protein UA Negative <=20 mg/dL 11/19/2017 10:31 PM [facility] Glucose UA Negative Negative mg/dL 11/19/2017 10:31 PM [facility] Ketone UA Negative Negative mg/dL 11/19/2017 10:31 PM [facility] Bilirubin UA Negative Negative mg/dL 11/19/2017 10:31 PM [facility] Blood UA Negative Negative 11/19/2017 10:31 PM [facility] Nitrite UA Negative Negative 11/19/2017 10:31 PM [facility] Leukocyte Esterase Negative Negative 11/19/2017 10:31 PM [facility] Urobilinogen UA <2.0 <2.0 mg/dL 8 10:31 PM [facility] RBC UA 2 0 - 8 /HPF 11/19/2017 10:31 PM [facility] WBC UA 1 0 - 2 /HPF 11/19/2017 10:31 PM [facility] Squamous Epithelial Cells UA 1 0 - 1 /HPF 11/19/2017 10:31 PM [facility] Mucus UA Rare(A) None /LPF 11/19/2017 10:31 PM [facility] Uric Acid Crystals UA Many(A) Rare, Occasional, Few, None /HPF 11/19/2017 10:31 PM [facility] Urine URINE SPECIMEN OBTAINED BY CLEAN CATCH PROCEDURE / Unknown Collection / Unknown 11/19/2017 10:10 PM CDT 11/19/2017 10:23 PM [facility] Bienvenido Painter DO LAB - URINALYSIS ORD ERABLES [facility] [address] [phone] * CULTURE URINE (11/19/2017 10:10 PM CDT) Culture Urine 10,000-50,000 CFU/mL urogenital jenny TONYA 11/21/2017 7:41 AM CDT [facility] MICROBIOLOGY Urine URINE SPECIMEN OBTAINED BY CLEAN CATCH PROCEDURE / Unknown Collection / Unknown 11/19/2017 10:10 PM CDT 11/19/2017 10:23 PM CDT Bienvenido Painter DO LAB - MICROBIOLOGY O RDERABLES [facility] MICROBIOLOG[facility] [address] [place], [place] [address] [phone] * PHOSPHORUS BLOOD (11/19/2017 10:10 PM CDT) Phosphorus 2.9 2.3 - 4.7 mg/dL 11/19/2017 10:44 PM CDT [facility] Blood BLOOD SPECIMEN / Unknown Venipuncture / Unknown 11/19/2017 10:10 PM CDT 11/19/2017 10:23 PM CDT Bienvenido Painter DO LAB - CHEMISTRY ORDE RABLES Performing Organization Address City/[facility]/ZIP Co de Phone Number [facility] [address] [place] [address] * B-TYPE NATRIURETIC PEPTIDE (11/19/2017 10:09 PM CDT) BNP <10 See Comment pg/mL 11/19/2017 11:22 PM CDT [facility] Comment: A decision threshold of 100 pg/mL has been demonstrated to provide the maximal combination of sensitivity, specificity and predictive value for the diagnosis of congestive heart failure (CHF). Virtually all patients with no evidence of CHF have BNP values less than 100 pg/mL. A BNP value greater than 100 pg/mL is consistent with the diagnosis of CHF in the appropriate clinical setting. In a study of 693 patients (male and female) with diagnosed CHF, the following values were determined based on the NYHA functional classification system: NYHA Functional Class Mean Valule (pg/mL) % >100 pg/mL I 320 58.1 II 432 73.0 III 656 79.0 IV 1635 98.3 Blood BLOOD SPECIMEN / Unknown Venipuncture / Unknown 11/19/2017 10:09 PM CDT 11/19/2017 10:23 PM CDT Bienvenido Painter DO LAB - CHEMISTRY [facility] [address] [phone] * XR CHEST 1VW PORTABLE (11/19/2017 10:08 PM CDT) Anatomical Region Laterality Modality Chest Radiographic Payal ging 11/20/2017 7:17 AM CDT Impressions 11/20/2017 7:19 AM CDT Findings/Impression: There is no focal consolidation, pleural effusion, or pneumothorax. The cardiomediastinal silhouette is normal. The visible bony thorax is intact. Dictated by Galo Miller MD (vice president of customer service) Efren, Dr. AMOR GASPAR have personally reviewed and interpreted this examination/study. This report was electronically signed by AMOR GASPAR on 11/20/2017 7:19 AM . Narrative 11/20/2017 7:19 AM CDT Exam: Portable Chest, 1 view Date: 11/19/2017 10:08 PM History: r/o pna Comparison: No prior study is available for comparison Procedure Note Amor Gaspar DO - 11/20/2017 Exam: Portable Chest, 1 view Date: 11/19/2017 10:08 PM History: r/o pna Comparison: No prior study is available for comparison Findings/Impression: There is no focal consolidation, pleural effusion, or pneumothorax. The cardiomediastinal silhouette is normal. The visible bony thorax isintact. Dictated by Galo Miller MD (vice president of customer service) Efren, Dr. AMOR GASPAR have personally reviewed and interpreted this examination/study. This report was electronically signed by AMOR GASPAR on 11/20/2017 7:19 AM . Bienvenido Painter DO DIAGNOSTIC IMAGING O RDERABLES Care Teams Electric Mule Driver Relationship Specialty Start Date End Date Jered Myers MD PCP - General 03/02/18
--- OUTSIDE RECORDS SUMMARY | 2024-05-06 20:16 | XMS_ITS | Encounter Summary ---
Author Organization [facility] Health Address [address] [place] [address] Care Team Providers Care Transmission Superintendent Name Role Phone Jered Myers MD Primary Care Provider Encounter Details Date Type Department Care Team (Late st Contact Info) Description 12/06/2023 Lab Requisition [facility] [address] [place] [address] [address] [place], [place] [id number] Social History Tobacco Use Types Packs/Day Years [...] Associated Diagnosis Comments VANCOMYCIN LEVEL TROUGH STAT 12/06/2023 7:30 PM CDT documented in this encounter Results * VANCOMYCIN LEVEL TROUGH (12/06/2023 7:30 PM CDT) Vancomycin Trough 19.5 10.0 - 20.0 ug/mL 12/06/2023 9:41 PM CDT [facility] Blood BLOOD SPECIMEN / Unknown Venipuncture / Unknown 12/06/2023 7:30 PM CDT 12/06/2023 9:11 PM CDT Norman Darnell LAB - CHEMISTRY [facility] [address] [place] [address] documented in this encounter Visit Diagnoses Not on filedocumented in this encounter Care Teams Transmission Superintendent Relationship Specialty Start Date End Date Jered Myers MD PCP - General 03/02/18 documented as of this encounter
--- OUTSIDE RECORDS SUMMARY | 2024-05-06 20:16 | XMS_ITS | Clinical Summary ---
Author Organization [facility] Address [address] [place] [address] Care Team Providers Care Registered Massage Therapist Name Role Phone Unavailable Primary Care Provider Unavailabl e Allergies Active Allergy Reactions Criticality Noted Date Comments Sulfamethoxazole-Trimethoprim Unknown 2021 Morphine Unknown 10/24/2021 Penicillins Unknown 10/24/2021 Medications acetaminophen (TYLENOL) 500 MG tablet Take 1,000 mg by mouth every 6 (six) hours as needed for Pain. Active aspirin EC (ECOTRIN) 81 MG tablet Take 81 mg by mouth daily. Active calcium carbonate-vitam in D (CALCARB) 600-400 MG-UNIT Tab Take 1 tablet by mouth 2 (two) times daily. Active ezetimibe (ZETIA) 10 MG tablet Take 10 mg by mouth nightly at bedtime. Active nystatin (MYCOSTATIN) powder Apply topically 2 (two) times daily. Active DULoxetine (CYMBALTA) 20 MG capsule 20 mg daily. From paper med list: Special instructions: monitor decrease in medication and update provider with any changes 2 Active Active Problems Problem Noted Date Diagnosed Date Moderate episode of recurren t major depressive disorder ([facility]) 01/24/2022 Physical deconditioning 11/02/2021 Abnormal liver enzymes 11/01/2021 Biliary sludge 11/01/2021 Other chronic pulmonary heart diseases ([facility]) 11/01/2021 Steatosis of liver 11/01/2021 Obesity 11/01/2021 Pure hypercholesterolemia 11/01/2021 Lichen sclerosus 11/01/2021 Knee pain 11/01/2021 Hereditary and idiopathic neuropathy, unspecifie d 10/26/2021 Need for assistance with personal care 07/29/202 2 Other reduced mobility 10/26/2021 Obesity, unspecified 10/26/2021 Essential (primary) hypertension 10/26/2021 Type 2 diabetes mellitus wit hout complications ([facility]) 10/26/2021 Liver disease, unspecified 10/26/2021 Lichen sclerosus et atrophicus 10/26/2021 Pain in unspecified knee 10/26/2021 Myopia of both eyes 01/14/2020 Overview (11/01/2021): Last Assessment & Plan: MRx done today Normal dilated fundus exam Tilted nerve OS Optic neuropathy, bilateral 01/14/2020 Overview (11/01/2021): Last Assessment & Plan: Suspect chronic optic neuropathy given mild pallor [...] months for repeat dilated HVF 24-2 OU 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 ([facility]) 10/14/2019 Disease of spinal cord ([facility]) 020 Polyradiculopathy 10/14/2019 Muscle weakness 08/23/2019 Overview (10/26/2021): Added automatically from request for surgery [id number] Decubitus ulcer of sacral region, stage 4 ([facility]) 08/23/2019 Overview (11/01/2021): Added automatically from request for surgery [id number] Severe malnutrition ([facility]) 12/23/2018 Adnexal mass 12/18/2018 Overview (11/01/2021): Added automatically from request for surgery [id number] Gait disorder 11/16/2018 Polyneuropathy 11/16/2018 Neuropathy 07/18/2018 Acute renal failure 11/19/2017 Aortic valve disorder 04/02/2010 Sleep apnea 04/04/2009 Resolved Problems Problem Noted Date Diagnosed Date Resolved Date Benign essential hypertension 11/01/2021 11/27/2021 Essential (primary) hypertension 11/01/2021 11/27/2021 Pure hypercholesterolemia, unspecified 10/26/2021 11/27/2021 Polyneuropathy 10/26/2021 11/02/2021 History of depression 10/26/20212021 Sleep apnea, unspecified 10/26/202107/2021 Weakness 11/16/2018 11/02/2021 Immunizations Name Administration Dates Next Due Influenza Adult (Generic) 01/01/2019 Social History Tobacco Use Types Packs/Day Years Used Date Smoking Tobacco: Never Assessed Comments Unknown Sex and Gender Information Value Date Recorded Sex Assigned at Not on file Legal Sex Female 2:01 PM CDT Gender Identity Not on file Sexual Orientation Not on file Last Filed Vital Signs Vital Sign Reading Time Taken Comments Blood Pressure 124/66 03/28/2022 9:24 AM IT PROGRAM AUDITOR Pulse 89 03/28/2022 9:24 AM IT PROGRAM AUDITOR Temperature 36.4 C (97.6 F) 03/28/2022 9:24 AM IT PROGRAM AUDITOR Respiratory Rate 20 03/28/2022 9:24 AM IT PROGRAM AUDITOR Oxygen Saturation 98% 03/28/2022 9:24 AM IT PROGRAM AUDITOR Inhaled Oxygen Concentration - - Weight 74.8 kg (165 lb) 03/18/2022 8:40 AM IT PROGRAM AUDITOR Height 172.7 cm (5' 8 ) 10/25/2021 7:24 PM CDT Body Mass Index 25.09 10/25/2021 7:24 PM CDT Plan of Treatment Health Maintenance Due Date Last Done Comments Cervical Cancer Screening Pa p Smear (Age 30 to 64) Every 3 Years 1964 Colorectal Cancer Screening Colonoscopy (10 Years) 1964 Kidney Health Evaluation 1964 Lipid Panel 1964 Annual Physical 02/21/1967 Pneumococcal Vaccine: Pediatrics (0 to 5 Years) and At-Risk Patients (6 to 64 Years) (1 of 2 - PCV) 02/21/1970 Diabetes: Retinopathy Eye Exam 02/21/1982 Hepatitis C 02/21/1982 DTaP, Tdap and Td Vaccines ( 1 - Tdap) 02/21/1983 Cervical Cancer Screening Pa p with HPV Testing (Age 30 to 64) Every 5 Years 02/21/1994 Cervical Cancer Screening wi th HPV 02/21/1994 Mammogram Screening 2004 Zoster Vaccines (1 of 2) 02/21/2014 Hemoglobin A1C 01/19/2021 07/20/2020, 08/24/2019, 12/29/2018 COVID-19 Vaccine (2023-2 5 season) 2023 11/02/2020, 10/05/2020 Influenza Adult (#1) 2023 01/01/2019 RSV Immunization or 60+ Years (1 - Risk 60-74 years 1-dose series) 2024 Meningococcal B Vaccine Aged Out No l onger eligible based on patient's age to complete this topic Meningococcal Vaccine Aged Out No dago yovana eligible based on patient's age to complete this topic RSV Immunizations Under 20 Months Aged Out No longer eligible b ased on patient's age to complete this topic Insurance MEDICARE Advance Directives * Full Code (Latest Code Status on File) Date Activated Date Inactivated Comments 11/01/2021 9:30 AM
--- OUTSIDE RECORDS SUMMARY | 2024-05-06 20:16 | XMS_ITS | Encounter Summary ---
Author Organization [facility] Address [address] [facility] [place] [address] Care Team Providers Care Head Tennis Professional Name Role Phone Jered Myers MD Primary Care Provider [phone] Encounter Details Date Type Department Care Team (Late st Contact Info) Description 11/10/2023 Lab Requisition [facility] [address] [place] [address] Norman Darnell [place], [place] [id number] Social History Tobacco Use Types Packs/Day Years [...] Procedure Name Priority Date/Time Associated Diagnosis Comments BASIC METABOLIC PANEL (CALCIUM TOTAL) STAT 11/10/2023 7:30 PM CDT VANCOMYCIN LEVEL TROUGH STAT 11/10/2023 7:30 PM CDT VANCOMYCIN LEVEL TROUGH STAT 11/10/2023 7:30 PM CDT documented in this encounter Results * VANCOMYCIN LEVEL TROUGH (11/10/2023 7:30 PM CDT) Pathologist [facility] Vancomycin Trough 20.0 10.0 - 20.0 ug/mL 11/19/2023 9:54 PM CDT [facility] Blood BLOOD SPECIMEN / Unknown Venipuncture / Unknown 11/10/2023 7:30 PM CDT 11/19/2023 9:40 PM CDT Norman Darnell LAB - CHEMISTRY CLAIRE JOSEPH Performing Organization Address City/State/[facility] Co de Phone Number [facility] [address] [place], [place] [phone] * (ABNORMAL) BASIC METABOLIC PANEL (CALCIUM TOTAL) (11/10/2023 7:30 PM CDT) Pathologist [facility] Glucose 126(H) 70 - 105 mg/dL 11/10/2023 9:35 PM CDT [facility] Sodium 142 136 - 145 mmol/L 11/10/2023 9:35 PM CDT [facility] Potassium 3.4(L) 3.5 - 5.1 mmol/L 11/10/2023 9:35 PM CDT [facility] Chloride 106 98 - 107 mmol/L 11/10/2023 9:35 PM CDT [facility] CO2 27 22 - 29 mmol/L 11/10/2023 9:35 PM CDT [facility] Calcium 8.2(L) 8.4 - 10.4 mg/dL 11/10/2023 9:35 PM CDT [facility] Anion Gap 9 6 - 16 mmol/L 11/10/2023 9:35 PM CDT [facility] BUN 8 7 - 26 mg/dL 11/10/2023 9:35 PM CDT [facility] Creatinine 0.55(L) 0.57 - 1.11 mg/dL 11/10/2023 9:35 PM CDT [facility] eGFR by CKD-EPI >90 >=90 mL/min/1.7 3 m2 11/10/2023 9:35 PM CDT [facility] Blood BLOOD SPECIMEN / Unknown Venipuncture / Unknown 11/10/2023 7:30 PM CDT 11/10/2023 9:13 PM CDT Norman Darnell LAB - CHEMISTRY CLAIRE JOSEPH Performing Organization Address City/[facility]/ZIP Co de Phone Number [facility] [address] [place], [place] [phone] * (ABNORMAL) VANCOMYCIN LEVEL TROUGH (11/10/2023 7:30 PM CDT) [facility] Vancomycin Trough 24.9(H) 10.0 - 20.0 ug/mL 11/10/2023 9:35 PM CDT [facility] Blood BLOOD SPECIMEN / Unknown Venipuncture / Unknown 11/10/2023 7:30 PM CDT 11/10/2023 9:13 PM CDT Norman Darnell LAB - CHEMISTRY CLAIRE JOSEPH Performing Organization Address [facility] Co de Phone Number [facility] [address] [place] [address] documented in this encounter Visit Diagnoses Not on filedocumented in this encounter Care Teams Head Tennis Professional Relationship Specialty Start Date End Date Jered Myers MD PCP - General 03/02/18 documented as of this encounter
--- OUTSIDE RECORDS SUMMARY | 2024-05-06 20:16 | XMS_ITS | Encounter Summary ---
Author Organization [facility] Address [address] [place] [address] Care Team Providers Care Consulting Solution Director Name Role Phone Jered Myers MD Primary Care Provider [phone] Encounter Details Date Type Department Care Team (Late st Contact Info) Description 12/01/2023 Lab Requisition [facility] [address] [place] [address] Social History Tobacco Use Types Packs/Day Years [...] Associated Diagnosis Comments VANCOMYCIN LEVEL TROUGH STAT 11/29/2023 3:35 PM CDT documented in this encounter Results * (ABNORMAL) VANCOMYCIN LEVEL TROUGH (11/29/2023 3:35 PM CDT) Vancomycin Trough 26.8(HH) 10.0 - 20.0 ug/mL 12/01/2023 2:54 PM CDT [facility] Blood BLOOD SPECIMEN / Unknown Venipuncture / Unknown 11/29/2023 3:35 PM CDT 12/01/2023 2:23 PM CDT LAB - CHEMISTRY CLAIRE JOSEPH Performing Organization Address City/State/[facility] Co de Phone Number [facility] [address] [place] [address] documented in this encounter Visit Diagnoses Not on filedocumented in this encounter Care Teams Consulting Solution Director Relationship Specialty Start Date End Date Jered Myers MD PCP - General 03/02/18 documented as of this encounter
--- OUTSIDE RECORDS SUMMARY | 2024-05-06 20:16 | XMS_ITS | Encounter Summary ---
Author Organization [facility] Address [address] [facility] [place] [address] Care Team Providers Care Design Lead Name Role Phone Jered Myers MD Primary Care Provider [phone] Encounter Details Date Type Department Care Team (Late st Contact Info) Description 12/15/2023 Lab Requisition [facility] [address] [place] [address] Norman Darnell [place], [place] [address] Social History Tobacco Use Types Packs/Day Years [...] Procedure Name Priority Date/Time Associated Diagnosis Comments COMPREHENSIVE METABOLIC PANEL STAT 12/15/2023 7:30 AM CDT VANCOMYCIN LEVEL TROUGH STAT 12/15/2023 7:30 AM CDT documented in this encounter Results * (ABNORMAL) COMPREHENSIVE METABOLIC PANEL (12/15/2023 7:30 AM CDT) Glucose 76 70 - 105 mg/dL 12/15/2023 3:41 PM CDT [facility] Sodium 143 136 - 145 mmol/L 12/15/2023 3:41 PM CDT [facility] Potassium 3.8 3.5 - 5.1 mmol/L 12/15/2023 3:41 PM CDT [facility] Chloride 106 98 - 107 mmol/L 12/15/2023 3:41 PM CDT [facility] CO2 26 22 - 29 mmol/L 12/15/2023 3:41 PM CDT [facility] Calcium 8.7 8.4 - 10.4 mg/dL 12/15/2023 3:41 PM CDT [facility] Anion Gap 11 6 - 16 mmol/L 12/15/2023 3:41 PM CDT [facility] BUN 9 7 - 26 mg/dL 12/15/2023 3:41 PM CDT [facility] Creatinine 0.39(L) 0.57 - 1.11 mg/dL 12/15/2023 3:41 PM CDT [facility] Alkaline Phosphatase 73 40 - 150 U/L 12/15/2023 3:41 PM CDT [facility] ALT 8 0 - 55 U/L 12/15/2023 3:41 PM CDT [facility] AST 20 5 - 34 U/L 12/15/2023 3:41 PM CDT [facility] Protein Total 5.1(L) 6.4 - 8.3 gm/dL 12/15/2023 3:41 PM CDT [facility] Albumin 2.8(L) 3.4 - 5.0 gm/dL 12/15/2023 3:41 PM CDT [facility] Bilirubin Total 0.4 0.2 - 1.2 mg/dL 12/15/2023 3:41 PM CDT [facility] eGFR by CKD-EPI >90 >=90 mL/min/1.7 3 m2 12/15/2023 3:41 PM CDT [facility] Blood BLOOD SPECIMEN / Unknown Venipuncture / Unknown 12/15/2023 7:30 AM CDT 12/15/2023 3:18 PM CDT Norman Darnell LAB - CHEMISTRY CLAIRE JOSEPH Performing Organization Address City/[facility]/ZIP Co de Phone Number [facility] [address] [place], [place] [phone] * VANCOMYCIN LEVEL TROUGH (12/15/2023 7:30 AM CDT) Vancomycin Trough 18.6 10.0 - 20.0 ug/mL 12/15/2023 1:47 PM CDT [facility] Blood BLOOD SPECIMEN / Unknown Venipuncture / Unknown 12/15/2023 7:30 AM CDT 12/15/2023 1:03 PM CDT Norman Darnell LAB - CHEMISTRY CLAIRE JOSEPH Performing Organization Address City/[facility]/ZIP Co de Phone Number [facility] [address] [place] [phone] documented in this encounter Visit Diagnoses Not on filedocumented in this encounter Care Teams Design Lead Relationship Specialty Start Date End Date Jered Myers MD PCP - General 03/02/18 documented as of this encounter
--- OUTSIDE RECORDS SUMMARY | 2024-05-06 20:16 | XMS_ITS | Encounter Summary ---
Author Organization [facility] Address [address] [facility] [place] [address] Care Team Providers Care Tailer Off Name Role Phone Jered Myers MD Primary Care Provider [phone] Encounter Details Date Type Department Care Team (Late st Contact Info) Description 05/12/2018 Telephone [facility] [address] [address] Prashanth Wood MD [address] [place] [address] Social History Tobacco Use Types Packs/Day Years [...] No 11/19/2017 documented as of this encounter Miscellaneous Notes * Telephone Encounter - Jaylen Shelton - 05/12/2018 2:27 PM CST PT: Vee Renae PH: [phone] This referral is incomplete. It is missing the referred to field, such as the department and department specialty. Please advise. Thanks, Jaylen Shelton INE CEMENTER AND FOLDER documented in this encounter Plan of Treatment Not on file documented as of this encounter Visit Diagnoses Not on filedocumented in this encounter Care Teams Tailer Off Relationship Specialty Start Date End Date Jered Myers MD PCP - General 03/02/18 documented as of this encounter
--- OUTSIDE RECORDS SUMMARY | 2024-05-06 20:16 | XMS_ITS | Encounter Summary ---
Author Organization 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 VANCOMYCIN LEVEL TROUGH STAT 12/01/2023 3:30 PM CDT 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 documented in this encounter Results * (ABNORMAL) COMPREHENSIVE METABOLIC PANEL (12/01/2023 3:30 PM CDT) Glucose 95 70 - 105 mg/dL 12/02/2023 11:24 AM CDT [facility] Sodium 141 136 - 145 mmol/L 12/02/2023 11:24 AM CDT [facility] Potassium 2.7(L) 3.5 - 5.1 mmol/L 12/02/2023 11:24 AM CDT [facility] Chloride 104 98 - 107 mmol/L 12/02/2023 11:24 AM CDT [facility] CO2 27 22 - 29 mmol/L 12/02/2023 11:24 AM CDT [facility] Calcium 8.3(L) 8.4 - 10.4 mg/dL 12/02/2023 11:24 AM CDT [facility] Anion Gap 10 6 - 16 mmol/L 12/02/2023 11:24 AM CDT [facility] BUN 11 7 - 26 mg/dL 12/02/2023 11:24 AM CDT [facility] Creatinine 0.45(L) 0.57 - 1.11 mg/dL 12/02/2023 11:24 AM CDT [facility] Alkaline Phosphatase 65 40 - 150 U/L 12/02/2023 11:24 AM CDT [facility] ALT 6 0 - 55 U/L 12/02/2023 11:24 AM CDT [facility] AST 19 5 - 34 U/L 12/02/2023 11:24 AM T [facility] Protein Total 4.9(L) 6.4 - 8.3 gm/dL 12/02/2023 11:24 AM T [facility] Albumin 2.7(L) 3.4 - 5.0 gm/dL 12/02/2023 11:24 AM CDT [facility] Bilirubin Total 0.4 0.2 - 1.2 mg/dL 12/02/2023 11:24 AM T [facility] eGFR by CKD-EPI >90 >=90 mL/min/1.7 3 m2 12/02/2023 11:24 AM T [facility] Blood BLOOD SPECIMEN / Unknown Venipuncture / Unknown 12/01/2023 3:30 PM CDT 12/02/2023 10:59 AM CDT Norman Darnell LAB - CHEMISTRY CLAIRE JOSEPH Performing Organization Address [facility] Co de Phone Number [facility] [address] [place] [phone] * (ABNORMAL) VANCOMYCIN LEVEL TROUGH (12/01/2023 3:30 PM CDT) [facility] [address] Vancomycin Trough 21.8(H) 10.0 - 20.0 ug/mL 12/01/2023 9:31 PM CDT [facility] Blood BLOOD SPECIMEN / Unknown Venipuncture / Unknown 12/01/2023 3:30 PM CDT 12/01/2023 9:09 PM CDT Norman Darnell LAB - CHEMISTRY CLAIRE JOSEPH Performing Organization Address [facility] de Phone Number [facility] [address] [place] [phone] documented in this encounter Visit Diagnoses Diagnosis 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
--- OUTSIDE RECORDS SUMMARY | 2024-05-06 20:16 | XMS_ITS | Encounter Summary ---
Author Organization [facility] Address [address] [place] [address] Care Team Providers Care Dry Curer Name Role Phone Jered Myers MD Primary Care Provider [phone] Encounter Details Date Type Department Care Team (Late st Contact Info) Description 11/23/2023 Lab Requisition [facility] [address] [place] [address] Norman Darnell [place], [place] [address] Social History Tobacco Use Types Packs/Day Years [...] Associated Diagnosis Comments VANCOMYCIN LEVEL TROUGH STAT 11/23/2023 7:30 PM CDT documented in this encounter Results * VANCOMYCIN LEVEL TROUGH (11/23/2023 7:30 PM CDT) Vancomycin Trough 12.6 10.0 - 20.0 ug/mL 11/23/2023 8:40 PM CDT [facility] Blood BLOOD SPECIMEN / Unknown Venipuncture / Unknown 11/23/2023 7:30 PM CDT 11/23/2023 8:21 PM CDT Norman Darnell LAB - CHEMISTRY CLAIRE JOSEPH Performing Organization Address City/State/[facility] Co de Phone Number [facility] [address] [place] [address] documented in this encounter Visit Diagnoses Not on filedocumented in this encounter Care Teams Dry Curer Relationship Specialty Start Date End Date Jered Myers MD PCP - General 03/02/18 documented as of this encounter
--- OUTSIDE RECORDS SUMMARY | 2024-05-06 20:16 | XMS_ITS | Encounter Summary ---
Author Organization [facility] Address [address] [place] [address] Care Team Providers Care Technician Trainee Name Role Phone Jered Myers MD Primary Care Provider [phone] Encounter Details Date Type Department Care Team (Late st Contact Info) Description 11/19/2023 Lab Requisition [facility] [address] [place] [address] [address] [place], [place] [address] Social History Tobacco Use Types Packs/Day Years [...] Associated Diagnosis Comments VANCOMYCIN LEVEL TROUGH STAT 11/19/2023 4:33 PM CDT documented in this encounter Results * (ABNORMAL) VANCOMYCIN LEVEL TROUGH (11/19/2023 4:33 PM CDT) Vancomycin Trough 29.0(HH) 10.0 - 20.0 ug/mL 11/19/2023 6:05 PM CDT [facility] Blood BLOOD SPECIMEN / Unknown Venipuncture / Unknown 11/19/2023 4:33 PM CDT 11/19/2023 4:34 PM CDT Norman Darnell LAB - CHEMISTRY CLAIRE JOSEPH [facility] [address] [place], [place] [phone] documented in this encounter Visit Diagnoses Not on filedocumented in this encounter Care Teams Technician Trainee Relationship Specialty Start Date End Date Jered Myers MD PCP - General 03/02/18 documented as of this encounter
--- OUTSIDE RECORDS SUMMARY | 2024-05-06 20:16 | XMS_ITS | Referral Summary ---
Author Organization [facility] Address [address] [place] [address] Care Team Providers Care Psych Sales Specialist Name Role Phone Jered Myers MD Primary Care Provider [phone] Source Comments [facility] Affiliates and Associated Physician Practices is amultiple site organization consisting of ambulatory clinics and hospital sitesin [place], [place], [place] and [place]. This disclosure is being madepursuant to the Care Everywhere program and may not contain all information available regarding this patient. Last updated 17.[facility] Allergies Active Allergy Reactions Criticality Noted Date Comments Morphine Rash Medium 11/19/2017 Penicillins Rash Medium 11/19/2017 Medications * Be aware that medications may not be up to date on this document. Alwaysverify current medications with the patient. Medication Sig Dispensed Refills Start Date End Date Status lisinopril-hydroCHLORO thiazide (PRINZIDE; ZESTORETIC) 20-25 MG tablet Take 1 tablet by mouth once daily Active aspirin (ASPIRIN) 81 MG chew tablet Take 81 mg by mouth once daily Active azelastine (ASTELIN) 0.1 % nasal spray [place] 1 spray into each nostril 2 times daily Active cetirizine (ZYRTEC) 10 MG tablet Take 10 mg by mouth once daily Active Active Problems Problem Noted Date Diagnosed [...] Comments Blood Pressure 127/71 03/06/2018 8:19 AM [facility] Pulse 81 03/06/2018 8:19 AM [facility] Temperature 36 C (96.8 F) 03/06/2018 8:19 AM [facility] Respiratory Rate 18 11/22/2017 8:19 AM CDT Oxygen Saturation 100% 11/22/2017 8:19 AM CDT Inhaled Oxygen Concentration - - Weight 135.2 kg (298 lb) 03/06/2018 8:19 AM [facility] Height 167.6 cm (5' 6 ) 03/06/2018 8:19 AM [facility] Body Mass Index 48.1 03/06/2018 8:19 AM [facility] Functional Status Functional Status Response Date of [...] person have difficulty concentrating/remembering/making decisions? No 11/19/2017 Plan of Treatment Not on file Procedures Procedure Name Priority Date/Time Associated Diagnosis Comments COMPREHENSIVE METABOLIC PANEL STAT 12/24/2023 6:00 PM CDT HIV-1 HIV-2 ANTIGEN/ANTIBODY STAT 11/20/2017 12:50 AM CDT from Last 3 Months or Most Recently Relevant to Health Maintenance Results * (ABNORMAL) COMPREHENSIVE METABOLIC PANEL (12/24/2023 6:00 PM CDT) Glucose 128(H) 70 - 105 mg/dL 12/24/2023 7:45 PM CDT [facility] Sodium 145 136 - 145 mmol/L 12/24/2023 7:45 PM CDT [facility] Potassium 3.2(L) 3.5 - 5.1 mmol/L 12/24/2023 7:45 PM CDT [facility] Chloride 104 98 - 107 mmol/L 12/24/2023 7:45 PM CDT [facility] CO2 32(H) 22 - 29 mmol/L 12/24/2023 7:45 PM CDT [facility] Calcium 8.7 8.4 - 10.4 mg/dL 12/24/2023 7:45 PM CDT [facility] Anion Gap 9 6 - 16 mmol/L 12/24/2023 7:45 PM CDT [facility] BUN 7 7 - 26 mg/dL 12/24/2023 7:45 PM CDT [facility] Creatinine 0.47(L) 0.57 - 1.11 mg/dL 12/24/2023 7:45 PM CDT [facility] Alkaline Phosphatase 85 40 - 150 U/L 12/24/2023 7:45 PM CDT [facility] ALT 12 0 - 55 U/L 12/24/2023 7:45 PM CDT [facility] AST 18 5 - 34 U/L 12/24/2023 7:45 PM CDT [facility] Protein Total 5.6(L) 6.4 - 8.3 gm/dL 12/24/2023 7:45 PM CDT [facility] Albumin 2.7(L) 3.4 - 5.0 gm/dL 12/24/2023 7:45 PM CDT [facility] Bilirubin Total 0.3 0.2 - 1.2 mg/dL 12/24/2023 7:45 PM CDT [facility] eGFR by CKD-EPI >90 >=90 mL/min/1.7 3 m2 12/24/2023 7:45 PM CDT [facility] Blood BLOOD SPECIMEN / Unknown Venipuncture / Unknown 12/24/2023 6:00 PM CDT 12/24/2023 7:03 PM CDT Norman Darnell LAB - CHEMISTRY ORDE JAKE [facility] [address] [place] [address] * HIV-1 HIV-2 ANTIGEN/ANTIBODY (11/20/2017 12:50 AM CDT) HIV Antigen/Antibod y 1 & 2 Non-reacti ve Non-react emilia 11/20/2017 1:53 AM CDT [facility] Comment: Neither HIV-1 p24 Antigen nor HIV-1/HIV-2 Antibodies are detected. Blood BLOOD SPECIMEN / Unknown Venipuncture / Unknown 11/20/2017 12:50 AM CDT 11/20/2017 12:55 AM CDT Bienvenido Painter DO LAB - HEMATOLOGY ORD ERABLES [place] [id number] [address] [phone] from Last 3 Months or Most Recently Relevant to Health Maintenance Advance Directives * Full Code (Latest Code Status on File) Date Activated Date Inactivated Comments 11/19/2017 9:52 PM 11/22/2017 5:00 PM Care Teams Psych Sales Specialist Relationship Specialty Start Date End Date Jered Myers MD PCP - General 03/02/18
--- OUTSIDE RECORDS SUMMARY | 2024-05-06 20:16 | XMS_ITS | CONTINUITY OF CARE DOCUMENT ---
Author Name theresa cardenas Address Unknown Organization [facility] Address [id number] [place] [address] [address] [place] [address] Phone [phone] Care Team Providers Care Earth Observations Chief Scientist Name Role Phone Jeimy Rojas MD Unavailable [phone] ZOIE VALLECILLO MD Unavailable ZOIE VALLECILLO MD Unavailable [phone] PROBLEMS Condition Status Date Provider Notes HTN- ef nl on echo 2012 active ? Jeimy Rojas MD HYPERTENSION, PULMONARY - RESOLVED BY ECHO 10/04 completed - Jeimy Rojas MD MITRAL REGURGITATION MILD- 10/04 completed - Jeimy Rojas MD SLEEP APNEA active Jeimy Rojas MD AMI ANTERIOR WALL completed - Jeimy Rojas MD SUBAORTIC MEMBRANE WITH A. GRADIENT OF 36 MM active Jeimy Rojas MD ENCOUNTERS Date Type Provider Location Encounter Diag nosis - In-person encounter Office Visit Jeimy Rojas MD [facility] SUBAORTIC MEMBRANE WITH A. GRADIENT OF 36 MM - In-person encounter Office Visit Jeimy Rojas MD [facility] - In-person encounter Office Visit Jeimy Rojas MD [facility] - In-person encounter Office Visit Jeimy Rojas MD [facility] - In-person encounter Office Visit Jeimy Rojas MD [facility] - In-person encounter Office Visit Jeimy Rojas MD [facility] HTN- ef nl on echo 2012HYPERTENSION, PULMONARY - RESOLVED BY ECHO 10/04MITRAL REGURGITATION MILD- 10/04 - In-person encounter Office Visit Jeimy Rojas MD [facility] - In-person encounter Office Visit Jeimy Rojas MD [facility] - In-person encounter Office Visit Jeimy Rojas MD [facility] - In-person encounter Office Visit Jeimy Rojas MD [facility] AMI ANTERIOR WALLSUBAORTIC MEMBRANE WITH A. GRADIENT OF 36 MM - In-person encounter Office Visit Jeimy Rojas MD [facility] SLEEP APNEA - In-person encounter Office Visit Jeimy Rojas MD [facility] VITAL SIGNS Date Observation Value Provider Body Mass Index (Ratio) 48.49 kg/m2 Cameron Rojas MD blood pressure, cuff size large Abdoul Rojo blood pressure, diastolic 94 mm[Hg] Abdoul Rojo blood pressure, systolic 136 mm[Hg] Kye Rojo oxygen saturation, oximetry 99 % Radha Rojo respiratory rate E&M 20 /min Radha evans pulse rate 89 /min Radha Thakur [facility] weight E&M 305 [lb_av] Radha Thakur [facility] height E&M 66.5 [in_i] Radha Thakur [facility] Body Mass Index (Ratio) 45.62 kg/m2 Cameron Rojas MD blood pressure, cuff size regular Len Bland blood pressure, diastolic 80 mm[Hg] Len Bland blood pressure, systolic 120 mm[Hg] Дмитрий Bland oxygen saturation, oximetry 97 % Rosangela [place] pulse rate 68 /min Rosangela Rodríguez respiratory rate E&M 16 /min Rosangela Rodríguez weight E&M 287 [lb_av] Rosangela blood pressure, resting Yes Franco perry height E&M 66.5 [in_i] Rosangela Body Mass Index (Ratio) 48.52 kg/m2 Cameron Rojas MD blood pressure, diastolic 82 mm[Hg] Letty Diaz blood pressure, systolic 140 mm[Hg] Sherry Diaz oxygen saturation, oximetry 91 % Shyam Diaz respiratory rate E&M 18 /min NaPriscila Diaz pulse rate 74 /min Shyam Shay aria weight E&M 305.2 [lb_av] Shyam Kole marlen height E&M 66.5 [in_i] Shyam Shay damianon blood pressure, diastolic 70 mm[Hg] Letty Diaz blood pressure, systolic 120 mm[Hg] Sherry Diaz pulse rate 88 /min Shyam Shay damianwiley oxygen saturation, oximetry 99 % Shyam Diaz respiratory rate E&M 18 /min Deacon Diaz Body Mass Index (Ratio) 47.25 kg/m2 Na Diaz weight E&M 297.2 [lb_av] Shyam Kole marlen blood pressure, diastolic 75 mm[Hg] Letty Diaz blood pressure, systolic 124 mm[Hg] Sherry Diaz pulse rate 79 /min Shyam Shay damianon oxygen saturation, oximetry 92 % Shyam Diaz respiratory rate E&M 20 /min Deacon Diaz weight E&M 295.2 [lb_av] ShyamDamari gee Body Mass Index (Ratio) 46.90 kg/m2 Durán i Gruenenfelder blood pressure, diastolic 77 mm[Hg] Ke rri Gruenenfelder blood pressure, systolic 135 mm[Hg] Ker ri Gruenenfelder pulse rate 80 /min Radha Gremmae lder oxygen saturation, oximetry 98 % Radha Gruenenfelder respiratory rate E&M 16 /min Radha G maggyenenfelder weight E&M 295 [lb_av] Radha Deborae lder Body Mass Index (Ratio) 48.19 kg/m2 Akash Velazquez blood pressure, diastolic, left arm 71 mm [Hg] [facility] blood pressure, systolic, left arm 134 mm [Hg] [facility] blood pressure, diastolic, right arm 86 m m[Hg] [facility] blood pressure, systolic, right arm 152 m m[Hg] [facility] blood pressure, diastolic 71 mm[Hg] Molina Velazquez blood pressure, systolic 134 mm[Hg] [facility] pulse rate 97 /min [facility] oxygen saturation, oximetry 98 % [facility] respiratory rate E&M 16 /min [facility] weight E&M 302 [lb_av] [facility] Body Mass Index (Ratio) 46.75 kg/m2 Durán i Gruenenfelder blood pressure, diastolic 82 mm[Hg] Ke rri Gruenenfelder blood pressure, systolic 133 mm[Hg] Kye ri Gruenenfelder pulse rate 78 /min Radha Deborae lder oxygen saturation, oximetry 99 % Radha Carlanfayakaer respiratory rate E&M 17 /min Radha evans weight E&M 293 [lb_av] Radha Ofe lder height E&M 66.5 [in_i] Radha Ofe lder blood pressure, diastolic 97 mm[Hg] Rob Edwards RN blood pressure, systolic 150 mm[Hg] Kofi Edwards RN pulse rate 80 /min Kofi Edwards RN oxygen saturation, oximetry 99 % Kofi Edwards RN respiratory rate E&M 16 /min Kofi Adriano ballard RN weight E&M 194 [lb_av] Kofi Edwards RN blood pressure, diastolic 83 mm[Hg] Letty kamara O'Torsten blood pressure, systolic 150 mm[Hg] Sherry musa O'Torsten pulse rate 79 /min Saima O'Tosrten oxygen saturation, oximetry 97 % Saima O'Torsten respiratory rate E&M 16 /min Saima O'Torsten weight E&M 281 [lb_av] Saima O'Torsten blood pressure, diastolic, left arm 95 mm [Hg] Tong Manacop blood pressure, systolic, left arm 167 mm [Hg] Tong Man[place] blood pressure, diastolic 95 mm[Hg] Ca isaac Manacop blood pressure, systolic 167 mm[Hg] Philippe wang [place] pulse rate 96 /min Tong Man[place] oxygen saturation, oximetry 100 % Tong Manacop respiratory rate E&M 16 /min Tong Man[place] weight E&M 284 [lb_av] Tong Manacop blood pressure, diastolic 98 mm[Hg] Fred Shaikh blood pressure, systolic 164 mm[Hg] Oneill pulse rate 74 /min Kirsten Shaikh oxygen saturation, oximetry 99 % Kirsten Shaikh respiratory rate E&M 18 /min Kirsten burger weight E&M 280 [lb_av] Kirsten Shaikh ALLERGIES Allergy Name Onset Date Reaction Criticality Status PENICILLIN Low Criticality active HISTORY OF MEDICATION USE Medication Status Instructions Dates Provider Indications Com ments LISINOPRIL 20 MG TABLET active TAKE 1 TABLET BY MOUTH EVERY DAY Katelyn Chrun ZYRTEC ALLERGY 10 MG ORAL TABLET active once a day Radha Rojo PREDNISONE 10 MG ORAL TABLET completed take one tablet by mouth once dailly until done - Radha Rojo #20, 8 days supply, Filled 05/15/2017 FLUTICASONE PROPIONATE 50 MCG/ACT NASAL SUSPENSION active as directed Rosangela Bland #16, 30 days supply, Filled 05/15/2017 AZITHROMYCIN 250 MG ORAL TABLET completed TK UTD - Radha Rojo #6, 5 days supply, Prescribed by JAY LARA, Filled 05/16/2017 ASPIRIN 81 MG ORAL TABLET active ONE TAB. DAILY Jeimy Rojas MD CRESTOR 10 MG ORAL TABLET completed 1 tablet by mouth daily - Radha Rojo LISINOPRIL-HYDR OCHLOROTHIAZIDE 20-25 MG ORAL TABLET completed one tablet daily - Na Amador RN RAVEN TABS completed as needed - Tong Mccormick SOCIAL HISTORY Date Observation Value Provider social history reviewed E&M revi ewed - no changes required Jeimy Rojas MD social history E&M Marital Statu s: L reyna with family/friends E thnicity: Smoking History: P atient has never smoked. Jeimy Rojas MD physical exercise, f requency, days per week no Radha Rojo alcohol use, average drinks per day social basis only Radha Rojo alcohol use no Radha hickman caffeine use, averag e drinks per day yes Radha Rojo drug use no Radha Thakur nadegeer passive cigarette sm liv exposure no Radha Escobaramerica smoking status Never smoker Radha Santiago hilda number of grandchildren Jeimy Rojas MD T lililana Rojas MD social history reviewed E&M revi ewed - no changes required Jeimy Rojas MD social history reviewed E&M revi ewed - no changes required Jeimy Rojas MD physical exercise, f requency, days per week no Shyam Diaz alcohol use, average drinks per day social basis only Shyam Diaz alcohol use no Shyam Day nson caffeine use, averag e drinks per day yes ShyamDamari Diaz drug use no Shyam Day nson passive cigarette sm liv exposure no Shyam Diaz smoking status Never smoker Shyam Arcosaarti social history reviewed E&M revi ewed - no changes required Jeimy Rojas MD physical exercise, f requency, days per week no Shyam Diaz alcohol use, average drinks per day social basis only Shyamjone Diaz alcohol use no Shyam Day damianon caffeine use, averag e drinks per day yes Shyam Diaz drug use no Shyam Day nson passive cigarette sm liv exposure no Shyam Diaz smoking status Never smoker Shyam Cohen social history reviewed E&M revi ewed - no changes required Jeimy Rojas MD physical exercise, f requency, days per week no Shyam Diaz alcohol use, average drinks per day social basis only Shyam Diaz alcohol use no Shyam Shay salgadoon caffeine use, averag e drinks per day yes Shyam Diaz drug use no Shyam knapp passive cigarette sm liv exposure no Shyam Diaz smoking status Never smoker Shyam Cohen social history reviewed E&M revnela arias - no changes required Jeimy Rojas MD alcohol use no Radha Thakur lder smoking status Never smoker Radha Pamela stevens social history reviewed E&M reviewed Jeimy Rojas MD social history reviewed E&M reviewed Jeimy Rojas MD drug use no Radha Thakur lder passive cigarette sm liv exposure no Radha Cazaresalejandro smoking status never smoker Radha Escobarjohn stevens social history reviewed E&M reviewed Kofi Edwards RN social history reviewed E&M reviewed Kofi Edwards RN social history reviewed E&M reviewed Kofi Edwards RN social history E&M Marital Statu s: L reyna with family/friends E thnicity: Kristyn Rowe RN social history reviewed E&M reviewed Kristyn Rowe RN physical exercise, f requency, days per week no [employer] caffeine use, averag e drinks per day yes [employer] alcohol use, average drinks per day social basis only [employer] smoking status Non-smoker [facility] MENTAL STATUS Date Observation Value Provider assessment of judgme nt and insight E&M Alert and oriented to time, place and person. Mood and affect are normal. Jeimy Rojas MD assessment of judgme nt and insight E&M Alert and oriented to time, place and person. Mood and affect are normal. Jeimy Rojas MD assessment of judgme nt and insight E&M Alert and oriented to time, place and person. Mood and affect are normal. Kofi Edwards RN assessment of judgme nt and insight E&M Alert and oriented to time, place and person. Mood and affect are normal. Kofi Edwards RN assessment of judgme nt and insight E&M Alert and oriented to time, place and person. Mood and affect are normal. Kofi Edwards RN assessment of judgme nt and insight E&M Alert and oriented to time, place and person. Mood and affect are normal. 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 Jeimy Rojas MD Cardiology Jeimy Rojas MD Cardiology Jeimy Rojas MD Cardiology: B P today: 120/80 P rior BP: 140/82 (05/21/2016) Jeimy Rojas MD Cardiology Jeimy Rojas MD Cardiology Jeimy Rojas MD Cardiology Jeimy Rojas MD Cardiology Jeimy Rojas MD Cardiology Jeimy Rojas MD Cardiology Jeimy Rojas MD Cardiology Jeimy Rojas MD Cardiology Jeimy Rojas MD Cardiology Jeimy Rojas MD fu: H er updated medication list for this problem includes: Lisinopril-hydrochlorothiazide 20-25 Mg Tabs (Lisinopril-hydrochlorothiazide) ..... One tablet daily Aspirin 81 Mg Tabs (Aspirin) ..... One tab. daily BP today: 124/75 P rior BP: 135/77 (11/02/2013) Jeimy Rojas MD : H er updated medication list for this problem includes: Lisinopril-hydrochlorothiazide 20-25 Mg Tabs (Lisinopril-hydrochlorothiazide) ..... One tablet daily Aspirin 81 Mg Tabs (Aspirin) ..... One tab. daily Jeimy Rojas MD Jeimy Rojas MD : H er updated medication list for this problem includes: Lisinopril-hydrochlorothiazide 20-25 Mg Tabs (Lisinopril-hydrochlorothiazide) ..... One tablet daily Aspirin 81 Mg Tabs (Aspirin) ..... One tab. daily Jeimy Rojas MD follow up: H er updated medication list for this problem includes: Lisinopril-hydrochlorothiazide 20-25 Mg Tabs (Lisinopril-hydrochlorothiazide) ..... One tablet daily Jeimy Rojas MD follow up: O rders: E KG (CPT-[id number]) Jeimy Rojas MD follow up: H er updated medication list for this problem includes: Lisinopril-hydrochlorothiazide 20-25 Mg Tabs (Lisinopril-hydrochlorothiazide) ..... One tablet daily Aspirin 81 Mg Tabs (Aspirin) ..... One tab. daily BP today: 133/82 Prior BP: 150/97 (04/15/2011) Jeimy Rojas MD follow up: H er updated medication list for this problem includes: Lisinopril-hydrochlorothiazide 20-25 Mg Tabs (Lisinopril-hydrochlorothiazide) ..... One tablet daily BP today: 133/82 Prior BP: 150/97 (04/15/2011) Jeimy Rojas MD follow up and echo: H er updated medication list for this problem includes: Lisinopril-hydrochlorothiazide 10-12.5 Mg Tabs (Lisinopril-hydrochlorothiazide) ..... One tab. daily BP today: 150/83 Prior BP: 167/95 (04/04/2009) E chocardiogram: Normal left ventricular systolic function. Sub-aortic membrane detected in the LVOT. Increased velocities with resting gradient of 29 and no change with valsalva. Normal left ventricular size. Normal left ventricular wall thickness. There is E to A wave r eversal consistent with impaired LV relaxation . Normal E/E` 5.7. Left ventricular ejection fraction is estimated at 55%. The mitral valve is normal in appearance and function. There is trace physiologic mitral valve regurgitation. Aortic valve appears structurally normal. Velocities, as well as gradients across t he aortic valve are normal. There is trace physiologic aortic valve regurgitation. Normal pericardium with no pericardial or pleural effusion. Normal aortic root. - (02/07/2009) Jeimy Rojas MD follow up and echo: H er updated medication list for this problem includes: Lisinopril-hydrochlorothiazide 10-12.5 Mg Tabs (Lisinopril-hydrochlorothiazide) ..... One tab. daily Aspirin 81 Mg Tabs (Aspirin) ..... One tab. daily BP today: 150/83 P rior BP: 167/95 (04/04/2009) Jeimy Rojas MD follow up and echo Jeimy Rojas MD follow up and echo: H er updated medication list for this problem includes: Lisinopril-hydrochlorothiazide 10-12.5 Mg Tabs (Lisinopril-hydrochlorothiazide) ..... One tab. daily BP today: 150/83 Prior BP: 167/95 (04/04/2009) E chocardiogram: Normal left ventricular systolic function. Sub-aortic membrane detected in the LVOT. Increased velocities with resting gradient of 29 and no change with valsalva. Normal left ventricular size. Normal left ventricular wall thickness. There is E to A wave r eversal consistent with impaired LV relaxation . Normal E/E` 5.7. Left ventricular ejection fraction is estimated at 55%. The mitral valve is normal in appearance and function. There is trace physiologic mitral valve regurgitation. Aortic valve appears structurally normal. Velocities, as well as gradients across t he aortic valve are normal. There is trace physiologic aortic valve regurgitation. Normal pericardium with no pericardial or pleural effusion. Normal aortic root. - (02/07/2009) Jeimy Rojas MD follow up and echo Jeimy Rojas MD FU: O rders: Angela cardenas Echo ([id number]) Jeimy Rojas MD FU:BP high today, bu t states it's normally fine at home. B P today: 164/98 Orders: C ronald Echo ([id number]) Jeimy Rojas MD FU:recheck echo tojaziel yHank Villar P today: 164/98 Prior BP: / () E chocardiogram: EF - 65%. B orderline LVH. T hickened mitral valve. S clerosed aortic valve. M Ild mitral regurgitation. Trace aortic insufficiency. T race tricuspid regurgitation. (09/30/2006) Orders: C omplete Echo ([id number]) Jeimy Rojas MD Date Name Complete Echo Complete Echo Complete Echo HISTORY OF PROCEDURES Procedure Date Procedure Name Provider Procedure Notes S tatus SNOMED-CT: 90841024 Physical Exam, Performed: Pulse Exam of Foot Jeimy Rojas MD completed SNOMED-CT: 600521885 081671 Current Medications Documented Jeimy Rojas MD completed SNOMED-CT: 26028139 Physical Exam, Performed: Pulse Exam of Foot Jeimy Rojas MD completed EKG Jeimy Rojas MD completed SNOMED-CT: 348387355 075201 Current Medications Documented Jiemy Rojas MD completed EKG Jeimy oRjas MD completed EKG Jeimy Rojas MD completed EKG Jeimy Rojas MD completed
--- OUTSIDE RECORDS SUMMARY | 2024-05-06 20:16 | XMS_ITS | Referral Summary ---
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 She [...] not completely closed. She is in a skilled nursing care facility and at this time, needs 24 X 7 care for transfers, ADLs etc. She has termite helper neurological sequelae with muscle atrophy, neuropathies etc. Today she reports no fever/chills/rigors/nausea/vomiting/diarrhea. Sacral ulcer is healing. No drainage currently. She is getting wound care at facility. PLAN - currently, still gathering information about her sacral decubitus ulcer and status of osteomyelitis. IV abx decided and managed through facility and [facility] doctors. Limited data shared with us - referral in Nov only contains information from admission in [facility] late September 2023, no recent labs/evaluations/provider notes. [...] CDT): - ACCS rec medical management - Wound/staff nurse midwife consult - Discussed how to verify mattress [...] (08/28/2019): Added automatically from request for surgery [id number] Muscle weakness 08/23/2019 Overview (08/30/2019): Added automatically from request for surgery [id number] Severe malnutrition (CMS/[facility]) 12/23/2018 Adnexal mass 12/18/2018 Overview (12/29/2018): Added automatically from request for surgery [id number] Weakness 11/16/2018 Polyneuropathy 11/16/2018 Gait disorder 11/16/2018 Resolved Problems Problem Noted Date Diagnosed Date Resolved Date Moderate protein-calorie mal nutrition ([facility]/HCC) 05/22/2023 06/23/2023 Assessment & Plan (06/21/2023 9:15 PM CDT): Nutrition consult Immunizations Name Administration Dates Next Due Influenza, Quadrivalent, Spl it, Preservative Free, Intramuscular 01/01/2019 Social History Tobacco Use Types Packs/Day Years Used Date Smoking Tobacco: Never Smokeless Tobacco: Never Tobacco Cessation:Counseling Given: Not Answered Alcohol Use Standard Drinks/Week Comments Never 0 (1 standard drink = 0.6 oz pur e alcohol) [facility] Utilities Answer Date Recorded In the past 12 months has [employer] electric, gas, oil, or water company threatened to shut off services in your [...] often do you attend chur ch or cheondoism services? Never 07/01/2023 Do you belong to any clubs o r organizations such as rastafarian groups, unions, fraternal or athletic groups, or [...] place to sleep or slept in a residential (including now)? 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 Current interpretive data was last revised on 19. Hep B core IgM Nonreactive Nonreactive [facility] Comment: Interpretive Data If HepB Core IgM Ab is reported as Equivocal, a new sample should be drawn in two weeks for testing. Current interpretive data was last revised on 19. Hep C Ab Nonreactive Nonreactive [facility] Comment:Antibodies to HCV no t detected. Does NOT exclude the possibility of recent exposure to HCV. HepBsAg Nonreactive Nonreactive [facility] Blood specimen (specimen) 07/20/2020 4:21 PM CDT 07/20/2020 4:29 PM CDT Lang Perry MD PhD LAB MICROB IOLOGY - GENERAL ORDERABLES Edited Result - Final [facility] Department [place] [address] from Last 3 Months or Most Recently Relevant to Health Maintenance Insurance [facility] ACCESS IDPA [facility] PLAN [facility] MEDICARE MEDICARE MEDICARE Advance Directives For more information, please contact: [phone] * Full Code (Latest Code Status on [...] 3:42 PM 01/08/2019 6:55 PM Care Teams Dental Appliance Mechanic Relationship Specialty Start Date End Date Huyen Hernandez NP [address] [place] [address] PCP - General Family Medicine 06/27/23 Na Acosta NP [address] [place] [address] Nurse Practitioner Neurology 05/12/23
--- OUTSIDE RECORDS SUMMARY | 2024-05-06 20:16 | XMS_ITS | Encounter Summary ---
Author Organization [facility] Address [address] [place] [address] Care Team Providers Care Inclusion Specialist Name Role Phone Jered Myers MD Primary Care Provider [phone] Encounter Details Date Type Department Care Team (Late st Contact Info) Description 11/26/2023 Lab Requisition [facility] [address] [place] [address] [address] [place], [place] [address] Social History Tobacco Use Types Packs/Day Years [...] Associated Diagnosis Comments VANCOMYCIN LEVEL TROUGH STAT 11/26/2023 1:32 PM CDT documented in this encounter Results * VANCOMYCIN LEVEL TROUGH (11/26/2023 1:32 PM CDT) Vancomycin Trough 19.2 10.0 - 20.0 ug/mL 11/26/2023 1:53 PM CDT [facility] Blood BLOOD SPECIMEN / Unknown Venipuncture / Unknown 11/26/2023 1:32 PM CDT 11/26/2023 1:32 PM CDT [facility] Darnell [facility] - CHEMISTRY CLAIRE JOSEPH Performing Organization Address City/State/[facility] Co de Phone Number [facility] [address] [place] [address] documented in this encounter Visit Diagnoses Not on filedocumented in this encounter Care Teams Inclusion Specialist Relationship Specialty Start Date End Date Jered Myers MD PCP - General 03/02/18 documented as of this encounter
--- OUTSIDE RECORDS SUMMARY | 2024-05-06 20:16 | XMS_ITS | Encounter Summary ---
Author Organization [facility] Address [address] [place] [address] Phone Care Team Providers Care Gold Charmer Name Role Phone Lang Perry MD PhD Unavailable + Ariadne Dang RADIATION PHYSICIST Primary Care Provider [phone] Na Acosta RADIATION PHYSICIST Unavailable [phone] Huyen Hernandez RADIATION PHYSICIST Primary Care Provider + [phone] Ariadne Dang RADIATION PHYSICIST Primary Care Provider [phone] Huyen Hernandez RADIATION PHYSICIST Primary Care Provider + [phone] Ginny Zendejas RN Unavailable [phone] Encounter Details Date Type Department Care Team (Late st Contact Info) Description 08/18/2020 Documentation [facility] [address] [facility] Advanced Medicine 6th [place] [address] [place] [address] Chuck Das MD PhD [address] [place] [address] Social History Tobacco Use Types Packs/Day Years Used Date Smoking Tobacco: Never Smokeless Tobacco: Never Alcohol Use Standard Drinks/Week Comments Never 0 (1 standard drink = 0.6 oz pur e alcohol) AUDIT-C Answer Date Recorded Frequency of Alcohol Consumption Never 12/31/2018 Average Number of Drinks Not on file 019 Frequency of Binge Drinking Not on file 05/2018 Comments No Sex and Gender Information Value Date Recorded Sex Assigned at Not on file Legal Sex Female 9:32 AM CDT Gender Identity Not on file Sexual Orientation Not on file documented as of this encounter Plan of Treatment Not on file documented as of this encounter Visit Diagnoses Not on filedocumented in this encounter Care Teams Gold Charmer Relationship Specialty Start Date End Date Ariadne Dang NP [address] [facility] [address] [place] [address] PCP - General 12/23/19 06/09/23 Huyen Hernandez NP [address] [place] [address] PCP - General Family Medicine 06/11/23 06/22/23 Ariadne Dang NP [address] [facility] [address] [place] [address] PCP - General Cardiovascular Disease 06/23/23 4 Huyen Hernandez, JORGE [address] [place] [address] PCP - General Family Medicine 06/27/23 Lang Perry MD PhD Referring Physician Neurology 12/18/18 04/14/23 Na Acosta NP [address] [place] [address] Nurse Practitioner Neurology 05/12/23 Ginny Zendejas, RN [address] [facility] [address] [place] [address] SHOP Outpatient Candlemaking Laborer 06/30/23 07/24/23 documented as of this encounter
--- OUTSIDE RECORDS SUMMARY | 2024-05-06 20:16 | XMS_ITS | Encounter Summary ---
Author Organization [facility] Health Address [address] [facility] [place] [address] Care Team Providers Care Coordinator Of Genetic Services Name Role Phone Jered Myers MD Primary Care Provider [phone] Encounter Details Date Type Department Care Team (Late st Contact Info) Description 12/12/2023 Lab Requisition [facility] [address] [place] [address] [address] [place], [place] [address] Social History Tobacco Use Types Packs/Day Years [...] Associated Diagnosis Comments VANCOMYCIN LEVEL TROUGH STAT 12/12/2023 7:30 AM CDT documented in this encounter Results * VANCOMYCIN LEVEL TROUGH (12/12/2023 7:30 AM CDT) Vancomycin Trough 18.5 10.0 - 20.0 ug/mL 12/12/2023 2:03 PM CDT [facility] Blood BLOOD SPECIMEN / Unknown Venipuncture / Unknown 12/12/2023 7:30 AM CDT 12/12/2023 1:28 PM CDT [facility] LAB - CHEMISTRY CLAIRE JOSEPH Performing Organization Address City/State/[facility] Co de Phone Number [facility] [address] [place] [address] documented in this encounter Visit Diagnoses Not on filedocumented in this encounter Care Teams Coordinator Of Genetic Services Relationship Specialty Start Date End Date Jered Myers MD PCP - General 03/02/18 documented as of this encounter
--- OUTSIDE RECORDS SUMMARY | 2024-05-06 20:16 | XMS_ITS | Encounter Summary ---
Author Organization [facility] Address [address] [place] [address] Phone Care Team Providers Care Content Architect Name Role Phone Jered Myers MD Primary Care Provider + [phone] Lang Perry MD PhD Unavailable + Ariadne Dang LEAD SQL DEVELOPER Primary Care Provider [phone] Na Acosta LEAD SQL DEVELOPER Unavailable [phone] Huyen Hernandez LEAD SQL DEVELOPER Primary Care Provider [phone] Ariadne Dang LEAD SQL DEVELOPER Primary Care Provider [phone] Huyen Hernandez LEAD SQL DEVELOPER Primary Care Provider + [phone] Ginny Zendejas RN Unavailable [phone] Encounter Details Date Type Department Care Team (Late st Contact Info) Description 05/21/2018 Orders Only [facility] NEUROMUSCLE Scanning, Provider Social History Tobacco Use Types Packs/Day Years [...] Procedure Name Priority Date/Time Associated Diagnosis Comments SCAN - RADIOLOGY/IMAGING 05/21/2018 documented in this encounter Results * SCAN - RADIOLOGY/IMAGING (05/21/2018) Anatomical Region Laterality Modality Other us Provider Scanning Final Result documented in this encounter Visit Diagnoses Not on filedocumented in this encounter Additional Health Concerns Infection Onset Date Last Indicated Resolved Time COVID: Suspected Comment:IP/ID review: pt cleared from precautions Marquita Cotton 08/25/2019 08/24/2019 08/24/2019 08/25/2019 10:28 AM CDT COVID: Suspected 08/25/2019 08/25/2019 08/26/2019 12:39 AM CDT Respiratory Infection (AYSHA), contact + droplet Comment:Automatically added due to negative COVID-19 result. 08/26/2019 08/26/2019 08/27/2019 10: 54 AM CDT documented as of this encounter Care Teams Content Architect Relationship Specialty Start Date End Date Jered Myers MD PCP - General Internal Medicine 01/15/18 12/22/19 Ariadne Dang NP 1 [facility] [address] [place] [address] PCP - General 12/23/19 06/09/23 Huyen Hernandez NP [address] [place] [address] PCP - General Family Medicine 06/11/23 06/22/23 Ariadne Dang NP 1 [facility] [address] [place] [address] PCP - General Cardiovascular Disease 06/23/23 4 Huyen Hernandez NP [address] [place] [address] PCP - General Family Medicine 06/27/23 Lang Perry MD PhD Referring Physician Neurology 12/18/18 04/14/23 Na Acosta NP [address] [place] [address] Nurse Practitioner Neurology 05/12/23 Ginny Zendejas, RN [address] [facility] [address] [place] [address] SHOP Outpatient Scrummaster 06/30/23 07/24/23 documented as of this encounter
--- OUTSIDE RECORDS SUMMARY | 2024-05-06 20:16 | XMS_ITS | Clinical Summary ---
Author Organization [facility] Address [address] [facility] [place] [address] Care Team Providers Care Preparer Name Role Phone Jered Myers MD Primary Care Provider [phone] Source Comments [facility],non-[facility] Affiliates and Associated Physician Practices is amultiple site organization consisting of ambulatory clinics and hospital sitesin [place], [place], [place] and [place]. This disclosure is being madepursuant to the Care Everywhere program and may not contain all information available regarding this patient. Last updated 17.[facility] Allergies Active Allergy Reactions Criticality Noted Date [...] Active azelastine (ASTELIN) 0.1 % nasal spray Forbes 1 spray into each nostril 2 times daily Active cetirizine (ZYRTEC) 10 MG tablet Take 10 mg by mouth once daily Active Active Problems Problem Noted Date Diagnosed Date Acute renal failure 11/19/2017 Family History Medical History Relation Name Comments Diabetes - Type 2 Brother CVA Father Hyperlipidemia Father Other - Neurologic Mother Supranucl ear palsy Relation Name Status Comments Brother Father Mother Social History Tobacco Use Types Packs/Day Years [...] Comments Blood Pressure 127/71 03/06/2018 8:19 AM LAWYER PROBATE Pulse 81 03/06/2018 8:19 AM LAWYER PROBATE Temperature 36 C (96.8 F) 03/06/2018 8:19 AM LAWYER PROBATE Respiratory Rate 18 11/22/2017 8:19 AM CDT Oxygen Saturation 100% 11/22/2017 8:19 AM CDT Inhaled Oxygen Concentration - - Weight 135.2 kg (298 lb) 03/06/2018 8:19 AM LAWYER PROBATE Height 167.6 cm (5' 6 ) 03/06/2018 8:19 AM LAWYER PROBATE Body Mass Index 48.1 03/06/2018 8:19 AM LAWYER PROBATE Plan of Treatment Health Maintenance Due Date Last Done Comments COLOGUARD (AGES 45-75) - COLON CA SCREENING 1964 COLON MONITORING 1964 COLONOSCOPY - COLON CA SCREENING 1964 CT COLONOGRAPHY - COLON CA SCREENING 1964 Colorectal Cancer Screening 1964 FIT - COLON CA SCREENING 1964 FLEX SIG - COLON CA SCREENING 1964 LIPID TESTING 1964 MAMMOGRAM 1964 PAP SMEAR 1964 HEPATITIS C SCREENING 02/17/1982 DTAP/TDAP/TD VACCINES (1 - Tdap) 02/21/1983 PNEUMOCOCCAL VACCINE 50+ (1 of 1 - PCV) 02/21/2014 ZOSTER VACCINE (1 of 2) 02/21/2014 COVID-19 VACCINE (1 - season) 2023 INFLUENZA VACCINE (#1) 2023 Respiratory Syncytial Virus (RSV) Vaccine Pt: or over 60 yrs (1 - Risk 60-74 years 1-dose series) 2024 DEPRESSION SCREENING 03/31/2024 SCREENING FOR DIABETES 12/23/2026 4, 12/15/2023, 12/01/2023, Additional history exists HIV SCREENING Completed 11/20/2017 HEPATITIS B VACCINE Aged Out No longe r eligible based on patient's age to complete this topic HIB VACCINE Aged Out No longer eligi ble based on patient's age to complete this topic HPV VACCINE Aged Out No longer eligi ble based on patient's age to complete this topic MENINGOCOCCAL (Group B) VACCINE Aged Out No longer eligible based on patient's age to complete this topic MENINGOCOCCAL VACCINE Aged Out No dago yovana eligible based on patient's age to complete this topic PNEUMOCOCCAL VACCINE Aged Out No long er eligible based on patient's age to complete this topic Procedures Procedure Name Priority Date/Time Associated Diagnosis [...] - 5.1 mmol/L 12/24/2023 7:45 PM CDT [facility] Chloride 104 98 - 107 mmol/L 12/24/2023 7:45 PM CDT [facility] CO2 32(H) 22 - 29 mmol/L 12/24/2023 7:45 PM CDT [facility] Calcium 8.7 8.4 - 10.4 mg/dL 12/24/2023 7:45 PM CDT [facility] Anion Gap 9 6 - 16 mmol/L 12/24/2023 7:45 PM CDT [facility] BUN 7 7 - 26 mg/dL 12/24/2023 7:45 PM CDT [facility] Creatinine 0.47(L) 0.57 - 1.11 mg/dL 12/24/2023 7:45 PM CDT [facility] Alkaline Phosphatase 85 40 - 150 U/L 12/24/2023 7:45 PM CDT [facility] ALT 12 0 - 55 U/L 12/24/2023 7:45 PM CDT [facility] AST 18 5 - 34 U/L 12/24/2023 7:45 PM CDT [facility] Protein Total 5.6(L) 6.4 - 8.3 gm/dL 12/24/2023 7:45 PM CDT [facility] Albumin 2.7(L) 3.4 - 5.0 gm/dL 12/24/2023 7:45 PM CDT [facility] Bilirubin Total 0.3 0.2 - 1.2 mg/dL 12/24/2023 7:45 PM CDT [facility] eGFR by CKD-EPI >90 >=90 mL/min/1.7 3 m2 12/24/2023 7:45 PM CDT [facility] Blood BLOOD SPECIMEN / Unknown Venipuncture / Unknown 12/24/2023 6:00 PM CDT 12/24/2023 7:03 PM CDT [facility] - CHEMISTRY GABRIELE JAKE [facility] [address] [place] [address] * HIV-1 HIV-2 ANTIGEN/ANTIBODY (11/20/2017 12:50 AM CDT) HIV Antigen/Antibod y 1 & 2 Non-reacti ve Non-react emilia 11/20/2017 1:53 AM CDT [facility] Comment: Neither HIV-1 p24 Antigen nor HIV-1/HIV-2 Antibodies are detected. Blood BLOOD SPECIMEN / Unknown Venipuncture / Unknown 11/20/2017 12:50 AM CDT 11/20/2017 12:55 AM CDT Bienvenido Painter DO LAB - HEMATOLOGY ORD TEJAL [facility] [address] [phone] from Last 3 Months or Most Recently Relevant to Health Maintenance Advance Directives * Full Code (Latest Code Status on File) Date Activated Date Inactivated Comments 11/19/2017 9:52 PM 11/22/2017 5:00 PM Care Teams Preparer Relationship Specialty Start Date End Date Jered Myers MD PCP - General 03/02/18
--- OUTSIDE RECORDS SUMMARY | 2024-05-06 20:16 | XMS_ITS | Encounter Summary ---
Author Organization [facility] Health Address [address] [facility] [place] [address] Care Team Providers Care Parking Meter Collector Name Role Phone Jered Myers MD Primary Care Provider [phone] Encounter Details Date Type Department Care Team (Late st Contact Info) Description 12/24/2023 Lab Requisition [facility] [address] [place] [address] Norman Darnell [place], [place] [address] Social History Tobacco Use Types Packs/Day Years [...] Procedure Name Priority Date/Time Associated Diagnosis Comments CBC W AUTO DIFFERENTIAL STAT 12/24/2023 6:00 PM CDT COMPREHENSIVE METABOLIC PANEL STAT 12/24/2023 6:00 PM CDT documented in this encounter Results * (ABNORMAL) CBC WITH DIFFERENTIAL (12/24/2023 6:00 PM CDT) WBC 3.7(L) 4.0 - 10.7 x10E9/L 12/24/2023 7:20 PM CDT [facility] RBC Count 3.63(L) 3.90 - 5.20 x10E12/L 12/24/2023 7:20 PM CDT [facility] Hemoglobin 10.0(L) 11.9 - 15.8 g/dL 12/24/2023 7:20 PM CDT [facility] Hematocrit 33.5(L) 34.8 - 46.1 % 12/24/2023 7:20 PM CDT [facility] MCV 92.3 80.0 - 98.0 fL 12/24/2023 7:20 PM CDT [facility] MCH 27.5 26.7 - 33.6 pg 12/24/2023 7:20 PM CDT [facility] MCHC 29.9(L) 31.7 - 36.3 g/dL 12/24/2023 7:20 PM CDT [facility] RDW-CV 16.3(H) 11.3 - 14.8 % 12/24/2023 7:20 PM CDT [facility] Platelet Count 190 150 - 420 x10E9/L 12/24/2023 7:20 PM CDT [facility] MPV 9.7 7.8 - 11.4 fL 12/24/2023 7:20 PM CDT [facility] Neutrophil % 55.9 41.0 - 74.0 % 12/24/2023 7:20 PM CDT [facility] Lymphocyte % 27.2 17.0 - 47.0 % 12/24/2023 7:20 PM CDT [facility] Monocyte % 9.8 3.0 - 11.0 % 12/24/2023 7:20 PM CDT [facility] Eosinophil % 6.0 0.0 - 7.0 % 12/24/2023 7:20 PM CDT [facility] Basophil % 0.8 0.0 - 1.6 % 12/24/2023 7:20 PM CDT [facility] Immature Granulocytes % 0.3 0.0 - 1.0 % 12/24/2023 7:20 PM CDT [facility] Neutrophil Absolute 2.06 1.60 - 7.50 x10E9/L 12/24/2023 7:20 PM CDT [facility] Lymphocyte Absolute 1.00 1.00 - 4.40 x10E9/L 12/24/2023 7:20 PM CDT [facility] Monocyte Absolute 0.36 0.15 - 1.00 x10E9/L 12/24/2023 7:20 PM CDT [facility] Eosinophil Absolute 0.22 0.00 - 0.60 x10E9/L 12/24/2023 7:20 PM CDT [facility] Basophil Absolute 0.03 0.00 - 0.13 x10E9/L 12/24/2023 7:20 PM CDT [facility] Blood BLOOD SPECIMEN / Unknown 12/24/2023 6:00 PM CDT 12/24/2023 7:03 PM CDT [facility] - HEMATOLOGY ORD ERABLES [facility] [address] [place] [address] * (ABNORMAL) COMPREHENSIVE METABOLIC PANEL (12/24/2023 6:00 PM CDT) Glucose 128(H) 70 - 105 mg/dL 12/24/2023 7:45 PM CDT [facility] Sodium 145 136 - 145 mmol/L 12/24/2023 7:45 PM CDT [facility] Potassium 3.2(L) 3.5 - 5.1 mmol/L 12/24/2023 7:45 PM CDT [facility] Chloride 104 98 - 107 mmol/L 12/24/2023 7:45 PM CDT [facility] CO2 32(H) 22 - 29 mmol/L 12/24/2023 7:45 PM CDT [facility] Calcium 8.7 8.4 - 10.4 mg/dL 12/24/2023 7:45 PM CDT [facility] Anion Gap 9 6 - 16 mmol/L 12/24/2023 7:45 PM CDT [facility] BUN 7 7 - 26 mg/dL 12/24/2023 7:45 PM CDT [facility] Creatinine 0.47(L) 0.57 - 1.11 mg/dL 12/24/2023 7:45 PM CDT [facility] Alkaline Phosphatase 85 40 - 150 U/L 12/24/2023 7:45 PM CDT [facility] ALT 12 0 - 55 U/L 12/24/2023 7:45 PM CDT [facility] AST 18 5 - 34 U/L 12/24/2023 7:45 PM CDT [facility] Protein Total 5.6(L) 6.4 - 8.3 gm/dL 12/24/2023 7:45 PM CDT [facility] Albumin 2.7(L) 3.4 - 5.0 gm/dL 12/24/2023 7:45 PM CDT [facility] Bilirubin Total 0.3 0.2 - 1.2 mg/dL 12/24/2023 7:45 PM CDT [facility] eGFR by CKD-EPI >90 >=90 mL/min/1.7 3 m2 12/24/2023 7:45 PM CDT [facility] Blood BLOOD SPECIMEN / Unknown Venipuncture / Unknown 12/24/2023 6:00 PM CDT 12/24/2023 7:03 PM CDT [facility] Darnell LAB - CHEMISTRY CLAIRE JOSEPH [facility] Organization Address City/State/[facility] Co de Phone Number [facility] [address] [place] [address] documented in this encounter Visit Diagnoses Not on filedocumented in this encounter Care Teams Parking Meter Collector Relationship Specialty Start Date End Date Jered Myers MD PCP - General 03/02/18 documented as of this encounter
[2024-05-06 20:19] LABS: Alveolar/Arterial O2 Gradient 13.9 mmHg; Base Excess ABG 5.2 mEq/l (+/-2.0); Fractional Inspired Oxygen 21 %; HCO3 ABG 28.4 mEq/l (22.0-26.0); Oxygen Content ABG 10.9 %vol (16.0-22.0); Oxygen Saturation ABG 97.8 % (95.0-100.0); Oxyhemoglobin 96.3 % THb (90.0-100.0); PCO2 ABG 35.9 mmHg (35.0-45.0); PO2 ABG 92.8 mmHg (80.0-100.0); PO2 FiO2 Ratio Arterial Blood 4.42 %
[2024-05-06 20:21] LABS: Device ROOM AIR; Site Drawn RIGHT BRACHIAL; Total Hemoglobin 7.9 g/dL (12.0-18.0); pH ABG 7.516 (7.350-7.450)
[2024-05-06 20:50] LABS: Basophils Absolute Auto 0.1 K/mm3 (0.0-0.1); Basophils Percent Auto 0.9 % (0.2-1.2); Eosinophils Absolute Auto 0.2 K/mm3 (0-0.3); Eosinophils Percent Auto 2.3 % (0-4.4); Hematocrit 23.9 % (37.0-47.0); Immature Granulocyte Absolute 0.05 K/mm3 (0.00-0.031); Immature Granulocyte Percent A 0.7 % (0-0.5); Lymphocytes Absolute Auto 1.09 K/mm3 (0.9-3.2); Mean Corpuscular HGB Conc 28.9 g/dl (32-36); Mean Corpuscular Hemoglobin 23.5 pg (26-34); Mean Corpuscular Volume 81.6 fl (80-100); Mean Platelet Volume 8.6 fl (7.4-10.4); Monocytes Absolute Auto 0.5 K/mm3 (0.1-0.6); Monocytes Percent Auto 7.9 % (2.6-8.5); Neutrophils Absolute Auto 4.9 K/mm3 (1.3-6.7); Neutrophils Percent Auto 72.2 % (45.5-73.1); Platelet Count Result 363 k/mm3 (150-375); Red Blood Count 2.93 M/mm3 (4.2-5.4); White Blood Count 6.8 K/mm3 (4.5-10.0)
[2024-05-06 20:59] LABS: Lactic Acid Reflex 0.6 mmol/L (0.7-2.0)
[2024-05-06 21:00] LABS: Prothrombin Time 13.4 Seconds (11.1-14.7)
[2024-05-06 21:01] LABS: Partial Thromboplastin Time 39.6 Seconds (22.3-36.8)
[2024-05-06 21:04] LABS: Hemoglobin 6.9 g/dL (12.0-15.0)
[2024-05-06 21:05] LABS: Hypochromasia 1+; Ovalocytes 1+; Platelet Estimate Adequate (Adequate); Schistocytes None Seen
[2024-05-06 21:06] LABS: Alanine Aminotransferase 12 U/L (6-35); Albumin Level 2.7 g/dL (3.5-5.1); Alkaline Phosphatase 131 U/L (38-126); Anion Gap 8 mmol/L (4-12); Aspartate Amino Transferase 24 U/L (14-36); Bilirubin,Total 0.4 mg/dL (0.2-1.3); Blood Urea Nitrogen 17 mg/dL (7-17); Calcium 8.3 mg/dL (8.4-10.2); Carbon Dioxide 29 mmol/L (22-30); Chloride 103 mmol/L (98-107); Estimated CRCL calculation 80 ml/min; Estimated Glomerular Filt Rate > 60; Glucose 98 mg/dL (65-110); Lipase 78 U/L (23-300); Magnesium 1.7 mg/dL (1.6-2.3); Phosphorus 4.2 mg/dL (2.5-4.5); Potassium 3.9 mmol/L (3.4-5.0); Sodium 140 mmol/L (137-145)
[2024-05-06 21:15] LABS: NT Pro B Type Natriuretic Pept 280 pg/mL (19.9-100)
[2024-05-06 21:24] LABS: Troponin I < 0.012 ng/mL (0.000-0.034)
[2024-05-06 21:25] LABS: Influenza A QL RT-PCR Negative (Negative); Influenza B QL RT-PCR Negative (Negative); RSV RNA, RT-PCR Negative (Negative); SARS-CoV-2 RNA PCR Negative (Negative)
[2024-05-06 21:28] LABS: Add Urine Microscopic? YES; Appearance Urine Cloudy (Clear); Bacteria Urine 2+ /hpf; Bilirubin Urine Negative (Negative); Blood Urine Trace (Negative); Color Urine Yellow (Yellow); Glucose Urine UA Negative (Negative); Ketones Urine Negative (Negative); Leukocyte Esterase Ur 3+ LEU/UL (Negative); Need Manual Microscopic Reviewed; Nitrate Urine Positive (Negative); Protein Urine 1+ mg/dL (Negative); Specific Grav Ur 1.016 (1.001-1.035); Squamous Epithelial Cell Urine None Seen /hpf (Few); WBC Urine >100 /hpf (0-3)
[2024-05-07] VITALS (25 sets, daily range): BP systolic 106–114; BP diastolic 67–76; PULSE 72–89; RESP 13–22; TEMP 35.9–37; O2SAT 97–100; BMI 17.8
--- NOTE | 2024-05-07 00:18 | ED.GENADULT ---
HPI - General Adult General Chief complaint: Recheck/Abnormal Lab/Rx Stated complaint: LOW HGB, HX OF ANEMIA Time Seen by Provider: 05/06/24 19:27 History of Present Illness HPI narrative: This is a 59-year-old female with a history of chronic inflammatory demyelinating polyneuropathy. She had screening blood work performed at the long-term which showed a hemoglobin of 6.9. Patient says she feels more tired than usual but is denying fevers chills chest pain difficulty breathing abdominal pain or urinary symptoms. She has a diverting cold colostomy due to multiple severe sacral decubitus ulcers. She also has a chronic indwelling Milton. Related Data Home Medications ?Medication ?Instructions ?Recorded ?Confirmed ?Last Taken ?Type duloxetine 30 mg capsule,delayed 30 mg PO DAILY 09/20/23 01/26/24 01/09/24 History release multivitamin with folic acid 400 1 tablet PO DAILY 09/20/23 01/26/24 01/09/24 History mcg tablet (Daily-Sidra (with folic acid)) silver carbonate 0.11 % topical 1 applic topical DAILY 01/26/24 01/26/24 Unknown History gel (Normlgel Ag) Allergies Allergy/AdvReac Type Severity Reaction Status Date / Time morphine Allergy Intermediate Hives / Verified 01/26/24 19:29 Red Face penicillin G Allergy Intermediate Itching Verified 01/26/24 19:29 sulfamethoxazole (From Allergy Hives Verified 01/26/24 19:29 Bactrim) trimethoprim (From Bactrim) Allergy Hives Verified 01/26/24 19:29 PMFSH Past Medical History Medical History Chronic indwelling Milton catheter Chronic inflammatory demyelinating polyneuropathy Obstructive sleep apnea No longer on CPAP after weight loss Decubitus ulcer of coccygeal region Surgical History Surgical History History of creation of ostomy (11/05/23) Due to stage IV decubitus ulcers History of bilateral knee replacement History of total abdominal hysterectomy and bilateral salpingo-oophorectomy Family History Family History Father Cerebrovascular accident Social History Social History Social History: The patient lives with her they have been since 1995. They raised a son and a daughter. 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 She is a lifelong nonsmoker. She does not drink alcohol or use illicit substances. She is dependent on wheelchair for mobilization. Code status: Full code (she would not want to be on long-term ventilation nor which she want a tracheostomy or feeding tube) Surrogate decision maker: Jorge Romero, spouse. Smoking status: Never smoker Alcohol intake: never Substance use: never Substance use type: does not use Do You Feel Safe in your Home?: Yes Lack of Transportation: YES Lack of Food: Never True Current Housing: I Have Housing Concerned About Future Housing: No Difficulty Paying Gas/Electric Bills: No Difficulty Paying for Meds: No Currently Unemployed: No Education: Master's Degree or Higher Difficulty w/ Childcare or Family Care: No Spiritual care concerns: No Exam Narrative: APPEARANCE: No apparent distress. Head: atraumatic. EYES: EOMI, NOSE: Atraumatic NECK: Trachea midline RESPIRATORY: No increased rate of breathing CTAB CARDIOVASCULAR: RRR, no peripheral edema ABDOMINAL: Colostomy in place, nonbloody feces MUSCULOSKELETAl: Muscle wasting NEURO: Alert. Lower extremity contractures SKIN:: Stage IV sacral ulcer, left gluteal and right gluteal ulcers. Healing granulation tissue. Wounds do not appear infected. PSYCHIATRIC: Normal affect Course Vital Signs Vital signs: Vital Signs Temperature 100.3 F H 05/06/24 19:16 Pulse Rate 90 05/06/24 19:16 Respiratory Rate 18 05/06/24 19:16 Blood Pressure 112/77 05/06/24 19:16 Pulse Oximetry 100 05/06/24 19:16 Oxygen Delivery Room Air 05/06/24 19:16 Temperature 100.3 F H 05/06/24 19:16 Pulse Rate 83 05/06/24 23:00 Respiratory Rate 18 05/06/24 23:00 Blood Pressure 107/71 05/06/24 23:00 Pulse Oximetry 100 05/06/24 21:40 Oxygen Delivery Room Air 05/06/24 19:16 Medical Decision Making MDM Narrative Medical decision making narrative: -Course: 59-year-old debilitated bedbound female presenting for abnormal labs (hgb 6.9) Additionally on her triage vital signs she was febrile. Sepsis workup obtained. Hemoglobin was 6.9. she was transfused 1 unit of PRBCs. No blood in her colostomy bag. Possibly due to her pressure ulcers. Ulcers do not appear infected. Urine in her presenting Milton was grossly purulent. Milton was replaced and UA/UCX sent. UA appears infected which is expected with chronic indwelling Milton. However she was febrile on presentation and has evidence of cystitis on CT. Patient started on ceftriaxone while we await culture results. Case was discussed with Dr. Purvis. He recommended cefepime as she has a hx of pseudomonas. abx switched. Patient will be admitted hospital further management. -DDX includes but is not limited to: UTI, infected decubitus ulcers, osteomyelitis -Co-morbidities complicating care: Debilitated, chronic demyelinating polyneuropathy. Sacral decubitus ulcers chronic indwelling Milton Vital Signs Vital Signs: Vital Signs Temperature 100.3 F H 05/06/24 19:16 Pulse Rate 90 05/06/24 19:16 Respiratory Rate 18 05/06/24 19:16 Blood Pressure 112/77 05/06/24 19:16 Pulse Oximetry 100 05/06/24 19:16 Oxygen Delivery Room Air 05/06/24 19:16 Temperature 100.3 F H 05/06/24 19:16 Pulse Rate 83 05/06/24 23:00 Respiratory Rate 18 05/06/24 23:00 Blood Pressure 107/71 05/06/24 23:00 Pulse Oximetry 100 05/06/24 21:40 Oxygen Delivery Room Air 05/06/24 19:16 Lab Data 05/06/24 20:38 05/06/24 20:38 Labs: Lab Results 05/06/24 05/06/24 05/06/24 Range/Units 20:38 20:39 21:00 WBC 6.8 (4.5-10.0) K/mm3 RBC 2.93 L (4.2-5.4) M/mm3 Hgb 6.9 L* (12.0-15.0) g/dL Hct 23.9 L (37.0-47.0) % MCV 81.6 (80-100) fl MCH 23.5 L (26-34) pg MCHC 28.9 L (32-36) g/dl RDW 19.0 H (11.5-14.5) % Plt Count 363 D (150-375) k/mm3 MPV 8.6 (7.4-10.4) fl Immature Gran % (Auto) 0.7 H (0-0.5) % Neut % (Auto) 72.2 (45.5-73.1) % Lymph % (Auto) 16.0 L (18.3-44.2) % [place] % (Auto) 7.9 (2.6-8.5) % Eos % (Auto) 2.3 (0-4.4) % Baso % (Auto) 0.9 (0.2-1.2) % Lymph # (Auto) 1.09 (0.9-3.2) K/mm3 [place] # (Auto) 0.5 (0.1-0.6) K/mm3 Eos # (Auto) 0.2 (0-0.3) K/mm3 Baso # (Auto) 0.1 (0.0-0.1) K/mm3 Abs Immat Gran (auto) 0.05 H (0.00-0.031) K/mm3 Absolute Neuts (auto) 4.9 (1.3-6.7) K/mm3 Absolute Nucleated RBC 0.000 (0.0-0.012) K/mm3 Nucleated RBC % 0.0 (0.0-0.2) % Platelet Estimate Adequate (Adequate) Hypochromasia 1+ Ovalocytes 1+ Schistocytes None seen PT 13.4 (11.1-14.7) Seconds INR 1.0 APTT 39.6 H (22.3-36.8) Seconds Sodium 140 (137-145) mmol/L Potassium 3.9 (3.4-5.0) mmol/L Chloride 103 (98-107) mmol/L Carbon Dioxide 29 (22-30) mmol/L Anion Gap 8 (4-12) mmol/L BUN 17 (7-17) mg/dL Creatinine 0.49 L (0.7-1.0) mg/dL Estim Creat Clear Calc 80 ml/min Estimated GFR > 60 (59 - ) Glucose 98 (65-110) mg/dL Lactic Acid 0.6 L (0.7-2.0) mmol/L Calcium 8.3 L (8.4-10.2) mg/dL Phosphorus 4.2 (2.5-4.5) mg/dL Magnesium 1.7 (1.6-2.3) mg/dL Total Bilirubin 0.4 (0.2-1.3) mg/dL AST 24 (14-36) U/L ALT 12 (6-35) U/L Alkaline Phosphatase 131 H (38-126) U/L Troponin I < 0.012 (0.000-0.034) ng/mL NT-Pro-B Natriuret Pep 280 H (19.9-100) pg/mL Total Protein 6.0 L (6.3-8.2) g/dL Albumin 2.7 L (3.5-5.1) g/dL Lipase 78 (23-300) U/L Urine Color Yellow (Yellow) Urine Appearance Cloudy H (Clear) Urine pH 8.0 (5.0-9.0) Ur Specific [place] 1.016 (1.001-1.035) Urine Protein 1+ H (Negative) mg/dL Urine Glucose (UA) Negative (Negative) mg/dL Urine Ketones Negative (Negative) mg/dL Ur Blood (Man) Trace (Negative) Urine Nitrate Positive H (Negative) Urine Bilirubin Negative (Negative) Urine Urobilinogen 1.0 (<2.0) mg/dL Add Ur Microanalysis Reviewed Leukocyte Esterase Rfl 3+ H (Negative) RANDY/UL Urine RBC 6-10 H (0-2) /hpf Urine WBC >100 H (0-3) /hpf Ur Squamous Epith Cells None seen (Few) /hpf Urine Bacteria 2+ H /hpf Urine Casts 6-10 Influenza A (RT-PCR) Negative (Negative) Influenza B (RT-PCR) Negative (Negative) RSV (RT-PCR) Negative (Negative) SARS-CoV-2 RNA (RT-PCR) Negative (Negative) Blood Type O Positive Antibody Screen Negative Crossmatch See Detail ABG Data ABG results: 05/06/24 20:10 Puncture Site Right brachial ABG pH 7.516 H* ABG pCO2 35.9 ABG pO2 92.8 ABG PO2/FiO2 Ratio 4.42 ABG HCO3 28.4 H ABG O2 Saturation 97.8 ABG O2 Content 10.9 L ABG Base Excess 5.2 A-a Gradient 13.9 Oxyhemoglobin 96.3 Total Hemoglobin 7.9 L O2 Delivery Device Room air O2 Liters/Min 0.0 FiO2 21 Discharge Plan Discharge Clinical Impression: UTI (urinary tract infection), Anemia, Sacral decubitus ulcer, stage IV Patient Disposition: Still a Patient Condition: Stable Patient Language: Serbian Prescriptions: No Action Dakin's Solution 0.125 % Solution 1 applic topical Q12HR Qty: 473 0RF acetaminophen 500 mg Tablet 1,000 mg PO Q6H PRN (Reason: Mild Pain (1-3) Or Fever) Qty: 1 0RF duloxetine 30 mg capsule,delayed release(DR/EC) 30 mg PO DAILY multivitamin with folic acid [Daily-Sidra (with folic acid)] 400 mcg tablet 1 tablet PO DAILY Normlgel Ag 0.11 % Gel 1 applic TOPICAL DAILY Rx Instructions: apply to affected areas levofloxacin 500 mg tablet 500 mg PO DAILY Qty: 7 0RF Follow-up/Referrals: UNKNOWN,DOCTOR [Primary Care Provider] -
--- NOTE | 2024-05-07 00:30 | ECG_ITS ---
Test Date: 2024-05-07 00:33:10 Measurements Intervals [place] Rate: 85 P: 60 MI: 161 QRS: -22 QRSD: 86 T: 52 QT: 358 QTc: 427 Interpretive Statements SINUS RHYTHM VOLTAGE CRITERIA FOR LVH BASELINE ARTIFACT- V4 BORDERLINE ECG Compared to ECG 10/27/2023 10:27:10 No significant changes Electronically Signed On 05-07-2024 06:36:19 [employer] by Marco A Barber D.O.
[2024-05-07] MEDS: SODIUM CHLORIDE 0.9% IV 250 ML 30 ML IV CONT (02:03)
[2024-05-07] MEDS: ACETAMINOPHEN 500 MG TABLET 1000 MG PO (02:04)
[2024-05-07] MEDS: TUBING, BLOOD SET 1 EACH XX (02:04)
[2024-05-07 02:37] LABS: Troponin I < 0.012 ng/mL (0.000-0.034)
[2024-05-07] MEDS: CEFEPIME 2 GM/NS 50 ML 2 GM/50 ML BAG IVPB ×3 (02:47→18:34)
--- NOTE | 2024-05-07 03:23 | ADMGEN ---
This patient, Vee Romero, was admitted to 3 [facility] Surg Room 315-02. Patient/family oriented to hospital policies and general routines including ID bracelet, bed and alarms, visiting hours, pain management, procedures, bathroom and other care routines, personal items, smoking policy, room service/diet, and visiting hours. Information on how to activate the Rapid Response Team has been discussed. Patient/Family are encouraged to report perceived risks to care and to ask questions if they do not understand what they are told or what they should do.
[2024-05-07] MEDS: LACTATED RINGERS 1,000 ML 125 ML IV CONT ×2 (04:23→13:35)
[2024-05-07 08:13] LABS: Basophils Absolute Auto 0.1 K/mm3 (0.0-0.1); Basophils Percent Auto 1.5 % (0.2-1.2); Eosinophils Absolute Auto 0.2 K/mm3 (0-0.3); Hematocrit 29.2 % (37.0-47.0); Hemoglobin 8.5 g/dL (12.0-15.0); Immature Granulocyte Absolute 0.04 K/mm3 (0.00-0.031); Immature Granulocyte Percent A 0.8 % (0-0.5); Lymphocytes Absolute Auto 1.24 K/mm3 (0.9-3.2); Lymphocytes Percent Auto 23.6 % (18.3-44.2); Mean Corpuscular HGB Conc 29.1 g/dl (32-36); Mean Corpuscular Hemoglobin 24.8 pg (26-34); Mean Corpuscular Volume 85.1 fl (80-100); Mean Platelet Volume 8.8 fl (7.4-10.4); Monocytes Absolute Auto 0.6 K/mm3 (0.1-0.6); Monocytes Percent Auto 11.2 % (2.6-8.5); Neutrophils Absolute Auto 3.1 K/mm3 (1.3-6.7); Neutrophils Percent Auto 58.9 % (45.5-73.1); Platelet Count Result 355 k/mm3 (150-375); Red Blood Count 3.43 M/mm3 (4.2-5.4); Red Cell Distribution Width 18.5 % (11.5-14.5); White Blood Count 5.3 K/mm3 (4.5-10.0)
[2024-05-07 08:30] LABS: Anion Gap 5 mmol/L (4-12); Blood Urea Nitrogen 14 mg/dL (7-17); Calcium 8.4 mg/dL (8.4-10.2); Carbon Dioxide 29 mmol/L (22-30); Chloride 105 mmol/L (98-107); Estimated CRCL calculation 88 ml/min; Estimated Glomerular Filt Rate > 60; Glucose 79 mg/dL (65-110); Magnesium 1.7 mg/dL (1.6-2.3); Potassium 4.1 mmol/L (3.4-5.0); Sodium 139 mmol/L (137-145)
[2024-05-07 09:13] LABS: Platelet Estimate Adequate (Adequate)
[2024-05-07 09:14] LABS: Anisocytosis 1+; Hypochromasia 1+; Ovalocytes 1+; Schistocytes None Seen
--- NOTE | 2024-05-07 10:47 | P.HP_ITS ---
H&P: HPI History of Present Illness Date/Time: 05/07/24 10:47 Chief Complaint: Generalized weakness Narrative: This is a 59-year-old female with a history of chronic inflammatory demyelinating polyneuropathy. She is a resident of senior care. She was feeling weak. She had a blood test that showed her hemoglobin was low. She was sent to ER for evaluation. Her hemoglobin in the senior care was 6.9. Patient was given 1 unit of blood. Repeat hemoglobin today is 8.5. Patient says she feels more tired than usual but is denying fevers chills chest pain difficulty breathing abdominal pain or urinary symptoms. She has a diverting cold colostomy due to multiple severe sacral decubitus ulcers. She also has a chronic indwelling Milton. Review of Systems 2 Review of Systems: All systems reviewed & are unremarkable except as noted in HPI and below (the history and physical exam.) [facility] Past Medical History Medical History Chronic indwelling Milton catheter Chronic inflammatory demyelinating polyneuropathy Obstructive sleep apnea No longer on CPAP after weight loss Decubitus ulcer of coccygeal region Surgical History Surgical History History of creation of ostomy (11/05/23) Due to stage IV decubitus ulcers History of bilateral knee replacement History of total abdominal hysterectomy and bilateral salpingo-oophorectomy Family History Family History Father Cerebrovascular accident Social History Social History Social History: The patient lives with her they have been since 1995. They raised a son and a daughter. 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 She is a lifelong nonsmoker. She does not drink alcohol or use illicit substances. She is dependent on wheelchair for mobilization. Code status: Full code (she would not want to be on long-term ventilation nor which she want a tracheostomy or feeding tube) Surrogate decision maker: Jorge Romero, spouse. Smoking status: Never smoker Alcohol intake: never Substance use: never Substance use type: does not use Do You Feel Safe in your Home?: Yes Lack of Transportation: No Lack of Food: Never True Current Housing: I Have Housing Concerned About Future Housing: No Difficulty Paying Gas/Electric Bills: No Difficulty Paying for Meds: No Currently Unemployed: No Education: Master's Degree or Higher Difficulty w/ Childcare or Family Care: No Spiritual care concerns: No Meds Home Medications and Allergies Home Medications ?Medication ?Instructions ?Recorded ?Confirmed ?Type duloxetine 30 mg capsule,delayed 30 mg PO DAILY 09/20/23 05/07/24 History release multivitamin with folic acid 400 1 tablet PO DAILY 09/20/23 05/07/24 History mcg tablet (Daily-Sidra (with folic acid)) sodium hypochlorite 0.125 % 1 applic topical Q12HR #473 mL 10/31/23 05/07/24 Rx solution (Dakin's Solution) acetaminophen 500 mg tablet 1,000 mg (2 x 500 mg) PO Q6H PRN 01/13/24 05/07/24 Rx Mild Pain (1-3) Or Fever #1 tablet silver carbonate 0.11 % topical 1 applic topical DAILY 01/26/24 05/07/24 History gel (Normlgel Ag) acetaminophen 650 mg 650 mg PO TID 05/07/24 05/07/24 History tablet,extended release (8 Hour Pain Reliever) ascorbic acid (vitamin C) 500 mg 500 mg PO BID 05/07/24 05/07/24 History tablet (C-500) cholecalciferol (vitamin D3) 125 125 mcg PO DAILY 05/07/24 05/07/24 History mcg (5,000 unit) tablet (Vitamin D3) ferrous sulfate 325 mg (65 mg 325 mg PO DAILY 05/07/24 05/07/24 History iron) tablet (FeroSul) Allergies Allergy/AdvReac Type Severity Reaction Status Date / Time morphine Allergy Intermediate Hives / Verified 01/26/24 19:29 Red Face penicillin G Allergy Intermediate Itching Verified 01/26/24 19:29 sulfamethoxazole (From Allergy Hives Verified 01/26/24 19:29 Bactrim) trimethoprim (From Bactrim) Allergy Hives Verified 01/26/24 19:29 Vital Signs Vital Signs - 24 hr 05/06/24 19:16 05/06/24 19:20 05/06/24 19:30 Temperature 37.9 C H Pulse Rate 90 87 91 Respiratory Rate 18 15 22 H Blood Pressure 112/77 112/77 111/77 Pulse Oximetry 100 100 100 Oxygen Delivery Room Air 05/06/24 19:33 05/06/24 21:00 05/06/24 21:40 Temperature Pulse Rate 90 92 84 Respiratory Rate 16 16 Blood Pressure 100/62 Pulse Oximetry 100 Oxygen Delivery 05/06/24 22:46 05/06/24 23:00 05/06/24 23:00 Temperature Pulse Rate 83 83 Respiratory Rate 16 18 Blood Pressure 107/71 Pulse Oximetry Oxygen Delivery 05/07/24 00:23 05/07/24 00:35 05/07/24 00:42 Temperature 37.0 C 36.8 C Pulse Rate 87 83 81 Respiratory Rate 22 H 16 15 Blood Pressure 109/72 114/75 Pulse Oximetry 98 100 100 Oxygen Delivery 05/07/24 00:42 05/07/24 00:45 05/07/24 00:46 Temperature Pulse Rate 80 80 80 Respiratory Rate 16 15 13 Blood Pressure 114/75 113/71 Pulse Oximetry 100 100 100 Oxygen Delivery 05/07/24 01:00 05/07/24 01:01 05/07/24 01:02 Temperature Pulse Rate 76 78 79 Respiratory Rate 17 17 16 Blood Pressure 109/73 Pulse Oximetry 100 100 100 Oxygen Delivery 05/07/24 01:04 05/07/24 01:36 05/07/24 01:42 Temperature 36.8 C Pulse Rate 76 76 77 Respiratory Rate 19 19 18 Blood Pressure 109/67 113/71 Pulse Oximetry 100 99 100 Oxygen Delivery 05/07/24 01:45 05/07/24 01:57 05/07/24 02:00 Temperature Pulse Rate 77 75 79 Respiratory Rate 18 14 16 Blood Pressure 113/75 Pulse Oximetry 100 100 100 Oxygen Delivery 05/07/24 02:23 05/07/24 02:30 05/07/24 02:31 Temperature Pulse Rate 72 72 73 Respiratory Rate 16 18 17 Blood Pressure 112/72 Pulse Oximetry 100 100 100 Oxygen Delivery 05/07/24 02:45 05/07/24 02:45 05/07/24 02:46 Temperature 36.6 C Pulse Rate 73 75 74 Respiratory Rate 16 20 18 Blood Pressure 106/76 106/76 Pulse Oximetry 99 Oxygen Delivery 05/07/24 03:00 05/07/24 03:01 05/07/24 03:17 Temperature Pulse Rate 79 79 79 Respiratory Rate 15 16 16 Blood Pressure 109/71 109/71 Pulse Oximetry 100 100 100 Oxygen Delivery 05/07/24 08:00 Temperature 35.9 C L Pulse Rate 83 Respiratory Rate 16 Blood Pressure 108/75 Pulse Oximetry 98 Oxygen Delivery Exam Narrative: APPEARANCE: No apparent distress. Head: atraumatic. EYES: EOMI, NOSE: Atraumatic NECK: Trachea midline RESPIRATORY: No increased rate of breathing CTAB CARDIOVASCULAR: RRR, no peripheral edema ABDOMINAL: Colostomy in place, nonbloody feces MUSCULOSKELETAl: Muscle wasting NEURO: Alert. Lower extremity contractures SKIN:: Stage IV sacral ulcer, left gluteal and right gluteal ulcers. Healing granulation tissue. Wounds do not appear infected. PSYCHIATRIC: Normal affect H&P: Results Labs Labs: Short CBC 05/06/24 05/07/24 Range/Units 20:38 08:03 WBC 6.8 5.3 (4.5-10.0) K/mm3 Hgb 6.9 L* 8.5 L (12.0-15.0) g/dL Hct 23.9 L 29.2 L (37.0-47.0) % Plt Count 363 D 355 (150-375) k/mm3 BMP 05/06/24 05/07/24 20:38 08:03 Sodium 140 139 Potassium 3.9 4.1 Chloride 103 105 Carbon Dioxide 29 29 BUN 17 14 Creatinine 0.49 L 0.44 L Glucose 98 79 Calcium 8.3 L 8.4 Cardiac Enzymes 05/06/24 05/07/24 Range/Units 20:39 01:54 Troponin I < 0.012 < 0.012 (0.000-0.034) ng/mL Liver Function 05/06/24 Range/Units 20:38 Total Bilirubin 0.4 (0.2-1.3) mg/dL AST 24 (14-36) U/L ALT 12 (6-35) U/L Alkaline Phosphatase 131 H (38-126) U/L Albumin 2.7 L (3.5-5.1) g/dL Urine 05/06/24 Range/Units 21:00 Urine Color Yellow (Yellow) Urine Appearance Cloudy H (Clear) Urine pH 8.0 (5.0-9.0) Ur Specific [place] 1.016 (1.001-1.035) Urine Protein 1+ H (Negative) mg/dL Urine Glucose (UA) Negative (Negative) mg/dL Assessment and Plan Assessment and plan (1) Anemia: Code(s): D64.9 - Anemia, unspecified Status: Acute Assessment and Plan: Patient hemoglobin is probably secondary to chronic blood loss from decubitus ulcers. Patient received 1 unit of blood. Patient hemoglobin repeat is 8.5. Monitor closely. (2) Chronic indwelling Milton catheter: Code(s): Z97.8 - Presence of other specified devices Status: Acute Assessment and Plan: Continue with Milton care. (3) UTI (urinary tract infection): Code(s): N39.0 - Urinary tract infection, site not specified Status: Acute Assessment and Plan: Urine culture and IV antibiotics. (4) Decubitus ulcer of sacral area: Qualifiers: Pressure injury stage: unspecified pressure injury stage Qualified Code(s): L89.159 - Pressure ulcer of sacral region, unspecified stage Code(s): L89.159 - Pressure ulcer of sacral region, unspecified stage Status: Acute Assessment and Plan: Continue decubitus care. (5) Chronic inflammatory demyelinating polyneuropathy: Code(s): G61.81 - Chronic inflammatory demyelinating polyneuritis Status: Chronic Assessment and Plan: Stable, Continue home medication. Plan Patient is admitted for observation. Patient is full code. Hemoglobin will be monitor closely. Continue with home medication. Urine culture sent. Quality VTE Prophylaxis VTE prophylaxis: mechanical ordered
[2024-05-07] MEDS: FERROUS SULFATE 325 MG TABLET DR BY MOUTH (13:34)
[2024-05-07] MEDS: ACETAMINOPHEN 325 MG TABLET 650 MG PO ×2 (13:34→17:13)
[2024-05-07] MEDS: CHOLECALCIFEROL 5,000 UNITS TABLET 5000 UNITS BY MOUTH (13:34)
[2024-05-07] MEDS: ASCORBIC ACID 500 MG TABLET PO (17:13)
[2024-05-07] MEDS: SOD HYPOCHLORITE 1/4 STRENGTH 473 ML 1 APPLIC TOPICAL (19:24)
[2024-05-08 00:14] VITALS: BMI 18.1
[2024-05-08] MEDS: CEFEPIME 2 GM/NS 50 ML 2 GM/50 ML BAG IVPB ×3 (02:22→17:29)
[2024-05-08] MEDS: LACTATED RINGERS 1,000 ML 80 ML IV CONT ×3 (03:11→20:55)
[2024-05-08] MEDS: ACETAMINOPHEN 500 MG TABLET 1000 MG PO (03:14)
[2024-05-08 05:58] VITALS: BP 113/75; PULSE 95; RESP 20; TEMP 36.4; O2SAT 98
[2024-05-08] MEDS: SOD HYPOCHLORITE 1/4 STRENGTH 473 ML 1 APPLIC TOPICAL (05:59)
[2024-05-08 06:51] LABS: Hematocrit 25.7 % (37.0-47.0); Hemoglobin 7.4 g/dL (12.0-15.0); Mean Corpuscular HGB Conc 28.8 g/dl (32-36); Mean Corpuscular Hemoglobin 24.4 pg (26-34); Mean Corpuscular Volume 84.8 fl (80-100); Mean Platelet Volume 8.9 fl (7.4-10.4); Platelet Count Result 327 k/mm3 (150-375); Red Blood Count 3.03 M/mm3 (4.2-5.4); Red Cell Distribution Width 18.9 % (11.5-14.5); White Blood Count 5.4 K/mm3 (4.5-10.0)
[2024-05-08 07:00] LABS: Alanine Aminotransferase 10 U/L (6-35); Albumin Level 2.4 g/dL (3.5-5.1); Alkaline Phosphatase 105 U/L (38-126); Anion Gap 6 mmol/L (4-12); Aspartate Amino Transferase 21 U/L (14-36); Bilirubin,Total 0.4 mg/dL (0.2-1.3); Blood Urea Nitrogen 14 mg/dL (7-17); Calcium 7.9 mg/dL (8.4-10.2); Carbon Dioxide 26 mmol/L (22-30); Chloride 106 mmol/L (98-107); Estimated CRCL calculation 118 ml/min; Estimated Glomerular Filt Rate > 60; Glucose 114 mg/dL (65-110); Potassium 3.5 mmol/L (3.4-5.0); Sodium 138 mmol/L (137-145)
--- NOTE | 2024-05-08 08:05 | P.PNIM_ITS ---
Progress Note: A&P Assessment and Plan (1) Severe protein-calorie malnutrition: Code(s): E43 - Unspecified severe protein-calorie malnutrition Status: Acute (2) Decubitus ulcer of ankle, stage 3: Qualifiers: Laterality: unspecified laterality Qualified Code(s): L89.503 - Pressure ulcer of unspecified ankle, stage 3 Code(s): L89.503 - Pressure ulcer of unspecified ankle, stage 3 Status: Acute (3) Anemia: Code(s): D64.9 - Anemia, unspecified Status: Acute (4) UTI (urinary tract infection): Code(s): N39.0 - Urinary tract infection, site not specified Status: Acute (5) Sacral decubitus ulcer, stage IV: Code(s): L89.154 - Pressure ulcer of sacral region, stage 4 Status: Acute Plan This is a 59-year-old female with a history of chronic inflammatory demyelinating polyneuropathy. She is a resident of [facility]. She was feeling weak. She had a blood test that showed her hemoglobin was low. She was sent to ER for evaluation.Her hemoglobin in the [facility] was 6.9. Patient was given 1 unit of blood. Anemia: Code(s): D64.9 - Anemia, unspecified Status: Acute Assessment and Plan: Patient hemoglobin is probably secondary to chronic blood loss from decubitus ulcers. Patient received 1 unit of blood. Patient hemoglobin repeat is 8.5. Yesterday, hemoglobin dropped to 7.4 today Monitor closely. Patient has history of iron deficiency Follow-up ferritin, iron panel, stool guaiac (2) Chronic indwelling Milton catheter: Code(s): Z97.8 - Presence of other specified devices Status: Acute Assessment and Plan: Continue with Milton care. (3) UTI (urinary tract infection): Code(s): N39.0 - Urinary tract infection, site not specified Status: Acute Assessment and Plan: Urine culture Proteus mirabilis, pending susceptibility Continue IV antibiotics. (4) Decubitus ulcer of sacral area: Qualifiers: Pressure injury stage: unspecified pressure injury stage Qualified Code(s): L89.159 - Pressure ulcer of sacral region, unspecified stage Code(s): L89.159 - Pressure ulcer of sacral region, unspecified stage Status: Acute Assessment and Plan: Continue decubitus care. (5) Chronic inflammatory demyelinating polyneuropathy: Code(s): G61.81 - Chronic inflammatory demyelinating polyneuritis Status: Chronic Assessment and Plan: Stable, Continue home medication. Patient is full code. Hemoglobin will be monitor closely. Continue with home medication. Urine culture sent. Patient may stay more than 2 midnights in hospital based on patient conditions Subjective Date/time seen: 05/08/24 08:05 Interval history: Patient is afebrile, blood pressure stable, hemoglobin dropped to 7.4 today. Patient denies abdomen pain nausea vomiting diarrhea a bloody stool. Patient afebrile, blood pressure stable. Patient also denies chest pain. Patient still has weakness Exam Narrative: GENERAL: Ill-appearing in no acute distress. Well-nourished. - EYES: EOMI. Anicteric. - HENT: Moist mucous membranes. - LUNGS: Clear to auscultation bilateral ly, no wheezing, rhonchi, or rales. - CARDIOVASCULAR: Regular rate and rhyth m. No murmur. No JVD. - ABDOMEN: Soft, non-tender and non-dist ended. No palpable masses. - EXTREMITIES: No edema. Peripheral puls es 2+. Non-tender. - NEUROLOGIC: No focal neurological defi cits. General weakness - PSYCHIATRIC: Awake, Alert and oriented x 3. Appropriate mood and affect. - SKIN: No rashes or lesions. Warm. - LYMPH: No cervical lymphadenopathy. Objective Data Vital Signs Vital Signs: Vital Signs - 24 hr 05/07/24 16:00 05/07/24 21:08 05/08/24 05:58 Temperature 96.9 F L 98.4 F 97.6 F Pulse Rate 89 79 95 Respiratory Rate 16 18 20 Blood Pressure 109/71 108/76 113/75 Pulse Oximetry 97 100 98 Intake/Output Intake/Output: Intake & Output 05/05/24 05/06/24 05/07/24 05/08/24 23:59 23:59 23:59 23:59 Intake Total 2470 1530.7 Output Total 1605 900 Balance 865 630.7 Meds/Results Medications: Active Medications Generic Name Dose Route Start Last Admin Trade Name Freq PRN Reason Stop Dose Admin Acetaminophen 650 mg 05/07/24 13:00 05/07/24 17:13 Acetaminophen 325 Mg Tablet PO 650 mg TID MESERET Administration Acetaminophen 1,000 mg 05/07/24 10:45 05/08/24 03:14 Acetaminophen 500 Mg Tablet PO 1,000 mg Q6H PRN Administration Mild Pain (1-3) Or Fever Ascorbic Acid 500 mg 05/07/24 17:00 05/07/24 17:13 Ascorbic Acid 500 Mg Tablet PO 500 mg BID MESERET Administration Duloxetine HCl 30 mg 05/08/24 09:00 Duloxetine Hcl 30 Mg Capsule.Dr PO DAILY MESERET Ferrous Sulfate 325 mg 05/07/24 12:00 05/07/24 13:34 Ferrous Sulfate [address] BY MOUTH 325 mg DAILY MESERET Administration Lactated Ringer's 1,000 mls @ 80 mls/hr 05/07/24 01:05 05/08/24 06:04 Lr - Lactated Ringers Iv IV CONT 80 mls/hr .[id number] MESERET Administration Cefepime HCl 2 gm in 50 mls @ 100 mls/hr 05/07/24 09:00 05/08/24 02:22 Maxipime 2 Gm/Ns 50 Ml IVPB 100 mls/hr Q8H MESERET Administration Multivitamins Therapeutic 1 tablet 05/08/24 09:00 Multivitamins Therapeutic Tab (*Bkc) PO DAILY MESERET Sodium Hypochlorite 1 applic 05/07/24 12:01 05/08/24 05:59 Sod Hypochlorite 1/4 Strength 473 Ml TOPICAL 1 applic Q12HR MESERET Administration Vitamin D 5,000 units 05/07/24 12:00 05/07/24 13:34 Cholecalciferol 5,000 Units Tablet BY MOUTH 5,000 units DAILY MESERET Administration Radiology Results: ITS Impressions Chest X-Ray 05/06/24 19:58 IMPRESSION: No focal infiltrate or effusion. Chest/Abdomen/Pelvis CT 05/06/24 22:29 IMPRESSION: Significant fecal stasis within the colon, and distending the edematous thickened rectum with infiltration of the presacral fat. Sacral decubitus ulcer, along the midline and to the right of midline without a small fluid collection and with significant inflammatory change. Bladder wall thickening with surrounding inflammatory change and inadequate placement of the balloon, within the proximal urethra. Cholelithiasis. Hepatomegaly Labs Labs: Laboratory Results - last 24 hr 05/07/24 05/08/24 08:03 06:16 WBC 5.3 5.4 RBC 3.43 L 3.03 L Hgb 8.5 L 7.4 L Hct 29.2 L 25.7 L MCV 85.1 84.8 MCH 24.8 L D 24.4 L MCHC 29.1 L 28.8 L RDW 18.5 H 18.9 H Plt Count 355 327 MPV 8.8 8.9 Immature Gran % (Auto) 0.8 H Neut % (Auto) 58.9 Lymph % (Auto) 23.6 [place] % (Auto) 11.2 H Eos % (Auto) 4.0 Baso % (Auto) 1.5 H Lymph # (Auto) 1.24 [place] # (Auto) 0.6 Eos # (Auto) 0.2 Baso # (Auto) 0.1 Abs Immat Gran (auto) 0.04 H Absolute Neuts (auto) 3.1 Absolute Nucleated RBC 0.000 Nucleated RBC % 0.0 Platelet Estimate Adequate Hypochromasia 1+ Anisocytosis 1+ Ovalocytes 1+ Schistocytes None seen Sodium 139 138 Potassium 4.1 3.5 Chloride 105 106 Carbon Dioxide 29 26 Anion Gap 5 6 BUN 14 14 Creatinine 0.44 L 0.32 L Estim Creat Clear Calc 88 118 Estimated GFR > 60 > 60 Glucose 79 114 H Calcium 8.4 7.9 L Magnesium 1.7 Total Bilirubin 0.4 AST 21 ALT 10 Alkaline Phosphatase 105 Total Protein 6.0 L Albumin 2.4 L
[2024-05-08 08:23] LABS: Immature Reticulocyte Fraction 15.1 % (3.0-15.9); Reticulocyte Hemoglobin Conten 24.5 pg (28.2-36.6); Reticulocyte Percent 1.43 % (0.7-4.3); Reticulocytes Absolute 0.04 10^6/uL (0.02-0.10)
[2024-05-08 09:39] LABS: Iron 20 ug/dL (37-170)
[2024-05-08 09:49] LABS: Percent Iron Saturation 13 % (20-50)
[2024-05-08] MEDS: MULTIVITAMINS THERAPEUTIC TAB (*BKC) 1 TABLET PO (10:40)
[2024-05-08] MEDS: FERROUS SULFATE 325 MG TABLET DR BY MOUTH (10:40)
[2024-05-08] MEDS: DULoxetine HCL 30 MG CAPSULE.DR PO (10:40)
[2024-05-08] MEDS: ACETAMINOPHEN 325 MG TABLET 650 MG PO ×3 (10:40→17:28)
[2024-05-08] MEDS: CHOLECALCIFEROL 5,000 UNITS TABLET 5000 UNITS BY MOUTH (10:40)
[2024-05-08] MEDS: ASCORBIC ACID 500 MG TABLET PO ×2 (10:40→17:28)
--- NOTE | 2024-05-08 19:01 | PC.NURSE ---
On 05/08/24, the NATURAL GAS TECHNICIAN, Veronica, provided care and completed [facility] on this patient. I have reviewed the NATURAL GAS TECHNICIAN's documentation and agree with the findings.
[2024-05-08 20:47] LABS: IFOB Positive Control Positive; Immunochemical Fecal Occult Bl Negative (N)
[2024-05-08 21:26] VITALS: BP 100/55; PULSE 78; RESP 13; TEMP 36.6; O2SAT 100
[2024-05-09] MEDS: SOD HYPOCHLORITE 1/4 STRENGTH 473 ML 1 APPLIC TOPICAL ×2 (00:15→09:34)
[2024-05-09] MEDS: CEFEPIME 2 GM/NS 50 ML 2 GM/50 ML BAG IVPB ×3 (01:18→18:11)
[2024-05-09 06:00] VITALS: BP 102/62; PULSE 78; RESP 14; TEMP 36.4; O2SAT 100
[2024-05-09] MEDS: DULoxetine HCL 30 MG CAPSULE.DR PO (09:34)
[2024-05-09] MEDS: CHOLECALCIFEROL 5,000 UNITS TABLET 5000 UNITS BY MOUTH (09:34)
[2024-05-09] MEDS: FERROUS SULFATE 325 MG TABLET DR BY MOUTH (09:34)
[2024-05-09] MEDS: ACETAMINOPHEN 325 MG TABLET 650 MG PO ×3 (09:34→18:12)
[2024-05-09] MEDS: MULTIVITAMINS THERAPEUTIC TAB (*BKC) 1 TABLET PO (09:34)
[2024-05-09] MEDS: ASCORBIC ACID 500 MG TABLET PO ×2 (09:34→18:12)
[2024-05-09] MEDS: LACTATED RINGERS 1,000 ML 80 ML IV CONT ×2 (09:35→12:00)
--- NOTE | 2024-05-09 11:08 | P.PNIM_ITS ---
Progress Note: A&P Assessment and Plan (1) Severe protein-calorie malnutrition: Code(s): E43 - Unspecified severe protein-calorie malnutrition Status: Acute (2) Decubitus ulcer of ankle, stage 3: Qualifiers: Laterality: unspecified laterality Qualified Code(s): L89.503 - Pressure ulcer of unspecified ankle, stage 3 Code(s): L89.503 - Pressure ulcer of unspecified ankle, stage 3 Status: Acute (3) Anemia: Code(s): D64.9 - Anemia, unspecified Status: Acute (4) UTI (urinary tract infection): Code(s): N39.0 - Urinary tract infection, site not specified Status: Acute (5) Sacral decubitus ulcer, stage IV: Code(s): L89.154 - Pressure ulcer of sacral region, stage 4 Status: Acute Plan This is a 59-year-old female with a history of chronic inflammatory demyelinating polyneuropathy. She is a resident of [facility]. She was feeling weak. She had a blood test that showed her hemoglobin was low. She was sent to ER for evaluation.Her hemoglobin in the [facility] was 6.9. Patient was given 1 unit of blood. Anemia: Code(s): D64.9 - Anemia, unspecified Status: Acute Assessment and Plan: Patient hemoglobin is probably secondary to chronic blood loss from decubitus ulcers. Patient received 1 unit of blood. Patient hemoglobin repeat is 8.5. Yesterday, hemoglobin dropped to 7.4 today Monitor closely. Patient has history of iron deficiency Follow-up ferritin, iron panel iron level 20, TIBC 160, saturation 13 suggest iron deficiency stool guaiac: Negative s/w Venofer 200 mg IV daily (2) Chronic indwelling Milton catheter: Code(s): Z97.8 - Presence of other specified devices Status: Acute Assessment and Plan: Continue with Milton care. (3) UTI (urinary tract infection): Code(s): N39.0 - Urinary tract infection, site not specified Status: Acute Assessment and Plan: Urine culture Proteus mirabilis, pending susceptibility Continue IV antibiotics. (4) Decubitus ulcer of sacral area: Qualifiers: Pressure injury stage: unspecified pressure injury stage Qualified Code(s): L89.159 - Pressure ulcer of sacral region, unspecified stage Code(s): L89.159 - Pressure ulcer of sacral region, unspecified stage Status: Acute Assessment and Plan: Continue decubitus care. (5) Chronic inflammatory demyelinating polyneuropathy: Code(s): G61.81 - Chronic inflammatory demyelinating polyneuritis Status: Chronic Assessment and Plan: Stable, Continue home medication. Patient is full code. Hemoglobin will be monitor closely. Continue with home medication. Urine culture sent. Patient may stay more than 2 midnights in hospital based on patient conditions Subjective Date/time seen: 05/09/24 11:08 Interval history: Patient is afebrile, blood pressure stable, hemoglobin dropped to 7.4 today. Patient denies abdomen pain nausea vomiting diarrhea a bloody stool. Patient afebrile, blood pressure stable. Patient also denies chest pain. Patient still has weakness Exam Narrative: GENERAL: Ill-appearing in no acute distress. Well-nourished. - EYES: EOMI. Anicteric. - HENT: Moist mucous membranes. - LUNGS: Clear to auscultation bilateral ly, no wheezing, rhonchi, or rales. - CARDIOVASCULAR: Regular rate and rhyth m. No murmur. No JVD. - ABDOMEN: Soft, non-tender and non-dist ended. No palpable masses. - EXTREMITIES: No edema. Peripheral puls es 2+. Non-tender. - NEUROLOGIC: No focal neurological defi cits. General weakness - PSYCHIATRIC: Awake, Alert and oriented x 3. Appropriate mood and affect. - SKIN: No rashes or lesions. Warm. - LYMPH: No cervical lymphadenopathy. Objective Data Vital Signs Vital Signs: Vital Signs - 24 hr 05/08/24 20:00 05/08/24 21:26 05/09/24 06:00 Temperature 97.9 F 97.6 F Pulse Rate 78 78 Respiratory Rate 13 14 Blood Pressure 100/55 L 102/62 Pulse Oximetry 100 100 Oxygen Delivery Room Air Intake/Output Intake/Output: Intake & Output 05/06/24 05/07/24 05/08/24 05/09/24 23:59 23:59 23:59 23:59 Intake Total 2470 3510.7 1570 Output Total 1605 1750 450 Balance 865 1760.7 1120 Meds/Results Medications: Active Medications Generic Name Dose Route Start Last Admin Trade Name Freq PRN Reason Stop Dose Admin Acetaminophen 650 mg 05/07/24 13:00 05/09/24 09:34 Acetaminophen 325 Mg Tablet PO 650 mg TID MESERET Administration Acetaminophen 1,000 mg 05/07/24 10:45 05/08/24 03:14 Acetaminophen 500 Mg Tablet PO 1,000 mg Q6H PRN Administration Mild Pain (1-3) Or Fever Ascorbic Acid 500 mg 05/07/24 17:00 05/09/24 09:34 Ascorbic Acid 500 Mg Tablet PO 500 mg BID MESERET Administration Duloxetine HCl 30 mg 05/08/24 09:00 05/09/24 09:34 Duloxetine Hcl 30 Mg Capsule.Dr PO 30 mg DAILY MESERET Administration Ferrous Sulfate 325 mg 05/07/24 12:00 05/09/24 09:34 Ferrous Sulfate [address] BY MOUTH 325 mg DAILY MESERET Administration Lactated Ringer's 1,000 mls @ 80 mls/hr 05/07/24 01:05 05/09/24 09:35 Lr - Lactated Ringers Iv IV CONT 80 mls/hr .[id number] MESERET Administration Cefepime HCl 2 gm in 50 mls @ 100 mls/hr 05/07/24 09:00 05/09/24 09:34 Maxipime 2 Gm/Ns 50 Ml IVPB 100 mls/hr Q8H MESERET Administration Multivitamins Therapeutic 1 tablet 05/08/24 09:00 05/09/24 09:34 Multivitamins Therapeutic Tab (*Bkc) PO 1 tablet DAILY MESERET Administration Sodium Hypochlorite 1 applic 05/07/24 12:01 05/09/24 09:34 Sod Hypochlorite 1/4 Strength 473 Ml TOPICAL 1 applic Q12HR MESERET Administration Vitamin D 5,000 units 05/07/24 12:00 05/09/24 09:34 Cholecalciferol 5,000 Units Tablet BY MOUTH 5,000 units DAILY MESERET Administration Radiology Results: ITS Impressions Chest X-Ray 05/06/24 19:58 IMPRESSION: No focal infiltrate or effusion. Chest/Abdomen/Pelvis CT 05/06/24 22:29 IMPRESSION: Significant fecal stasis within the colon, and distending the edematous thickened rectum with infiltration of the presacral fat. Sacral decubitus ulcer, along the midline and to the right of midline without a small fluid collection and with significant inflammatory change. Bladder wall thickening with surrounding inflammatory change and inadequate placement of the balloon, within the proximal urethra. Cholelithiasis. Hepatomegaly Labs Labs: Laboratory Results - last 24 hr 05/08/24 20:21 Stl Occult Blood (IFOB) Negative
[2024-05-09 11:42] LABS: Basophils Absolute Auto 0.1 K/mm3 (0.0-0.1); Basophils Percent Auto 0.9 % (0.2-1.2); Eosinophils Absolute Auto 0.2 K/mm3 (0-0.3); Eosinophils Percent Auto 4.3 % (0-4.4); Hematocrit 26.7 % (37.0-47.0); Hemoglobin 7.9 g/dL (12.0-15.0); Immature Granulocyte Absolute 0.06 K/mm3 (0.00-0.031); Immature Granulocyte Percent A 1.1 % (0-0.5); Lymphocytes Absolute Auto 0.81 K/mm3 (0.9-3.2); Lymphocytes Percent Auto 14.4 % (18.3-44.2); Mean Corpuscular HGB Conc 29.6 g/dl (32-36); Mean Corpuscular Hemoglobin 24.9 pg (26-34); Mean Corpuscular Volume 84.2 fl (80-100); Mean Platelet Volume 8.6 fl (7.4-10.4); Monocytes Absolute Auto 0.5 K/mm3 (0.1-0.6); Neutrophils Percent Auto 70.3 % (45.5-73.1); Platelet Count Result 252 k/mm3 (150-375); Red Blood Count 3.17 M/mm3 (4.2-5.4); Red Cell Distribution Width 19.2 % (11.5-14.5); White Blood Count 5.6 K/mm3 (4.5-10.0)
[2024-05-09 11:54] LABS: Anion Gap 7 mmol/L (4-12); Blood Urea Nitrogen 12 mg/dL (7-17); Carbon Dioxide 26 mmol/L (22-30); Chloride 105 mmol/L (98-107); Estimated CRCL calculation 102 ml/min; Estimated Glomerular Filt Rate > 60; Glucose 87 mg/dL (65-110); Potassium 4.1 mmol/L (3.4-5.0); Sodium 138 mmol/L (137-145)
[2024-05-09 12:16] LABS: Anisocytosis 1+; Hypochromasia 1+; Ovalocytes 1+; Platelet Estimate Adequate (Adequate); Schistocytes None Seen
[2024-05-09] MEDS: IRON SUCROSE COMPLEX 200 MG in SODIUM CHLORIDE 0.9% IV 100 ML 220 MG IVPB (13:02)
[2024-05-09 14:00] VITALS: BP 109/59; PULSE 80; RESP 16; TEMP 36.9; O2SAT 99
--- NOTE | 2024-05-09 14:01 | PC.NURSE ---
Patient resting in bed for morning assessment. Patient cooperative and able to express her needs. She is able to swallow pills two at a time with water with assistance.
[2024-05-09 22:00] VITALS: BP 107/60; PULSE 91; RESP 16; TEMP 36.9; O2SAT 100
[2024-05-10] MEDS: CEFEPIME 2 GM/NS 50 ML 2 GM/50 ML BAG IVPB ×2 (00:08→09:40)
[2024-05-10] MEDS: LACTATED RINGERS 1,000 ML 80 ML IV CONT ×2 (04:51→23:34)
[2024-05-10 06:00] VITALS: RESP 18
--- NOTE | 2024-05-10 09:04 | P.PNIM_ITS ---
Progress Note: A&P Assessment and Plan (1) Severe protein-calorie malnutrition: Code(s): E43 - Unspecified severe protein-calorie malnutrition Status: Acute (2) Decubitus ulcer of ankle, stage 3: Qualifiers: Laterality: unspecified laterality Qualified Code(s): L89.503 - Pressure ulcer of unspecified ankle, stage 3 Code(s): L89.503 - Pressure ulcer of unspecified ankle, stage 3 Status: Acute (3) Anemia: Code(s): D64.9 - Anemia, unspecified Status: Acute (4) UTI (urinary tract infection): Code(s): N39.0 - Urinary tract infection, site not specified Status: Acute (5) Sacral decubitus ulcer, stage IV: Code(s): L89.154 - Pressure ulcer of sacral region, stage 4 Status: Acute Plan This is a 59-year-old female with a history of chronic inflammatory demyelinating polyneuropathy. She is a resident [facility]. She was feeling weak. She had a blood test that showed her hemoglobin was low. She was sent to ER for evaluation.Her hemoglobin in the [facility] was 6.9. Patient was given 1 unit of blood. Anemia: Code(s): D64.9 - Anemia, unspecified Status: Acute Assessment and Plan: Patient hemoglobin is probably secondary to chronic blood loss from decubitus ulcers. Patient received 1 unit of blood. Patient hemoglobin repeat is 8.5. Yesterday, hemoglobin dropped to 7.4 today Monitor closely. Patient has history of iron deficiency Follow-up ferritin, iron panel iron level 20, TIBC 160, saturation 13 suggest iron deficiency stool guaiac: Negative s/w Venofer 200 mg IV daily (2) Chronic indwelling Milton catheter: Code(s): Z97.8 - Presence of other specified devices Status: Acute Assessment and Plan: Continue with Milton care. (3) UTI (urinary tract infection): Code(s): N39.0 - Urinary tract infection, site not specified Status: Acute Assessment and Plan: Urine culture / Mixed genital jenny isolated. These superficial bacteria are not indicative of a urinary tract infection. No further organism identification is warranted on this specimen Patient has been treated with cefepime 2 g IV q.day hours since 05/07 change to levaquin 500mg daily po (4) Decubitus ulcer of sacral area: Qualifiers: Pressure injury stage: unspecified pressure injury stage Qualified Code(s): L89.159 - Pressure ulcer of sacral region, unspecified stage Code(s): L89.159 - Pressure ulcer of sacral region, unspecified stage Status: Acute Assessment and Plan: Continue decubitus care. (5) Chronic inflammatory demyelinating polyneuropathy: Code(s): G61.81 - Chronic inflammatory demyelinating polyneuritis Status: Chronic Assessment and Plan: Stable, Continue home medication. Waiting for placement to [facility] Subjective Date/time seen: 05/10/24 09:04 Interval history: Patient is afebrile, blood pressure stable, hemoglobin dropped to 7.4 today. Patient denies abdomen pain nausea vomiting diarrhea a bloody stool. Patient afebrile, blood pressure stable. Patient also denies chest pain. Patient still has weakness Exam Narrative: GENERAL: Ill-appearing in no acute distress. Well-nourished. - EYES: EOMI. Anicteric. - HENT: Moist mucous membranes. - LUNGS: Clear to auscultation bilateral ly, no wheezing, rhonchi, or rales. - CARDIOVASCULAR: Regular rate and rhyth m. No murmur. No JVD. - ABDOMEN: Soft, non-tender and non-dist ended. No palpable masses. - EXTREMITIES: No edema. Peripheral puls es 2+. Non-tender. - NEUROLOGIC: No focal neurological defi cits. General weakness - PSYCHIATRIC: Awake, Alert and oriented x 3. Appropriate mood and affect. - SKIN: No rashes or lesions. Warm. - LYMPH: No cervical lymphadenopathy. Objective Data Vital Signs Vital Signs: Vital Signs - 24 hr 05/09/24 14:00 05/09/24 20:00 05/09/24 22:00 Temperature 98.4 F 98.5 F Pulse Rate 80 91 Respiratory Rate 16 16 Blood Pressure 109/59 L 107/60 Pulse Oximetry 99 100 Oxygen Delivery Room Air 05/10/24 06:00 Temperature Pulse Rate Respiratory Rate 18 Blood Pressure Pulse Oximetry Oxygen Delivery Intake/Output Intake/Output: Intake & Output 05/07/24 05/08/24 05/09/24 05/10/24 23:59 23:59 23:59 23:59 Intake Total 2470 3510.7 2373.3 1350 Output Total 1605 1750 1625 900 Balance 865 1760.7 748.3 450 Meds/Results Medications: Active Medications Generic Name Dose Route Start Last Admin Trade Name Freq PRN Reason Stop Dose Admin Acetaminophen 650 mg 05/07/24 13:00 05/09/24 18:12 Acetaminophen 325 Mg Tablet PO 650 mg TID MESERET Administration Acetaminophen 1,000 mg 05/07/24 10:45 05/08/24 03:14 Acetaminophen 500 Mg Tablet PO 1,000 mg Q6H PRN Administration Mild Pain (1-3) Or Fever Ascorbic Acid 500 mg 05/07/24 17:00 05/09/24 18:12 Ascorbic Acid 500 Mg Tablet PO 500 mg BID MESERET Administration Duloxetine HCl 30 mg 05/08/24 09:00 05/09/24 09:34 Duloxetine Hcl 30 Mg Capsule.Dr PO 30 mg DAILY MESERET Administration Ferrous Sulfate 325 mg 05/07/24 12:00 05/09/24 09:34 Ferrous Sulfate [address] BY MOUTH 325 mg DAILY MESERET Administration Lactated Ringer's 1,000 mls @ 80 mls/hr 05/07/24 01:05 05/10/24 04:51 Lr - Lactated Ringers Iv IV CONT 80 mls/hr .[id number] MESERET Administration Cefepime HCl 2 gm in 50 mls @ 100 mls/hr 05/07/24 09:00 05/10/24 00:38 Maxipime 2 Gm/Ns 50 Ml IVPB Infused Q8H MESERET Infusion Iron Sucrose 200 mg/ Sodium 110 mls @ 220 mls/hr 05/09/24 14:00 05/09/24 13:32 Chloride IVPB 05/13/24 09:29 Infused DAILY MESERET Infusion Multivitamins Therapeutic 1 tablet 05/08/24 09:00 05/09/24 09:34 Multivitamins Therapeutic Tab (*Bkc) PO 1 tablet DAILY MESERET Administration Sodium Hypochlorite 1 applic 05/07/24 12:01 05/09/24 09:34 Sod Hypochlorite 1/4 Strength 473 Ml TOPICAL 1 applic Q12HR MESERET Administration Vitamin D 5,000 units 05/07/24 12:00 05/09/24 09:34 Cholecalciferol 5,000 Units Tablet BY MOUTH 5,000 units DAILY MESERET Administration Radiology Results: ITS Impressions Chest X-Ray 05/06/24 19:58 IMPRESSION: No focal infiltrate or effusion. Chest/Abdomen/Pelvis CT 05/06/24 22:29 IMPRESSION: Significant fecal stasis within the colon, and distending the edematous thickened rectum with infiltration of the presacral fat. Sacral decubitus ulcer, along the midline and to the right of midline without a small fluid collection and with significant inflammatory change. Bladder wall thickening with surrounding inflammatory change and inadequate placement of the balloon, within the proximal urethra. Cholelithiasis. Hepatomegaly Labs Labs: Laboratory Results - last 24 hr 05/09/24 11:33 WBC 5.6 RBC 3.17 L Hgb 7.9 L Hct 26.7 L MCV 84.2 MCH 24.9 L MCHC 29.6 L RDW 19.2 H Plt Count 252 MPV 8.6 Immature Gran % (Auto) 1.1 H Neut % (Auto) 70.3 Lymph % (Auto) 14.4 L [place] % (Auto) 9.0 H Eos % (Auto) 4.3 Baso % (Auto) 0.9 Lymph # (Auto) 0.81 L [place] # (Auto) 0.5 Eos # (Auto) 0.2 Baso # (Auto) 0.1 Abs Immat Gran (auto) 0.06 H Absolute Neuts (auto) 4.0 Absolute Nucleated RBC 0.000 Nucleated RBC % 0.0 Platelet Estimate Adequate Hypochromasia 1+ Anisocytosis 1+ Ovalocytes 1+ Schistocytes None seen Sodium 138 Potassium 4.1 Chloride 105 Carbon Dioxide 26 Anion Gap 7 BUN 12 Creatinine 0.38 L Estim Creat Clear Calc 102 Estimated GFR > 60 Glucose 87 Calcium 8.0 L
[2024-05-10] MEDS: DULoxetine HCL 30 MG CAPSULE.DR PO (09:39)
[2024-05-10] MEDS: CHOLECALCIFEROL 5,000 UNITS TABLET 5000 UNITS BY MOUTH (09:39)
[2024-05-10] MEDS: ASCORBIC ACID 500 MG TABLET PO ×2 (09:39→18:06)
[2024-05-10] MEDS: FERROUS SULFATE 325 MG TABLET DR BY MOUTH (09:39)
[2024-05-10] MEDS: MULTIVITAMINS THERAPEUTIC TAB (*BKC) 1 TABLET PO (09:39)
[2024-05-10] MEDS: ACETAMINOPHEN 325 MG TABLET 650 MG PO ×3 (09:39→18:06)
[2024-05-10] MEDS: IRON SUCROSE COMPLEX 200 MG in SODIUM CHLORIDE 0.9% IV 100 ML 220 MG IVPB (09:42)
[2024-05-10 10:09] LABS: Basophils Percent Auto 0.6 % (0.2-1.2); Eosinophils Absolute Auto 0.2 K/mm3 (0-0.3); Eosinophils Percent Auto 3.1 % (0-4.4); Hematocrit 29.1 % (37.0-47.0); Hemoglobin 8.2 g/dL (12.0-15.0); Immature Granulocyte Absolute 0.11 K/mm3 (0.00-0.031); Lymphocytes Percent Auto 14.8 % (18.3-44.2); Mean Corpuscular HGB Conc 28.2 g/dl (32-36); Mean Corpuscular Hemoglobin 24.4 pg (26-34); Mean Corpuscular Volume 86.6 fl (80-100); Mean Platelet Volume 8.8 fl (7.4-10.4); Monocytes Absolute Auto 0.5 K/mm3 (0.1-0.6); Monocytes Percent Auto 9.3 % (2.6-8.5); Neutrophils Absolute Auto 3.8 K/mm3 (1.3-6.7); Neutrophils Percent Auto 70.2 % (45.5-73.1); Platelet Count Result 253 k/mm3 (150-375); Red Blood Count 3.36 M/mm3 (4.2-5.4); Red Cell Distribution Width 19.9 % (11.5-14.5); White Blood Count 5.4 K/mm3 (4.5-10.0)
[2024-05-10 10:18] LABS: Anion Gap 7 mmol/L (4-12); Blood Urea Nitrogen 14 mg/dL (7-17); Calcium 8.1 mg/dL (8.4-10.2); Carbon Dioxide 26 mmol/L (22-30); Chloride 106 mmol/L (98-107); Estimated CRCL calculation 118 ml/min; Estimated Glomerular Filt Rate > 60; Glucose 71 mg/dL (65-110); Potassium 3.7 mmol/L (3.4-5.0); Sodium 139 mmol/L (137-145)
[2024-05-10 11:22] LABS: Platelet Estimate Adequate (Adequate)
[2024-05-10 11:23] LABS: Schistocytes None Seen
[2024-05-10 11:24] LABS: Hypochromasia 1+
[2024-05-10 14:00] VITALS: BP 106/69; PULSE 112; RESP 16; TEMP 37.7; O2SAT 95
--- NOTE | 2024-05-10 14:00 | P.CDI_ITS ---
CDI Query Clarification Request Clarification request - UTI has been documented, chronic indwelling [place] catheter documented. Please clarify if UTI is: * due to/associated with chronic indwelling quiro[place] catheter * not due to/associated with chronic indwelling quiro[place] catheter * unable to determine Risk Factors: chronic quiroga Clinical Indicators:(3) UTI (urinary tract infection): Code(s): N39.0 - Urinary tract infection, site not specified Status: Acute Assessment and Plan: Urine culture Proteus mirabilis, pending susceptibility Continue IV antibiotics. Treatment: IV abx <Magda Desir RN - Last Filed: 05/10/24 14:03> Clarified Diagnosis Clarified Diagnosis: UTI, possible related to the indwelling [place] catheter Urine culture grows a mix genital floor <Agusto Best MD - Last Filed: 05/10/24 14:30>
[2024-05-10] MEDS: SOD HYPOCHLORITE 1/4 STRENGTH 473 ML 1 APPLIC TOPICAL (18:07)
[2024-05-10 21:21] VITALS: BP 101/60; PULSE 96; RESP 12; TEMP 36.7; O2SAT 94
[2024-05-11] MEDS: ACETAMINOPHEN 500 MG TABLET 1000 MG PO ×2 (00:40→22:24)
[2024-05-11 06:00] VITALS: BP 109/41; PULSE 87; RESP 12; TEMP 36.4; O2SAT 94
[2024-05-11] MEDS: SOD HYPOCHLORITE 1/4 STRENGTH 473 ML 1 APPLIC TOPICAL ×2 (06:23→17:33)
[2024-05-11 08:00] VITALS: O2SAT 94
[2024-05-11 08:37] LABS: Anion Gap 5 mmol/L (4-12); Blood Urea Nitrogen 9 mg/dL (7-17); Calcium 8.3 mg/dL (8.4-10.2); Carbon Dioxide 27 mmol/L (22-30); Chloride 104 mmol/L (98-107); Estimated CRCL calculation 110 ml/min; Estimated Glomerular Filt Rate > 60; Glucose 71 mg/dL (65-110); Potassium 3.7 mmol/L (3.4-5.0); Sodium 136 mmol/L (137-145)
[2024-05-11 08:51] LABS: Basophils Percent Auto 0.7 % (0.2-1.2); Eosinophils Absolute Auto 0.1 K/mm3 (0-0.3); Eosinophils Percent Auto 2.4 % (0-4.4); Hematocrit 30.8 % (37.0-47.0); Hemoglobin 8.9 g/dL (12.0-15.0); Immature Granulocyte Absolute 0.08 K/mm3 (0.00-0.031); Immature Granulocyte Percent A 1.8 % (0-0.5); Lymphocytes Absolute Auto 0.82 K/mm3 (0.9-3.2); Lymphocytes Percent Auto 18.1 % (18.3-44.2); Mean Corpuscular HGB Conc 28.9 g/dl (32-36); Mean Corpuscular Hemoglobin 24.7 pg (26-34); Mean Corpuscular Volume 85.6 fl (80-100); Mean Platelet Volume 8.7 fl (7.4-10.4); Monocytes Absolute Auto 0.5 K/mm3 (0.1-0.6); Monocytes Percent Auto 9.9 % (2.6-8.5); Neutrophils Absolute Auto 3.1 K/mm3 (1.3-6.7); Neutrophils Percent Auto 67.1 % (45.5-73.1); Platelet Count Result 226 k/mm3 (150-375); Red Cell Distribution Width 20.5 % (11.5-14.5); White Blood Count 4.5 K/mm3 (4.5-10.0)
[2024-05-11] MEDS: ACETAMINOPHEN 325 MG TABLET 650 MG PO ×3 (08:52→17:06)
[2024-05-11] MEDS: ASCORBIC ACID 500 MG TABLET PO ×2 (08:52→17:06)
[2024-05-11] MEDS: IRON SUCROSE COMPLEX 200 MG in SODIUM CHLORIDE 0.9% IV 100 ML 220 MG IVPB (08:52)
[2024-05-11] MEDS: levoFLOXacin 500 MG TABLET PO (08:52)
[2024-05-11] MEDS: DULoxetine HCL 30 MG CAPSULE.DR PO (08:52)
[2024-05-11] MEDS: CHOLECALCIFEROL 5,000 UNITS TABLET 5000 UNITS BY MOUTH (08:52)
[2024-05-11] MEDS: MULTIVITAMINS THERAPEUTIC TAB (*BKC) 1 TABLET PO (08:56)
[2024-05-11 09:35] LABS: Anisocytosis 1+; Hypochromasia 1+; Platelet Estimate Adequate (Adequate)
[2024-05-11 09:38] LABS: Ovalocytes 1+
[2024-05-11] MEDS: FERROUS SULFATE 325 MG TABLET DR BY MOUTH (12:04)
[2024-05-11] MEDS: LACTATED RINGERS 1,000 ML 80 ML IV CONT (12:04)
[2024-05-11 12:17] LABS: Schistocytes None Seen
--- NOTE | 2024-05-11 13:30 | P.PNIM_ITS ---
Progress Note: A&P Assessment and Plan (1) Severe protein-calorie malnutrition: Code(s): E43 - Unspecified severe protein-calorie malnutrition Status: Acute (2) Decubitus ulcer of ankle, stage 3: Qualifiers: Laterality: unspecified laterality Qualified Code(s): L89.503 - Pressure ulcer of unspecified ankle, stage 3 Code(s): L89.503 - Pressure ulcer of unspecified ankle, stage 3 Status: Acute (3) Anemia: Code(s): D64.9 - Anemia, unspecified Status: Acute (4) UTI (urinary tract infection): Code(s): N39.0 - Urinary tract infection, site not specified Status: Acute (5) Sacral decubitus ulcer, stage IV: Code(s): L89.154 - Pressure ulcer of sacral region, stage 4 Status: Acute Plan This is a 59-year-old female with a history of chronic inflammatory demyelinating polyneuropathy. [facility] She was feeling weak. She had a blood test that showed her hemoglobin was low. She was sent to ER for evaluation.Her hemoglobin in the [facility] was 6.9. Patient was given 1 unit of blood. Anemia: Code(s): D64.9 - Anemia, unspecified Status: Acute Assessment and Plan: Patient hemoglobin is probably secondary to chronic blood loss from decubitus ulcers. Patient received 1 unit of blood. Patient hemoglobin repeat is 8.5. Yesterday, hemoglobin dropped to 7.4 today Monitor closely. Patient has history of iron deficiency Follow-up ferritin, iron panel iron level 20, TIBC 160, saturation 13 suggest iron deficiency stool guaiac: Negative s/w Venofer 200 mg IV daily Hemoglobin is trending up, 8.9 today (2) Chronic indwelling Milton catheter: Code(s): Z97.8 - Presence of other specified devices Status: Acute Assessment and Plan: Continue with Milton care. (3) UTI (urinary tract infection): Code(s): N39.0 - Urinary tract infection, site not specified Status: Acute Assessment and Plan: Urine culture 05/06 Mixed genital jenny isolated. These superficial bacteria are not indicative of a urinary tract infection. No further organism identification is warranted on this specimen Patient has been treated with cefepime 2 g IV q.day hours since 05/07 change to levaquin 500mg daily po (4) Decubitus ulcer of sacral area: Qualifiers: Pressure injury stage: unspecified pressure injury stage Qualified Code(s): L89.159 - Pressure ulcer of sacral region, unspecified stage Code(s): L89.159 - Pressure ulcer of sacral region, unspecified stage Status: Acute Assessment and Plan: Continue decubitus care. (5) Chronic inflammatory demyelinating polyneuropathy: Code(s): G61.81 - Chronic inflammatory demyelinating polyneuritis Status: Chronic Assessment and Plan: Stable, Continue home medication. [facility] Patient is ready to be discharged Subjective Date/time seen: 05/11/24 13:30 Interval history: Patient is afebrile, blood pressure stable. Patient has no new issue even overnight. denies, chest pain, abdomen pain nausea vomiting diarrhea a bloody stool. Patient afebrile, blood pressure stable. Patient still has weakness Exam Narrative: GENERAL: Ill-appearing in no acute distress. Well-nourished. - EYES: EOMI. Anicteric. - HENT: Moist mucous membranes. - LUNGS: Clear to auscultation bilateral ly, no wheezing, rhonchi, or rales. - CARDIOVASCULAR: Regular rate and rhyth m. No murmur. No JVD. - ABDOMEN: Soft, non-tender and non-dist ended. No palpable masses. - EXTREMITIES: No edema. Peripheral puls es 2+. Non-tender. - NEUROLOGIC: No focal neurological defi cits. General weakness - PSYCHIATRIC: Awake, Alert and oriented x 3. Appropriate mood and affect. - SKIN: No rashes or lesions. Warm. - LYMPH: No cervical lymphadenopathy. Objective Data Vital Signs Vital Signs: Vital Signs - 24 hr 05/10/24 14:00 05/10/24 20:00 05/10/24 21:21 Temperature 99.8 F H 98.1 F Pulse Rate 112 H 96 Respiratory Rate 16 12 Blood Pressure 106/69 101/60 Pulse Oximetry 95 94 Oxygen Delivery Room Air 05/11/24 06:00 05/11/24 08:00 Temperature 97.5 F L Pulse Rate 87 Respiratory Rate 12 Blood Pressure 109/41 L Pulse Oximetry 94 94 Oxygen Delivery Room Air Intake/Output Intake/Output: Intake & Output 05/08/24 05/09/24 05/10/24 05/11/24 23:59 23:59 23:59 23:59 Intake Total 3510.7 2373.3 3180 1420 Output Total 1750 1625 2200 1000 Balance 1760.7 748.3 980 420 Meds/Results Medications: Active Medications Generic Name Dose Route Start Last Admin Trade Name Freq PRN Reason Stop Dose Admin Acetaminophen 650 mg 05/07/24 13:00 05/11/24 12:04 Acetaminophen 325 Mg Tablet PO 650 mg TID MESERET Administration Acetaminophen 1,000 mg 05/07/24 10:45 05/11/24 00:40 Acetaminophen 500 Mg Tablet PO 1,000 mg Q6H PRN Administration Mild Pain (1-3) Or Fever Ascorbic Acid 500 mg 05/07/24 17:00 05/11/24 08:52 Ascorbic Acid 500 Mg Tablet PO 500 mg BID MESERET Administration Duloxetine HCl 30 mg 05/08/24 09:00 05/11/24 08:52 Duloxetine Hcl 30 Mg Capsule.Dr PO 30 mg DAILY MESERET Administration Ferrous Sulfate 325 mg 05/11/24 12:00 05/11/24 12:04 Ferrous Sulfate [address] BY MOUTH 325 mg DAILY@1200 MESERET Administration Lactated Ringer's 1,000 mls @ 80 mls/hr 05/07/24 01:05 05/11/24 12:04 Lr - Lactated Ringers Iv IV CONT 80 mls/hr .[id number] MSEERET Administration Iron Sucrose 200 mg/ Sodium 110 mls @ 220 mls/hr 05/09/24 14:00 05/11/24 08:52 Chloride IVPB 05/13/24 09:29 220 mls/hr DAILY MESERET Administration Levofloxacin 500 mg 05/11/24 09:00 05/11/24 08:52 Levofloxacin 500 Mg Tablet PO 05/16/24 09:01 500 mg DAILY MESERET Administration Multivitamins Therapeutic 1 tablet 05/08/24 09:00 05/11/24 08:56 Multivitamins Therapeutic Tab (*Bkc) PO 1 tablet DAILY MESERET Administration Sodium Hypochlorite 1 applic 05/07/24 12:01 05/11/24 08:53 Sod Hypochlorite 1/4 Strength 473 Ml TOPICAL Not Given Q12HR [facility] Vitamin D 5,000 units 05/07/24 12:00 05/11/24 08:52 Cholecalciferol 5,000 Units Tablet BY MOUTH 5,000 units DAILY MESERET Administration Radiology Results: ITS Impressions Chest X-Ray 05/06/24 19:58 IMPRESSION: No focal infiltrate or effusion. Chest/Abdomen/Pelvis CT 05/06/24 22:29 IMPRESSION: Significant fecal stasis within the colon, and distending the edematous thickened rectum with infiltration of the presacral fat. Sacral decubitus ulcer, along the midline and to the right of midline without a small fluid collection and with significant inflammatory change. Bladder wall thickening with surrounding inflammatory change and inadequate placement of the balloon, within the proximal urethra. Cholelithiasis. Hepatomegaly Labs Labs: Laboratory Results - last 24 hr 05/11/24 08:05 WBC 4.5 RBC 3.60 L Hgb 8.9 L Hct 30.8 L MCV 85.6 MCH 24.7 L MCHC 28.9 L RDW 20.5 H Plt Count 226 MPV 8.7 Immature Gran % (Auto) 1.8 H Neut % (Auto) 67.1 Lymph % (Auto) 18.1 L [place] % (Auto) 9.9 H Eos % (Auto) 2.4 Baso % (Auto) 0.7 Lymph # (Auto) 0.82 L [place] # (Auto) 0.5 Eos # (Auto) 0.1 Baso # (Auto) 0.0 Abs Immat Gran (auto) 0.08 H Absolute Neuts (auto) 3.1 Absolute Nucleated RBC 0.000 Nucleated RBC % 0.0 Platelet Estimate Adequate Hypochromasia 1+ Anisocytosis 1+ Ovalocytes 1+ Schistocytes None seen Sodium 136 L Potassium 3.7 Chloride 104 Carbon Dioxide 27 Anion Gap 5 BUN 9 D Creatinine 0.35 L Estim Creat Clear Calc 110 Estimated GFR > 60 Glucose 71 Calcium 8.3 L
[2024-05-11 14:00] VITALS: BP 94/56; PULSE 99; RESP 12; TEMP 36.8; O2SAT 98
[2024-05-11 20:00] VITALS: PULSE 99; RESP 12; O2SAT 98
[2024-05-11 21:39] VITALS: BP 110/64; PULSE 95; RESP 18; TEMP 37.5; O2SAT 96
[2024-05-12] MEDS: ACETAMINOPHEN 500 MG TABLET 1000 MG PO ×2 (05:42→22:43)
[2024-05-12] MEDS: LACTATED RINGERS 1,000 ML 80 ML IV CONT (05:43)
[2024-05-12 05:56] VITALS: BP 94/58; PULSE 92; RESP 20; TEMP 36.6; O2SAT 95
--- NOTE | 2024-05-12 09:30 | PCNFU ---
Nutrition Follow-Up Complete: Severe protein calorie malnutrition related to chronic illness as evidenced by weight loss 18%/6 months; intakes <75% needs >1 month; severe muscle wasting and fat loss Goal:Adequate PO intake at least 75% meals and supplements Pt progressing towards goal. Pt current nutrition is Heart healthy, Ensure TID, BRITNI BID. Nutrition recommendation: continue with current plan of care Last recorded weight is 51.1 kg. Bowel Motility: +BM 05/10 Labs Reviewed: Hgb:8.2, HCT:29.1, Cr:0.32 Meds Noted: VIt D, Vit C, MVI Skin: Multiple pressure injuries Additional Notes: Pt continues on a heart healthy diet, intake improved to 50-75% of meals. Supplements in place. Encourage po intake. Monitoring intakes, weights, labs, wound healing, supplement tolerance, plan of care Follow up in 5 days
[2024-05-12] MEDS: ACETAMINOPHEN 325 MG TABLET 650 MG PO ×3 (09:41→17:32)
[2024-05-12] MEDS: MULTIVITAMINS THERAPEUTIC TAB (*BKC) 1 TABLET PO (09:42)
[2024-05-12] MEDS: CHOLECALCIFEROL 5,000 UNITS TABLET 5000 UNITS BY MOUTH (09:42)
[2024-05-12] MEDS: levoFLOXacin 500 MG TABLET PO (09:42)
[2024-05-12] MEDS: ASCORBIC ACID 500 MG TABLET PO ×2 (09:42→17:32)
[2024-05-12] MEDS: DULoxetine HCL 30 MG CAPSULE.DR PO (09:42)
[2024-05-12] MEDS: IRON SUCROSE COMPLEX 200 MG in SODIUM CHLORIDE 0.9% IV 100 ML 220 MG IVPB (09:42)
[2024-05-12] MEDS: SOD HYPOCHLORITE 1/4 STRENGTH 473 ML 1 APPLIC TOPICAL ×2 (09:43→21:17)
--- NOTE | 2024-05-12 11:05 | P.PNIM_ITS ---
Progress Note: A&P Assessment and Plan (1) Severe protein-calorie malnutrition: Code(s): E43 - Unspecified severe protein-calorie malnutrition Status: Acute (2) Decubitus ulcer of ankle, stage 3: Qualifiers: Laterality: unspecified laterality Qualified Code(s): L89.503 - Pressure ulcer of unspecified ankle, stage 3 Code(s): L89.503 - Pressure ulcer of unspecified ankle, stage 3 Status: Acute (3) Anemia: Code(s): D64.9 - Anemia, unspecified Status: Acute (4) UTI (urinary tract infection): Code(s): N39.0 - Urinary tract infection, site not specified Status: Acute (5) Sacral decubitus ulcer, stage IV: Code(s): L89.154 - Pressure ulcer of sacral region, stage 4 Status: Acute Plan This is a 59-year-old female with a history of chronic inflammatory demyelinating polyneuropathy. She is a [facility] care home. She was feeling weak. She had a blood test that showed her hemoglobin was low. She was sent to ER for evaluation.Her hemoglobin in the [facility] was 6.9. Patient was given 1 unit of blood. Anemia: Code(s): D64.9 - Anemia, unspecified Status: Acute Assessment and Plan: Patient hemoglobin is probably secondary to chronic blood loss from decubitus ulcers. Patient received 1 unit of blood. Patient hemoglobin repeat is 8.5. Yesterday, hemoglobin dropped to 7.4 today Monitor closely. Patient has history of iron deficiency Follow-up ferritin, iron panel iron level 20, TIBC 160, saturation 13 suggest iron deficiency stool guaiac: Negative s/w Venofer 200 mg IV daily Hemoglobin is trending up, 8.9 recently (2) Chronic indwelling Milton catheter: Code(s): Z97.8 - Presence of other specified devices Status: Acute Assessment and Plan: Continue with Milton care. (3) UTI (urinary tract infection): Code(s): N39.0 - Urinary tract infection, site not specified Status: Acute Assessment and Plan: Urine culture 05/06 Mixed genital jenny isolated. These superficial bacteria are not indicative of a urinary tract infection. No further organism identification is warranted on this specimen Patient has been treated with cefepime 2 g IV q.day hours since 05/07 change to levaquin 500mg daily po (4) Decubitus ulcer of sacral area: Qualifiers: Pressure injury stage: unspecified pressure injury stage Qualified Code(s): L89.159 - Pressure ulcer of sacral region, unspecified stage Code(s): L89.159 - Pressure ulcer of sacral region, unspecified stage Status: Acute Assessment and Plan: Continue decubitus care. (5) Chronic inflammatory demyelinating polyneuropathy: Code(s): G61.81 - Chronic inflammatory demyelinating polyneuritis Status: Chronic Assessment and Plan: Stable, Continue home medication. Waiting for placement to care home. Patient is ready to be discharged Subjective Date/time seen: 05/12/24 11:05 Interval history: Patient denies headache, focal weakness, but still has general weakness, chest pain, abdomen pain nausea vomiting diarrhea a bloody stool. Patient afebrile, blood pressure stable but on the lower side. Patient cannot ambulated without assistance Exam Narrative: GENERAL: Ill-appearing in no acute distress. - EYES: EOMI. Anicteric. - HENT: Moist mucous membranes. - LUNGS: Clear to auscultation bilateral ly, no wheezing, rhonchi, or rales. - CARDIOVASCULAR: Regular rate and rhyth m. No murmur. No JVD. - ABDOMEN: Soft, non-tender and non-dist ended. No palpable masses. - EXTREMITIES: No edema. Peripheral puls es 2+. Non-tender. - NEUROLOGIC: No focal neurological defi cits. General weakness - PSYCHIATRIC: Awake, Alert and oriented x 3. Appropriate mood and affect. - SKIN: No rashes or lesions. Warm. - LYMPH: No cervical lymphadenopathy. Objective Data Vital Signs Vital Signs: Vital Signs - 24 hr 05/11/24 14:00 05/11/24 20:00 05/11/24 21:39 Temperature 98.3 F 99.5 F Pulse Rate 99 99 95 Respiratory Rate 12 12 18 Blood Pressure 94/56 L 110/64 Pulse Oximetry 98 98 96 Oxygen Delivery Room Air 05/12/24 05:56 Temperature 97.8 F Pulse Rate 92 Respiratory Rate 20 Blood Pressure 94/58 L Pulse Oximetry 95 Oxygen Delivery Intake/Output Intake/Output: Intake & Output 05/09/24 05/10/24 05/11/24 05/12/24 23:59 23:59 23:59 23:59 Intake Total 2373.3 3180 2320 1210 Output Total 1625 2200 1450 950 Balance 748.3 980 870 260 Meds/Results Medications: Active Medications Generic Name Dose Route Start Last Admin Trade Name Freq PRN Reason Stop Dose Admin Acetaminophen 650 mg 05/07/24 13:00 05/12/24 09:41 Acetaminophen 325 Mg Tablet PO 650 mg TID MESERET Administration Acetaminophen 1,000 mg 05/07/24 10:45 05/12/24 05:42 Acetaminophen 500 Mg Tablet PO 1,000 mg Q6H PRN Administration Mild Pain (1-3) Or Fever Ascorbic Acid 500 mg 05/07/24 17:00 05/12/24 09:42 Ascorbic Acid 500 Mg Tablet PO 500 mg BID MESERET Administration Duloxetine HCl 30 mg 05/08/24 09:00 05/12/24 09:42 Duloxetine Hcl 30 Mg Capsule.Dr PO 30 mg DAILY MESERET Administration Ferrous Sulfate 325 mg 05/11/24 12:00 05/11/24 12:04 Ferrous Sulfate [address] BY MOUTH 325 mg DAILY@1200 MESERET Administration Lactated Ringer's 1,000 mls @ 80 mls/hr 05/07/24 01:05 05/12/24 05:43 Lr - Lactated Ringers Iv IV CONT 80 mls/hr .[id number] MESERET Administration Iron Sucrose 200 mg/ Sodium 110 mls @ 220 mls/hr 05/09/24 14:00 05/12/24 10:12 Chloride IVPB 05/13/24 09:29 Infused DAILY MESERET Infusion Levofloxacin 500 mg 05/11/24 09:00 05/12/24 09:42 Levofloxacin 500 Mg Tablet PO 05/16/24 09:01 500 mg DAILY MESERET Administration Multivitamins Therapeutic 1 tablet 05/08/24 09:00 05/12/24 09:42 Multivitamins Therapeutic Tab (*Bkc) PO 1 tablet DAILY MESERET Administration Sodium Hypochlorite 1 applic 05/07/24 12:01 05/12/24 09:43 Sod Hypochlorite 1/4 Strength 473 Ml TOPICAL 1 applic Q12HR MESERET Administration Vitamin D 5,000 units 05/07/24 12:00 05/12/24 09:42 Cholecalciferol 5,000 Units Tablet BY MOUTH 5,000 units DAILY MESERET Administration Radiology Results: ITS Impressions Chest X-Ray 05/06/24 19:58 IMPRESSION: No focal infiltrate or effusion. Chest/Abdomen/Pelvis CT 05/06/24 22:29 IMPRESSION: Significant fecal stasis within the colon, and distending the edematous thickened rectum with infiltration of the presacral fat. Sacral decubitus ulcer, along the midline and to the right of midline without a small fluid collection and with significant inflammatory change. Bladder wall thickening with surrounding inflammatory change and inadequate pl acement of the balloon, within the proximal urethra. Cholelithiasis. Hepatomegaly Labs Labs: Laboratory Results - last 24 hr 05/11/24 08:05 Schistocytes None seen
[2024-05-12] MEDS: FERROUS SULFATE 325 MG TABLET DR BY MOUTH (12:22)
[2024-05-12 14:00] VITALS: BP 94/60; PULSE 86; RESP 20; TEMP 36.3; O2SAT 96
[2024-05-12 22:50] VITALS: BP 134/63; PULSE 79; RESP 16; TEMP 36.5; O2SAT 100
[2024-05-13 05:36] VITALS: BP 105/63; PULSE 96; RESP 16; TEMP 37.6; O2SAT 90
[2024-05-13] MEDS: IRON SUCROSE COMPLEX 200 MG in SODIUM CHLORIDE 0.9% IV 100 ML 220 MG IVPB (08:50)
[2024-05-13] MEDS: MULTIVITAMINS THERAPEUTIC TAB (*BKC) 1 TABLET PO (08:51)
[2024-05-13] MEDS: levoFLOXacin 500 MG TABLET PO (08:51)
[2024-05-13] MEDS: CHOLECALCIFEROL 5,000 UNITS TABLET 5000 UNITS BY MOUTH (08:51)
[2024-05-13] MEDS: ACETAMINOPHEN 325 MG TABLET 650 MG PO ×3 (08:51→16:29)
[2024-05-13] MEDS: ASCORBIC ACID 500 MG TABLET PO ×2 (08:51→16:29)
[2024-05-13] MEDS: DULoxetine HCL 30 MG CAPSULE.DR PO (08:51)
[2024-05-13] MEDS: SOD HYPOCHLORITE 1/4 STRENGTH 473 ML 1 APPLIC TOPICAL ×2 (08:52→22:07)
--- NOTE | 2024-05-13 10:06 | P.PNIM_ITS ---
Progress Note: A&P Assessment and Plan (1) Severe protein-calorie malnutrition: Code(s): E43 - Unspecified severe protein-calorie malnutrition Status: Acute (2) Decubitus ulcer of ankle, stage 3: Qualifiers: Laterality: unspecified laterality Qualified Code(s): L89.503 - Pressure ulcer of unspecified ankle, stage 3 Code(s): L89.503 - Pressure ulcer of unspecified ankle, stage 3 Status: Acute (3) Anemia: Code(s): D64.9 - Anemia, unspecified Status: Acute (4) UTI (urinary tract infection): Code(s): N39.0 - Urinary tract infection, site not specified Status: Acute (5) Sacral decubitus ulcer, stage IV: Code(s): L89.154 - Pressure ulcer of sacral region, stage 4 Status: Acute Plan This is a 59-year-old female with a history of chronic inflammatory demyelinating polyneuropathy. She is a [facility] She was feeling weak. She had a blood test that showed her hemoglobin was low. She was sent to ER for evaluation.Her hemoglobin in the [facility] was 6.9. Patient was given 1 unit of blood. Anemia: Code(s): D64.9 - Anemia, unspecified Status: Acute Assessment and Plan: Patient hemoglobin is probably secondary to chronic blood loss from decubitus ulcers. Patient received 1 unit of blood. Patient hemoglobin repeat is 8.5. Yesterday, hemoglobin dropped to 7.4 today Monitor closely. Patient has history of iron deficiency Follow-up ferritin, iron panel iron level 20, TIBC 160, saturation 13 suggest iron deficiency stool guaiac: Negative s/w Venofer 200 mg IV daily Hemoglobin is trending up, 8.9 recently (2) Chronic indwelling Milton catheter: Code(s): Z97.8 - Presence of other specified devices Status: Acute Assessment and Plan: Continue with Milton care. (3) UTI (urinary tract infection): Code(s): N39.0 - Urinary tract infection, site not specified Status: Acute Assessment and Plan: Urine culture 05/06 Mixed genital jenny isolated. These superficial bacteria are not indicative of a urinary tract infection. No further organism identification is warranted on this specimen Patient has been treated with cefepime 2 g IV q.day hours since 05/07 change to levaquin 500mg daily po (4) Decubitus ulcer of sacral area: Qualifiers: Pressure injury stage: unspecified pressure injury stage Qualified Code(s): L89.159 - Pressure ulcer of sacral region, unspecified stage Code(s): L89.159 - Pressure ulcer of sacral region, unspecified stage Status: Acute Assessment and Plan: Continue decubitus care. (5) Chronic inflammatory demyelinating polyneuropathy: Code(s): G61.81 - Chronic inflammatory demyelinating polyneuritis Status: Chronic Assessment and Plan: Stable, Continue home medication. Waiting for [facility] to [facility]. Patient is ready to be discharged Subjective Date/time seen: 05/13/24 10:06 Interval history: Patient ice no new issue even over the night, patient still has general weakness, chest pain, abdomen pain nausea vomiting diarrhea a bloody stool. Patient afebrile, blood pressure stable but on the lower side. Patient cannot ambulated without assistance Exam Narrative: GENERAL: Pleasant person, Ill-appearing in no acute distress. - EYES: EOMI. Anicteric. - HENT: Moist mucous membranes. - LUNGS: Clear to auscultation bilateral ly, no wheezing, rhonchi, or rales. - CARDIOVASCULAR: Regular rate and rhyth m. No murmur. No JVD. - ABDOMEN: Soft, non-tender and non-dist ended. No palpable masses. - EXTREMITIES: No edema. Peripheral puls es 2+. Non-tender. - NEUROLOGIC: No focal neurological defi cits. General weakness - PSYCHIATRIC: Awake, Alert and oriented x 3. Appropriate mood and affect. - SKIN: Unstageable sacral decubital ul cer - LYMPH: No cervical lymphadenopathy. Objective Data Vital Signs Vital Signs: Vital Signs - 24 hr 05/12/24 14:00 05/12/24 21:17 05/12/24 22:50 Temperature 97.4 F L 97.7 F Pulse Rate 86 79 Respiratory Rate 20 16 Blood Pressure 94/60 L 134/63 Pulse Oximetry 96 100 Oxygen Delivery Room Air 05/13/24 05:36 Temperature 99.6 F Pulse Rate 96 Respiratory Rate 16 Blood Pressure 105/63 Pulse Oximetry 90 Oxygen Delivery Intake/Output Intake/Output: Intake & Output 05/10/24 05/11/24 05/12/24 05/13/24 23:59 23:59 23:59 23:59 Intake Total 3180 2320 1803 50 Output Total 2200 1450 2050 900 Balance 980 421 -802 -361 Meds/Results Medications: Active Medications Generic Name Dose Route Start Last Admin Trade Name Zaki PRN Reason Stop Dose Admin Acetaminophen 650 mg 05/07/24 13:00 05/13/24 08:51 Acetaminophen 325 Mg Tablet PO 650 mg TID MESERET Administration Acetaminophen 1,000 mg 05/07/24 10:45 05/12/24 22:43 Acetaminophen 500 Mg Tablet PO 1,000 mg Q6H PRN Administration Mild Pain (1-3) Or Fever Ascorbic Acid 500 mg 05/07/24 17:00 05/13/24 08:51 Ascorbic Acid 500 Mg Tablet PO 500 mg BID MESERET Administration Duloxetine HCl 30 mg 05/08/24 09:00 05/13/24 08:51 Duloxetine Hcl 30 Mg Capsule.Dr PO 30 mg DAILY MESERET Administration Ferrous Sulfate 325 mg 05/11/24 12:00 05/12/24 12:22 Ferrous Sulfate [address] BY MOUTH 325 mg DAILY@1200 MESERET Administration Levofloxacin 500 mg 05/11/24 09:00 05/13/24 08:51 Levofloxacin 500 Mg Tablet PO 05/16/24 09:01 500 mg DAILY MESERET Administration Multivitamins Therapeutic 1 tablet 05/08/24 09:00 05/13/24 08:51 Multivitamins Therapeutic Tab (*Bkc) PO 1 tablet DAILY MESERET Administration Sodium Hypochlorite 1 applic 05/07/24 12:01 05/13/24 08:52 Sod Hypochlorite 1/4 Strength 473 Ml TOPICAL 1 applic Q12HR MESERET Administration Vitamin D 5,000 units 05/07/24 12:00 05/13/24 08:51 Cholecalciferol 5,000 Units Tablet BY MOUTH 5,000 units DAILY MESERET Administration Radiology Results: ITS Impressions Chest X-Ray 05/06/24 19:58 IMPRESSION: No focal infiltrate or effusion. Chest/Abdomen/Pelvis CT 05/06/24 22:29 IMPRESSION: Significant fecal stasis within the colon, and distending the edematous thickened rectum with infiltration of the presacral fat. Sacral decubitus ulcer, along the midline and to the right of midline without a small fluid collection and with significant inflammatory change. Bladder wall thickening with surrounding inflammatory change and inadequate placement of the balloon, within the proximal urethra. Cholelithiasis. Hepatomegaly
[2024-05-13] MEDS: FERROUS SULFATE 325 MG TABLET DR BY MOUTH (12:53)
[2024-05-13 14:00] VITALS: BP 91/55; PULSE 91; RESP 18; TEMP 36.3; O2SAT 97
[2024-05-13 21:05] VITALS: BP 120/46; PULSE 80; RESP 16; TEMP 37.4; O2SAT 98
[2024-05-13] MEDS: ACETAMINOPHEN 500 MG TABLET 1000 MG PO (22:05)
[2024-05-14 06:35] VITALS: BP 103/51; PULSE 83; RESP 18; TEMP 36.3; O2SAT 94
[2024-05-14] MEDS: levoFLOXacin 500 MG TABLET PO (08:27)
[2024-05-14] MEDS: ASCORBIC ACID 500 MG TABLET PO ×2 (08:27→17:06)
[2024-05-14] MEDS: MULTIVITAMINS THERAPEUTIC TAB (*BKC) 1 TABLET PO (08:27)
[2024-05-14] MEDS: CHOLECALCIFEROL 5,000 UNITS TABLET 5000 UNITS BY MOUTH (08:27)
[2024-05-14] MEDS: ACETAMINOPHEN 325 MG TABLET 650 MG PO ×3 (08:27→17:06)
[2024-05-14] MEDS: DULoxetine HCL 30 MG CAPSULE.DR PO (08:27)
[2024-05-14] MEDS: SOD HYPOCHLORITE 1/4 STRENGTH 473 ML 1 APPLIC TOPICAL (08:29)
--- NOTE | 2024-05-14 12:22 | PM.IMPN ---
Progress Note: A&P Assessment and Plan (1) Severe protein-calorie malnutrition: Code(s): E43 - Unspecified severe protein-calorie malnutrition Status: Acute (2) Decubitus ulcer of ankle, stage 3: Qualifiers: Laterality: unspecified laterality Qualified Code(s): L89.503 - Pressure ulcer of unspecified ankle, stage 3 Code(s): L89.503 - Pressure ulcer of unspecified ankle, stage 3 Status: Acute (3) Anemia: Code(s): D64.9 - Anemia, unspecified Status: Acute (4) UTI (urinary tract infection): Code(s): N39.0 - Urinary tract infection, site not specified Status: Acute (5) Sacral decubitus ulcer, stage IV: Code(s): L89.154 - Pressure ulcer of sacral region, stage 4 Status: Acute Plan This is a 59-year-old female with a history of chronic inflammatory demyelinating polyneuropathy. She is a resident of [facility]. She was feeling weak. She had a blood test that showed her hemoglobin was low. She was sent to ER for evaluation.Her hemoglobin in the [facility] was 6.9. Patient was given 1 unit of blood. Anemia: Code(s): D64.9 - Anemia, unspecified Status: Acute Assessment and Plan: Patient hemoglobin is probably secondary to chronic blood loss from decubitus ulcers. Patient received 1 unit of blood. Patient hemoglobin repeat is 8.5. Yesterday, hemoglobin dropped to 7.4 today Monitor closely. Patient has history of iron deficiency Follow-up ferritin, iron panel iron level 20, TIBC 160, saturation 13 suggest iron deficiency stool guaiac: Negative s/w Venofer 200 mg IV daily Hemoglobin is trending up, 8.9 recently Change ferrous sulfate p.o. (2) Chronic indwelling Milton catheter: Code(s): Z97.8 - Presence of other specified devices Status: Acute Assessment and Plan: Continue with Milton care. (3) UTI (urinary tract infection): Code(s): N39.0 - Urinary tract infection, site not specified Status: Acute Assessment and Plan: Urine culture 05/06 Mixed genital jenny isolated. These superficial bacteria are not indicative of a urinary tract infection. No further organism identification is warranted on this specimen Patient has been treated with cefepime 2 g IV q.day hours since 05/07 change to levaquin 500mg daily po till 05/16 per ID pharmacist recommendation (4) Decubitus ulcer of sacral area: Qualifiers: Pressure injury stage: unspecified pressure injury stage Qualified Code(s): L89.159 - Pressure ulcer of sacral region, unspecified stage Code(s): L89.159 - Pressure ulcer of sacral region, unspecified stage Status: Acute Assessment and Plan: Continue decubitus care. (5) Chronic inflammatory demyelinating polyneuropathy: Code(s): G61.81 - Chronic inflammatory demyelinating polyneuritis Status: Chronic Assessment and Plan: Stable, Continue home medication. Patient is ready to be discharged, patient will be discharged to her original [facility] per healthcare administrative assistant request Subjective Date/time seen: 05/14/24 12:22 Interval history: Patient has no new issue or events over the night, patient denies headache, new focal weakness, chest pain, palpitation, shortness breath, abdomen pain nausea vomiting diarrhea a bloody stool. Patient is afebrile, blood pressure stable Exam Narrative: GENERAL: Pleasant person, Ill-appearing in no acute distress. - EYES: EOMI. Anicteric. - HENT: Moist mucous membranes. - LUNGS: Clear to auscultation bilaterally, no wheezing, rhonchi, or rales. - CARDIOVASCULAR: Regular rate and rhythm. No murmur. No JVD. - ABDOMEN: Soft, non-tender and non-distended. No palpable masses. - EXTREMITIES: No edema. Peripheral pulses 2+. Non-tender. - NEUROLOGIC: No focal neurological deficits. General weakness - PSYCHIATRIC: Awake, Alert and oriented x 3. Appropriate mood and affect. - SKIN: Unstageable sacral decubital ulcer - LYMPH: No cervical lymphadenopathy. Objective Data Vital Signs Vital Signs: Vital Signs - 24 hr 05/13/24 14:00 05/13/24 20:00 05/13/24 21:05 Temperature 97.3 F L 99.3 F Pulse Rate 91 80 Respiratory Rate 18 16 Blood Pressure 91/55 L 120/46 L Pulse Oximetry 97 98 Oxygen Delivery Room Air 05/14/24 06:35 05/14/24 08:00 Temperature 97.3 F L Pulse Rate 83 Respiratory Rate 18 Blood Pressure 103/51 L Pulse Oximetry 94 Oxygen Delivery Room Air Intake/Output Intake/Output: Intake & Output 02/02/2205/12/24 05/13/24 05/14/24 23:59 23:59 23:59 23:59 Intake Total 6330 1803 560 50 Output Total 1450 2050 1250 978 Balance 484 -343 -841 -792 Meds/Results Medications: Active Medications Generic Name Dose Route Start Last Admin Trade Name Freq PRN Reason Stop Dose Admin Acetaminophen 650 mg 05/07/24 13:00 05/14/24 08:27 Acetaminophen 325 Mg Tablet PO 650 mg TID MESERET Administration Acetaminophen 1,000 mg 05/07/24 10:45 05/13/24 22:05 Acetaminophen 500 Mg Tablet PO 1,000 mg Q6H PRN Administration Mild Pain (1-3) Or Fever Ascorbic Acid 500 mg 05/07/24 17:00 05/14/24 08:27 Ascorbic Acid 500 Mg Tablet PO 500 mg BID MESERET Administration Duloxetine HCl 30 mg 05/08/24 09:00 05/14/24 08:27 Duloxetine Hcl 30 Mg Capsule.Dr PO 30 mg DAILY MESERET Administration Ferrous Sulfate 325 mg 05/11/24 12:00 05/13/24 12:53 Ferrous Sulfate [address] BY MOUTH 325 mg DAILY@1200 MESERET Administration Levofloxacin 500 mg 05/11/24 09:00 05/14/24 08:27 Levofloxacin 500 Mg Tablet PO 05/16/24 09:01 500 mg DAILY MESERET Administration Multivitamins Therapeutic 1 tablet 05/08/24 09:00 05/14/24 08:27 Multivitamins Therapeutic Tab (*Bkc) PO 1 tablet DAILY MESERET Administration Sodium Hypochlorite 1 applic 05/07/24 12:01 05/14/24 08:29 Sod Hypochlorite 1/4 Strength 473 Ml TOPICAL 1 applic Q12HR MESERET Administration Vitamin D 5,000 units 05/07/24 12:00 05/14/24 08:27 Cholecalciferol 5,000 Units Tablet BY MOUTH 5,000 units DAILY MESERET Administration Radiology Results: ITS Impressions Chest X-Ray 05/06/24 19:58 IMPRESSION: No focal infiltrate or effusion. Chest/Abdomen/Pelvis CT 05/06/24 22:29 IMPRESSION: Significant fecal stasis within the colon, and distending the edematous thickened rectum with infiltration of the presacral fat. Sacral decubitus ulcer, along the midline and to the right of midline without a small fluid collection and with significant inflammatory change. Bladder wall thickening with surrounding inflammatory change and inadequate placement of the balloon, within the proximal urethra. Cholelithiasis. Hepatomegaly
--- NOTE | 2024-05-14 12:25 | P.DS_ITS ---
DS: Admitting Diagnosis Discharge Date 05/14 Admitting Diagnosis (1) Severe protein-calorie malnutrition: Code(s): E43 - Unspecified severe protein-calorie malnutrition Status: Acute (2) Decubitus ulcer of ankle, stage 3: Qualifiers: Laterality: unspecified laterality Qualified Code(s): L89.503 - Pressure ulcer of unspecified ankle, stage 3 Code(s): L89.503 - Pressure ulcer of unspecified ankle, stage 3 Status: Acute (3) Anemia: Code(s): D64.9 - Anemia, unspecified Status: Acute (4) UTI (urinary tract infection): Code(s): N39.0 - Urinary tract infection, site not specified Status: Acute (5) Sacral decubitus ulcer, stage IV: Code(s): L89.154 - Pressure ulcer of sacral region, stage 4 Status: Acute DS: Discharge Diagnosis Discharge Diagnosis (1) Severe protein-calorie malnutrition: Code(s): E43 - Unspecified severe protein-calorie malnutrition Status: Acute (2) Decubitus ulcer of ankle, stage 3: Qualifiers: Laterality: unspecified laterality Qualified Code(s): L89.503 - Pressure ulcer of unspecified ankle, stage 3 Code(s): L89.503 - Pressure ulcer of unspecified ankle, stage 3 Status: Acute (3) Anemia: Code(s): D64.9 - Anemia, unspecified Status: Acute (4) UTI (urinary tract infection): Code(s): N39.0 - Urinary tract infection, site not specified Status: Acute (5) Sacral decubitus ulcer, stage IV: Code(s): L89.154 - Pressure ulcer of sacral region, stage 4 Status: Acute DS: Summary Hospital Course Hospital Course: Per H&P, This is a 59-year-old female with a history of chronic inflammatory demyelinating polyneuropathy. [facility] is a resident of [facility]. She was feeling weak. She had a blood test that showed her hemoglobin was low. She was sent to ER for evaluation.Her hemoglobin in the [facility] was 6.9. Patient was given 1 unit of blood.Repeat hemoglobin today is 8.5.Patient says she feels more tired than usual but is denying fevers chills chest pain difficulty breathing abdominal pain or urinary symptoms. She has a diverting cold colos oliver due to multiple severe sacral decubitus ulcers. She also has a chronic indwelling Milton. The following med issues have been addressed during hospitalization Anemia: Code(s): D64.9 - Anemia, unspecified Status: Acute Assessment and Plan: Patient hemoglobin is probably secondary to chronic blood loss from decubitus ulcers. Patient received 1 unit of blood. Patient hemoglobin repeat is 8.5. Yesterday, hemoglobin dropped to 7.4 today Monitor closely. Patient has history of iron deficiency Follow-up ferritin, iron panel iron level 20, TIBC 160, saturation 13 suggest iron deficiency stool guaiac: Negative Received Venofer 200 mg IV Hemoglobin is trending up, 8.9 recently Change ferrous sulfate p.o. (2) Chronic indwelling Milton catheter: Code(s): Z97.8 - Presence of other specified devices Status: Acute Assessment and Plan: Patient has a neurogenic bladder Continue with Milton care. Complicated UTI due indwelling Milton catheter Code(s): N39.0 - Urinary tract infection, site not specified Status: Acute Assessment and Plan: Urine culture 05/06 Mixed genital jenny isolated. These superficial bacteria are not indicative of a urinary tract infection. No further organism identification is warranted on this specimen Patient has been treated with cefepime 2 g IV q.day hours since 05/07 change to levaquin 500mg daily po till 05/16 per ID pharmacist recommendation (4) Decubitus ulcer of sacral area: Qualifiers: Pressure injury stage: unspecified pressure injury stage Qualified Code(s): L89.159 - Pressure ulcer of sacral region, unspecified stage Code(s): L89.159 - Pressure ulcer of sacral region, unspecified stage Status: Acute Assessment and Plan: Continue decubitus care. (5) Chronic inflammatory demyelinating polyneuropathy: Code(s): G61.81 - Chronic inflammatory demyelinating polyneuritis Status: Chronic Assessment and Plan: Stable, Continue home medication. Patient is ready to be discharged, patient will be [facility] to her original [facility] per healthcare facility administrator request Time Spent with Patient Time attestation: Total time spent providing and/or coordinating discharge services: Exam Narrative: GENERAL: Pleasant person, Ill-appearing in no acute distress. - EYES: EOMI. Anicteric. - HENT: Moist mucous membranes. - LUNGS: Clear to auscultation bilateral ly, no wheezing, rhonchi, or rales. - CARDIOVASCULAR: Regular rate and rhyth m. No murmur. No JVD. - ABDOMEN: Soft, non-tender and non-dist ended. No palpable masses. - EXTREMITIES: No edema. Peripheral puls es 2+. Non-tender. - NEUROLOGIC: No focal neurological defi cits. General weakness - PSYCHIATRIC: Awake, Alert and oriented x 3. Appropriate mood and affect. - SKIN: Unstageable sacral decubital ul cer - LYMPH: No cervical lymphadenopathy. Discharge Plan Discharge Attending physician on discharge: Agusto Best Discharging Clinician: Agusto Best Anticipated Discharge Date/Time: 05/14/24 12:26 Activity: as tolerated Diet: as tolerated and regular Patient Language: Bermudian Follow-up/Referrals: UNKNOWN,DOCTOR [Primary Care Provider] - (Patient needs to see primary care doctor in 1 week) Discharge Medications: New levofloxacin 500 mg Tablet 500 mg PO DAILY Qty: 3 0RF Continued Dakin's Solution 0.125 % Solution 1 applic topical Q12HR Qty: 473 0RF acetaminophen 500 mg Tablet 1,000 mg PO Q6H PRN (Reason: Mild Pain (1-3) Or Fever) Qty: 1 0RF acetaminophen [8 Hour Pain Reliever] 650 mg tablet extended release 650 mg PO TID ascorbic acid (vitamin C) [C-500] 500 mg tablet 500 mg PO BID cholecalciferol (vitamin D3) [Vitamin D3] 125 mcg (5,000 unit) tablet 125 mcg PO DAILY duloxetine 30 mg capsule,delayed release(DR/EC) 30 mg PO DAILY multivitamin with folic acid [Daily-Sidra (with folic acid)] 400 mcg tablet 1 tablet PO DAILY Normlgel Ag 0.11 % Gel 1 applic TOPICAL DAILY Rx Instructions: apply to affected areas ferrous sulfate [FeroSul] 325 mg (65 mg iron) tablet 325 mg PO DAILY Qty: 30 0RF Date of admission: 05/07/24 01:04 Primary Care Provider: UNKNOWN,DOCTOR Admitting Provider: Tere Purvis Attending physician on admission: Tere Purvis Condition: Stable
[2024-05-14] MEDS: FERROUS SULFATE 325 MG TABLET DR BY MOUTH (12:30)
[2024-05-14 14:00] VITALS: BP 102/71; PULSE 85; RESP 18; TEMP 36.7; O2SAT 95
== END 2024-05-14 18:24 | DRG 698 ==
LOC: ANHED 05-07 00:29 → ANH3MEDSUR 05-07 02:01
PROVIDERS: Internal Medicine; Admitting Provider General Practice; Emergency Provider Emergency Medicine; Visit Provider Hospitalist
DX: T83.511A Infection and inflammatory reaction due to indwelling urethral catheter, initial encounter (principal); E43 Unspecified severe protein-calorie malnutrition; L89.154 Pressure ulcer of sacral region, stage 4; G61.81 Chronic inflammatory demyelinating polyneuritis; Z68.1 Body mass index [BMI] 19.9 or less, adult; N39.0 Urinary tract infection, site not specified; D50.0 Iron deficiency anemia secondary to blood loss (chronic); N31.9 Neuromuscular dysfunction of bladder, unspecified; G47.33 Obstructive sleep apnea (adult) (pediatric); D64.9 Anemia, unspecified; Z74.01 Bed confinement status; Z96.653 Presence of artificial knee joint, bilateral; Z93.3 Colostomy status; Z90.710 Acquired absence of both cervix and uterus; Z90.722 Acquired absence of ovaries, bilateral
CPT/HCPCS: 36415; 36430; 36600; 71045; 71260; 74177; 80048; 80053; 81001; 82274; 82728; 82805; 83540; 83550; 83605; 83690; 83735; 83880; 84100; 84484; 85018; 85025; 85027; 85046; 85610; 85730; 86850; 86900; 86901; 86923; 87040; 87086; 87637; 93005; 96365; 99285; A9270; J0692; J1756; J7050; J7120; P9016; Q9967

== ENCOUNTER 2024-06-25 00:12 | Emergency (ER) | payer MEDICARE, SELFPAY ==
[2024-06-25] VITALS (7 sets, daily range): BP systolic 84–99; BP diastolic 56–65; PULSE 80–99; RESP 13–17; TEMP 36.3–37.1; O2SAT 97–100
--- NOTE | ~2024-06-25 | CT_ITS ---
EXAMINATION: CT chest abdomen pelvis w con DATE: 06/25/2024 01:28 INDICATION: Chest pain and shortness of breath. TECHNIQUE: Computed tomography (CT) of the chest, abdomen, and pelvis was performed with 100 mL Omnip aque 350 intravenous contrast. Automated exposure control and iterative reconstruction technique were employed. The dose-length product was 294.64 mGy-cm. COMPARISON: CT 05/06/2024 FINDINGS: CHEST CT: There is mild scarring at the lung apices. There is mild scarring in paraspinal right lower lobe. No pleural effusion. The heart size is normal. There are coronary artery calcifications. No pericardial effusion. There is thoracic dextroscoliosis and mild spondylosis. ABDOMEN/PELVIS CT: The liver and spleen are normal. The gallbladder is distended and contains a gallstone. The pancreas and adrenal glands are normal. The kidneys are normal. There is a Milton catheter in expected position . There is wall thickening of the bladder. There is discontinuity of the mucosa superiorly. There is a rim-enhancing collection of fluid and gas in the inferior peritoneum measuring 11.2 x 9.4 x 5.5 cm. There are no dilated loops of bowel. The appendix is not visualized. There is an ostomy at the midli ne. There is wall thickening of the sigmoid colon. There is wall thickening of the Demetrio pouch. Th ere are decubitus ulcers overlying the sacrum and iliac bones with sclerosis and chronic erosions of the bones, consistent with chronic osteomyelitis. IMPRESSION: 1. Bladder perforation and urinoma. Cystitis. 2. Decubitus ulcers overlying the sacrum and iliac bones with chronic osteomyelitis. 3. Wall thickening of the sigmoid colon leading to the ostomy, consistent with colitis. Harmann pouch with wall thickening, consistent with proctitis. 4. Cholelithiasis. Gallbladder distention may be secondary to fasting. Correlate with physical exam t o exclude acute cholecystitis. Reviewed, dictated and finalized at location A. IMPRESSION: 1. Bladder perforation and urinoma. Cystitis. 2. Decubitus ulcers overlying the sacrum and iliac bones with chronic osteomyel itis. 3. Wall thickening of the sigmoid colon leading to the ostomy, consistent with colitis. Harmann pouch with wall thickening, consistent with proctitis. 4. Cholelithiasis. Gallbladder distention may be secondary to fasting. Correlat e with physical exam to exclude acute cholecystitis.
--- NOTE | ~2024-06-25 | XR_ITS ---
EXAMINATION: XR chest 1V portable DATE: 06/25/2024 02:15 INDICATION: Chest pain. Shortness of breath. TECHNIQUE: A single frontal view of the chest was obtained. COMPARISON: Chest single view 05/06/2024, chest CT 06/25/2024 FINDINGS: There is mild scarring at the lung apices. No pleural effusion or pneumothorax. The heart s ize is normal. IMPRESSION: 1. Mild scarring at the lung apices. Reviewed, dictated and finalized at location A.
--- NOTE | 2024-06-25 00:23 | ED_ITS ---
HPI - GI Bleed General Chief complaint: GI Bleed Stated complaint: BLACK LIQUID STOOL Time Seen by Provider: 06/25/24 00:13 Source: patient and RN notes reviewed Mode of arrival: EMS Limitations: physical limitation History of Present Illness HPI Narrative: Patient presents to the emergency department with concern for black liquid stool coming from ostomy. Per review of detention documentation, patient's vital signs on 06/24 at 11:00 p.m. or blood pressure 87/59, SpO2 99% on room air, heart rate 107, temp 97.8?. There is also report of chest pain, SOB, VERDIN, N/V, and upset stomach but doesn't feel ill written on [place] documentation. Patient denies any abdominal pain. States she has required a blood transfusion x1 previously. Symptoms from ostomy first noted at 2200. Reportedly more lethargic and weak. She reports no anticoagulation. Related Data Home Medications ?Medication ?Instructions ?Recorded ?Confirmed ?Last Taken ?Type duloxetine 30 mg capsule,delayed 30 mg PO DAILY 09/20/23 05/07/24 01/09/24 History release multivitamin with folic acid 400 1 tablet PO DAILY 09/20/23 05/07/24 01/09/24 History mcg tablet (Daily-Sidra (with folic acid)) silver carbonate 0.11 % topical 1 applic topical DAILY 01/26/24 05/07/24 Unknown History gel (Normlgel Ag) acetaminophen 650 mg 650 mg PO TID 05/07/24 05/07/24 Unknown History tablet,extended release (8 Hour Pain Reliever) ascorbic acid (vitamin C) 500 mg 500 mg PO BID 05/07/24 05/07/24 Unknown History tablet (C-500) cholecalciferol (vitamin D3) 125 125 mcg PO DAILY 05/07/24 05/07/24 Unknown History mcg (5,000 unit) tablet (Vitamin D3) Allergies Allergy/AdvReac Type Severity Reaction Status Date / Time morphine Allergy Intermediate Hives / Verified 01/26/24 19:29 Red Face penicillin G Allergy Intermediate Itching Verified 01/26/24 19:29 sulfamethoxazole (From Allergy Hives Verified 01/26/24 19:29 Bactrim) trimethoprim (From Bactrim) Allergy Hives Verified 01/26/24 19:29 [facility] Past Medical History Medical History Pressure ulcer of left hip, stage 4 Pressure ulcer of right hip, stage 4 Unspecified protein-calorie malnutrition Nutritional anemia, unspecified Major depressive disorder, single episode, unspecified Acute cystitis without hematuria Need for assistance with personal care Other reduced mobility Other malaise Other forms of dyspnea Unspecified lack of coordination Unsteadiness on feet Muscle weakness (generalized) Muscle wasting and atrophy, not elsewhere classified, multiple sites Vitamin D deficiency, unspecified Pressure ulcer of other site, unstageable Sacral decubitus ulcer, stage IV Pressure ulcer of left buttock, stage 4 Pressure ulcer of right buttock, stage 4 UTI (urinary tract infection) prison (current) use of antibiotics Dysarthria and anarthria Cognitive communication deficit Adult failure to thrive Hereditary and idiopathic neuropathy, unspecified Nausea Chronic indwelling Quiroga catheter Chronic inflammatory demyelinating polyneuropathy Obstructive sleep apnea No longer on CPAP after weight loss Decubitus ulcer of coccygeal region Surgical History Surgical History Colostomy status History of creation of ostomy (11/05/23) Due to stage IV decubitus ulcers History of bilateral knee replacement History of total abdominal hysterectomy and bilateral salpingo-oophorectomy Family History Family History Father Cerebrovascular accident Social History Social History (Updated 06/25/24 @ 01:58 by Jennifer Mandujano MD) Social History: Patient and raised a son and a daughter. 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 She is a lifelong nonsmoker. She does not drink alcohol or use illicit substances. She is dependent on wheelchair for mobilization. Code status: Full code (she would not want to be on long-term ventilation nor which she want a tracheostomy or feeding tube). POLST signed 01/28/24 Yes CPR Surrogate decision maker: Jorge Romero, spouse. since 1995. 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 Cachectic with bony prominences. HEAD: Normocephalic, atraumatic. EYES: Non injected, non icteric Marked conjunctival pallor. ENT: Nares clear, no rhinorrhea or epistaxis. NECK: Supple. CHEST: Speaking in full sentences. No respiratory distress. HEART: Regular rate and rhythm. . : Indwelling quiroga ABDOMEN: Soft, nondistended. Thin/flat Ostomy bag full of melena. FOBT/guaiac positive. EXTREMITIES: No lower extremity edema. Thin extremities. SKIN: Warm, dry, no rash. NEURO: No focal deficits. Alert and oriented x4. PSYCH: Normal mood and affect. Course Vital Signs Vital signs: Vital Signs Temperature 97.4 F L 06/25/24 00:12 Pulse Rate 99 06/25/24 00:12 Respiratory Rate 14 06/25/24 00:12 Blood Pressure 84/65 L 06/25/24 00:12 Pulse Oximetry 99 06/25/24 00:12 Oxygen Delivery Room Air 06/25/24 00:12 Temperature 97.8 F 06/25/24 02:22 Pulse Rate 80 06/25/24 08:22 Respiratory Rate 17 06/25/24 08:22 Blood Pressure 99/60 L 06/25/24 08:22 Pulse Oximetry 97 06/25/24 08:22 Oxygen Delivery Room Air 06/25/24 00:12 MDM - GI Bleed MDM Narrative Medical decision making narrative: Patient presents with concern for melena/black stool from colostomy/ostomy. This is markedly positive for blood product on bedside fobt/guiaic. No anticoagulation use. In the emergency department she is afebrile with vital signs notable for hypotension. 1L IV fluids ordered. She is hypokalemic with a potassium of 2.7. IV and oral repletion ordered as well as magnesium lab. Elevated alk phos and hypoalbuminemia. She has a significant leukocytosis. A CT abdomen pelvis and chest had already been ordered with contrast given her combination of symptoms. She has a normocytic anemia with hemoglobin less than 7. This also represents a 2.6 g drop from previous. She also has a new thrombocytosis, possible acute phase reactant. Blood product transfusion I have discussed the proposed blood product transfusion with the patient. I have informed the patient regarding potential risks of blood product transfusion which, though rare, include transfusion reaction, hepatitis, and HIV. The patient has been given the opportunity to ask questions about the need to be transfused and possible outcomes of not receiving this treatment. Patient has verbally agreed to undergo transfusion. She states that she is weak and also has bad handwriting and gives verbal consent for her [id number] to sign on her behalf. [id number] was present just outside the room's curtain and heard the entire conversation. No questions. Obtained signed consent and placed it in the patient's chart. Order was placed for transfusion of 1 unit of packed red blood cells. Magnesium normal. Stat Rad Radiologist called a 03:30am to discuss. Ruptured bladder dome since 05/06; intact before. C/f (infected urinoma) measuring up to 12 cm. Possible angiodysplasia with contributing colitis (thickened). Urinalysis is concerning for infection. Cefepime ordered. She remains hypotensive. 2nd L IV fluids ordered. Her blood pressure remains low but with appropriate MAPs and I assume this is near baseline given her body habitus. Repeat H&H ordered at 4 hours from initial. Spoke with Dr Strange about the multiple findings but he indicated that the bladder findings would be urology exclusively and the melena/colitis/angiodysplasia gastroenterology. Spoke with urology Dr Wilhelm 06/25 at 4:20am regarding this complex case. Radiology confirms Dr Ortiz who is IR is available today 06/25. Spoke with Dr Wilhelm again at 4:40am. Might need exlap and repair; fairly complicated situation. Recommend transferring to tertiary care. Patient has received care before through [facility] including but not limited to her autoimmune physician. Spoke with [facility] transfer center. . Spoke with Dr Major at 5:22 am. Recommend ED to ED transfer. If intraperitoneal rupture, would need exlap. Spoke with emergency department attending physician at [facility] ED: Marco Hyde at 5:30. ED com center nurse for RN report phone number provided and given to ELICEO Story at [place]. Transportation arranged. Had ordered RUQ US to be performed given biliary findings on CT scan but unable to be performed and interpreted prior to transportation. Repeat H&H Hgb 7.7. === Critical Care: High probability of /decompensation due to multiple organ system involvement. Time spent involves discussing with patient, reviewing pre- hospital documentation, reassessing patient and advising/providing intervention, reviewing and interpreting laboratory studies, discussing with consultants/admitting teams, and documenting encounter. Times exclusive of separately billable procedures. Lab Data Attestation: I reviewed the patient's lab results. 06/25/24 04:36 06/25/24 00:23 Labs: Lab Results 06/25/24 06/25/24 06/25/24 Range/Units 00:23 01:47 04:36 WBC 27.3 H (4.5-10.0) K/mm3 RBC 2.23 L (4.2-5.4) M/mm3 Hgb 6.3 L* 7.7 L (12.0-15.0) g/dL Hct 21.3 L 25.0 L (37.0-47.0) % MCV 95.5 (80-100) fl MCH 28.3 (26-34) pg MCHC 29.6 L (32-36) g/dl RDW 23.5 H (11.5-14.5) % Plt Count 577 H D (150-375) k/mm3 MPV 9.3 (7.4-10.4) fl Immature Gran % (Auto) Not Reportable Neut % (Auto) Not Reportable Lymph % (Auto) Not Reportable [place] % (Auto) Not Reportable Eos % (Auto) Not Reportable Baso % (Auto) Not Reportable Lymph # (Auto) Not Reportable [place] # (Auto) Not Reportable Eos # (Auto) Not Reportable Baso # (Auto) Not Reportable Abs Immat Gran (auto) Not Reportable Absolute Neuts (auto) Not Reportable Absolute Nucleated RBC Not Reportable Total Counted 100 Neutrophils % (Manual) 90 H (46-73) % Band Neutrophils % 6 (0-6) % Lymphocytes % (Manual) 2 L (18-44) % Monocytes % (Manual) 2 L (3-9) % Nucleated RBC % Not Reportable Abs Neuts (Manual) 26.20 H (1.7-7.2) K/mm3 Abs Lymphs (Manual) 0.54 L (1.1-4.5) K/mm3 Abs Monocytes (Manual) 0.54 (0.1-0.90) K/mm3 Platelet Estimate Increased (Adequate) Hypochromasia 1+ Anisocytosis 1+ Ovalocytes 1+ Schistocytes None seen PT 13.7 (11.1-14.7) Seconds INR 1.0 APTT 36.0 (22.3-36.8) Seconds Sodium 139 (137-145) mmol/L Potassium 2.7 L* (3.4-5.0) mmol/L Chloride 101 (98-107) mmol/L Carbon Dioxide 20 L (22-30) mmol/L Anion Gap 18 H (4-12) mmol/L BUN 29 H D (7-17) mg/dL Creatinine 0.50 L (0.7-1.0) mg/dL Estim Creat Clear Calc 70 ml/min Estimated GFR > 60 (59 - ) Glucose 88 (65-110) mg/dL Lactic Acid 0.8 (0.7-2.0) mmol/L Calcium 9.9 (8.4-10.2) mg/dL Magnesium 1.6 (1.6-2.3) mg/dL Total Bilirubin 0.6 (0.2-1.3) mg/dL AST 19 (14-36) U/L ALT 11 (6-35) U/L Alkaline Phosphatase 157 H (38-126) U/L Troponin I < 0.012 (0.000-0.034) ng/mL Total Protein 6.0 L (6.3-8.2) g/dL Albumin 3.2 L (3.5-5.1) g/dL Urine Color Yellow (Yellow) Urine Appearance Turbid H (Clear) Urine pH 8.0 (5.0-9.0) Ur Specific [place] 1.019 (1.001-1.035) Urine Protein 3+ H (Negative) mg/dL Urine Glucose (UA) Negative (Negative) mg/dL Urine Ketones 1+ H (Negative) mg/dL Ur Blood (Man) 2+ H (Negative) Urine Nitrate Negative (Negative) Urine Bilirubin Negative (Negative) Urine Urobilinogen 0.2 (<2.0) mg/dL Add Ur Microanalysis Reviewed Leukocyte Esterase Rfl 3+ H (Negative) RANDY/UL Urine RBC 51-100 H (0-2) /hpf Urine WBC >100 H (0-3) /hpf Ur Squamous Epith Cells Few (Few) /hpf Uric Acid Crystals Present H (None) /hpf Amorphous Sediment Moderate H (None) Urine Bacteria 4+ /hpf Urine Casts >20 Hyaline Casts Present (None) /lpf Urine Yeast (Budding) Present H (None) /hpf Influenza A (RT-PCR) Negative (Negative) Influenza B (RT-PCR) Negative (Negative) RSV (RT-PCR) Negative (Negative) SARS-CoV-2 RNA (RT-PCR) Negative (Negative) Blood Type O Positive Antibody Screen Negative Crossmatch See Detail Imaging Data Attestation: I personally reviewed and interpreted this imaging study as follows: My impression: Chest x-ray unremarkable on my independent interpretation Radiologist's impression: CT Chest with Contrast Stat Rad: No acute findings within the thorax CT Abb & Pelvis with Contrast Stat Rad: Interval rupture of the bladder dome as seen on coronal series 608, image 52 with large fluid and gas collection extending from posterior pelvis to the anterior pelvis, measuring a total of 7.3 x 9.0 x 12.2 cm, concerning for infected urinoma/abscess. Long segment moderate severe colonic wall thickening of the colon proximal to the colostomy concerning for infectious versus inflammatory colitis. There are numerous prominent bowel wall vessels concerning for angiodysplasia. Tangle of vessels with focus of contrast seen on axial series 3, image [id number] within the mid distal loops of the ileum may reflect etiology for patient's reported gastrointestinal hemorrhage. Large calcified gallstone within a distended gallbladder. No evidence of pericholecystic edema or gallbladder wall thickening, correlate clinically for acute cholecystitis. Large sacral decubitus ulcer with bilateral ischial ulcers, all of which extend to the underlying bone, the sacrum and bilateral ischial tuberosities are sclerotic reflecting chronic osteomyelitis with suspected acute on chronic osteomyelitis given exposure of the bone. Impressions Chest X-Ray 06/25/24 05:34 IMPRESSION: 1. Mild scarring at the lung apices. Chest/Abdomen/Pelvis CT 06/25/24 06:20 IMPRESSION: 1. Bladder perforation and urinoma. Cystitis. 2. Decubitus ulcers overlying the sacrum and iliac bones with chronic osteomyelitis. 3. Wall thickening of the sigmoid colon leading to the ostomy, consistent with colitis. Harmann pouch with wall thickening, consistent with proctitis. 4. Cholelithiasis. Gallbladder distention may be secondary to fasting. Correlate with physical exam to exclude acute cholecystitis. ECG Data EKG #1: Attestation: I personally reviewed and interpreted this ECG as follows: ECG completion date: 06/25/24 ECG completion time: 01:43 Prior ECG tracings: available for review (EKG from 05/07/2024 showing normal sinus rhythm with out the T-wave inversions seen on today's EKG) Interpretation: Normal sinus rhythm at a rate of 91 beats per minute. WV interval 179. QRS 85. QT/QTC 371/420. T-wave inversion in V3, possibly due to lead placement although there is also possible T-wave inversion in V4. Left anterior fascicular block with rS complexes in leads II, III, aVF (small R waves, deep S waves), qR complexes in lead I , avL (small Q waves and tall R waves) and left axis deviation with Leads II, III and aVF negative and leads I and aVL positive. Discharge Plan Discharge Clinical Impression: Complication of ostomy, Melena, Hypokalemia, High alkaline phosphatase, Hypoalbuminemia, Leukocytosis, Normocytic anemia, Blood transfusion during current hospitalisation, Thrombocytosis, LAFB (left anterior fascicular block), Fecal occult blood test positive, Bladder rupture, nontraumatic, Colitis, Angiodysplasia, Gallstone, Decubitus ulcer of sacral region, Chronic osteomyelitis, Urinoma, Urinary tract infection associated with indwelling urethral catheter, Cholelithiasis Patient Disposition: Acute Care Hospital Condition: Serious Patient Language: [place] Prescriptions: No Action Dakin's Solution 0.125 % Solution 1 applic topical Q12HR Qty: 473 0RF acetaminophen 500 mg Tablet 1,000 mg PO Q6H PRN (Reason: Mild Pain (1-3) Or Fever) Qty: 1 0RF acetaminophen [8 Hour Pain Reliever] 650 mg tablet extended release 650 mg PO TID ascorbic acid (vitamin C) [C-500] 500 mg tablet 500 mg PO BID cholecalciferol (vitamin D3) [Vitamin D3] 125 mcg (5,000 unit) tablet 125 mcg PO DAILY levofloxacin 500 mg Tablet 500 mg PO DAILY Qty: 3 0RF ferrous sulfate [FeroSul] 325 mg (65 mg iron) tablet 325 mg PO DAILY Qty: 30 0RF duloxetine 30 mg capsule,delayed release(DR/EC) 30 mg PO DAILY multivitamin with folic acid [Daily-Sidra (with folic acid)] 400 mcg tablet 1 tablet PO DAILY Normlgel Ag 0.11 % Gel 1 applic TOPICAL DAILY Rx Instructions: apply to affected areas Follow-up/Referrals: UNKNOWN,DOCTOR [Primary Care Provider] -
[2024-06-25 00:31] LABS: Hematocrit 21.3 % (37.0-47.0); Mean Corpuscular HGB Conc 29.6 g/dl (32-36); Mean Corpuscular Hemoglobin 28.3 pg (26-34); Mean Corpuscular Volume 95.5 fl (80-100); Mean Platelet Volume 9.3 fl (7.4-10.4); Platelet Count Result 577 k/mm3 (150-375); Red Blood Count 2.23 M/mm3 (4.2-5.4); Red Cell Distribution Width 23.5 % (11.5-14.5); White Blood Count 27.3 K/mm3 (4.5-10.0)
--- OUTSIDE RECORDS SUMMARY | 2024-06-25 00:31 | XMS_ITS | Encounter Summary ---
Author Organization [facility] Health Address [address] [place] [address] Care Team Providers Care Electrolytic Etcher Name Role Phone Jered Myers MD Primary Care Provider [phone] Encounter Details Date Type Department Care Team (Late st Contact Info) Description 12/12/2023 Lab Requisition [facility] [address] [place] [address] [address] [place], [place] [id number] Social History Tobacco Use Types Packs/Day Years [...] - 20.0 ug/mL 12/12/2023 2:03 PM CDT [facility] Blood BLOOD SPECIMEN / Unknown Venipuncture / Unknown 12/12/2023 7:30 AM CDT 12/12/2023 1:28 PM CDT [facility] - CHEMISTRY CLAIRE JOSEPH Performing Organization Address City/State/[facility] Co de Phone Number [facility] [address] [place] [address] documented in this encounter Visit Diagnoses Not on filedocumented in this encounter Care Teams Electrolytic Etcher Relationship Specialty Start Date End Date Jered Myers MD PCP - General 03/02/18 documented as of this encounter
--- OUTSIDE RECORDS SUMMARY | 2024-06-25 00:31 | XMS_ITS | CONTINUITY OF CARE DOCUMENT ---
Author Name theresa cardenas Address Unknown Organization [facility] Address [address] [place] [address] [address] [place] [address] Phone [phone] Care Team Providers Care Billet Worker Name Role Phone Jeimy Rojas MD Unavailable ZOIE VALLECILLO MD Unavailable ZOIE VALLECILLO MD Unavailable [phone] PROBLEMS Condition Status Date Provider Notes HTN- [...] In-person encounter Office Visit Jeimy Rojas MD [place] [facility] SUBAORTIC MEMBRANE WITH A. GRADIENT OF 36 MM - In-person encounter Office Visit Jeimy Rojas MD [place] [facility] - In-person encounter Office Visit Jeimy Rojas MD [facility] - In-person encounter Office Visit Jeimy Rojas MD [facility] - In-person encounter Office Visit Jeimy Rojas MD [facility] - In-person encounter Office Visit Jeimy Rojas MD [facility] HTN- ef nl on echo 2012HYPERTENSION, PULMONARY - RESOLVED BY ECHO 10/04MITRAL REGURGITATION MILD- 10/04 - In-person encounter Office Visit Jeimy Rojas MD [place] [facility] - In-person encounter Office Visit Jeimy Rojas MD [facility] - In-person encounter Office Visit Jeimy Rojas MD [facility] - In-person encounter Office Visit Jeimy Rojas MD [facility] AMI ANTERIOR WALLSUBAORTIC MEMBRANE WITH A. GRADIENT OF 36 MM - In-person encounter Office Visit Jeimy Rojas MD [facility] SLEEP APNEA - In-person encounter Office Visit Jeimy Rojas MD [facility] [place] [facility] VITAL SIGNS Date Observation Value Provider Body Mass Index (Ratio) 48.49 kg/m2 Cameron Rojas MD blood pressure, cuff size large Abdoul Rojo blood pressure, diastolic 94 mm[Hg] Abdoul Rojo blood pressure, systolic 136 mm[Hg] Kye Rojo oxygen saturation, oximetry 99 % Radha Rojo respiratory rate E&M 20 /min Radha evans pulse rate 89 /min Radha hickman weight E&M 305 [lb_av] Radha Thakur [facility] height E&M 66.5 [in_i] Radha Thakur [facility] Body Mass Index (Ratio) 45.62 kg/m2 Cameron Rojas MD blood pressure, cuff size regular Len Bland blood pressure, diastolic 80 mm[Hg] Len Bland blood pressure, systolic 120 mm[Hg] Дмитрий Bland oxygen saturation, oximetry 97 % Rosangela pulse rate 68 /min Rosangela Rodríguez respiratory rate E&M 16 /min Rosangela weight E&M 287 [lb_av] Rosangela blood pressure, resting Yes Franco perry height E&M 66.5 [in_i] Rosangela Body Mass Index (Ratio) 48.52 kg/m2 Cameron Rojas MD blood pressure, diastolic 82 mm[Hg] Letty Diaz blood pressure, systolic 140 mm[Hg] Sherry Diaz oxygen saturation, oximetry 91 % Shyam Diaz respiratory rate E&M 18 /min Deacon Diaz pulse rate 74 /min ShyamDamari knapp weight E&M 305.2 [lb_av] Shyam Kole marlen height E&M 66.5 [in_i] Shyam Shay damianon blood pressure, diastolic 70 mm[Hg] Letty Diaz blood pressure, systolic 120 mm[Hg] Sherry Diaz pulse rate 88 /min Shyam Shay damianon oxygen saturation, oximetry 99 % Shyam Diaz [...] /min Deacon Diaz weight E&M 295.2 [lb_av] Shyam zunigawiley Body Mass Index (Ratio) 46.90 kg/m2 Durán i Gruenenfelder blood pressure, diastolic 77 mm[Hg] Ke rri Gruenenfelder blood pressure, systolic 135 mm[Hg] Ker ri Gruenenfelder pulse rate 80 /min Radha Gremmae lder oxygen saturation, oximetry 98 % Radha Grremigionenfelder respiratory rate E&M 16 /min Radha G tiaer weight E&M 295 [lb_av] Radha Ofe er Body Mass Index (Ratio) 48.19 kg/m2 Akash Velazquez blood pressure, diastolic, left arm 71 mm [Hg] [facility] blood pressure, systolic, left arm 134 mm [Hg] [facility] blood pressure, diastolic, right arm 86 m m[Hg] [facility] blood pressure, systolic, right arm 152 m m[Hg] [facility] blood pressure, diastolic 71 mm[Hg] Lyles blood pressure, systolic 134 mm[Hg] [facility] rate 97 /min [facility] oxygen saturation, oximetry 98 % [facility] respiratory rate E&M 16 /min [facility] weight E&M 302 [lb_av] [facility] Body Mass Index (Ratio) 46.75 kg/m2 Durán i Shawnuenenfeldbess blood pressure, diastolic 82 mm[Hg] Ke rri Shawnuenenfelder blood pressure, systolic 133 mm[Hg] Kye ri Shawnuenenfelder pulse rate 78 /min Radha Deborae lder oxygen saturation, oximetry 99 % Radha Alia respiratory rate E&M 17 /min Radha Amirah evans weight E&M 293 [lb_av] Radha Ofe [...] musa O'Torsten pulse rate 79 /min Saima O'Torsten oxygen saturation, oximetry 97 % Saima O'Torsten [...] Fred Shaikh blood pressure, systolic 164 mm[Hg] Oniell pulse rate 74 /min Kirsten Shaikh oxygen [...] only Radha Rojo alcohol use no Radha Thakur lder caffeine use, averag e drinks per day yes Radha Frencher drug use no Rahda Thakur lder passive cigarette sm liv exposure no Radha Escobarisidorogaroalejandro smoking status Never smoker Radha Valladareswilmajone hilda number of grandchildren Jeimy Rojas MD T lilliana Rojas MD social history reviewed E&M revi ewed - no changes required Jeimy Rojas MD social history reviewed E&M revi ewed - no changes required Jeimy Rojas MD physical exercise, f requency, days per week no ShyamDamari Diaz alcohol use, average drinks per day social basis only Shyam Diaz alcohol use no Shyam Day nson caffeine use, averag e drinks per day yes ShyamDamari Diaz drug use no Shyam Day nson passive cigarette sm liv exposure no Shyam Diaz smoking status Never smoker Shyam Vick aniyah social history reviewed E&M revi ewed - [...] only Shyam Diaz alcohol use no Shyam salgadoon caffeine use, averag e drinks per day yes Shyam Diaz drug use no Shyam knapp passive cigarette sm liv exposure no Shyam Diaz smoking status Never smoker Shyam Cohen social history reviewed E&M [place] - no changes required Jeimy Rojas MD alcohol use no Radha Thakur lder smoking status Never smoker Radha Escobarisidorojone hilda social history reviewed E&M reviewed Jeimy Rojas MD social history reviewed E&M reviewed Jeimy Rojas MD drug use no Radha Thakur lder passive cigarette sm liv exposure no Radha Rojo smoking status never smoker Radha Santiago hilda social history reviewed E&M reviewed Kofi Edwards [...] social basis only [employer] smoking status Non-smoker [facility] MENTAL STATUS Date Observation Value Provider assessment [...] Mood and affect are normal. Kristyn Rowe LODE MINER HISTORY Family Member Condition First Degree Blood Relative No Known Fam cristóbal History INSURANCE PROVIDERS Payer name Policy type / Coverage type [place] [employer] party ID [facility] [id number] ADVANCE DIRECTIVES Name Date DISCUSSED - NO [...] MD follow up: O rders: E KG (CPT-[id number]) Jeimy Rojas MD follow up: H er [...] or pleural effusion. Normal aortic root. - GC (02/07/2009) Jeimy Rojas MD follow up and echo Jeimy Rojas MD FU: O rders: C omplete Echo (CPT-[id number]) Jeimy Rojas MD FU:BP high today, bu t states it's normally fine at home. B P today: 164/98 Orders: C omplete Echo ([id number]) Jeimy Rojas MD FU:recheck echo toJoel P today: 164/98 Prior BP: / () E chocardiogram: EF - 65%. B orderline LVH. T hickened mitral valve. S clerosed aortic valve. M Ild mitral regurgitation. Trace aortic insufficiency. T race tricuspid regurgitation. (09/30/2006) Orders: C omplete Echo ([id number]) Jeimy Rojas MD Date Name Complete Echo Complete Echo Complete Echo HISTORY OF PROCEDURES Procedure Date Procedure Name Provider Procedure Notes S tatus SNOMED-CT: 69188438 Physical Exam, Performed: Pulse Exam of Foot Jeimy Rojas MD completed SNOMED-CT: 047885131 [id number] Current Medications Documented Jeimy Rojas MD completed SNOMED-CT: 92622850 Physical Exam, Performed: Pulse Exam of Foot Jeimy Rojas MD completed EKG Jeimy Rojas MD completed SNOMED-CT: 895314832 924341 Current Medications Documented Jeimy Rojas MD completed EKG Jeimy Rojas MD completed EKG Jeimy Rojas MD completed EKG Jeimy Rojas MD completed
--- OUTSIDE RECORDS SUMMARY | 2024-06-25 00:31 | XMS_ITS | Encounter Summary ---
Author Organization [facility] Health Address [address] [facility] [place] [address] Care Team Providers Care Oil Transport Driver Name Role Phone Jered Myers MD Primary Care Provider [phone] Encounter Details Date Type Department Care Team (Late st Contact Info) Description 11/21/2023 Lab Requisition [facility] [address] [place] [address] [address] [place], [place] [id number] Social History Tobacco Use Types Packs/Day Years [...] - 20.0 ug/mL 11/21/2023 9:00 PM CDT [facility] Blood BLOOD SPECIMEN / Unknown Venipuncture / Unknown 11/21/2023 7:30 PM CDT 11/21/2023 8:28 PM CDT [facility] - CHEMISTRY CLAIRE JOSEPH Performing Organization Address City/State/[facility] Co de Phone Number [facility] [address] [place] [address] documented in this encounter Visit Diagnoses Not on filedocumented in this encounter Care Teams Oil Transport Driver Relationship Specialty Start Date End Date Jered Myers MD PCP - General 03/02/18 documented as of this encounter
--- OUTSIDE RECORDS SUMMARY | 2024-06-25 00:31 | XMS_ITS | Encounter Summary ---
Author Organization [facility] Health Address [address] [facility] [place] [address] Care Team Providers Care Rerecording Mixer Name Role Phone Jered Myers MD Primary Care Provider [phone] Encounter Details Date Type Department Care Team (Late st Contact Info) Description 12/15/2023 Lab Requisition [facility] [address] [place] [address] [address] Darnell [place], [place] [address] Social History Tobacco Use Types Packs/Day Years [...] - 29 mmol/L 12/15/2023 3:41 PM CDT [facility] Calcium 8.7 8.4 - 10.4 mg/dL 12/15/2023 3:41 PM CDT [facility] Anion Gap 11 6 - 16 mmol/L 12/15/2023 3:41 PM CDT [facility] BUN 9 7 - 26 mg/dL 12/15/2023 3:41 PM CDT [facility] Creatinine 0.39(L) 0.57 - 1.11 mg/dL 12/15/2023 3:41 PM CDT [facility] Alkaline Phosphatase 73 40 - 150 U/L 12/15/2023 3:41 PM CDT [facility] ALT 8 0 - 55 U/L 12/15/2023 3:41 PM CDT [facility] AST 20 5 - 34 U/L 12/15/2023 3:41 PM CDT [facility] Protein Total 5.1(L) 6.4 - 8.3 gm/dL 12/15/2023 3:41 PM CDT [facility] Albumin 2.8(L) 3.4 - 5.0 gm/dL 12/15/2023 3:41 PM CDT [facility] Bilirubin Total 0.4 0.2 - 1.2 mg/dL 12/15/2023 3:41 PM CDT [facility] eGFR by CKD-EPI >90 >=90 mL/min/1.7 3 m2 12/15/2023 3:41 PM CDT [facility] Blood BLOOD SPECIMEN / Unknown Venipuncture / Unknown 12/15/2023 7:30 AM CDT 12/15/2023 3:18 PM CDT [facility] - CHEMISTRY CLAIRE JOSEPH Performing Organization Address City/[facility]/ZIP Co de Phone Number [facility] [address] [place], [place] [phone] * VANCOMYCIN LEVEL TROUGH (12/15/2023 7:30 AM CDT) Vancomycin Trough 18.6 10.0 - 20.0 ug/mL 12/15/2023 1:47 PM CDT [facility] Blood BLOOD SPECIMEN / Unknown Venipuncture / Unknown 12/15/2023 7:30 AM CDT 12/15/2023 1:03 PM CDT [facility] Darn[facility] - CHEMISTRY CLAIRE JOSEPH Performing Organization Address City/[facility]/ZIP Co de Phone Number [facility] [address] [place] [phone] documented in this encounter Visit Diagnoses Not on filedocumented in this encounter Care Teams Rerecording Mixer Relationship Specialty Start Date End Date Jered Myers MD PCP - General 03/02/18 documented as of this encounter
--- OUTSIDE RECORDS SUMMARY | 2024-06-25 00:31 | XMS_ITS | Encounter Summary ---
Author Organization [facility] Healthcare Address [address] [place] [address] Care Team Providers Care Horse Identifier Name Role Phone Jered Myers MD Primary Care Provider [phone] Lang Perry MD PhD Unavailable + Ariadne Dang EYE PHYSICIAN Primary Care Provider [phone] Na Acosta EYE PHYSICIAN Unavailable [phone] Huyen Hernandez EYE PHYSICIAN Primary Care Provider [phone] Ariadne Dang EYE PHYSICIAN Primary Care Provider [phone] Huyen Hernandez EYE PHYSICIAN Primary Care Provider [phone] Ginny Zendejas RN Unavailable [phone] Encounter Details Date Type Department Care Team (Latest Contact Info) Description 12/24/2018 Ophth Exam Ophthalmology Lucie Parrish MD PhD [address] [facility] [address] [place] [address] Social History Tobacco Use Types [...] Normal Normal Periphery Normal Normal Care Teams Horse Identifier Relationship Specialty Start Date End Date Jered Myers MD PCP - General Internal Medicine 01/15/18 12/22/19 Ariadne Dang NP [address] [place] [address] PCP - General 12/23/19 06/09/23 Huyen Hernandez NP [address] [place] [address] PCP - General Family Medicine 06/11/23 06/22/23 Ariadne Dang NP [address] [place] [address] PCP - General Cardiovascular Disease 06/23/23 4 Huyen Hernandez EYE PHYSICIAN [address] [place] [address] PCP - General Family Medicine 06/27/23 Lang Perry MD PhD Referring Physician Neurology 12/18/18 04/14/23 Na Acosta NP [address] [place] [address] Nurse Practitioner Neurology 05/12/23 Ginny Zendejas, RN [address] [facility] [address] [place] [address] [employer]OP Outpatient Apprenticeship Representative 06/30/23 07/24/23 documented as of this encounter
--- OUTSIDE RECORDS SUMMARY | 2024-06-25 00:31 | XMS_ITS | Encounter Summary ---
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 Social History Tobacco Use [...] - 105 mg/dL 12/02/2023 11:24 AM CDT [facility] Sodium 141 136 - 145 mmol/L 12/02/2023 11:24 AM CDT [facility] Potassium 2.7(L) 3.5 - 5.1 mmol/L 12/02/2023 11:24 AM CDT [facility] Chloride 104 98 - 107 mmol/L 12/02/2023 11:24 AM CDT [facility] CO2 27 22 - 29 mmol/L 12/02/2023 11:24 AM CDT [facility] Calcium 8.3(L) 8.4 - 10.4 mg/dL 12/02/2023 11:24 AM CDT [facility] Anion Gap 10 6 - 16 mmol/L 12/02/2023 11:24 AM CDT [facility] BUN 11 7 - 26 mg/dL 12/02/2023 11:24 AM CDT [facility] Creatinine 0.45(L) 0.57 - 1.11 mg/dL 12/02/2023 11:24 AM CDT [facility] Alkaline Phosphatase 65 40 - 150 U/L 12/02/2023 11:24 AM CDT [facility] ALT 6 0 - 55 U/L 12/02/2023 11:24 AM CDT [facility] AST 19 5 - 34 U/L 12/02/2023 11:24 AM T [facility] Protein Total 4.9(L) 6.4 - 8.3 gm/dL 12/02/2023 11:24 AM T [facility] Albumin 2.7(L) 3.4 - 5.0 gm/dL 12/02/2023 11:24 AM CDT [facility] Bilirubin Total 0.4 0.2 - 1.2 mg/dL 12/02/2023 11:24 AM T [facility] eGFR by CKD-EPI >90 >=90 mL/min/1.7 3 m2 12/02/2023 11:24 AM T [facility] Blood BLOOD SPECIMEN / Unknown Venipuncture / Unknown 12/01/2023 3:30 PM CDT 12/02/2023 10:59 AM CDT [facility] - CHEMISTRY CLAIRE JOSEPH Performing Organization Address [facility] Co de Phone Number [facility] [address] [place] [phone] * (ABNORMAL) VANCOMYCIN LEVEL TROUGH (12/01/2023 3:30 PM CDT) [facility] Vancomycin Trough 21.8(H) 10.0 - 20.0 ug/mL 12/01/2023 9:31 PM CDT [facility] Blood BLOOD SPECIMEN / Unknown Venipuncture / Unknown 12/01/2023 3:30 PM CDT 12/01/2023 9:09 PM CDT [facility] - CHEMISTRY CLAIRE JOSEPH Performing Organization Address [facility] de Phone Number [facility] [address] [place] [phone] documented in this encounter Visit Diagnoses Diagnosis 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
--- OUTSIDE RECORDS SUMMARY | 2024-06-25 00:31 | XMS_ITS | Encounter Summary ---
Author Organization [facility] Health Address [address] [facility] [place] [address] Care Team Providers Care Milk Wagon Driver Name Role Phone Jered Myers MD Primary Care Provider [phone] Encounter Details Date Type Department Care Team (Late st Contact Info) Description 11/23/2023 Lab Requisition [facility] [address] [place] [address] [address] [place], [place] [address] Social History Tobacco Use Types Packs/Day Years [...] - 20.0 ug/mL 11/23/2023 8:40 PM CDT [facility] Blood BLOOD SPECIMEN / Unknown Venipuncture / Unknown 11/23/2023 7:30 PM CDT 11/23/2023 8:21 PM CDT [facility] - CHEMISTRY CLAIRE JOSEPH Performing Organization Address City/State/[facility] Co de Phone Number [facility] [address] [place] [address] documented in this encounter Visit Diagnoses Not on filedocumented in this encounter Care Teams Milk Wagon Driver Relationship Specialty Start Date End Date Jered Myers MD PCP - General 03/02/18 documented as of this encounter
--- OUTSIDE RECORDS SUMMARY | 2024-06-25 00:31 | XMS_ITS | Encounter Summary ---
Author Organization [facility] Health Address [address] [facility] [place] [address] Care Team Providers Care Mold Tooling Technician Name Role Phone Jered Myers MD Primary Care Provider [phone] Encounter Details Date Type Department Care Team (Late st Contact Info) Description 11/19/2023 Lab Requisition [facility] [address] [place] [address] [address] [place], [place] [address] Social History Tobacco Use Types Packs/Day Years [...] - 20.0 ug/mL 11/19/2023 6:05 PM CDT [facility] Blood BLOOD SPECIMEN / Unknown Venipuncture / Unknown 11/19/2023 4:33 PM CDT 11/19/2023 4:34 PM CDT [facility] Darn[facility] LAB - CHEMISTRY CLAIRE JOSEPH [facility] [address] [place], [place] [phone] documented in this encounter Visit Diagnoses Not on filedocumented in this encounter Care Teams Mold Tooling Technician Relationship Specialty Start Date End Date Jered Myers MD PCP - General 03/02/18 documented as of this encounter
--- OUTSIDE RECORDS SUMMARY | 2024-06-25 00:31 | XMS_ITS | Encounter Summary ---
Author Organization [facility] Health Address [address] [place] [address] Care Team Providers Care Cleaner Name Role Phone Jered Myers MD Primary Care Provider [phone] Encounter Details Date Type Department Care Team (Late st Contact Info) Description 11/10/2023 Lab Requisition [facility] [address] [place] [address] [address] [place], [place] [address] Social History Tobacco Use Types Packs/Day Years [...] LEVEL TROUGH (11/10/2023 7:30 PM CDT) Pathologist [facility] Vancomycin Trough 20.0 10.0 - 20.0 ug/mL 11/19/2023 9:54 PM CDT [facility] Blood BLOOD SPECIMEN / Unknown Venipuncture / Unknown 11/10/2023 7:30 PM CDT 11/19/2023 9:40 PM CDT [facility] - CHEMISTRY CLAIRE JOSEPH Performing Organization Address City/State/[facility] Co de Phone Number [facility] [address] [place], [place] [phone] * (ABNORMAL) BASIC METABOLIC PANEL (CALCIUM TOTAL) (11/10/2023 7:30 PM CDT) Pathologist [facility] Glucose 126(H) 70 - 105 mg/dL 11/10/2023 9:35 PM CDT [facility] Sodium 142 136 - 145 mmol/L 11/10/2023 9:35 PM CDT [facility] Potassium 3.4(L) 3.5 - 5.1 mmol/L 11/10/2023 9:35 PM CDT [facility] Chloride 106 98 - 107 mmol/L 11/10/2023 9:35 PM CDT [facility] CO2 27 22 - 29 mmol/L 11/10/2023 9:35 PM CDT [facility] Calcium 8.2(L) 8.4 - 10.4 mg/dL 11/10/2023 9:35 PM CDT [facility] Anion Gap 9 6 - 16 mmol/L 11/10/2023 9:35 PM CDT [facility] BUN 8 7 - 26 mg/dL 11/10/2023 9:35 PM CDT [facility] Creatinine 0.55(L) 0.57 - 1.11 mg/dL 11/10/2023 9:35 PM CDT [facility] eGFR by CKD-EPI >90 >=90 mL/min/1.7 3 m2 11/10/2023 9:35 PM CDT [facility] Blood BLOOD SPECIMEN / Unknown Venipuncture / Unknown 11/10/2023 7:30 PM CDT 11/10/2023 9:13 PM CDT [facility] Darnell [facility] - CHEMISTRY CLAIRE JOSEPH Performing Organization Address City/[facility]/ZIP Co de Phone Number [facility] [address] [place], [place] [phone] * (ABNORMAL) VANCOMYCIN LEVEL TROUGH (11/10/2023 7:30 PM CDT) [facility] Vancomycin Trough 24.9(H) 10.0 - 20.0 ug/mL 11/10/2023 9:35 PM CDT [facility] Blood BLOOD SPECIMEN / Unknown Venipuncture / Unknown 11/10/2023 7:30 PM CDT 11/10/2023 9:13 PM CDT [facility] Darnell [facility] - CHEMISTRY CLAIRE JOSEPH Performing Organization Address [facility] Co de Phone Number [facility] [address] [place] [address] documented in this encounter Visit Diagnoses Not on filedocumented in this encounter Care Teams Cleaner Relationship Specialty Start Date End Date Jered Myers MD PCP - General 03/02/18 documented as of this encounter
--- OUTSIDE RECORDS SUMMARY | 2024-06-25 00:31 | XMS_ITS | Encounter Summary ---
Author Organization [facility] Address [address] [place] [address] Phone Care Team Providers Care Recruitment Intern Name Role Phone Jered Myers MD Primary Care Provider + [phone] Lang Perry MD PhD Unavailable + Ariadne Dang TAKE OUT WAITER Primary Care Provider [phone] Na Acosta TAKE OUT WAITER Unavailable [phone] Huyen Hernandez TAKE OUT WAITER Primary Care Provider + [phone] Ariadne Dang TAKE OUT WAITER Primary Care Provider [phone] Huyen Hernandez TAKE OUT WAITER Primary Care Provider + [phone] Ginny Zendejas RN Unavailable [phone] Encounter Details Date Type Department Care Team (Late st Contact Info) Description 05/21/2018 Orders Only [facility] NEUROMUSCLE Scanning, Provider Social History Tobacco [...] documented as of this encounter Care Teams Recruitment Intern Relationship Specialty Start Date End Date Jered Myers MD PCP - General Internal Medicine 01/15/18 12/22/19 Ariadne Dang NP 1 [facility] [address] [place] [address] PCP - General 12/23/19 06/09/23 Huyen Hernandez NP [address] [place] [address] PCP - General Family Medicine 06/11/23 06/22/23 Ariadne Dang NP 1 [facility] [address] [place] [address] PCP - General Cardiovascular Disease 06/23/23 4 Huyen Hernandez NP [address] [place] [address] PCP - General Family Medicine 06/27/23 Lang Peryr MD PhD Referring Physician Neurology 12/18/18 04/14/23 Na Acosta NP [address] [place] [address] Nurse Practitioner Neurology 05/12/23 Ginny Zendejas, RN [address] [facility] [address] [place] [address] SHOP Outpatient Medical Assisting Program Director 06/30/23 07/24/23 documented as of this encounter
--- OUTSIDE RECORDS SUMMARY | 2024-06-25 00:31 | XMS_ITS | Encounter Summary ---
Author Organization [facility] Address [address] [place] [address] Phone Care Team Providers Care Winder Fixer Name Role Phone Lang Perry MD PhD Unavailable + Ariadne Dang ACADEMIC AFFAIRS DIRECTOR Primary Care Provider [phone] Na Acosta ACADEMIC AFFAIRS DIRECTOR Unavailable [phone] Huyen Hernandez ACADEMIC AFFAIRS DIRECTOR Primary Care Provider + [phone] Ariadne Dang ACADEMIC AFFAIRS DIRECTOR Primary Care Provider [phone] Huyen Hernandez ACADEMIC AFFAIRS DIRECTOR Primary Care Provider + [phone] Ginny Zendejas RN Unavailable [phone] Encounter Details Date Type Department Care Team (Late st Contact Info) Description 08/18/2020 Documentation [facility] Neuro Rehab [address] [facility] Advanced Medicine 6th [place] [address] [place] [address] Chuck Das MD PhD [address] [place] [address] Social History Tobacco Use Types Packs/Day Years [...] on filedocumented in this encounter Care Teams Winder Fixer Relationship Specialty Start Date End Date Ariadne Dang NP 1 [facility] [address] [place] [address] PCP - General 12/23/19 06/09/23 Huyen Hernandez NP [address] [place] [address] PCP - General Family Medicine 06/11/23 06/22/23 Ariadne Dang NP 1 [facility] [address] [place] [address] PCP - General Cardiovascular Disease 06/23/23 4 Huyen Hernandez, JORGE [address] [place] [address] PCP - General Family Medicine 06/27/23 Lang Perry MD PhD Referring Physician Neurology 12/18/18 04/14/23 Na Acosta NP [address] [place] [address] Nurse Practitioner Neurology 05/12/23 Ginny Zendejas, RN [address] [facility] [address] [place] [address] SHOP Outpatient Retort Loader 06/30/23 07/24/23 documented as of this encounter
--- OUTSIDE RECORDS SUMMARY | 2024-06-25 00:31 | XMS_ITS | Referral Summary ---
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 She [...] not completely closed. She is in a care home care facility and at this time, needs 24 X 7 care for transfers, ADLs etc. She has manager intermediate neurological sequelae with muscle atrophy, neuropathies etc. Today she reports no fever/chills/rigors/nausea/vomiting/diarrhea. Sacral ulcer is healing. No drainage currently. She is getting wound care at facility. PLAN - currently, still gathering information about her sacral decubitus ulcer and status of osteomyelitis. IV abx decided and managed through facility and [facility] doctors. Limited data shared with us - referral in Nov only contains information from admission in [facility] late September 2023, no recent labs/evaluations/provider notes. [...] CDT): - ACCS rec medical management - Wound/chainstitch felled seam operator consult - Discussed how to verify [...] (08/28/2019): Added automatically from request for surgery [id number] Muscle weakness 08/23/2019 Overview (08/30/2019): Added automatically from request for surgery [id number] Severe malnutrition 12/23/2018 Adnexal mass 12/18/2018 Overview (12/29/2018): Added automatically from request for surgery [id number] Weakness 11/16/2018 Polyneuropathy 11/16/2018 Gait disorder 11/16/2018 Resolved Problems Problem Noted Date Diagnosed Date Resolved Date Moderate protein-calorie malnutrition 05/22/2023 06/23/2023 Assessment & Plan (06/21/2023 9:15 PM CDT): Nutrition consult Immunizations Immunization Administration Dates Next Due Influenza, Quadrivalent, Spl it, Preservative Free, Intramuscular 01/01/2019 Social History Tobacco Use Types Packs/Day Years Used Date Smoking Tobacco: Never Smokeless Tobacco: Never Tobacco Cessation:Counseling Given: Not Answered Alcohol Use Standard Drinks/Week Comments Never 0 (1 standard drink = 0.6 oz pur e alcohol) [facility] Utilities Answer Date Recorded In the past 12 months has th e [employer], gas, oil, or water [employer] threatened to shut off services in your [...] often do you attend chur ch or jehovah's witness services? Never 07/01/2023 Do you belong to any clubs o r organizations such as restorationist groups, unions, fraternal or athletic groups, or [...] place to sleep or slept in a correction (including now)? No 07/01/2023 Personal Safety Answer [...] on file Medical Devices Implanted Type Area Reliability Technologist Device Identifier Shelf Expiration Date Model / Serial / Lot Knee Bilateral: Knee Procedures Procedure Name Priority Date/Time Associated Diagnosis Comments HEPATITIS PANEL, ACUTE Routine 07/20/2020 4:21 PM CDT Demyelinating disease of central nervous system (HCC) from Last 3 Months or Most Recently Relevant to Health Maintenance Results * Hepatitis panel, acute (07/20/2020 4:21 PM CDT) Hep A IgM Nonreactive Nonreactive [facility] Comment: Interpretive Data: If Hep A IgM Ab is reported as Equivocal, a new sample should be drawn in two weeks for testing. Current interpretive data was last revised on 19. Hep B core IgM Nonreactive Nonreactive [facility] Comment: Interpretive Data If HepB Core IgM Ab is reported as Equivocal, a new sample should be drawn in two weeks for testing. Current interpretive data was last revised on 19. Hep C Ab Nonreactive Nonreactive [facility] Comment:Antibodies to HCV no t detected. Does NOT exclude the possibility of recent exposure to HCV. HepBsAg Nonreactive Nonreactive [facility] Blood specimen (specimen) 07/20/2020 4:21 PM CDT 07/20/2020 4:29 PM CDT us Lang Perry MD PhD LAB MICROB IOLOGY - GENERAL ORDERABLES Edited Result - Final [facility] Department [place] [address] from Last 3 Months or Most Recently Relevant to Health Maintenance Insurance [email or web address] ACCESS Member Subscriber Plan / Payer (Ef fective 2016-Present) Name:Vee Renae Relation to Subscriber:Self Name:Vee Renae Payer ID:[id number] (NAIC) Type:[facility] Address: [facility] [id number] [address] [facility] PLAN [facility] MEDICARE [facility] Address: [facility] [address] [place] [address] MEDICARE MEDICARE Advance Directives For more information, please contact: [phone] * Full Code (Latest Code Status on [...] 3:42 PM 01/08/2019 6:55 PM Care Teams Deck Engine Operator Relationship Specialty Start Date End Date Huyen Hernandez NP [address] [place] [address] PCP - General Family Medicine 06/27/23 Na Acosta NP [address] [place] [address] Nurse Practitioner Neurology 05/12/23
--- OUTSIDE RECORDS SUMMARY | 2024-06-25 00:31 | XMS_ITS | Encounter Summary ---
Author Organization [facility] Address [address] [facility] [place] [address] Care Team Providers Care Bottom Turning Lathe Turner Name Role Phone Jered Myers MD Primary Care Provider [phone] Encounter Details Date Type Department Care Team (Late st Contact Info) Description 11/14/2023 Lab Requisition [facility] [address] [place] [address] [address] [place], [place] [address] Social History Tobacco Use Types Packs/Day Years [...] - 20.0 ug/mL 11/14/2023 11:30 AM CDT [facility] Blood BLOOD SPECIMEN / Unknown Venipuncture / Unknown 11/14/2023 11:12 AM CDT 11/14/2023 11:12 AM CDT Norman Darnell LAB - CHEMISTRY CLAIRE JOSEPH [facility] [address] [place], [place] [id number] documented in this encounter Visit Diagnoses Not on filedocumented in this encounter Care Teams Bottom Turning Lathe Turner Relationship Specialty Start Date End Date Jered Myers MD PCP - General 03/02/18 documented as of this encounter
--- OUTSIDE RECORDS SUMMARY | 2024-06-25 00:31 | XMS_ITS | Encounter Summary ---
Author Organization [facility] Address [address] [facility] [place] [address] Care Team Providers Care Readers' Advisory Service Librarian Name Role Phone Jered Myers MD Primary Care Provider [phone] Encounter Details Date Type Department Care Team (Late st Contact Info) Description 12/06/2023 Lab Requisition [facility] [address] [place] [address] [address] [place], [place] [address] Social History Tobacco Use Types Packs/Day Years [...] - 20.0 ug/mL 12/06/2023 9:41 PM CDT [facility] Blood BLOOD SPECIMEN / Unknown Venipuncture / Unknown 12/06/2023 7:30 PM CDT 12/06/2023 9:11 PM CDT Norman Darnell LAB - CHEMISTRY CLAIRE JOSEPH [facility] [address] [place] [address] documented in this encounter Visit Diagnoses Not on filedocumented in this encounter Care Teams Readers' Advisory Service Librarian Relationship Specialty Start Date End Date Jered Myers MD PCP - General 03/02/18 documented as of this encounter
--- OUTSIDE RECORDS SUMMARY | 2024-06-25 00:31 | XMS_ITS | Encounter Summary ---
Author Organization [facility] Address [address] [place] [address] Care Team Providers Care Product Management Specialist Name Role Phone Jered Myers MD Primary Care Provider [phone] Encounter Details Date Type Department Care Team (Late st Contact Info) Description 11/11/2023 Lab Requisition [facility] [address] [place] [address] Social History Tobacco Use Types Packs/Day Years [...] on filedocumented in this encounter Care Teams Product Management Specialist Relationship Specialty Start Date End Date Jered Myers MD PCP - General 03/02/18 documented as of this encounter
--- OUTSIDE RECORDS SUMMARY | 2024-06-25 00:31 | XMS_ITS | Encounter Summary ---
Author Organization [facility] Address [address] [facility] [place] [address] Care Team Providers Care Civil Drafting Technician Name Role Phone Jered Myers MD Primary Care Provider [phone] Encounter Details Date Type Department Care Team (Late st Contact Info) Description 11/26/2023 Lab Requisition [facility] [address] [place] [address] [address] [place], [place] [address] Social History Tobacco Use Types Packs/Day Years [...] - 20.0 ug/mL 11/26/2023 1:53 PM CDT [facility] Blood BLOOD SPECIMEN / Unknown Venipuncture / Unknown 11/26/2023 1:32 PM CDT 11/26/2023 1:32 PM CDT Norman Darnell LAB - CHEMISTRY CLAIRE JOSEPH Performing Organization Address City/State/[facility] Co de Phone Number [facility] [address] [place] [address] documented in this encounter Visit Diagnoses Not on filedocumented in this encounter Care Teams Civil Drafting Technician Relationship Specialty Start Date End Date Jered Myers MD PCP - General 03/02/18 documented as of this encounter
--- OUTSIDE RECORDS SUMMARY | 2024-06-25 00:31 | XMS_ITS | Encounter Summary ---
Author Organization [facility] Address [address] [facility] [place] [address] Care Team Providers Care Traffic Counter Name Role Phone Jered Myers MD Primary Care Provider [phone] Encounter Details Date Type Department Care Team (Late st Contact Info) Description 12/01/2023 Lab Requisition [facility] [address] [place] [address] Social History Tobacco Use Types Packs/Day Years [...] - 20.0 ug/mL 12/01/2023 2:54 PM CDT [facility] Blood BLOOD SPECIMEN / Unknown Venipuncture / Unknown 11/29/2023 3:35 PM CDT 12/01/2023 2:23 PM CDT LAB - CHEMISTRY CLAIRE JOSEPH Performing Organization Address City/State/[facility] Co de Phone Number [facility] [address] [place] [address] documented in this encounter Visit Diagnoses Not on filedocumented in this encounter Care Teams Traffic Counter Relationship Specialty Start Date End Date Jered Myers MD PCP - General 03/02/18 documented as of this encounter
--- OUTSIDE RECORDS SUMMARY | 2024-06-25 00:31 | XMS_ITS | Encounter Summary ---
Author Organization [facility] Address [address] [facility] [place] [address] Care Team Providers Care Combination Machine Tender Name Role Phone Jered Myers MD Primary Care Provider [phone] Encounter Details Date Type Department Care Team (Late st Contact Info) Description 12/10/2023 Lab Requisition [facility] [address] [place], [place] [id number] Wong Vo MD [address] [facility] [address] [place] [address] Social History Tobacco Use Types [...] - 20.0 ug/mL 12/10/2023 10:31 PM CDT [facility] Blood BLOOD SPECIMEN / Unknown Venipuncture / Unknown 12/10/2023 5:30 PM CDT 12/10/2023 10:12 PM CDT Wong Vo MD LAB - CHEMISTRY O RDERABLES [facility] [address] [place] [address] documented in this encounter Visit Diagnoses Not on filedocumented in this encounter Care Teams Combination Machine Tender Relationship Specialty Start Date End Date Jered Myers MD PCP - General 03/02/18 documented as of this encounter
--- OUTSIDE RECORDS SUMMARY | 2024-06-25 00:31 | XMS_ITS | Encounter Summary ---
Author Organization [facility] Address [address] [facility] [place] [address] Care Team Providers Care Astronaut Mission Specialist Name Role Phone Jered Myers MD Primary Care Provider [phone] Encounter Details Date Type Department Care Team (Late st Contact Info) Description 05/12/2018 Telephone [facility] [address] [address] Prashanth Wood MD [address] [place] [address] Social History Tobacco Use Types Packs/Day Years [...] 2:27 PM CST PT: Vee Renae PH: [phone] This referral is incomplete. It is missing the referred to field, such as the department and department specialty. Please advise. Thanks, Jaylen Shelton [facility] documented in this encounter Plan of Treatment Not on file documented as of this encounter Visit Diagnoses Not on filedocumented in this encounter Care Teams Astronaut Mission Specialist Relationship Specialty Start Date End Date Jered Myers MD PCP - General 03/02/18 documented as of this encounter
--- OUTSIDE RECORDS SUMMARY | 2024-06-25 00:31 | XMS_ITS | Clinical Summary ---
Author Organization [facility] Address [address] [facility] [place] [address] Care Team Providers Care Driver Retraining Instructor Name Role Phone Jered Myers MD Primary Care Provider [phone] Source Comments [facility],non-[facility] Affiliates and Associated Physician Practices is amultiple site organization consisting of ambulatory clinics and hospital sitesin [place], [place], [place] and [place]. This disclosure is being madepursuant to the Care Everywhere program and may not contain all information available regarding this patient. Last updated 17.[facility] Allergies Active Allergy Reactions Criticality Noted Date [...] Active azelastine (ASTELIN) 0.1 % nasal spray [place] 1 spray into each nostril 2 times [...] Comments Blood Pressure 127/71 03/06/2018 8:19 AM SHIP PAINTER HELPER Pulse 81 03/06/2018 8:19 AM SHIP PAINTER HELPER Temperature 36 C (96.8 F) 03/06/2018 8:19 AM SHIP PAINTER HELPER Respiratory Rate 18 11/22/2017 8:19 AM CDT Oxygen Saturation 100% 11/22/2017 8:19 AM CDT Inhaled Oxygen Concentration - - Weight 135.2 kg (298 lb) 03/06/2018 8:19 AM SHIP PAINTER HELPER Height 167.6 cm (5' 6 ) 03/06/2018 8:19 AM SHIP PAINTER HELPER Body Mass Index 48.1 03/06/2018 8:19 AM SHIP PAINTER HELPER Plan of Treatment Health Maintenance Due Date [...] complete this topic MENINGOCOCCAL (Group B) VACCINE SHARED DECISION-MAKING Aged Out No longer eligible based on patient's age to complete this topic MENINGOCOCCAL GROUPS A/C/Y/W VACCINE Aged Out No longer eligible based [...] - 8.3 gm/dL 12/24/2023 7:45 PM CDT [facility] Albumin 2.7(L) 3.4 - 5.0 gm/dL 12/24/2023 7:45 PM CDT [facility] Bilirubin Total 0.3 0.2 - 1.2 mg/dL 12/24/2023 7:45 PM CDT [facility] eGFR by CKD-EPI >90 >=90 mL/min/1.7 3 m2 12/24/2023 7:45 PM CDT [facility] Blood BLOOD SPECIMEN / Unknown Venipuncture / Unknown 12/24/2023 6:00 PM CDT 12/24/2023 7:03 PM CDT Norman Darnell LAB - CHEMISTRY ORDE JAKE [facility] [address] [place] [address] * HIV-1 HIV-2 ANTIGEN/ANTIBODY (11/20/2017 12:50 AM CDT) HIV Antigen/Antibod y 1 & 2 Non-reacti ve Non-react emilia 11/20/2017 1:53 AM CDT [facility] Comment: Neither HIV-1 p24 Antigen nor HIV-1/HIV-2 Antibodies are detected. Blood BLOOD SPECIMEN / Unknown Venipuncture / Unknown 11/20/2017 12:50 AM CDT 11/20/2017 12:55 AM CDT Bienvenido Painter DO LAB - HEMATOLOGY ORD ERABLES [facility] [address] [phone] from Last 3 Months or Most Recently Relevant to Health Maintenance Advance Directives * Full Code (Latest Code Status on File) Date Activated Date Inactivated Comments 11/19/2017 9:52 PM 11/22/2017 5:00 PM Care Teams Driver Retraining Instructor Relationship Specialty Start Date End Date Jered Myers MD PCP - General 03/02/18
--- OUTSIDE RECORDS SUMMARY | 2024-06-25 00:31 | XMS_ITS | Clinical Summary ---
Author Organization [facility] Address [address] [place] [address] Care Team Providers Care Sales Representatives Name Role Phone Unavailable Primary Care Provider [...] medication and update provider with any changes Active Active Problems Problem Noted Date Diagnosed Date Moderate episode of recurrent major depressive d isorder 01/24/2022 Physical deconditioning 11/02/2021 Abnormal liver enzymes 11/01/2021 Biliary sludge 11/01/2021 Other chronic pulmonary heart diseases ([facility]) 11/01/2021 Steatosis of liver 11/01/2021 Obesity 11/01/2021 Pure hypercholesterolemia 11/01/2021 Lichen sclerosus 11/01/2021 Knee pain 11/01/2021 Hereditary and idiopathic neuropathy, unspecifie d 10/26/2021 Need for assistance with personal care Other reduced mobility 10/26/2021 Obesity, unspecified 10/26/2021 Essential (primary) hypertension 10/26/2021 Type 2 diabetes mellitus wit hout complications ([facility]) 10/26/2021 Liver disease, unspecified 10/26/2021 Lichen sclerosus [...] dilated HVF 24-2 OU Demyelinating disease of central nervous system 10/14/2019 Disease of spinal cord ([facility]) 020 Polyradiculopathy 10/14/2019 Muscle weakness 08/23/2019 Overview (10/26/2021): Added automatically from request for surgery [id number] Decubitus ulcer of sacral region, stage 4 2019 Overview (11/01/2021): Added automatically from request for surgery [id number] Severe malnutrition ([facility]) 12/23/2018 Adnexal mass 12/18/2018 Overview (11/01/2021): Added automatically from request for surgery [id number] Gait disorder 11/16/2018 Polyneuropathy 11/16/2018 Neuropathy 07/18/2018 [...] Comments Blood Pressure 124/66 03/28/2022 9:24 AM MANAGER TECHNICAL SUPPORT Pulse 89 03/28/2022 9:24 AM MANAGER TECHNICAL SUPPORT Temperature 36.4 C (97.6 F) 03/28/2022 9:24 AM MANAGER TECHNICAL SUPPORT Respiratory Rate 20 03/28/2022 9:24 AM MANAGER TECHNICAL SUPPORT Oxygen Saturation 98% 03/28/2022 9:24 AM MANAGER TECHNICAL SUPPORT Inhaled Oxygen Concentration - - Weight 74.8 kg (165 lb) 03/18/2022 8:40 AM MANAGER TECHNICAL SUPPORT Height 172.7 cm (5' 8 ) 10/25/2021 [...] A1C 01/19/2021 07/20/2020, 08/24/2019, 12/29/2018 COVID-19 Vaccine (3 - 2023-2 5 season) 2023 11/02/2020, 10/05/2020 Influenza Adult [...]
--- OUTSIDE RECORDS SUMMARY | 2024-06-25 00:31 | XMS_ITS | Clinical Summary ---
Author Organization [facility] Address [address] [place] [address] Care Team Providers Care Production Support Specialist Name Role Phone Na Acosta JORGE Unavailable [phone] Huyen Hernandez NP Primary Care Provider [phone] Allergies Active Allergy Reactions Criticality Noted Date [...] limited on mobility, She was seen in [facility] 10/27/2023 and evaluated for sacral osteomyelitis. [...] not completely closed. She is in a residential care facility and at this time, needs 24 X 7 care for transfers, ADLs etc. 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 Today she reports no fever/chills/rigors/nausea/vomiting/diarrhea. Sacral ulcer is healing. No drainage currently. She is getting wound care at facility. PLAN - currently, still gathering information about her sacral decubitus ulcer and status of osteomyelitis. IV abx decided and managed through facility and [facility] doctors. Limited data shared with us - referral in Nov only contains information from admission in [facility] late September 2023, no recent labs/evaluations/provider [...] CDT): - ACCS rec medical management - Wound/solar installation helper consult - Discussed how to verify mattress [...] (08/28/2019): Added automatically from request for surgery [id number] Muscle weakness 08/23/2019 Overview (08/30/2019): Added automatically from request for surgery [id number] Severe malnutrition 12/23/2018 Adnexal mass 12/18/2018 Overview (12/29/2018): Added automatically from request for surgery [id number] Weakness 11/16/2018 Polyneuropathy 11/16/2018 Gait disorder 11/16/2018 [...] HISTORY 2013 and 2016 Bilateral knee replacement MA ARTHRP KNE CONDYLE&PLATU MEDIAL&LAT COMPARTMENTS Bilateral Medical History Medical History Date Comments Hypertension High cholesterol Sleep apnea Polyneuropathy Adnexal mass Lower extremity weakness Moderate protein-calorie malnutrition 05/22/2023 Family History Medical History Relation Name Comments [...] drink = 0.6 oz pur e alcohol) [employer] Answer Date Recorded In the past 12 months has [employer], gas, oil, or water [employer] threatened to shut off services in your [...] 07/01/2023 How often do you attend chur or hindu services? Never 07/01/2023 Do you belong to any clubs o r organizations such as yarsanism groups, unions, fraternal or athletic groups, or [...] place to sleep or slept in a assisted (including now)? No 07/01/2023 Personal Safety Answer [...] Cancer Screening-Mammogram 1964 Colon Cancer Screening-Colonoscopy 1964 DTaP/Tdap/Td Vaccine (1 - Tdap) 02/21/1975 Hepatitis B Screening 02/21/1982 Regular Well Visit/Exam 18-64 02/21/1982 Pneumococcal vaccine <65 (1 of 2 - PCV) 02/21/1983 Zoster Vaccine (1 of 2) 02/21/1983 Covid-19 Vaccine (3 - Pfizer risk series) 11/30/2020 11/02/2020, 10/05/2020 Influenza Vaccine (#1) 2023 01/01/2019 Depression Screening 06/19/2024 06/20/2023 Hepatitis C Screening Completed 07/20/2020, 019 Medical Devices Implanted Type Area Driver License Technician Device Identifier Shelf Expiration Date Model / Serial / Lot Knee Bilateral: Knee Procedures Procedure Name Priority Date/Time Associated Diagnosis Comments HEPATITIS PANEL, ACUTE Routine 07/20/2020 4:21 PM CDT Demyelinating disease of central nervous system (HCC) from Last 3 Months or Most Recently Relevant to Health Maintenance Results * Hepatitis panel, acute (07/20/2020 4:21 PM CDT) Hep A IgM Nonreactive Nonreactive [facility] Comment: Interpretive Data: If Hep A IgM [...] on 19. Hep C Ab Nonreactive Nonreactive [facility] Comment:Antibodies to HCV no t detected. Does NOT exclude the possibility of recent exposure to HCV. HepBsAg Nonreactive Nonreactive [facility] Blood specimen (specimen) 07/20/2020 4:21 PM CDT 07/20/2020 4:29 PM CDT us Lang Perry MD PhD LAB MICROB IOLOGY - GENERAL ORDERABLES Edited Result - Final [facility] [address] [place] [address] from Last 3 Months or Most Recently Relevant to Health Maintenance Insurance [facility] PLAN [facility] MEDICARE MEDICARE MEDICARE Advance Directives For more information, please contact: [phone] * Full Code (Latest Code Status on [...] 3:42 PM 01/08/2019 6:55 PM Care Teams Production Support Specialist Relationship Specialty Start Date End Date Huyen Hernandez NP [address] [place] [address] PCP - General Family Medicine 06/27/23 Na Acosta NP [address] [place] [address] Nurse Practitioner Neurology 05/12/23
--- OUTSIDE RECORDS SUMMARY | 2024-06-25 00:31 | XMS_ITS | Encounter Summary ---
Author Organization [facility] Address [address] [place] [address] Care Team Providers Care Utility Worker Driver Name Role Phone Jered Myers MD Primary Care Provider Encounter Details Date Type Department Care Team (Late st Contact Info) Description 12/24/2023 Lab Requisition [facility] [address] [place] [address] [address] [place], [place] [id number] Social History Tobacco Use Types Packs/Day Years [...] - 5.20 x10E12/L 12/24/2023 7:20 PM CDT [facility] Hemoglobin 10.0(L) 11.9 - 15.8 g/dL 12/24/2023 7:20 PM CDT [facility] Hematocrit 33.5(L) 34.8 - 46.1 % 12/24/2023 7:20 PM CDT [facility] MCV 92.3 80.0 - 98.0 fL 12/24/2023 7:20 PM CDT [facility] MCH 27.5 26.7 - 33.6 pg 12/24/2023 7:20 PM CDT [facility] MCHC 29.9(L) 31.7 - 36.3 g/dL 12/24/2023 7:20 PM CDT [facility] RDW-CV 16.3(H) 11.3 - 14.8 % 12/24/2023 7:20 PM CDT [facility] Platelet Count 190 150 - 420 x10E9/L 12/24/2023 7:20 PM CDT [facility] MPV 9.7 7.8 - 11.4 fL 12/24/2023 7:20 PM CDT [facility] Neutrophil % 55.9 41.0 - 74.0 % 12/24/2023 7:20 PM CDT [facility] Lymphocyte % 27.2 17.0 - 47.0 % 12/24/2023 7:20 PM CDT [facility] Monocyte % 9.8 3.0 - 11.0 % 12/24/2023 7:20 PM CDT [facility] Eosinophil % 6.0 0.0 - 7.0 % 12/24/2023 7:20 PM CDT [facility] Basophil % 0.8 0.0 - 1.6 % 12/24/2023 7:20 PM CDT [facility] Immature Granulocytes % 0.3 0.0 - 1.0 % 12/24/2023 7:20 PM CDT [facility] Neutrophil Absolute 2.06 1.60 - 7.50 x10E9/L 12/24/2023 7:20 PM CDT [facility] Lymphocyte Absolute 1.00 1.00 - 4.40 x10E9/L 12/24/2023 7:20 PM CDT [facility] Monocyte Absolute 0.36 0.15 - 1.00 x10E9/L 12/24/2023 7:20 PM CDT [facility] Eosinophil Absolute 0.22 0.00 - 0.60 x10E9/L 12/24/2023 7:20 PM CDT [facility] Basophil Absolute 0.03 0.00 - 0.13 x10E9/L 12/24/2023 7:20 PM CDT [facility] Blood BLOOD SPECIMEN / Unknown 12/24/2023 6:00 PM CDT 12/24/2023 7:03 PM CDT [facility] - HEMATOLOGY ORD ERABLES [facility] [address] [place] [address] * (ABNORMAL) COMPREHENSIVE METABOLIC PANEL (12/24/2023 6:00 PM CDT) Glucose 128(H) 70 - 105 mg/dL 12/24/2023 7:45 PM CDT [facility] Sodium 145 136 - 145 mmol/L 12/24/2023 7:45 PM CDT [facility] Potassium 3.2(L) 3.5 - 5.1 mmol/L 12/24/2023 7:45 PM CDT [facility] Chloride 104 98 - 107 mmol/L 12/24/2023 7:45 PM CDT [facility] CO2 32(H) 22 - 29 mmol/L 12/24/2023 7:45 PM CDT [facility] Calcium 8.7 8.4 - 10.4 mg/dL 12/24/2023 7:45 PM CDT [facility] Anion Gap 9 6 - 16 [...] - 8.3 gm/dL 12/24/2023 7:45 PM CDT [facility] Albumin 2.7(L) 3.4 - 5.0 gm/dL 12/24/2023 7:45 PM CDT [facility] Bilirubin Total 0.3 0.2 - 1.2 mg/dL 12/24/2023 7:45 PM CDT [facility] eGFR by CKD-EPI >90 >=90 mL/min/1.7 3 m2 12/24/2023 7:45 PM CDT [facility] Blood BLOOD SPECIMEN / Unknown Venipuncture / Unknown 12/24/2023 6:00 PM CDT 12/24/2023 7:03 PM CDT [facility] - CHEMISTRY CLAIRE JOSEPH [facility] Organization Address City/State/[facility] Co de Phone Number [facility] [address] [place] [address] documented in this encounter Visit Diagnoses Not on filedocumented in this encounter Care Teams Utility Worker Driver Relationship Specialty Start Date End Date Jered Myers MD PCP - General 03/02/18 documented as of this encounter
[2024-06-25] MEDS: SODIUM CHLORIDE 0.9% IV 1,000 ML 999 ML IV CONT ×2 (00:38→03:55)
[2024-06-25 00:51] LABS: Hemoglobin 6.3 g/dL (12.0-15.0)
[2024-06-25 00:53] LABS: Alanine Aminotransferase 11 U/L (6-35); Albumin Level 3.2 g/dL (3.5-5.1); Alkaline Phosphatase 157 U/L (38-126); Anion Gap 18 mmol/L (4-12); Aspartate Amino Transferase 19 U/L (14-36); Bilirubin,Total 0.6 mg/dL (0.2-1.3); Blood Urea Nitrogen 29 mg/dL (7-17); Calcium 9.9 mg/dL (8.4-10.2); Carbon Dioxide 20 mmol/L (22-30); Chloride 101 mmol/L (98-107); Estimated CRCL calculation 70 ml/min; Estimated Glomerular Filt Rate > 60; Glucose 88 mg/dL (65-110); Potassium 2.7 mmol/L (3.4-5.0); Sodium 139 mmol/L (137-145)
--- NOTE | 2024-06-25 00:56 | ECG_ITS ---
Test Date: 2024-06-25 01:43:41 Measurements Intervals [place] Rate: 91 P: 63 FL: 179 QRS: -54 QRSD: 85 T: 116 QT: 371 QTc: 458 Interpretive Statements SINUS RHYTHM POSSIBLE LEFT ATRIAL ENLARGEMENT [-0.1mV P-WAVE IN V1/V2] POSSIBLE RIGHT VENTRICULAR CONDUCTION DELAY [RSR (QR) IN V1/V2] LEFT ANTERIOR FASCICULAR BLOCK [QRS AXIS <= -45, QR IN I, RS IN II] NONSPECIFIC ST & T-WAVE ABNORMALITY Compared to ECG 05/07/2024 00:33:10 T-wave abnormality now present Electronically Signed On 06-25-2024 10:45:26 CDT by Luis Angel Mistry M.D.
[2024-06-25 00:58] LABS: Prothrombin Time 13.7 Seconds (11.1-14.7)
[2024-06-25 01:04] LABS: Band Neutrophils Percent 6 % (0-6); Lymphocytes Absolute Manual 0.54 K/mm3 (1.1-4.5); Lymphocytes Percent Manual 2 % (18-44); Monocytes Absolute Manual 0.54 K/mm3 (0.1-0.90); Monocytes Percent Manual 2 % (3-9); Neutrophils Percent Manual 90 % (46-73); Platelet Estimate Increased (Adequate); Total Cells Counted 100
[2024-06-25 01:05] LABS: Anisocytosis 1+; Hypochromasia 1+; Ovalocytes 1+; Schistocytes None Seen
[2024-06-25 01:32] LABS: Magnesium 1.6 mg/dL (1.6-2.3)
[2024-06-25 01:45] LABS: Troponin I < 0.012 ng/mL (0.000-0.034)
[2024-06-25] MEDS: POTASSIUM BICARBONATE 25 MEQ TABEF 50 MEQ PO (01:48)
[2024-06-25] MEDS: KCL 20 MEQ/SW 100 ML 100 ML 50 MEQ IVPB (01:49)
[2024-06-25] MEDS: TUBING, BLOOD SET 1 EACH XX (02:10)
[2024-06-25] MEDS: SODIUM CHLORIDE 0.9% IV 250 ML 30 ML IV CONT (02:15)
[2024-06-25 02:20] LABS: Lactic Acid Reflex 0.8 mmol/L (0.7-2.0)
[2024-06-25 02:30] LABS: Add Urine Microscopic? YES; Appearance Urine Turbid (Clear); Bacteria Urine 4+ /hpf; Bilirubin Urine Negative (Negative); Blood Urine 2+ (Negative); Budding Yeast Urine Present /hpf; Color Urine Yellow (Yellow); Glucose Urine UA Negative (Negative); Hyaline Casts Urine Present /lpf; Ketones Urine 1+ mg/dL (Negative); Leukocyte Esterase Ur 3+ LEU/UL (Negative); Need Manual Microscopic Reviewed; Nitrate Urine Negative (Negative); Non Pathogenic Casts >20; Protein Urine 3+ mg/dL (Negative); RBC Urine 51-100 /hpf (0-2); Specific Grav Ur 1.019 (1.001-1.035); Squamous Epithelial Cell Urine Few /hpf (Few); Uric Acid Crystals Urine Present /hpf; Urobilinogen Urine 0.2 mg/dL (<2.0); WBC Urine >100 /hpf (0-3)
[2024-06-25 02:34] LABS: Amorphous Sediment Urine Moderate
[2024-06-25 02:44] LABS: Influenza A QL RT-PCR Negative (Negative); Influenza B QL RT-PCR Negative (Negative); RSV RNA, RT-PCR Negative (Negative); SARS-CoV-2 RNA PCR Negative (Negative)
[2024-06-25] MEDS: CEFEPIME 1 GM/NS 50 ML 1 GM/50 ML BAG IVPB (03:55)
[2024-06-25 04:46] LABS: Hemoglobin 7.7 g/dL (12.0-15.0)
--- NOTE | 2024-06-25 05:33 | PC.NURSE ---
[facility] updated and wishes to be contacted when patient gets a bed at [facility]; requested to ask for the Jian aviles nurse.
[2024-06-25] MEDS: VANCOMYCIN 1,000 MG/NS 250 ML 1,000 MG/250 ML BAG 250 MG IVPB (06:15)
== END 2024-06-25 08:24 | disposition short-term general hospital (02) ==
PROVIDERS: Emergency Provider Student in an Organized Health Care Education/Training Program
DX: K94.00 Colostomy complication, unspecified (principal); K92.1 Melena; E83.39 Other disorders of phosphorus metabolism; E88.09 Other disorders of plasma-protein metabolism, not elsewhere classified; D72.829 Elevated white blood cell count, unspecified; D64.9 Anemia, unspecified; D75.839 Thrombocytosis, unspecified; K80.20 Calculus of gallbladder without cholecystitis without obstruction; T83.511A Infection and inflammatory reaction due to indwelling urethral catheter, initial encounter; K52.9 Noninfective gastroenteritis and colitis, unspecified; N32.89 Other specified disorders of bladder; K55.20 Angiodysplasia of colon without hemorrhage; L89.159 Pressure ulcer of sacral region, unspecified stage; M86.60 Other chronic osteomyelitis, unspecified site; N36.8 Other specified disorders of urethra; I44.4 Left anterior fascicular block; Z20.822 Contact with and (suspected) exposure to COVID-19
CPT/HCPCS: 36415; 36430; 71045; 71260; 74177; 80053; 81001; 83605; 83735; 84484; 85014; 85018; 85025; 85610; 85730; 86850; 86900; 86901; 86923; 87086; 87186; 87637; 93005; 96361; 96365; 96366; 96367; 99285; A9270; J0692; J3370; J3480; J7030; J7050; P9016; Q9967